=== PATIENT | male | born 1945 | race Caucasian/White ===

== ENCOUNTER → 2024-04-02 | Outpatient (CLI) | payer OTHER, SELFPAY ==
[2024-04-02 09:27] LABS: Glucose Estimated Average 117 mg/dL (80-131); Hemoglobin A1C 5.7 % Hgb (4.8-6.0)
[2024-04-02 09:33] LABS: Creatinine MALB Rnd Ur 51 mg/dL (30-125); Microalbumin, Random Urine < 3 mg/L (0-300)
[2024-04-02 09:38] LABS: Alanine Aminotransferase 19 U/L (10-49); Albumin, Serum 4.3 gm/dL (3.4-4.8); Albumin/Globulin Ratio 1.8 (1.2-2.2); Alkaline Phosphatase 81 U/L (46-116); Anion Gap 5 (7-16); Aspartate Amino Transferase 20 U/L (0-34); BUN/Creatinine Ratio 20 Ratio (12-20); Bilirubin,Total 0.6 mg/dL (0.3-1.2); Blood Urea Nitrogen 24 mg/dL (9-23); Calcium 9.2 mg/dL (8.3-10.6); Calcium (Corrected) 9.2 mg/dL (8.5-10.1); Carbon Dioxide 31.3 mMol/L (20.0-31.0); Cardiac Risk Estimate 3.8 RATIO (4.0-6.7); Chloride 100 mMol/L (98-107); Cholesterol 156 mg/dL (132-200); Creatinine (Component) 1.2 mg/dL (0.6-1.3); Globulin 2.4 gm/dL (2.3-3.5); Glucose 113 mg/dL (74-106); HDL Cholesterol 41 mg/dL (40-60); LDL Cholesterol,Calculated 81 mg/dL (0-130); Osmolality,Calculated 276 (275-295); Potassium 3.3 mMol/L (3.4-5.1); Sodium 136 mMol/L (136-145); Total Protein 6.7 gm/dL (5.7-8.2); Triglycerides 169 mg/dL (30-150); eGFR > 60 See Note
== END | disposition home or self-care (01) ==
LOC: COPL 08:33
PROVIDERS: PCP Family Medicine; Referring Provider Family Medicine; Visit Provider Family Medicine
DX: E11.65 Type 2 diabetes mellitus with hyperglycemia (principal); E78.1 Pure hyperglyceridemia
CPT/HCPCS: 36415; 80053; 80061; 82043; 82570; 83036

== ENCOUNTER → 2024-05-20 | Outpatient (CLI) | payer OTHER, SELFPAY | END | disposition home or self-care (01) | LOC: SLDO 15:35 | PROVIDERS: PCP Family Medicine; Referring Provider Family Medicine; Visit Provider Family Medicine | DX: N39.0 Urinary tract infection, site not specified (principal) | CPT/HCPCS: 81001; 87077; 87086; 87186 ==

== ENCOUNTER → 2024-11-05 | Outpatient (CLI) | payer OTHER, SELFPAY ==
[2024-11-05 09:58] LABS: Basophils % (Auto) 1 % (0-2.5); Eosinophils # (Auto) 0.2 Thou/mm3 (0.0-0.5); Eosinophils % (Auto) 4 % (0-10); Hematocrit 38.5 % (41.0-53.0); Hemoglobin 13.3 g/dL (13.5-16.0); Immature Granulocytes % (Auto) 0 % (0-0); Immature Granulocytes Auto 0.01 Thou/mm3 (0.00-0.00); Lymphocytes # (Auto) 1.5 Thou/mm3 (1.0-4.8); Lymphocytes % (Auto) 26 % (10-50); Mean Corpuscular HGB Conc 34.5 g/dl (31.0-37.0); Mean Corpuscular Hemoglobin 30.9 pg (25.0-35.0); Mean Corpuscular Volume 90 fL (80-100); Monocytes # (Auto) 0.7 Thou/mm3 (0.0-0.8); Monocytes % (Auto) 12 % (0-12); Neutrophils # (Auto) 3.3 Thou/mm3 (1.8-7.7); Neutrophils % (Auto) 58 % (37-80); Nucleated Red Blood Cell % 0 /100 WBC (0); Platelet Count 216 Thou/mm3 (140-440); RDW Standard Deviation 45.6 fL (35.1-43.9); White Blood Count 5.7 Thou/mm3 (3.8-10.6)
[2024-11-05 13:44] LABS: Cocci Serology, IgM Negative (Negative)
[2024-11-06 15:35] LABS: Cocci Serology, IgG Negative (Negative)
== END | disposition home or self-care (01) ==
LOC: COPL 08:47
PROVIDERS: PCP Family Medicine; Referring Provider Family Medicine; Visit Provider Family Medicine
DX: B38.0 Acute pulmonary coccidioidomycosis (principal)
CPT/HCPCS: 36415; 85025; 86331; 86635

== ENCOUNTER → 2025-02-17 | Outpatient (CLI) | payer OTHER, SELFPAY ==
--- NOTE | 2025-02-17 10:06 | XR_ITS ---
Examination: Abdomen AP single view Technique: AP portable supine abdomen, single view Exam date and time: February 17 2025, 1020 hours INDICATIONS: Nausea beginning one week ago. FINDINGS: Large amounts of stool throughout the colon No obstruction No free air Prominent lumbar spondylosis Moderate bilateral hip osteoarthritis Foreign body overlying the left pelvis, clinical correlation advised IMPRESSION: Large amounts of stool throughout the colon
== END | disposition home or self-care (01) ==
LOC: CDIM 09:30
PROVIDERS: PCP Family Medicine; Referring Provider Family Medicine; Visit Provider Family Medicine
DX: K59.00 Constipation, unspecified (principal)
CPT/HCPCS: 74018

== ENCOUNTER → 2025-03-03 | Outpatient (CLI) | payer OTHER, SELFPAY | END | disposition home or self-care (01) | LOC: SLDO 15:04 | PROVIDERS: PCP Family Medicine; Referring Provider Family Medicine; Visit Provider Family Medicine | DX: N39.0 Urinary tract infection, site not specified (principal) | CPT/HCPCS: 87077; 87086; 87186 ==

== ENCOUNTER 2025-03-05 04:46 | Inpatient (IN) | payer OTHER, SELFPAY ==
[2025-03-05] VITALS (12 sets, daily range): BP systolic 90–148; BP diastolic 53–104; PULSE 72–136; RESP 18–26; TEMP 36.1–39.3; O2SAT 94–100; BMI 43.4; BMI 43.6
--- NOTE | 2025-03-05 04:54 | PD.EDFEVER ---
ED Fever RME/HPI General Chief Complaint: Altered Mental Status Stated Complaint: AMS Time Seen by Provider: 03/05/25 04:54 Arrival date/time: 03/05/25 04:46 RME / HPI RME / HPI Narrative: See [facility] for Dr. Munguia's HPI Documentation. Related Data Home Medications ?Medication ?Instructions ?Recorded ?Confirmed apixaban 2.5 mg tablet (Eliquis) 2.5 mg PO BID 12/25/19 12/27/19 aspirin 81 mg chewable tablet 81 mg PO QDAY 12/25/19 12/27/19 baclofen 20 mg tablet 20 mg PO TID PRN Spasms 12/25/19 12/27/19 chlorthalidone 50 mg tablet 50 mg PO QDAY 12/25/19 12/27/19 cyanocobalamin (vitamin B-12) 500 500 mcg PO QDAY 12/25/19 12/27/19 mcg tablet (Vitamin B-12) fexofenadine-pseudoephedrine ER 1 tab PO QAM 12/25/19 12/27/19 180 mg-240 mg tablet,ext.release 24 hr finasteride 5 mg tablet 5 mg PO QDAY 12/25/19 12/27/19 glipizide 5 mg tablet 5 mg PO QDAY 12/25/19 12/27/19 levothyroxine 200 mcg tablet 200 mcg PO QDAY 12/25/19 12/27/19 multivitamin (Multiple Vitamins 1 tab PO QDAY 12/25/19 12/27/19 tablet) oxycodone-acetaminophen 10 mg-325 1 tab PO TID PRN Pain 12/25/19 12/27/19 mg tablet phenazopyridine 200 mg tablet 200 mg PO BID 12/25/19 12/27/19 potassium chloride 10 mEq 10 meq PO BID 12/25/19 12/27/19 tablet,extended release pravastatin 40 mg tablet 40 mg PO DAILY 12/25/19 12/27/19 pregabalin 150 mg capsule 150 mg PO BID 12/25/19 12/27/19 pyridoxine (vitamin B6) 100 mg 100 mg PO DAILY 12/25/19 12/27/19 tablet Lactobacillus acidophilus 10 10 cell PO BID 12/27/19 12/27/19 billion cell capsule (Probiotic) albuterol sulfate 90 mcg/actuation 2 puff inhalation Q4H PRN sob 12/27/19 12/27/19 aerosol inhaler fluticasone propionate 50 2 spray intranasal QAM 12/27/19 12/27/19 mcg/actuation nasal spray,suspension folic acid 1 mg tablet 1 mg PO 5 TIMES DAILY 12/27/19 12/27/19 ginkgo biloba 120 mg tablet 120 mg PO QAM 12/27/19 12/27/19 multivitamin with minerals 1 tab PO BID 12/27/19 12/27/19 (Hair,Skin and Nails tablet) vit C 250 mg-vit E 90 mg-zinc 40 1 cap PO BID 12/27/19 12/27/19 mg-copper 1 [id number] capsule (PreserVision AREDS-2) Previous Rx's ?Medication ?Instructions ?Recorded amiodarone 200 mg tablet 200 mg PO BID #60 tabs 12/27/19 cefuroxime axetil 500 mg tablet 500 mg PO BID #20 tabs 12/27/19 furosemide 20 mg tablet (Lasix) 20 mg PO QAM #30 tabs 12/27/19 lisinopril 2.5 mg tablet 2.5 mg PO QDAY #30 tabs 12/27/19 Allergies Allergy/AdvReac Type Severity Reaction Status Date / Time latex Allergy Unknown blisters Verified 12/24/19 17:02 Review of Systems Review of Systems Systems Reviewed: All systems reviewed, normal except as documented Past Medical History Past Medical History CARDIAC: Positive Cardiac Disorders, Hypercholesterolemia and Edema RESPIRATORY: Positive Asthma and Sleep Apnea GASTROINTESTINAL: Positive Obesity GENITOURINARY: Positive Genitourinary Disorders ENDOCRINE: Positive Diabetes Mellitus Type 2 and Hypothyroidism OTHER HISTORY: Positive Hospitalization, Falls, Chicken Pox and Measles Family History FAMILY HISTORY: Positive Family Cardiac Disorders and Family Cancer Surgical History SURGICAL: Positive Joint Replacement and Open Reduction Internal Fixation Social History SMOKING STATUS: Former smoker Physical Exam Narrative Physical exam: See MDM for Dr. Munguia's Physical Exam Documentation. ED Exam Narrative Physical exam: See MDM for Dr. Munguia's Physical Exam Documentation. Course Quality Measures none Orders Category Date Time Status Bedside COVID-19 Antigen Test NOW Care 03/05/25 04:56 Active EKG (ED ONLY) *Do not use* NOW Care 03/05/25 05:00 Active Saline [Insert IV] NOW Care 03/05/25 04:56 Active Straight [In and Out Catheter] X1 Care 03/05/25 04:[address] chest abdomen pelvis wo Stat Exams 03/05/25 04:[address] head/brain wo con Stat Exams 03/05/25 05:00 Ordered EKG (ED Only) Stat Exams 03/05/25 05:00 Ordered XR chest 1V portable Stat Exams 03/05/25 05:00 Ordered ABG [Arterial Blood Gas] Stat Lab 03/05/25 05:00 Ordered Ammonia Stat Lab 03/05/25 05:00 Ordered BNP [B-Type Natriuretic Peptide] Stat Lab 03/05/25 05:00 Ordered Bilirubin,Direct Stat Lab 03/05/25 05:00 Ordered Blood Culture (Lab) Stat Lab 03/05/25 05:01 Ordered CBC Stat Lab 03/05/25 05:01 Ordered CMP [Comprehensive Metabolic Panel] Stat Lab 03/05/25 05:00 Ordered CRP [C-Reactive Protein] Stat Lab 03/05/25 05:00 Ordered Influenza A & B Rapid Panel Stat Lab 03/05/25 04:56 Ordered Lactate (Lactic Acid) Stat Lab 03/05/25 05:01 Ordered Lipase Stat Lab 03/05/25 05:00 Ordered Magnesium Stat Lab 03/05/25 05:00 Ordered Procalcitonin Stat Lab 03/05/25 05:01 Ordered TSH [Thyroid Stimulating Hormone] Stat Lab 03/05/25 05:00 Ordered Troponin I Stat Lab 03/05/25 05:00 Ordered UA, C/S IF [Urinalysis, C/S if Indicated] Stat Lab 03/05/25 05:01 Ordered Acetaminophen Ivpb [Ofirmev Inj] Med 03/05/25 04:56 Active 1,000 mg in 100 ml IV X1 Ketorolac Inj [Toradol Inj] Med 03/05/25 04:56 Discontinued 9 mg IVP X1 ONE Morphine* Inj Med 03/05/25 04:56 Discontinued 4 mg IV X1 ONE Ondansetron Inj [Zofran Inj] Med 03/05/25 04:56 Discontinued 4 mg IVP X1 ONE Sodium Chloride 0.9% 1000 ml [Ns] 1,000 ml Med 03/05/25 04:56 Active IV 999 mls/hr cefTRIAXone/D5w 1gm IV premix [Rocephin/D5w 1gm IV Med 03/05/25 04:56 Active premix] 1 g in 50 ml IV X1 Vital Signs Vital signs: Vital Signs Temperature 102.7 F H 03/05/25 04:58 Pulse Rate 134 H 03/05/25 04:58 Respiratory Rate 26 H 03/05/25 04:58 Blood Pressure 148/104 H 03/05/25 04:58 Pulse Oximetry (%) 96 03/05/25 04:58 Oxygen Delivery Method Nasal Cannula 03/05/25 04:58 Oxygen Flow Rate 3 03/05/25 04:58 Fever MDM Narrative MDM Narrative:: This section includes all my notes and documentations, including HPI, PE, and ED course. Ilan Munguia MD HPI: 79 y/o male with Hx of Type II DM and Hypercholesterolemia BIBA from home with fever and confusion for several hours. Currently being treated for UTI. He feels the fever and reports chills and aches and severe low back pain. No cough. No other complaints. ROS: All negative except as documented in HPI. Physical Exam: General: Alert and oriented. In obvious pain. Hypoxia noted. Fever noted. Eyes: Conjunctivae and lids clear. EOMI. PERRL. ENT: No nasal congestion. Pharynx normal. Tympanic membrane normal bilaterally. Neck: Supple. No carotid bruit. No JVD. Heart: Sinus tachycardia noted. Lungs: No respiratory distress. Mildly decreased air movement with rales. Abdomen: Soft and nontender. Normal bowel sounds. No distension. No rebound or guarding. Back: Low back tenderness noted, difficult to localize. Legs: No clubbing, cyanosis, edema. Skin: Warm and dry. Stage I and II decubitus sacral ulcer noted with plum sized mass. Neuro: Alert and oriented X 3. Cranial Nerves II-XII grossly intact. No peripheral motor deficits. I reviewed EMS notes. At this point, diagnoses include: Fever Low back pain Sacral decubitus ulcer Sacral mass AMS (altered mental status) I ordered IV fluid, Zofran 4 mg IV, morphine 4 mg IV, Toradol 9 mg IV, Tylenol 1000 mg IV, Rocephin 1 g IV, and diagnostic tests. At 6 AM on 03/05/2025, the care of the patient was transferred to Dr. DILLARD. Ilan Munguia MD Patient data External records reviewed:: [facility] previous records (Reviewed prior ED records from 12/21/23. Patient was seen for Knee pain.) and EMS form Clinical information provided by:: patient and EMS Social determinants that could affect healthcare access:: none Patient has the following chronic illnesses:: Hypercholesterolemia, Edema, Asthma, Sleep Apnea, Obesity, Diabetes Mellitus Type 2, and Hypothyroidism How is presenting disease/condition affected by chronic disease/condition?: exacerbated by Evaluation data The following diagnostics were reviewed and interpreted by me:: lab results, radiology exam(s) and EKG tracing(s) Lab and/or radiology exams considered but not ordered:: None Interpretation Summary: Complete diagnostic tests are pending. Medications / Prescriptions Medications or Prescriptions considered but not ordered:: None Medication administrations:: Medication Administration History Acetaminophen (Ofirmev Inj) 1,000 mg in 100 mls @ 250 mls/hr IV X1 ONE Stop: 03/05/25 05:19 Ceftriaxone Sodium/Dextrose (Rocephin/D5w 1gm Iv Premix) 1 g in 50 mls @ 100 mls/hr IV X1 ONE Stop: 03/05/25 05:25 Sodium Chloride (Ns) 1,000 mls @ 999 mls/hr IV .Q1H1M ONE Stop: 03/05/25 05:56 Discontinued Medications Ketorolac Tromethamine (Ketorolac Inj 30 Mg/Ml Vial) 9 mg IVP X1 ONE Stop: 03/05/25 04:57 Morphine Sulfate (Morphine Sulf Inj 4 Mg/Ml Vial) 4 mg IV X1 ONE Stop: 03/05/25 04:57 Ondansetron HCl (Ondansetron Inj 2 Mg/Ml Inj 2 Ml) 4 mg IVP X1 ONE; Protocol Stop: 03/05/25 04:57 I ordered IV fluid, Zofran 4 mg IV, morphine 4 mg IV, Toradol 9 mg IV, Tylenol 1000 mg IV, and Rocephin 1 g IV. Consultations Consultation(s) initiated? (list below): No Diagnosis Fever Differential Diagnosis: cellulitis, fever of unknown origin, gastroenteritis, community acquired pneumonia, pyelonephritis, viral infection, sepsis and influenza Most likely diagnosis given after review of the tests above:: Complete diagnostic tests are pending. Admission Indicated Admission indicated?: not indicated Explain why admission is indicated or not indicated:: Complete diagnostic tests are pending. Admission Request Was there a request for admission?: No Disposition Plan Disposition Plan: other (specify) ( At 6 AM on 03/05/2025, the care of the patient was transferred to Dr. DILLARD.) Discharge Plan Prescriptions/Referrals Prescriptions/Med Rec: No Action chlorthalidone 50 mg Tablet 50 mg PO QDAY baclofen 20 mg Tablet 20 mg PO TID PRN (Reason: Spasms) aspirin 81 mg Tablet,Chewable 81 mg PO QDAY finasteride 5 mg Tablet 5 mg PO QDAY Eliquis 2.5 mg Tablet 2.5 mg PO BID multivitamin [Multiple Vitamins] Tablet 1 tab PO QDAY pravastatin 40 mg Tablet 40 mg PO DAILY phenazopyridine 200 mg Tablet 200 mg PO BID potassium chloride 10 mEq Tablet Extended Release 10 meq PO BID oxycodone-acetaminophen 10-325 mg Tablet 1 tab PO TID PRN (Reason: Pain) levothyroxine 200 mcg Tablet 200 mcg PO QDAY glipizide 5 mg Tablet 5 mg PO QDAY pregabalin 150 mg Capsule 150 mg PO BID cyanocobalamin (vitamin B-12) [Vitamin B-12] 500 mcg Tablet 500 mcg PO QDAY pyridoxine (vitamin B6) 100 mg Tablet 100 mg PO DAILY fexofenadine-pseudoephedrine 180-240 mg Tablet Extended Release 24 Hr 1 tab PO QAM multivitamin with minerals [Hair,Skin and Nails] Tablet 1 tab PO BID albuterol sulfate 90 mcg/actuation Hfa Aerosol Inhaler 2 puff INHALATION Q4H PRN (Reason: sob) fluticasone propionate 50 mcg/actuation spray,suspension 2 spray INTRANASAL QAM ginkgo biloba 120 mg Tablet 120 mg PO QAM Probiotic 10 billion cell Capsule 10 cell PO BID PreserVision AREDS-2 [id number] [id number]-mg Capsule 1 cap PO BID folic acid 1 mg tablet 1 mg PO 5 TIMES DAILY Patient Comments: TAKE 1 TABLET BY MOUTH FIVE TIMES A DAY Rx Instructions: per [facility] amiodarone 200 mg tablet 200 mg PO BID Qty: 60 0RF cefuroxime axetil 500 mg tablet 500 mg PO BID Qty: 20 0RF furosemide [Lasix] 20 mg tablet 20 mg PO QAM Qty: 30 0RF lisinopril 2.5 mg tablet 2.5 mg PO QDAY Qty: 30 0RF Problem List Clinical Impression: Fever, Low back pain, Sacral decubitus ulcer, Sacral mass, AMS (altered mental status) Patient/Caregiver Discharge Instructions Print Language: Slovenian
--- NOTE | 2025-03-05 04:59 | XR_ITS ---
Examination: CT chest, without intravenous contrast. CT abdomen, without intravenous contrast. CT pelvis, without intravenous contrast. 2-D sagittal and coronal reconstructions. 3-D reconstructions. Date and time of exam: March 05, 2025, 0533 hours INDICATIONS: Onset hypoxia shortness of breath fever back pain sacral ulcer nonhealing wound noticed today CTDI vol (mgy) 17.41 DLP (MGycm) 1527 Technique: Multiple CT images, 3.0 mm slice thickness, obtained chest, abdomen, pelvis, with the high-resolution 64 slice scanner.. Sagittal and coronal 2-D reconstructions are obtained. 3-D reconstructions Low dose protocols were performed. One or more of the following dose reduction techniques were used; automated exposure control, adjustment of the mA and/or KV according to patient size, use of iterative reconstruction technique. Findings: Mild aneurysmal dilatation ascending thoracic aorta 4.3 cm Pulmonary artery segments are not enlarged. Heavy calcification left anterior descending coronary artery. No mediastinal lymphadenopathy. No pneumonia pulmonary edema or pleural disease No visualized liver or splenic lesion No definite gallstones No pancreatic or adrenal mass No renal calculi Left perinephric stranding with mild left hydronephrosis Aortic calcification no aneurysmal dilatation Normal appendix No bowel obstruction No diverticulitis Urinary bladder intact No ureteral calculi Abundant stool in the rectum Severe osteopenia with diffuse thoracic and lumbar degenerative disc disease IMPRESSION: Mild aneurysmal dilatation ascending thoracic aorta No pneumonia or pulmonary edema. Left perinephric stranding, consider urinary tract infection
--- NOTE | 2025-03-05 05:00 | XR_ITS ---
Examination: CT brain head without contrast. 2-D sagittal coronal reconstructions Date and time of exam: March 05, 2025, 0529 hours INDICATIONS: Onset altered mental status today CTDI: vol (mGy): 102.60 DLP: (mGycm): 2177 Technique: Multiple CT axial sections of the brain have been obtained, 5 mm slice thickness. Contrast has not been administered. 2-D sagittal, coronal reconstructions have been obtained Low dose protocols were performed. One or more of the following dose reduction techniques were used; automated exposure control, adjustment of the mA and/or KV according to patient size, use of iterative reconstruction technique. Findings: No significant ventricular enlargement. Intra-axial or extra-axial hemorrhage density is not seen. No mass effect or midline shift Basal cisterns are not remarkable. Fourth ventricle is midline. Cranial vault intact. Impression: Patient motion degrades scan image quality No gross hemorrhage mass effect or midline shift
--- NOTE | 2025-03-05 05:00 | XR_ITS ---
EXAMINATION: AP chest single view TECHNIQUE: AP portable semiupright chest single view Date and time: March 05, 2025, 0539 hours, comparison: December 24, 2019 INDICATIONS: Shortness of breath chest pain fever today FINDINGS: Suspicious for early pneumonia left base Right lung clear The osseous structures are intact IMPRESSION: Suspicious for early pneumonia left base
--- NOTE | 2025-03-05 05:00 | EKG_ITS ---
[facility] Test Date: 2025-03-05 Pat Name: SONIA LOONEY Department: Room: - Gender: Male [employer]er: : 1945 Requested By: Ilan Amador Order Number: [id number] Reading MD: Ilan Amador Measurements Intervals [place] Rate: 128 P: SD: QRS: -81 QRSD: 151 T: 14 QT: 352 QTc: 515 Interpretive Statements ATRIAL FLUTTER/TACHYCARDIA WITH RAPID VENTRICULAR RESPONSE RIGHT BUNDLE BRANCH BLOCK [120+ ms QRS DURATION, UPRIGHT V1, 40+ ms S IN I/aVL/V4/V5/V6] LEFT ANTERIOR FASCICULAR BLOCK [QRS AXIS <= -45, QR IN I, RS IN II] No previous ECG available for comparison /store/S0/[id number].pdf
[2025-03-05] MEDS: ONDANSETRON INJ 2 MG/ML INJ 2 ML 4 MG IVP (05:16)
[2025-03-05] MEDS: MORPHINE SULF INJ 4 MG/ML VIAL IV (05:17)
[2025-03-05] MEDS: KETOROLAC INJ 30 MG/ML VIAL 9 MG IVP (05:17)
[2025-03-05 05:22] LABS: Collection Type, Urine Clean Catch
[2025-03-05 05:40] LABS: Bilirubin,Urine Negative (Negative); Blood,Urine Negative (Negative); Clarity,Urine Turbid (Clear/Hazy); Color,Urine Yellow (Lt Yel-Yel); Culture Indicated,Urine Contaminated; Glucose, Urine Negative (Negative); Ketones,Urine Negative (Negative); Leukocyte Esterase,Urine Positive (Negative); Nitrite,Urine Negative (Negative); PH,Urine 7.0 (5.0-7.0); Protein,Urine Trace (Neg - Trace); RBC,Urine 20 /hpf (0-3); Specific Gravity,Urine 1.016 (1.001-1.035); Squamous Epithelial Cell,Urine 14 /hpf (0-5); Urobilinogen,Urine Negative mg/dL (0.0-1.0); WBC,Urine 184 /hpf (0-5)
[2025-03-05 05:41] LABS: Lactate (Lactic Acid) 3.0 mMol/L (0.4-2.0)
[2025-03-05] MEDS: SODIUM CHLORIDE 0.9% 1000 ML 1,000 ML 999 ML IV (05:42)
[2025-03-05 05:43] LABS: Basophils # (Auto) 0.1 Thou/mm3 (0.0-0.2); Basophils % (Auto) 0 % (0-2.5); Eosinophils # (Auto) 0.1 Thou/mm3 (0.0-0.5); Eosinophils % (Auto) 0 % (0-10); Hematocrit 40.9 % (41.0-53.0); Hemoglobin 14.0 g/dL (13.5-16.0); Immature Granulocytes Auto 0.23 Thou/mm3 (0.00-0.00); Lymphocytes # (Auto) 0.2 Thou/mm3 (1.0-4.8); Lymphocytes % (Auto) 1 % (10-50); Mean Corpuscular HGB Conc 34.2 g/dl (31.0-37.0); Mean Corpuscular Hemoglobin 31.1 pg (25.0-35.0); Mean Corpuscular Volume 91 fL (80-100); Monocytes # (Auto) 0.6 Thou/mm3 (0.0-0.8); Monocytes % (Auto) 3 % (0-12); Neutrophils # (Auto) 18.2 Thou/mm3 (1.8-7.7); Neutrophils % (Auto) 95 % (37-80); Nucleated Red Blood Cell # 0.00 Thou/mm3 (0.00-0.00); Nucleated Red Blood Cell % 0 /100 WBC (0); Platelet Count 240 Thou/mm3 (140-440); RDW Standard Deviation 43.8 fL (35.1-43.9); Red Blood Count 4.50 Miln/mm3 (4.50-5.90); White Blood Count 19.3 Thou/mm3 (3.8-10.6)
[2025-03-05] MEDS: cefTRIAXone/D5w 1gm IV premix 1 G/50 ML BAG IV (05:44)
[2025-03-05] MEDS: ACETAMINOPHEN IVPB 1,000 MG/100 ML VIAL 250 MG IV (05:46)
--- NOTE | 2025-03-05 05:46 | PRELIM_ITS ---
CT scan of the head without intravenous contrast (axial sections with sagittal and coronal reformats). March 05, 2025 0529 hours Clinical History: AMS Comparison: None Findings: Motion artifact limits evaluation, especially of the posterior fossa. There is no definite intracranial hemorrhage, extra-axial collection, mass, mass-effect or midline shift. There is good juarez-white differentiation. There is no CT evidence of acute large vascular territorial infarct. Ventricles are not enlarged or effaced. There are vascular calcifications along the carotid siphons bilaterally. Visualized paranasal sinuses and tympanomastoid cavities are clear. The bony calvarium is intact. Impression: Motion artifact limits evaluation. No definite intracranial hemorrhage, mass- effect or midline shift. No CT evidence of acute large vascular territorial infarct. Report Electronically Signed By: Kevin Aguirre 03/05/2025 5:46:30 AM [EST]
[2025-03-05 06:05] LABS: Ammonia 25 uMol/L (11-32)
[2025-03-05 06:15] LABS: Alanine Aminotransferase 21 U/L (10-49); Albumin, Serum 4.1 gm/dL (3.4-4.8); Albumin/Globulin Ratio 1.7 (1.2-2.2); Alkaline Phosphatase 66 U/L (46-116); Anion Gap 12 (7-16); Aspartate Amino Transferase 24 U/L (0-34); B-Type Natriuretic Peptide 155 pg/mL (0-100); BUN/Creatinine Ratio 16 Ratio (12-20); Bilirubin,Direct 0.3 mg/dL (0.0-0.3); Bilirubin,Total 0.7 mg/dL (0.3-1.2); Blood Urea Nitrogen 22 mg/dL (9-23); C-Reactive Protein 5.4 mg/dL (0.0-0.9); Calcium 8.8 mg/dL (8.3-10.6); Calcium (Corrected) 8.8 mg/dL (8.5-10.1); Carbon Dioxide 28.9 mMol/L (20.0-31.0); Chloride 97 mMol/L (98-107); Creatinine (Component) 1.4 mg/dL (0.6-1.3); Estimated Creatinine Clearance 64.3 mL/min (>60); Globulin 2.4 gm/dL (2.3-3.5); Glucose 181 mg/dL (74-106); Lipase 100 U/L (12-53); Magnesium 2.2 mg/dL (1.6-2.6); Osmolality,Calculated 283 (275-295); Potassium 4.0 mMol/L (3.4-5.1); Procalcitonin 0.78 ng/ml (0.0-0.49); Sodium 138 mMol/L (136-145); Thyroid Stimulating Hormone 0.51 uIU/mL (0.55-4.78); Total Protein 6.5 gm/dL (5.7-8.2); Troponin I < 0.020 ng/mL (0.0-0.045); eGFR 51 See Note
[2025-03-05 06:16] LABS: Base Excess 1 (-3-3); HCO3 27 mEq/L (20-26); O2 Saturation 96 % (91-98); PCO2 48 mmHg (32.0-48.0); PO2 78 mmHg (83-108); pH, Arterial 7.36 (7.35-7.45)
[2025-03-05 06:17] LABS: Allen Test Performed/OK; Inspired O2, VO2 Liters 1 L/min; Puncture Site Left Brachial
--- NOTE | 2025-03-05 06:19 | PD.EDAMS ---
Altered Mental Status RME/HPI General Chief Complaint: Altered Mental Status Stated Complaint: AMS Time Seen by Provider: 03/05/25 04:54 Arrival date/time: 03/05/25 04:46 RME / HPI RME / HPI narrative: DR. SCHNEIDER MAIN ED EVALUATION: 79 yo male patient TRE from home for AMS. Majority of history provided by . states he normally sleeps in an easy chair in the living room. She heard him overnight breathing differently. She checked on him and offered to call EMS but he refused. Around 3am she called EMS. He refused transport. Called again later and patient transported. Per , patient self catheterizes three times a day for urine due to retention. On Friday he noticed the urine was cloudy and went to his PCP for a UA. Resulted yesterday and started on antibiotic. Has only received one dose. History of UTI with sepsis. Patient c/o chronic back and leg pain. Related Data Home Medications ?Medication ?Instructions ?Recorded ?Confirmed apixaban 2.5 mg tablet (Eliquis) 2.5 mg PO BID 12/25/19 12/27/19 aspirin 81 mg chewable tablet 81 mg PO QDAY 12/25/19 12/27/19 baclofen 20 mg tablet 20 mg PO TID PRN Spasms 12/25/19 12/27/19 chlorthalidone 50 mg tablet 50 mg PO QDAY 12/25/19 12/27/19 cyanocobalamin (vitamin B-12) 500 500 mcg PO QDAY 12/25/19 12/27/19 mcg tablet (Vitamin B-12) fexofenadine-pseudoephedrine ER 1 tab PO QAM 12/25/19 12/27/19 180 mg-240 mg tablet,ext.release 24 hr finasteride 5 mg tablet 5 mg PO QDAY 12/25/19 12/27/19 glipizide 5 mg tablet 5 mg PO QDAY 12/25/19 12/27/19 levothyroxine 200 mcg tablet 200 mcg PO QDAY 12/25/19 12/27/19 multivitamin (Multiple Vitamins 1 tab PO QDAY 12/25/19 12/27/19 tablet) oxycodone-acetaminophen 10 mg-325 1 tab PO TID PRN Pain 12/25/19 12/27/19 mg tablet phenazopyridine 200 mg tablet 200 mg PO BID 12/25/19 12/27/19 potassium chloride 10 mEq 10 meq PO BID 12/25/19 12/27/19 tablet,extended release pravastatin 40 mg tablet 40 mg PO DAILY 12/25/19 12/27/19 pregabalin 150 mg capsule 150 mg PO BID 12/25/19 12/27/19 pyridoxine (vitamin B6) 100 mg 100 mg PO DAILY 12/25/19 12/27/19 tablet Lactobacillus acidophilus 10 10 cell PO BID 12/27/19 12/27/19 billion cell capsule (Probiotic) albuterol sulfate 90 mcg/actuation 2 puff inhalation Q4H PRN sob 12/27/19 12/27/19 aerosol inhaler fluticasone propionate 50 2 spray intranasal QAM 12/27/19 12/27/19 mcg/actuation nasal spray,suspension folic acid 1 mg tablet 1 mg PO 5 TIMES DAILY 12/27/19 12/27/19 ginkgo biloba 120 mg tablet 120 mg PO QAM 12/27/19 12/27/19 multivitamin with minerals 1 tab PO BID 12/27/19 12/27/19 (Hair,Skin and Nails tablet) vit C 250 mg-vit E 90 mg-zinc 40 1 cap PO BID 12/27/19 12/27/19 mg-copper 1 [id number]-[id number]-[id number] capsule (PreserVision AREDS-2) Previous Rx's ?Medication ?Instructions ?Recorded amiodarone 200 mg tablet 200 mg PO BID #60 tabs 12/27/19 cefuroxime axetil 500 mg tablet 500 mg PO BID #20 tabs 12/27/19 furosemide 20 mg tablet (Lasix) 20 mg PO QAM #30 tabs 12/27/19 lisinopril 2.5 mg tablet 2.5 mg PO QDAY #30 tabs 12/27/19 Allergies Allergy/AdvReac Type Severity Reaction Status Date / Time latex Allergy Unknown blisters Verified 12/24/19 17:02 Review of Systems Review of Systems ROS Unobtainable: unobtainable due to mental status Past Medical History Past Medical History CARDIAC: Positive Cardiac Disorders, Hypercholesterolemia and Edema RESPIRATORY: Positive Asthma and Sleep Apnea GASTROINTESTINAL: Positive Obesity GENITOURINARY: Positive Genitourinary Disorders ENT: Positive Macular Degeneration ENDOCRINE: Positive Diabetes Mellitus Type 2 and Hypothyroidism OTHER HISTORY: Positive Hospitalization, Falls, Chicken Pox and Measles Family History FAMILY HISTORY: Positive Family Cardiac Disorders and Family Cancer Surgical History SURGICAL: Positive Joint Replacement and Open Reduction Internal Fixation Social History SMOKING STATUS: Former smoker SECOND HAND EXPOSURE: No SUBSTANCE USE: does not use ALCOHOL: Never ED Exam Narrative Physical exam: GENERAL APPEARANCE: alert and oriented, well-developed, well-nourished, responding well but slow to respond; obese VITALS: All vitals were reviewed and the pulse ox is 95% on 3 L/min via a nasal cannula. HEENT: Normocephalic, atraumatic; pupils equal, round, reactive to light; EOMI; mucous membranes pink, moist; oropharynx clear NECK: Supple LUNGS: CTABL; no wheezes, no rales, no rhonchi HEART: Regular rate, regular rhythm; normal S1, S2; no murmurs ABDOMEN: non distended; normal BS; soft, no tenderness, no guarding, no rebound; no masses, no organomegaly, no hernia BACK: no CVA tenderness EXTREMITIES: atraumatic; + bilateral leg edema NEUROLOGIC: awake; alert and oriented; cranial nerves II-XII grossly intact; no focal sensory or motor deficits; responding well but slow to respond PSYCHIATRIC: appropriate mood and affect SKIN: warm, dry, normal color; no rashes Course Quality Measures none Orders Category Date Time Status Bedside COVID-19 Antigen Test NOW Care 03/05/25 04:56 Active EKG (ED ONLY) *Do not use* NOW Care 03/05/25 05:00 Completed [place] [facility] [place] Routine Care 03/05/25 07:59 Ordered Saline [Insert IV] NOW Care 03/05/25 04:56 Active Straight [In and Out Catheter] X1 Care 03/05/25 04:[address] chest abdomen pelvis wo Stat Exams 03/05/25 04:[address] head/brain wo con Stat Exams 03/05/25 05:00 Completed EKG (ED Only) Stat Exams 03/05/25 05:00 Draft XR chest 1V portable Stat Exams 03/05/25 05:00 Completed ABG [Arterial Blood Gas] Stat Lab 03/05/25 06:12 Completed Ammonia Stat Lab 03/05/25 05:12 Completed BNP [B-Type Natriuretic Peptide] Stat Lab 03/05/25 05:12 Completed Bilirubin,Direct Stat Lab 03/05/25 05:12 Completed Blood Culture (Lab) Stat Lab 03/05/25 05:12 Received CBC Stat Lab 03/05/25 05:12 Completed CMP [Comprehensive Metabolic Panel] Stat Lab 03/05/25 05:12 Completed CRP [C-Reactive Protein] Stat Lab 03/05/25 05:12 Completed Free T4 (Free Thyroxine) Stat Lab 03/05/25 05:12 Completed Influenza A & B Rapid Panel Stat Lab 03/05/25 05:20 Completed Lactate (Lactic Acid) Stat Lab 03/05/25 05:12 Completed Lactic Acid, 3 HR Stat Lab 03/05/25 09:09 Completed Lipase Stat Lab 03/05/25 05:12 Completed Magnesium Stat Lab 03/05/25 05:12 Completed Procalcitonin Stat Lab 03/05/25 05:12 Completed TSH [Thyroid Stimulating Hormone] Stat Lab 03/05/25 05:12 Completed Troponin I Stat Lab 03/05/25 05:12 Completed UA, C/S IF [Urinalysis, C/S if Indicated] Stat Lab 03/05/25 05:12 Completed Urine Culture Stat Lab 03/05/25 05:12 Received Acetaminophen Ivpb [Ofirmev Inj] Med 03/05/25 04:56 Discontinued 1,000 mg in 100 ml IV X1 Ketorolac Inj [Toradol Inj] Med 03/05/25 04:56 Discontinued 9 mg IVP X1 ONE Morphine* Inj Med 03/05/25 04:56 Discontinued 4 mg IV X1 ONE Ondansetron Inj [Zofran Inj] Med 03/05/25 04:56 Discontinued 4 mg IVP X1 ONE Sodium Chloride 0.9% 1000 ml [Ns] 1,000 ml Med 03/05/25 04:56 Discontinued IV 999 mls/hr cefTRIAXone/D5w 1gm IV premix [Rocephin/D5w 1gm IV Med 03/05/25 04:56 Discontinued premix] 1 g in 50 ml IV X1 Reevaluation(s) Reevaluation #1: Nurse reported there was a little bright red blood when checking the rectal temperature. Time: 06:44 Vital Signs Vital signs: Vital Signs Temperature 102.7 F H 03/05/25 04:58 Pulse Rate 134 H 03/05/25 04:58 Respiratory Rate 26 H 03/05/25 04:58 Blood Pressure 148/104 H 03/05/25 04:58 Pulse Oximetry (%) 96 03/05/25 04:58 Oxygen Delivery Method Nasal Cannula 03/05/25 04:58 Oxygen Flow Rate 3 03/05/25 04:58 Altered Mental Status MDM Narrative MDM Narrative:: I, Starr Sarbjit, am scribing for and in the presence of Dr. Schneider. 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 How is presenting disease/condition affected by chronic disease/condition?: exacerbated by Evaluation data The following diagnostics were reviewed and interpreted by me:: lab results, radiology exam(s) and EKG tracing(s) (My interpretation: EKG performed at 0615 hours, sinus tachycardia, rate 128, right bundle branch block, Q wave in 2, 3, and IVF) Lab and/or radiology exams considered but not ordered:: none Interpretation Summary: Procedure(s): CT chest abdomen pelvis wo Accession Number(s): [id number] cc: Ilan Munguia MD; Oj Eason MD; Lazaro Banda MD~ Examination: CT chest, without intravenous contrast. CT abdomen, without intravenous contrast. CT pelvis, without intravenous contrast. 2-D sagittal and coronal reconstructions. 3-D reconstructions. Date and time of exam: March 05, 2025, 0533 hours INDICATIONS: Onset hypoxia shortness of breath fever back pain sacral ulcer nonhealing wound noticed today CTDI vol (mgy) 17.41 DLP (MGycm) 1527 Technique: Multiple CT images, 3.0 mm slice thickness, obtained chest, abdomen, pelvis, with the high-resolution 64 slice scanner.. Sagittal and coronal 2-D reconstructions are obtained. 3-D reconstructions Low dose protocols were performed. One or more of the following dose reduction techniques were used; automated exposure control, adjustment of the mA and/or KV according to patient size, use of iterative reconstruction technique. Findings: Mild aneurysmal dilatation ascending thoracic aorta 4.3 cm Pulmonary artery segments are not enlarged. Heavy calcification left anterior descending coronary artery. No mediastinal lymphadenopathy. No pneumonia pulmonary edema or pleural disease No visualized liver or splenic lesion No definite gallstones No pancreatic or adrenal mass No renal calculi Left perinephric stranding with mild left hydronephrosis Aortic calcification no aneurysmal dilatation Normal appendix No bowel obstruction No diverticulitis Urinary bladder intact No ureteral calculi Abundant stool in the rectum Severe osteopenia with diffuse thoracic and lumbar degenerative disc disease IMPRESSION: Mild aneurysmal dilatation ascending thoracic aorta No pneumonia or pulmonary edema. Left perinephric stranding, consider urinary tract infection Dictated By: Oj Eason MD Procedure(s): XR chest 1V portable Accession Number(s): [id number] cc: Ilan Munguia MD; Oj Eason MD; Lazaro Banda MD~ EXAMINATION: AP chest single view TECHNIQUE: AP portable semiupright chest single view Date and time: March 05, 2025, 0539 hours, comparison: December 24, 2019 INDICATIONS: Shortness of breath chest pain fever today FINDINGS: Suspicious for early pneumonia left base Right lung clear The osseous structures are intact IMPRESSION: Suspicious for early pneumonia left base Dictated By: Oj Eason MD Procedure(s): CT head/brain wo con Accession Number(s): [id number] cc: Ilan Munguia MD; Oj Eason MD; Lazaro Banda MD~ Examination: CT brain head without contrast. 2-D sagittal coronal reconstructions Date and time of exam: March 05, 2025, 0529 hours INDICATIONS: Onset altered mental status today CTDI: vol (mGy): 102.60 DLP: (mGycm): 2177 Technique: Multiple CT axial sections of the brain have been obtained, 5 mm slice thickness. Contrast has not been administered. 2-D sagittal, coronal reconstructions have been obtained Low dose protocols were performed. One or more of the following dose reduction techniques were used; automated exposure control, adjustment of the mA and/or KV according to patient size, use of iterative reconstruction technique. Findings: No significant ventricular enlargement. Intra-axial or extra-axial hemorrhage density is not seen. No mass effect or midline shift Basal cisterns are not remarkable. Fourth ventricle is midline. Cranial vault intact. Impression: Patient motion degrades scan image quality No gross hemorrhage mass effect or midline shift Dictated By: Oj Eason MD Medications / Prescriptions Medications or Prescriptions considered but not ordered:: none Medication administrations:: Medication Administration History Acetaminophen (Acetaminophen 325 Mg Tablet) 650 mg PO Q6H PRN PRN Reason: Fever >101.5 Stop: 04/04/25 08:39 Albuterol/Ipratropium (Albuterol/Ipratropium (Duoneb) Rt Lilli 3 Ml Nebu) 3 ml INH Q2HR PRN PRN Reason: SHORTNESS OF BREATH OR WHEEZE Stop: 04/04/25 08:56 Apixaban (Apixaban 2.5 Mg Tablet) 5 mg PO BID [facility] Stop: 04/04/25 08:59 Last Admin: 03/05/25 09:13 Dose: 5 mg Documented By: EF Lactated Ringer's (Lactated Ringers) 1,000 mls @ 75 mls/hr IV .[id number] [facility] Stop: 04/04/25 08:44 Last Admin: 03/05/25 09:12 Dose: 75 mls/hr Documented By: SHAW Meropenem 1,000 mg/ Sodium (Chloride) 50 mls @ 100 mls/hr IV Q8HR [facility] Stop: 03/12/25 13:59 Ondansetron HCl (Ondansetron Inj 2 Mg/Ml Inj 2 Ml) 4 mg IVP Q6H PRN; Protocol PRN Reason: NAUSEA OR VOMITING Stop: 04/04/25 08:39 Oxycodone/Acetaminophen (Oxycodone/Apap 5/325 Tablet) 1 tab PO Q6H PRN PRN Reason: PAIN SCALE 4-6 (Moderate Stop: 03/10/25 08:39 Discontinued Medications Acetaminophen (Ofirmev Inj) 1,000 mg in 100 mls @ 250 mls/hr IV X1 ONE Stop: 03/05/25 05:19 Last Infusion: 03/05/25 06:20 Dose: Infused Documented By: Admin: 03/05/25 05:46 Dose: 250 mls/hr Documented By: JEF Ceftriaxone Sodium/Dextrose (Rocephin/D5w 1gm Iv Premix) 1 g in 50 mls @ 100 mls/hr IV X1 ONE Stop: 03/05/25 05:25 Last Infusion: 03/05/25 06:20 Dose: Infused Documented By: Admin: 03/05/25 05:44 Dose: 100 mls/hr Documented By: JEF Sodium Chloride (Ns) 1,000 mls @ 999 mls/hr IV .Q1H1M ONE Stop: 03/05/25 05:56 Last Infusion: 03/05/25 06:20 Dose: Infused Documented By: Admin: 03/05/25 05:42 Dose: 999 mls/hr Documented By: JEF Ketorolac Tromethamine (Ketorolac Inj 30 Mg/Ml Vial) 9 mg IVP X1 ONE Stop: 03/05/25 04:57 Last Admin: 03/05/25 05:17 Dose: 9 mg Documented By: JEF Morphine Sulfate (Morphine Sulf Inj 4 Mg/Ml Vial) 4 mg IV X1 ONE Stop: 03/05/25 04:57 Last Admin: 03/05/25 05:17 Dose: 4 mg Documented By: JEF Ondansetron HCl (Ondansetron Inj 2 Mg/Ml Inj 2 Ml) 4 mg IVP X1 ONE; Protocol Stop: 03/05/25 04:57 Last Admin: 03/05/25 05:16 Dose: 4 mg Documented By: JEF see above Consultations Consultation(s) initiated? (list below): Yes Consultation #1 (Physician, Specialty, Details): Discussed test HPI, PMHx, lab, radiology results and/or management with Dr. Mendenhall. Will admit for further evaluation and management. Accepts patient for admission. Time: 09:23 Diagnosis Differential diagnosis altered mental status: other (urosepsis, metabolic encephalopathy, and intracranial pathology) Most likely diagnosis given after review of the tests above:: See below under clinical impression Admission Indicated Admission indicated?: indicated Admission Request Was there a request for admission?: Yes Admission Attestation Admission request attestation: Discussed case with [] from Hospitalist service regarding admission. Discussed patients ED course, exam findings, labs, and radiology results. The Hospitalist [agrees,declines] to accept the patient for admission. Disposition Plan Disposition Plan: Admit Discharge Plan Plan Patient Disposition: Admit Acute Care w/in Hospital Problem List Clinical Impression: Fever, Low back pain, Sacral decubitus ulcer, Sacral mass, AMS (altered mental status)
[2025-03-05 06:26] LABS: Influenza A Ag Negative; Influenza B Ag Negative
--- NOTE | 2025-03-05 06:38 | PC.NURSE ---
made dr rome aware of scant bright red rectal bleeding coming from pts buttocks
--- NOTE | 2025-03-05 06:58 | PRELIM_ITS ---
CT scan of the chest, abdomen and pelvis without intravenous contrast (axial sections with sagittal and coronal reformats) March 05, 2025 0533 hours Clinical History: HYPOXIA, SOB, FEVER, BACK PAIN, SACRAL ULCER/MASS. Comparison: No prior study is available for comparison. Findings: The lungs are clear. There is no pleural effusion or pneumothorax. The aorta demonstrates mild atheromatous calcification without aneurysm on this noncontrast study. No evidence of mediastinal mass or lymphadenopathy. Coronary artery calcification is noted. There is no pericardial effusion. Fullness of the left renal pelvis is noted. No evidence of renal/ureteric calculus or hydroureteronephrosis. The liver, gallbladder, spleen, pancreas and adrenals are unremarkable on this noncontrast study. No evidence of bowel obstruction. The appendix is within normal limits (images [id number], series 2). The aorta and its branches demonstrate atheromatous calcification without evidence of aneurysm. The urinary bladder is unremarkable. There is no free fluid or free air. Moderate degenerative changes are identified in the spine. No mass is seen in the sacrum and sacral region. A small fat-containing umbilical hernia is present. Impression: No evidence of acute intrathoracic, intraabdominal or pelvic pathology on this noncontrast study. Report Electronically Signed By: Estela Lopez 03/05/2025 6:57:57 AM [EST]
[2025-03-05 07:09] LABS: Free T4 (Free Thyroxine) 1.73 ng/dL (0.89-1.76)
[2025-03-05 08:38] LABS: Reflex Lactate? Y
[2025-03-05] MEDS: RINGERS LACTATED 1000 ML 1,000 ML 75 ML IV ×2 (09:12→22:04)
[2025-03-05] MEDS: APIXABAN 2.5 MG TABLET 5 MG PO ×2 (09:13→20:58)
[2025-03-05 09:25] LABS: Lactic Acid, 3 HR 2.1 mMol/L (0.4-2.0)
--- NOTE | 2025-03-05 11:02 | PD.HHHP ---
Documentation for date of: 03/05/25 HPI - Hospitalist History of Present Illness History of present illness: Patient is a 79-year-old male with a medical history of atrial fibrillation on Eliquis, primary hypertension, hyperlipidemia, hypothyroidism, chronic urinary retention and straight catheterization, obesity, asthma/COPD, recurrent UTIs, chronic back pain, bedbound, decubitus ulcer, and history of DVT presents to [facility] emergency department on 03/05/2025 with chief complaints of altered mental status, shortness of breath, and urinary symptoms. Patient has a history of recurrent urinary tract infections. On Friday he endorsed dysuria and cloudy urine. He was prescribed oral nitrofurantoin and despite this his symptoms continued to worsen prompting him to come to the emergency room. Patient endorses a history of urinary retention and straight catheterization multiple times a day. He endorses fevers and chills. He follows cardiology Dr. Salazar for atrial fibrillation. He reports he is bedbound and lives at home with his . He follows at [facility] for decubitus ulcer. He was advised to complete outpatient sleep study on last admission which she has yet to complete. He endorses mild headache. Patient denies chest pain, palpitations, abdominal pain, and no GI symptoms. Social Hx: Denies tobacco, alcohol, and no illicit drug use. ED Course: Presenting vital signs: Temperature 102.7 ?F, pulse 134, RR 26, BP 148/104, O2 sat 96% on 3 L nasal cannula Pertinent laboratories: WBC 19.3, hemoglobin 14, CL 97, bicarb 28.9, BUN 22, CR 1.4, glucose 181, lactic acid 3.0, CRP 5.4, BNP 1155, procalcitonin 0.78 CT head W0: Negative for acute hemorrhage, mass effect or midline shift CT A/P: Mild aneurysmal dilatation ascending thoracic aorta, No pneumonia or pulmonary edema, Left perinephric stranding, consider urinary tract infection ED Management: Patient received Zofran, Rocephin, and 1 L LR Review of Systems Review of Systems Systems Reviewed: All systems reviewed, normal except as documented Past Medical History Past Medical History CARDIAC: Positive Cardiac Disorders, Hypercholesterolemia and Edema RESPIRATORY: Positive Asthma and Sleep Apnea GASTROINTESTINAL: Positive Obesity GENITOURINARY: Positive Genitourinary Disorders ENT: Positive Macular Degeneration ENDOCRINE: Positive Diabetes Mellitus Type 2 and Hypothyroidism OTHER HISTORY: Positive Hospitalization, Falls, Chicken Pox and Measles Family History FAMILY HISTORY: Positive Family Cardiac Disorders and Family Cancer Surgical History SURGICAL: Positive Joint Replacement and Open Reduction Internal Fixation Social History SMOKING STATUS: Former smoker SECOND HAND EXPOSURE: No SUBSTANCE USE: does not use ALCOHOL: Never Meds Home Medications and Allergies Home Medications ?Medication ?Instructions ?Recorded ?Confirmed ?Type apixaban 2.5 mg tablet (Eliquis) 2.5 mg PO BID 12/25/19 12/27/19 History aspirin 81 mg chewable tablet 81 mg PO QDAY 12/25/19 12/27/19 History baclofen 20 mg tablet 20 mg PO TID PRN Spasms 12/25/19 12/27/19 History chlorthalidone 50 mg tablet 50 mg PO QDAY 12/25/19 12/27/19 History cyanocobalamin (vitamin B-12) 500 500 mcg PO QDAY 12/25/19 12/27/19 History mcg tablet (Vitamin B-12) fexofenadine-pseudoephedrine ER 1 tab PO QAM 12/25/19 12/27/19 History 180 mg-240 mg tablet,ext.release 24 hr finasteride 5 mg tablet 5 mg PO QDAY 12/25/19 12/27/19 History glipizide 5 mg tablet 5 mg PO QDAY 12/25/19 12/27/19 History levothyroxine 200 mcg tablet 200 mcg PO QDAY 12/25/19 12/27/19 History multivitamin (Multiple Vitamins 1 tab PO QDAY 12/25/19 12/27/19 History tablet) oxycodone-acetaminophen 10 mg-325 1 tab PO TID PRN Pain 12/25/19 12/27/19 History mg tablet phenazopyridine 200 mg tablet 200 mg PO BID 12/25/19 12/27/19 History potassium chloride 10 mEq 10 meq PO BID 12/25/19 12/27/19 History tablet,extended release pravastatin 40 mg tablet 40 mg PO DAILY 12/25/19 12/27/19 History pregabalin 150 mg capsule 150 mg PO BID 12/25/19 12/27/19 History pyridoxine (vitamin B6) 100 mg 100 mg PO DAILY 12/25/19 12/27/19 History tablet Lactobacillus acidophilus 10 10 cell PO BID 12/27/19 12/27/19 History billion cell capsule (Probiotic) albuterol sulfate 90 mcg/actuation 2 puff inhalation Q4H PRN sob 12/27/19 12/27/19 History aerosol inhaler fluticasone propionate 50 2 spray intranasal QAM 12/27/19 12/27/19 History mcg/actuation nasal spray,suspension folic acid 1 mg tablet 1 mg PO 5 TIMES DAILY 12/27/19 12/27/19 History ginkgo biloba 120 mg tablet 120 mg PO QAM 12/27/19 12/27/19 History multivitamin with minerals 1 tab PO BID 12/27/19 12/27/19 History (Hair,Skin and Nails tablet) vit C 250 mg-vit E 90 mg-zinc 40 1 cap PO BID 12/27/19 12/27/19 History mg-copper 1 qb-[id number]-spyvgw capsule (PreserVision AREDS-2) Allergies Allergy/AdvReac Type Severity Reaction Status Date / Time latex Allergy Unknown blisters Verified 12/24/19 17:02 Exam Vital Signs Temp Pulse Resp BP Pulse Ox O2 Del Method O2 Flow Rate 98.8 F 115 H 20 106/63 94 L Nasal Cannula 2 03/05/25 08:14 03/05/25 10:14 03/05/25 10:14 03/05/25 08:14 03/05/25 10:14 03/05/25 08:14 03/05/25 10:14 Narrative General: Alert and oriented X 3 Eyes: Conjunctivae clear. EOMI. PERRL. ENT: No nasal congestion. Pharynx normal. Tympanic membrane normal bilaterally. Neck: Supple. No carotid bruit. No JVD. Heart: Sinus tachycardia noted. Lungs: No respiratory distress. Mildly decreased air movement with rales. Abdomen: Soft and nontender. Normal bowel sounds. No distension. No rebound or guarding. Back: Low back tenderness noted, difficult to localize. Legs: No clubbing, cyanosis, edema. Skin: Warm and dry. Stage I and II decubitus sacral ulcer noted with plum sized mass. Neuro: Alert and oriented X 3. Cranial Nerves II-XII grossly intact. No peripheral motor deficits. Results - Hospitalist Labs Diagrams: 03/05/25 05:12 03/05/25 05:12 Labs: Short CBC 03/05/25 Range/Units 05:12 WBC 19.3 H (3.8-10.6) Thou/mm3 Hgb 14.0 (13.5-16.0) g/dL Hct 40.9 L (41.0-53.0) % Plt Count 240 (140-440) Thou/mm3 BMP 03/05/25 05:12 Sodium 138 Potassium 4.0 Chloride 97 L Carbon Dioxide 28.9 BUN 22 Creatinine 1.4 H Glucose 181 H Calcium 8.8 Cardiac Enzymes 03/05/25 Range/Units 05:12 Troponin I < 0.020 (0.0-0.045) ng/mL Liver Function 03/05/25 Range/Units 05:12 Total Bilirubin 0.7 (0.3-1.2) mg/dL Direct Bilirubin 0.3 (0.0-0.3) mg/dL AST 24 (0-34) U/L ALT 21 (10-49) U/L Alkaline Phosphatase 66 (46-116) U/L Albumin 4.1 (3.4-4.8) gm/dL Urine 03/05/25 Range/Units 05:12 Urine Color Yellow (Lt Yel-Yel) Urine Clarity Turbid A (Clear/Hazy) Urine pH 7.0 (5.0-7.0) Ur Specific [place] 1.016 (1.001-1.035) Urine Protein Trace (Neg - Trace) Urine Glucose (UA) Negative (Negative) ABG Interpretation ABG results: 03/05/25 06:12 ABG pH 7.36 ABG pCO2 48 ABG pO2 78 L ABG HCO3 27 H ABG O2 Saturation 96 ABG Base Excess 1 Assessment & Plan -Hospitalist Additional Assessment Patient is a 79-year-old male with a medical history of atrial fibrillation on Eliquis, primary hypertension, hyperlipidemia, hypothyroidism, chronic urinary retention and straight catheterization, obesity, asthma/COPD, recurrent UTIs, chronic back pain, bedbound, decubitus ulcer, and history of DVT presents to [facility] emergency department on 03/05/2025 with chief complaints of altered mental status, shortness of breath, and urinary symptoms. After examination of the patient and review of the clinical data, I feel that this patient needs admission to the hospital for further treatment and evaluation. # Sepsis # Pyelonephritis Presented with urinary symptoms. Failed outpatient nitrofurantoin. Meets SIRS criteria, WBC 19.3, LA 3.0, CRP 5.4, procalcitonin 0.78 CT of abdomen and pelvis showed left-sided perinephric fat stranding, CVA tenderness present Evidence of endorgan damage with REHANA Most likely source is urinary Blood and urine cultures taken in the emergency room, follow-up results when available Plan: Tylenol as needed for fever. Continue IV fluids. Patient did not receive the 30 cc/kg fluid resuscitation out of concern for fluid overload. Continue maintenance fluids. Urine culture from 03/03 grew ESBL Klebsiella pneumonia. Given that patient failed nitrofurantoin we will start IV meropenem. Consult infectious disease for antibiotic stewardship. # Lactic acidosis most likely type A from underlying sepsis - Plan: Continue IV fluids and trend lactic acid until resolution # Acute kidney injury On admission presented with CR 1.4 and BUN 22 Most likely secondary to prerenal azotemia in the setting of sepsis Plan: Avoid nephrotoxic agents and renally dose medications. Continue IV fluids and repeat renal panel in AM. If renal function worsens we will consider cardiology consultation # Atrial fibrillation with rapid ventricular response - Rate on admission was into the 130s, trigger for RVR as sepsis -Follows cardiology Dr. Salazar - Plan: Heart rate was trending into the 130s on presentation and is now trending in the low 100s. Given this improvement I will resume home oral amiodarone 200 mg p.o. twice daily and home Eliquis for elevated [id number] score. If heart rate worsens I will start amiodarone gtt. and consult patient's chain carrier. Monitor on telemetry for now. # History COPD/asthma: Does not appear to be in exacerbation at this time. DuoNebs as needed. #Hypothyroidism: Pending home medication reconciliation. Resume home levothyroxine once dose confirmed. # Primary hypertension: Hold home antihypertensives for now for soft blood pressure. # Chronic urinary retention: Straight caths at home. Verdugo catheter ordered for hospitalization. # Dyslipidemia: Continue home statin when able # Decubitus ulcer: Stage I. Follows at wound clinic. Consult wound care. Frequent pressure redistribution. DVT prophylaxis: Eliquis Diet: Cardiac CODE STATUS: Full code Lines: Indwelling Verdugo catheter and PIV's Dispo: Admit to telemetry for sepsis Dr. Za MD Quality Measures Quality Measures none Advance care planning discussed with:: patient
[2025-03-05] MEDS: MEROPENEM INJ 1,000 MG in SODIUM CHLORIDE 0.9% (Popper) 50 ML 100 MG IV ×2 (14:36→21:02)
[2025-03-05] MEDS: ALBUTEROL/IPRATROPIUM (Duoneb) RT SOL 3 ML NEBU INH ×2 (19:09→21:50)
[2025-03-05] MEDS: AMIODARONE HCL 200 MG TABLET PO (20:57)
[2025-03-05] MEDS: BACLOFEN 10 MG TABLET 20 MG PO (21:02)
[2025-03-06] VITALS (16 sets, daily range): BP systolic 94–109; BP diastolic 50–80; PULSE 102–135; RESP 12–21; TEMP 36.2–36.9; O2SAT 93–99
[2025-03-06 05:54] LABS: Basophils # (Auto) 0.0 Thou/mm3 (0.0-0.2); Basophils % (Auto) 0 % (0-2.5); Eosinophils # (Auto) 0.3 Thou/mm3 (0.0-0.5); Eosinophils % (Auto) 3 % (0-10); Hematocrit 37.9 % (41.0-53.0); Hemoglobin 12.9 g/dL (13.5-16.0); Immature Granulocytes Auto 0.09 Thou/mm3 (0.00-0.00); Lymphocytes # (Auto) 0.3 Thou/mm3 (1.0-4.8); Lymphocytes % (Auto) 2 % (10-50); Mean Corpuscular HGB Conc 34.0 g/dl (31.0-37.0); Mean Corpuscular Hemoglobin 31.1 pg (25.0-35.0); Mean Corpuscular Volume 91 fL (80-100); Monocytes # (Auto) 0.4 Thou/mm3 (0.0-0.8); Monocytes % (Auto) 3 % (0-12); Neutrophils # (Auto) 11.1 Thou/mm3 (1.8-7.7); Neutrophils % (Auto) 91 % (37-80); Nucleated Red Blood Cell # 0.00 Thou/mm3 (0.00-0.00); Nucleated Red Blood Cell % 0 /100 WBC (0); Platelet Count 165 Thou/mm3 (140-440); RDW Standard Deviation 45.7 fL (35.1-43.9); Red Blood Count 4.15 Miln/mm3 (4.50-5.90); White Blood Count 12.2 Thou/mm3 (3.8-10.6)
[2025-03-06] MEDS: LEVOTHYROXINE SODIUM 100 MCG TABLET 200 MCG PO (05:56)
[2025-03-06] MEDS: MEROPENEM INJ 1,000 MG in SODIUM CHLORIDE 0.9% (Popper) 50 ML 100 MG IV ×3 (05:57→21:45)
[2025-03-06 06:32] LABS: Alanine Aminotransferase 30 U/L (10-49); Albumin, Serum 3.5 gm/dL (3.4-4.8); Albumin/Globulin Ratio 1.5 (1.2-2.2); Alkaline Phosphatase 64 U/L (46-116); Anion Gap 9 (7-16); Aspartate Amino Transferase 40 U/L (0-34); BUN/Creatinine Ratio 16 Ratio (12-20); Bilirubin,Total 0.8 mg/dL (0.3-1.2); Blood Urea Nitrogen 19 mg/dL (9-23); Calcium 8.3 mg/dL (8.3-10.6); Calcium (Corrected) 8.7 mg/dL (8.5-10.1); Carbon Dioxide 28.0 mMol/L (20.0-31.0); Chloride 97 mMol/L (98-107); Creatinine (Component) 1.2 mg/dL (0.6-1.3); Estimated Creatinine Clearance 77.4 mL/min (>60); Globulin 2.3 gm/dL (2.3-3.5); Glucose 133 mg/dL (74-106); Magnesium 2.4 mg/dL (1.6-2.6); Osmolality,Calculated 272 (275-295); Phosphorous 3.2 mg/dL (2.4-5.1); Potassium 4.0 mMol/L (3.4-5.1); Sodium 134 mMol/L (136-145); Total Protein 5.8 gm/dL (5.7-8.2); eGFR > 60 See Note
[2025-03-06] MEDS: APIXABAN 2.5 MG TABLET 5 MG PO ×2 (09:14→20:13)
[2025-03-06] MEDS: ASPIRIN EC 81 MG TABEC PO (09:14)
[2025-03-06] MEDS: AMIODARONE HCL 200 MG TABLET PO (09:14)
--- NOTE | 2025-03-06 09:47 | EKG_ITS ---
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
[2025-03-06] MEDS: BACLOFEN 10 MG TABLET 20 MG PO ×2 (10:33→22:06)
--- NOTE | 2025-03-06 11:15 | PD.RESPRO ---
Documentation for date of: 03/06/25 No overnight events reported. Presented with acute metabolic encephalopathy likely secondary to infection given pyelonephritis as noted by CT imagings of her left perinephric stranding. Improved acute encephalopathy, patient alert and oriented x 2. Continue IV antibiotics for pyelonephritis with meropenem 1000 mg IV every 8 hours (03/05/2025) given past medical history of ESBL on urine culture (03/03/2025). Sensitive to meropenem, Zosyn, and levofloxacin. Pending urine cultures for 03/05/2025 on this admission. Pending Blood cultures, negative on 24 hours. Leukocytosis improving. Concern for Atrial fibrillation w/ rvr likely in the setting acute pyelonephritis. Holding home Amiodarone. Started Amiodarone drip. Previous history of CHF HFrEF of 35%-40%. Patient does not appear fluid overloaded. BNP only mildly elevated at 155. Repeat echo given new onset of AFib w/ rvr. CHADVASC 5. HAS BLED 2 points. TSH noted showing hypothyrodism likely subclinical versus sick euthyroid given acute setting. REHANA, continues to improve, likely pre-renal in setting of sepsis but concerning as patient is taking both Lasix 5 mg PO Qdya and Chlorthalidone 50 mg once daily. Continue to monitor heart function given HFrEF and Diltiazem added. Previous Echo 35-40% (12/27/2023). BNP 155. Cxr no prominent vascular congestion noted. In setting of afib w/ rvr, repeat echo. Fluid restrict 2 Liters. GDMT. Magnesium and K within limits. PMH of Diabetes Mellitus. Previous A1c 04/02/2024 5.7%.Low carb consistent. Repeat A1c w/ morning labs. HOlding off insulin on this admission. Glipizide discontinued as home medication. Pending Blood and urine cultures. Follow up w/ Echo. Continue to montior Afib w/ rvr. Skipped Diltiazem dose given concern for low MAP. Follow up with cardiology on oral diuretics. Cardiology consulted. Consider small bolus of 500 cc as patient is not fluid overloaded if MAP <65. Senior Resident Attestation: I have discussed the case with supervising physician and internal communications writer physician involved in the care of patient. I personally saw and examined patient and discussed the assessment and plan with the entire medical team, including attending. I agree with assessment and plan as documented below. Virgen Espinoza MD PGY-2 Internal Medicine Subjective Subjective Interval history: No overnight events. Patient was examined at bedside; they appear A&Ox4 and in NAD. Labs today significant for WBC 19.3 -> 12.2, Hgb 14.0 -> 12.9, and creatinine 1.4 -> 1.2. Physical exam was notable for irregularly irregular tachycardia with 03/05 EKG suggesting atrial flutter/tachycardia w/ RVR. Plan Updates: -Ordered repeat EKG -Consulted Cardiology (Dr. Salazar) -Per Cardiology, started amiodarone gtt and PO Cardizem 30 mg q6HR -Discontinued PO amiodarone 200 mg BID -Started contact precautions (for previous history of ESBL UTI) -IV morphine 4 mg x 1 prn (for breakthrough pain) Exam Vital Signs Temp Pulse Resp BP Pulse Ox O2 Del Method O2 Flow Rate 97.1 F 135 H 20 109/80 96 Nasal Cannula 2 03/06/25 08:00 03/06/25 09:14 03/06/25 09:00 03/06/25 09:14 03/06/25 09:00 03/06/25 08:00 03/06/25 09:00 Narrative Exam General: Alert and oriented X 3 Eyes: Conjunctivae clear. EOMI. PERRL. ENT: No nasal congestion. Pharynx normal. Tympanic membrane normal bilaterally. Neck: Supple. No carotid bruit. No JVD. Heart: Irregularly irregular rhythm tachycardia. Lungs: No respiratory distress. Mildly decreased air movement with rales. Abdomen: Soft and nontender. Normal bowel sounds. No distension. No rebound or guarding. Back: Low back tenderness noted, difficult to localize. Legs: No clubbing, cyanosis, edema. Skin: Warm and dry. Stage I and II decubitus sacral ulcer noted with plum sized mass. Neuro: Alert and oriented X 3. Cranial Nerves II-XII grossly intact. No peripheral motor deficits. Objective Labs 03/07/25 05:06 03/07/25 05:06 Labs: Laboratory Results - last 24 hr 03/06/25 05:10 WBC 12.2 H D RBC 4.15 L Hgb 12.9 L Hct 37.9 L MCV 91 MCH 31.1 MCHC 34.0 RDW Std Deviation 45.7 H Plt Count 165 D Neut % (Auto) 91 H Lymph % (Auto) 2 L Boundary % (Auto) 3 Eos % (Auto) 3 Baso % (Auto) 0 Neut # (Auto) 11.1 H Lymph # (Auto) 0.3 L Boundary # (Auto) 0.4 Eos # (Auto) 0.3 Baso # (Auto) 0.0 Immature Gran # (Auto) 0.09 H Absolute Nucleated RBC 0.00 Immature Gran % 1 H Nucleated RBC % 0 Sodium 134 L Potassium 4.0 Chloride 97 L Carbon Dioxide 28.0 Anion Gap 9 BUN 19 Creatinine 1.2 Estim Creat Clear Calc 77.4 eGFR > 60 BUN/Creatinine Ratio 16 Glucose 133 H Calculated Osmolality 272 L Calcium 8.3 Corrected Calcium 8.7 Phosphorus 3.2 Magnesium 2.4 Total Bilirubin 0.8 AST 40 H ALT 30 Alkaline Phosphatase 64 Total Protein 5.8 Albumin 3.5 D Globulin 2.3 Albumin/Globulin Ratio 1.5 ABG Interpretation ABG results: 03/05/25 06:12 ABG pH 7.36 ABG pCO2 48 ABG pO2 78 L ABG HCO3 27 H ABG O2 Saturation 96 ABG Base Excess 1 Quality Measures Quality Measures none Advance care planning discussed with:: patient Assessment & Plan Assessment Current Active Medications: Generic Name Dose Route Start Last Admin Trade Name Freq PRN Reason Stop Dose Admin Acetaminophen 650 mg 03/05/25 08:40 Acetaminophen 325 Mg Tablet PO 04/04/25 08:39 Q6H PRN Fever >101.5 Albuterol/Ipratropium 3 ml 03/05/25 08:57 03/05/25 21:50 Albuterol/Ipratropium (Duoneb) Rt Lilli 3 Ml Nebu INH 04/04/25 08:56 3 ml Q2HR PRN Administration SHORTNESS OF BREATH OR WHEEZE Amiodarone HCl 200 mg 03/05/25 21:00 03/06/25 09:14 Amiodarone Hcl 200 Mg Tablet PO 04/04/25 20:59 200 mg BID COLLIN Administration Apixaban 5 mg 03/05/25 09:00 03/06/25 09:14 Apixaban 2.5 Mg Tablet PO 04/04/25 08:59 5 mg BID COLLIN Administration Aspirin 81 mg 03/06/25 09:00 03/06/25 09:14 Aspirin Ec 81 Mg Tabec PO 04/05/25 08:59 81 mg QDAY COLLIN Administration Baclofen 20 mg 03/05/25 20:47 03/06/25 10:33 Baclofen 10 Mg Tablet PO 04/04/25 20:46 20 mg TID PRN Administration Spasms Meropenem 1,000 mg/ Sodium 50 mls @ 100 mls/hr 03/05/25 14:00 03/06/25 05:57 Chloride IV 03/12/25 13:59 100 mls/hr Q8HR COLLIN Administration Levothyroxine Sodium 200 mcg 03/06/25 06:00 03/06/25 05:56 Levothyroxine Sodium 100 Mcg Tablet PO 04/05/25 05:59 200 mcg On Hold: 03/06/25 09:48 ACBR COLLIN Administration Ondansetron HCl 4 mg 03/05/25 08:40 Ondansetron Inj 2 Mg/Ml Inj 2 Ml IVP 04/04/25 08:39 Q6H PRN NAUSEA OR VOMITING Protocol Oxycodone/Acetaminophen 1 tab 03/05/25 08:40 03/06/25 06:26 Oxycodone/Apap 5/325 Tablet PO 03/10/25 08:39 1 tab Q6H PRN Administration PAIN SCALE 4-6 (Moderate Plan Patient is a 79-year-old male with a medical history of atrial fibrillation on Eliquis, primary hypertension, hyperlipidemia, hypothyroidism, chronic urinary retention and straight catheterization, obesity, asthma/COPD, recurrent UTIs, chronic back pain, bedbound, decubitus ulcer, and history of DVT presents to [facility] emergency department on 03/05/2025 with chief complaints of altered mental status, shortness of breath, and urinary symptoms. After examination of the patient and review of the clinical data, I feel that this patient needs admission to the hospital for further treatment and evaluation. #Atrial fibrillation with rapid ventricular response #Atrial Fibrillation, on Eliquis #PMH of DVTs Rate on admission was into the 130s, trigger for RVR as sepsis Follows cardiology Dr. Salazar Dx: -03/06 repeat EKG continues to show AFib w/ RVR (HR 115), RBBB, and left anterior fascicular block Rx: -Consulted Cardiology (Dr. Salazar) -Per Cardiology, started amiodarone gtt and PO Cardizem 30 mg q6HR -Discontinued PO amiodarone 200 mg BID #Sepsis secondary to UTI #Pyelonephritis #UTI #hx of ESBL Presented with urinary symptoms. Failed outpatient nitrofurantoin. Meets SIRS criteria, WBC 19.3, LA 3.0, CRP 5.4, procalcitonin 0.78 CT of abdomen and pelvis showed left-sided perinephric fat stranding, CVA tenderness present Evidence of endorgan damage with REHANA Most likely source is urinary Blood and urine cultures taken in the emergency room, follow-up results when available Rx: Tylenol as needed for fever. Continue IV fluids. Patient did not receive the 30 cc/kg fluid resuscitation out of concern for fluid overload. Continue maintenance fluids. Urine culture from 03/03 grew ESBL Klebsiella pneumonia. Given that patient failed nitrofurantoin we will continue IV meropenem [03/05--]. Consult infectious disease for antibiotic stewardship -Started IV morphine 4 mg x 1 prn (for breakthrough pain) -Contact precautions due to previous history of ESBL UTI #Lactic acidosis, improving Most likely type A from underlying sepsis - Plan: Continue IV fluids and trend lactic acid until resolution #Acute kidney injury On admission presented with CR 1.4 and BUN 22 Most likely secondary to prerenal azotemia in the setting of sepsis Plan: Avoid nephrotoxic agents and renally dose medications. Continue IV fluids and repeat renal panel in AM. If renal function worsens we will consider cardiology consultation #CHF HFrEF 35%-40% (12/27/2019) #Lateral Hypokinesis Patient has a past medical history of congestive heart failure with ejection fraction of 35-40%, previous echo on file 12/27/[address] Salazar. Patient does not appear fluid overloaded Dx: BNP 155, cxr no prominent vascular congestion noted. Plan -Repeat Echo given Afib w/ rvr. -Fluid restrict 2,000 Liters -Resume Oral lasix 5 mg once daily or Chlorthalidone 50 mg once daily, based on cardiology recommendations. -Work toward GDMT as outpatient -Dilitazem added, use with caution given history of heart failure. #Hypothyroidism Patient has a past medical history of hypothyroidism with home medication of Levothyroxine 200 mcg qday. DDx: concern for sick euthyroid syndrome given acute illness vs subclinical hypothyroidism. Follow up with TSH and Free T4 as outpatient, may require adjustments. Dx: TSH 0.51 Free T4 1.73 Plan -Resume Levothyroxine 200 mcg once daily -outpatient repeat labs. #History of Diabetes Mellitus Type 2 Patient has a past medical history of diabetes mellitus type 2, appears diet controlled. Previous home medication Glipizide 5 mg PO Qday DX: A1c 5.7 (03/2024) Plan -Repeat A1c -Follow up with Fasting glucose -Consider carb consistent low if glucose up trends. #Dyslipidemia Patient has a past medical history of statin use, given age >75, No statin recommended at this time Dx: Lipid (04/02/2024): Cholesterol 156, Triglycerides 169, LDL 81, HDL 41 Plan -Pravastatin 40 mg once daily,home medication. #Primary hypertension: Patient appears to have a past medical history of hypertension, previously home medicaiton included Lisinopril and currently NOT taking. Plan -Discontinue upon discharge. #History COPD/asthma Does not appear to be in exacerbation at this time. DuoNebs as needed. #Chronic urinary retention: Straight caths at home. Verdugo catheter ordered for hospitalization. Plan -Resume home Finasteride upon discharge #Decubitus ulcer: Stage I. Follows at wound clinic. Consult wound care. Frequent pressure redistribution. DVT prophylaxis: Eliquis Diet: Cardiac CODE STATUS: Full code Lines: Indwelling Verdugo catheter and PIV's Dispo: Admit to telemetry for sepsis Patient care plan was discussed with my attending, Dr. Mendenhall, and senior resident, Dr. Espinoza. Darinel Cobb, DO Internal Medicine, PGY-1 Attending Provider Attestation/Addendum I have examined the patient, reviewed labs and imaging findings, discussed the case with the resident(s), and reviewed entered orders. I agree with the plan of care as outlined in this note, with these additional summaries/recommendations: Patient seen at bedside. No acute overnight events. He reports improvement in malaise, shortness of breath, and urinary symptoms. Patient admitted for sepsis secondary to pyelonephritis. Patient failed outpatient nitrofurantoin. 03/03 urine culture grew ESBL Klebsiella pneumonia. Continue IV meropenem. Consult infectious disease, recommendations appreciated. Urine and blood cultures pending, follow-up results when available. Lactic acidosis resolved. REHANA improving. Patient has history of chronic atrial fibrillation and resumed home amiodarone plus Eliquis. Today heart rate is trending in the 120s to 130s. Will discuss case with cardiology and likely start heparin gtt. Breathing treatments as needed for history of COPD. Hold home antihypertensives for soft blood pressure. Continue indwelling Verdugo catheter for urinary retention. Continue home statin. Wound care for decubitus ulcer. Dr. Za MD
--- NOTE | 2025-03-06 11:46 | PC.SS ---
Addendum entered by LASHANDA Penn 03/06/25 14:31: Rounding note: pending Dr. Coelho Rec. Original Note: Patient is a 79 year old male patient presenting to the hospital for sepsis, UTI. INSTRUMENT TECHNICIAN made face to face contact with patient at bedside, role and reason for visit was explained. At bedside was his Cecily. Patient gave consent for to remain in the room. Patient?s confirmed demographic information and stated that patient lives at home with her, he does not use oxygen at home, and he has a scooter that he uses to ambulate. Patient confirmed that in case he is unable to make medical decision on his own he would like his Cecily to make them PH: [phone]. Patient is retired, PCP is Dr. Banda, last appointment was on 02/19/25, and pharmacy of choice is [facility] [place]. Patient stated that once medically clear he would like to return home. Patient?s stated that they may need assistance with transportation. Decision maker: Cecily gutierrez PH: [phone] d/c: home PCP: Dr. Banda
[2025-03-06] MEDS: AMIODARONE 150 MG IVPB 150 MG/100 ML BAG 600 MG IV (15:19)
[2025-03-06] MEDS: AMIODARONE 360 MG IVPB 360 MG/200 ML BAG 33.333 MG IV (15:42)
[2025-03-06] MEDS: DILTIAZEM 30 MG TABLET PO (20:14)
[2025-03-06] MEDS: AMIODARONE 360 MG IVPB 360 MG/200 ML BAG 16.667 MG IV (20:47)
[2025-03-07] VITALS (13 sets, daily range): BP systolic 106–123; BP diastolic 36–86; PULSE 81–103; RESP 13–16; TEMP 36.1–36.6; O2SAT 97–99; BMI 45.2
--- NOTE | 2025-03-07 00:11 | PC.NURSE ---
At 00:11, Dr. Bishop was notified of the patient?s complaints of heartburn and nausea. The patient denied chest pain or heaviness but pointed to the upper abdominal quadrant when asked to localize the discomfort. The patient reported the pain started in the morning, has been coming and going, and is worsening. Additional complaints included trapped gas and constipation, with no recent bowel movement. Vital signs: BP 112/63, HR 103, RR 16, O2 96% on 2L NC, blood sugar 138. Pain rated 10/10. Zofran IV PRN was verified with the provider and given. The patient reported some pain relief afterward. At 00:39, the provider was re-notified of the patient?s improved pain and ongoing constipation/gas complaints. Orders were received for Miralax 17g x1, Simethicone 80mg x1, and an EKG. The patient later reported pain decreased to 5/10. Vital signs remained stable, and care is ongoing.
[2025-03-07] MEDS: ONDANSETRON INJ 2 MG/ML INJ 2 ML 4 MG IVP ×2 (00:16→20:31)
--- NOTE | 2025-03-07 00:43 | EKG_ITS ---
[facility] Test Date: 2025-03-07 Pat Name: SONIA LOONEY Department: Room: S261A Gender: Male Problem Manager: ALEXA : 1945 Requested By: Paulo Castillo Order Number: [id number] Reading MD: Paulo Catsillo Measurements Intervals [place] Rate: 97 P: GA: QRS: -71 QRSD: 146 T: 10 QT: 377 QTc: 479 Interpretive Statements ATRIAL FIBRILLATION RIGHT BUNDLE BRANCH BLOCK POSSIBLE ANTERIOR MYOCARDIAL INFARCTION , PROBABLY OLD INFERIOR MYOCARDIAL INFARCTION , PROBABLY OLD Compared to ECG 03/06/2025 09:55:37 Left anterior fascicular block no longer present Myocardial infarct finding still present /store/S0/[id number]/[id number].pdf
[2025-03-07] MEDS: SIMETHICONE 80 MG CHEW PO ×2 (00:50→20:32)
[2025-03-07] MEDS: POLYETHYLENE GLYCOL 17 GM PACKET PO ×2 (00:50→20:36)
[2025-03-07] MEDS: MEROPENEM INJ 1,000 MG in SODIUM CHLORIDE 0.9% (Popper) 50 ML 100 MG IV (05:40)
[2025-03-07] MEDS: DILTIAZEM 30 MG TABLET PO (05:40)
[2025-03-07 06:52] LABS: Basophils # (Auto) 0.0 Thou/mm3 (0.0-0.2); Basophils % (Auto) 0 % (0-2.5); Eosinophils # (Auto) 0.5 Thou/mm3 (0.0-0.5); Eosinophils % (Auto) 6 % (0-10); Hematocrit 32.9 % (41.0-53.0); Hemoglobin 11.4 g/dL (13.5-16.0); Immature Granulocytes Auto 0.03 Thou/mm3 (0.00-0.00); Lymphocytes # (Auto) 0.6 Thou/mm3 (1.0-4.8); Lymphocytes % (Auto) 7 % (10-50); Mean Corpuscular HGB Conc 34.7 g/dl (31.0-37.0); Mean Corpuscular Hemoglobin 31.1 pg (25.0-35.0); Mean Corpuscular Volume 90 fL (80-100); Monocytes # (Auto) 0.5 Thou/mm3 (0.0-0.8); Monocytes % (Auto) 6 % (0-12); Neutrophils # (Auto) 6.4 Thou/mm3 (1.8-7.7); Neutrophils % (Auto) 80 % (37-80); Nucleated Red Blood Cell # 0.00 Thou/mm3 (0.00-0.00); Nucleated Red Blood Cell % 0 /100 WBC (0); Platelet Count 182 Thou/mm3 (140-440); RDW Standard Deviation 44.0 fL (35.1-43.9); Red Blood Count 3.67 Miln/mm3 (4.50-5.90); White Blood Count 8.0 Thou/mm3 (3.8-10.6)
--- NOTE | 2025-03-07 07:00 | ECHO_ITS ---
Transthoracic Echo Report Ht (in): 73 Wt (lb): 330 Exam Location: Echo Lab Status: Inpatient Nerve Specialist: Kimberlee Cooley Indications: Procedure Performed: BP: 119 / 75 HR: 93 Technical Quality: Very technically difficult study MEASUREMENTS (Male / Female) Normal Values DOPPLER AV Peak Velocity 108.0 cm/s AV Peak Gradient 4.7 mmHg AV Mean Gradient 2.0 mmHg AV Velocity Time Integral 21.8 cm LVOT Peak Velocity 36.9 cm/s LVOT Peak Gradient 0.5 mmHg LVOT Velocity Time Integral 15.4 cm TR Peak Velocity 246.0 cm/s TR Peak Gradient 24.2 mmHg FINDINGS Left Ventricle Unable to evaluate diastolic function due to atrial fibrillation. Ejection fraction visually estimated at 30-35% global left ventricular systolic function is moderately decreased. Right Ventricle The right ventricular size is moderately increased with normal systolic function. Left Atrium Left atrium not well visualized. Right Atrium Right atrium is not well visualized. Atrial Septum The interatrial septum appears normal with no evidence of a shunt. Aorta The aorta is normal by two-dimensional, color flow and Doppler interrogation. Mitral Valve The mitral valve is not well visualized. Aortic Valve The aortic valve is not well visualized. Tricuspid Valve The tricuspid valve is not well visualized. Pulmonic Valve The pulmonic valve is not well visualized. There is no significant pulmonic valve regurgitation. Vessels Inferior vena cava not well visualized. Pericardium The pericardium is normal by two-dimensional imaging. There is no significant pericardial effusion. CONCLUSIONS Indication: Afib with RVR Tecnically difficult study, limited images obtained All the cardiac sturctures suboptimally visualized. Estimated EF at 35-40% global left ventricular systolic function is moderately decreased. The RV size is moderately increased with normal systolic function. Kathleen Lea (Electronically Signed) Final Date: 07 March 2025 19:11
[2025-03-07 07:05] LABS: Alanine Aminotransferase 31 U/L (10-49); Albumin, Serum 3.2 gm/dL (3.4-4.8); Albumin/Globulin Ratio 1.5 (1.2-2.2); Alkaline Phosphatase 64 U/L (46-116); Anion Gap 8 (7-16); Aspartate Amino Transferase 36 U/L (0-34); BUN/Creatinine Ratio 20 Ratio (12-20); Bilirubin,Total 0.5 mg/dL (0.3-1.2); Blood Urea Nitrogen 18 mg/dL (9-23); Calcium 8.2 mg/dL (8.3-10.6); Calcium (Corrected) 8.8 mg/dL (8.5-10.1); Carbon Dioxide 29.6 mMol/L (20.0-31.0); Cardiac Risk Estimate 3.4 RATIO (4.0-6.7); Chloride 95 mMol/L (98-107); Cholesterol 103 mg/dL (132-200); Creatinine (Component) 0.9 mg/dL (0.6-1.3); Estimated Creatinine Clearance 105.4 mL/min (>60); Globulin 2.2 gm/dL (2.3-3.5); Glucose 133 mg/dL (74-106); HDL Cholesterol 30 mg/dL (40-60); LDL Cholesterol,Calculated 52 mg/dL (0-130); Magnesium 2.0 mg/dL (1.6-2.6); Osmolality,Calculated 270 (275-295); Phosphorous 2.5 mg/dL (2.4-5.1); Potassium 3.3 mMol/L (3.4-5.1); Sodium 133 mMol/L (136-145); Total Protein 5.4 gm/dL (5.7-8.2); Triglycerides 104 mg/dL (30-150); eGFR > 60 See Note
[2025-03-07 07:23] LABS: Glucose Estimated Average 126 mg/dL (80-131); Hemoglobin A1C 6.0 % Hgb (4.8-6.0)
[2025-03-07] MEDS: POTASSIUM CHL 10 mEq IVPB 10 MEQ/100 ML BAG 100 MEQ IV (08:32)
[2025-03-07] MEDS: POTASSIUM CHLORIDE 10% 20 MEQ/15 ML UDC 40 MEQ PO (08:32)
[2025-03-07] MEDS: ASPIRIN EC 81 MG TABEC PO (08:33)
[2025-03-07] MEDS: APIXABAN 2.5 MG TABLET 5 MG PO ×2 (08:33→20:34)
[2025-03-07] MEDS: AMIODARONE 360 MG IVPB 360 MG/200 ML BAG 16.667 MG IV (08:47)
--- NOTE | 2025-03-07 09:42 | PD.IDPROG ---
Subjective Subjective Interval history: asked to see for uti cx noted. on merrem. ua worse in 48hr Exam Vital Signs Temp Pulse Resp BP Pulse Ox O2 Del Method O2 Flow Rate 96.9 F 81 13 106/71 98 Nasal Cannula 2 03/07/25 04:00 03/07/25 08:47 03/07/25 07:38 03/07/25 08:47 03/07/25 07:38 03/07/25 04:00 03/07/25 07:38 Narrative Exam see dictation Objective - Internal Medicine Labs 03/07/25 05:06 03/07/25 05:06 Labs: Laboratory Results - last 24 hr 03/07/25 05:06 WBC 8.0 RBC 3.67 L Hgb 11.4 L Hct 32.9 L MCV 90 MCH 31.1 MCHC 34.7 RDW Std Deviation 44.0 H Plt Count 182 Neut % (Auto) 80 Lymph % (Auto) 7 L [place] % (Auto) 6 Eos % (Auto) 6 Baso % (Auto) 0 Neut # (Auto) 6.4 Lymph # (Auto) 0.6 L [place] # (Auto) 0.5 Eos # (Auto) 0.5 Baso # (Auto) 0.0 Immature Gran # (Auto) 0.03 H Absolute Nucleated RBC 0.00 Immature Gran % 0 Nucleated RBC % 0 Sodium 133 L Potassium 3.3 L D Chloride 95 L Carbon Dioxide 29.6 Anion Gap 8 BUN 18 Creatinine 0.9 Estim Creat Clear Calc 105.4 eGFR > 60 BUN/Creatinine Ratio [address] Glu mg/dL 126 Hemoglobin A1c 6.0 Calculated Osmolality 270 L Calcium 8.2 L Corrected Calcium 8.8 Phosphorus 2.5 Magnesium 2.0 Total Bilirubin 0.5 AST 36 H ALT 31 Alkaline Phosphatase 64 Total Protein 5.4 L Albumin 3.2 L Globulin 2.2 L Albumin/Globulin Ratio 1.5 Triglycerides 104 Cholesterol 103 L LDL Cholesterol, Calc 52 HDL Cholesterol 30 L Cholesterol/HDL Ratio 3.4 L ABG Interpretation ABG results: 03/05/25 06:12 ABG pH 7.36 ABG pCO2 48 ABG pO2 78 L ABG HCO3 27 H ABG O2 Saturation 96 ABG Base Excess 1 Assessment & Plan A&P Narrative uti obesity hx of possible anna. no study done yet htn afib hld low thyroid changed to bactrim po. home at your discretion. will see again prn Time Spent With Patient Time: Total time spent is greater than 50% in coordination of care (as documented) at patient's floor/unit and/or counseling patient:
[2025-03-07] MEDS: POTASSIUM CHL 10 mEq IVPB 10 MEQ/100 ML BAG 50 MEQ IV ×3 (10:19→15:16)
--- NOTE | 2025-03-07 10:25 | ESCONSULT_ITS ---
RE: SONIA LOONEY : 1945 DATE OF CONSULTATION: 03/07/2025 REFERRING PHYSICIAN: Dr. Mendenhall. REASON FOR CONSULTATION: UTIs. HISTORY OF PRESENT ILLNESS: Patient had a negative urinalysis on the and it was positive on the . This is unusual but is possible. His insists that he has sepsis, but that term is vastly overused. He does have atrial fibrillation, hypertension, hyperlipidemia, hyperthyroidism, and possibly other issues. He has chronic back pain and a prior DVT. He presented with altered mental status, shortness of breath, and urinary symptoms. He was treated zs n outpt with nitrofurantoin, but worsened. He has not had Bactrim as far as she remembers. He has no renal dysfunction. Creatinine was 1.4, a little bit high, on admission but it improved afterwards. PAST MEDICAL HISTORY: His medical problems include diabetes which runs in the family and mother had heart disease and father had cancer. They do not know what type and in 1978. PAST SURGICAL HISTORY: Includes left total knee arthroplasty, right total knee arthroplasty 8 times including the first [address] Schuler in [place]. The right was also done at [facility] initially and done 3 times overall. Other surgeries on the left knee were at [facility]. Right knee, he is not sure where. ALLERGIES: NONE NOTED. IMMUNIZATIONS: Unavailable. FAMILY HISTORY: Noncontributory. SOCIAL HISTORY: He quit smoking in 1996 and does not drink any alcohol. 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 He lives with his and his 's brother who is disabled. is apparently a caregiver for both. PHYSICAL EXAMINATION: GENERAL: Physical exam shows a pleasant gentleman looking his stated age. He is on some supplemental oxygen but I am not sure if he is on any at home. He is 79 years of age. His looks considerably younger. Patient looks his age. ABDOMEN: Benign. EXTREMITIES: Unremarkable. NEUROLOGIC: Exam was not performed. He does not walk and has not walked for about 4 years. His may want him to go to rehab. That is just an FYI. As far as the UTI goes, he can take Bactrim p.o., so I am going to switch his antibiotics to that. If you wish to keep him that is your personal decision but Bactrim should be fine based on s testing He has not done a sleep study for reasons which I do not know. I am not sure on his immunizations, but he is a good candidate for annual flu shot, pneumococcal vaccine, tetanus shot every 10 years, and a COVID vaccine if he is yet to receive it. I will see him again on a p.r.n. basis. DT: 10:11:41 TT: 10:24:00 Ref: [id number] - TID: [id number] MTDD
[2025-03-07] MEDS: guaiFENesin SYRUP 200 MG/10 ML UDC 100 MG PO ×3 (12:33→20:34)
--- NOTE | 2025-03-07 13:26 | ESPR_ITS ---
Documentation for date of: 03/07/25 ------- Senior Resident Attestation: I have discussed the case with supervising physician and quality intern physician involved in the care of patient. I personally saw and examined patient and discussed the assessment and plan with the entire medical team, including attending. I agree with assessment and plan as documented below. - The patient's plan was discussed with attending Dr. Za Espinoza MD PGY2 Internal Medicine Subjective Subjective Interval history: No overnight events. Patient was examined at bedside; they appear A&Ox4 and in NAD. Labs today significant for Hgb 12.9 -> 11.4, potassium 4.0 -> 3.3 (given 80 mg KCl), and chloride 97 -> 95. HgbA1c came back at 6.0. Physical exam notable for no longer irregularly irregular tachycardic heart rate. However, patient does endorse some slight tenderness to palpation of the abdomen as well as spasms of the left leg. 03/07 repeat EKG was ordered and showed AFib w/ HR 97 and RBBB. Plan Updates: -Held PO Cardizem 30 mg q6HR due to patient's reduced EF of 35-40% from 2019 -Held home levothyroxine due to TSH 0.51 -Fluid restriction of 2 L qD -Strict I's & O's -Ordered echocardiogram -Per ID recommendation, discontinued meropenem and started PO TMP-SMX 1 tab BID -Started PO guaifenesin syrup 100 mg QID -Condom catheter placement -PT referral Exam Vital Signs Temp Pulse Resp BP Pulse Ox O2 Del Method O2 Flow Rate 97.0 F 97 14 123/71 99 Nasal Cannula 2 03/07/25 11:34 03/07/25 11:34 03/07/25 11:34 03/07/25 11:34 03/07/25 11:34 03/07/25 11:34 03/07/25 11:34 Narrative Exam General: Alert and oriented X 4 Eyes: Conjunctivae clear. EOMI. PERRL. ENT: No nasal congestion. Pharynx normal. Tympanic membrane normal bilaterally. Neck: Supple. No carotid bruit. No JVD. Heart: No longer having irregularly irregular rhythm tachycardia. Lungs: No respiratory distress. Mildly decreased air movement with rales. Abdomen: Soft and nontender. Normal bowel sounds. No distension. No rebound or guarding. Back: Low back tenderness noted, difficult to localize. Legs: No clubbing, cyanosis, edema. Skin: Warm and dry. Stage I and II decubitus sacral ulcer noted with plum sized mass. Neuro: Alert and oriented X 3. Cranial Nerves II-XII grossly intact. No peripheral motor deficits. Objective Labs 03/07/25 05:06 03/07/25 05:06 Labs: Laboratory Results - last 24 hr 03/07/25 05:06 WBC 8.0 RBC 3.67 L Hgb 11.4 L Hct 32.9 L MCV 90 MCH 31.1 MCHC 34.7 RDW Std Deviation 44.0 H Plt Count 182 Neut % (Auto) 80 Lymph % (Auto) 7 L [place] % (Auto) 6 Eos % (Auto) 6 Baso % (Auto) 0 Neut # (Auto) 6.4 Lymph # (Auto) 0.6 L [place] # (Auto) 0.5 Eos # (Auto) 0.5 Baso # (Auto) 0.0 Immature Gran # (Auto) 0.03 H Absolute Nucleated RBC 0.00 Immature Gran % 0 Nucleated RBC % 0 Sodium 133 L Potassium 3.3 L D Chloride 95 L Carbon Dioxide 29.6 Anion Gap 8 BUN 18 Creatinine 0.9 Estim Creat Clear Calc 105.4 eGFR > 60 BUN/Creatinine Ratio 20 Glucose [address] Glu mg/dL 126 Hemoglobin A1c 6.0 Calculated Osmolality 270 L Calcium 8.2 L Corrected Calcium 8.8 Phosphorus 2.5 Magnesium 2.0 Total Bilirubin 0.5 AST 36 H ALT 31 Alkaline Phosphatase 64 Total Protein 5.4 L Albumin 3.2 L Globulin 2.2 L Albumin/Globulin Ratio 1.5 Triglycerides 104 Cholesterol 103 L LDL Cholesterol, Calc 52 HDL Cholesterol 30 L Cholesterol/HDL Ratio 3.4 L ABG Interpretation ABG results: 03/05/25 06:12 ABG pH 7.36 ABG pCO2 48 ABG pO2 78 L ABG HCO3 27 H ABG O2 Saturation 96 ABG Base Excess 1 Quality Measures Quality Measures none Advance care planning discussed with:: patient Assessment & Plan Assessment Current Active Medications: Generic Name Dose Route Start Last Admin Trade Name Freq PRN Reason Stop Dose Admin Acetaminophen 650 mg 03/05/25 08:40 Acetaminophen 325 Mg Tablet PO 04/04/25 08:39 Q6H PRN Fever >101.5 Albuterol/Ipratropium 3 ml 03/05/25 08:57 03/05/25 21:50 Albuterol/Ipratropium (Duoneb) Rt Lilli 3 Ml Nebu INH 04/04/25 08:56 3 ml Q2HR PRN Administration SHORTNESS OF BREATH OR WHEEZE Amiodarone HCl 200 mg 03/05/25 21:00 03/06/25 09:14 Amiodarone Hcl 200 Mg Tablet PO 04/04/25 20:59 200 mg On Hold: 03/06/25 14:36 BID COLLIN Administration Apixaban 5 mg 03/05/25 09:00 03/07/25 08:33 Apixaban 2.5 Mg Tablet PO 04/04/25 08:59 5 mg BID COLLIN Administration Aspirin 81 mg 03/06/25 09:00 03/07/25 08:33 Aspirin Ec 81 Mg Tabec PO 04/05/25 08:59 81 mg QDAY COLLIN Administration Baclofen 20 mg 03/05/25 20:47 03/06/25 22:06 Baclofen 10 Mg Tablet PO 04/04/25 20:46 20 mg TID PRN Administration Spasms Diltiazem HCl 30 mg 03/06/25 17:00 03/07/25 05:40 Diltiazem 30 Mg Tablet PO 04/05/25 16:59 30 mg On Hold: 03/07/25 08:07 QID COLLIN Administration Guaifenesin 100 mg 03/07/25 12:00 03/07/25 12:33 Guaifenesin Syrup 200 Mg/10 Ml Udc PO 04/06/25 11:59 100 mg QID COLLIN Administration Protocol Amiodarone HCl/Dextrose 360 mg in 200 mls @ 16.667 mls/hr 03/06/25 20:35 03/07/25 08:47 Nexterone Ivpb IV 03/07/25 20:34 16.667 mls/hr .Q12H COLLIN Administration Levothyroxine Sodium 200 mcg 03/06/25 06:00 03/06/25 05:56 Levothyroxine Sodium 100 Mcg Tablet PO 04/05/25 05:59 200 mcg On Hold: 03/06/25 09:48 ACBR COLLIN Administration Morphine Sulfate 4 mg 03/06/25 16:51 Morphine Sulf Inj 4 Mg/Ml Vial IVP 03/11/25 16:50 X1 PRN Breakthrough Pain Ondansetron HCl 4 mg 03/05/25 08:40 03/07/25 00:16 Ondansetron Inj 2 Mg/Ml Inj 2 Ml IVP 04/04/25 08:39 4 mg Q6H PRN Administration NAUSEA OR VOMITING Protocol Oxycodone/Acetaminophen 1 tab 03/05/25 08:40 03/06/25 20:13 Oxycodone/Apap 5/325 Tablet PO 03/10/25 08:39 1 tab Q6H PRN Administration PAIN SCALE 4-6 (Moderate Pharmacy Consult 1 each 03/07/25 08:06 Pharmacy Renal Dose Adjustment 1 Ea XX 04/06/25 08:05 PRN PRN CONSULT Trimethoprim/Sulfamethoxazole 1 tab 03/07/25 21:00 Trimethoprim/Sulfa 160/800 Ds Tablet PO 03/12/25 22:59 BID COLLIN Plan Patient is a 79-year-old male with a medical history of atrial fibrillation on Eliquis, primary hypertension, hyperlipidemia, hypothyroidism, chronic urinary retention and straight catheterization, obesity, asthma/COPD, recurrent UTIs, chronic back pain, bedbound, decubitus ulcer, and history of DVT presents to [facility] emergency department on 03/05/2025 with chief complaints of altered mental status, shortness of breath, and urinary symptoms. After examination of the patient and review of the clinical data, I feel that this patient needs admission to the hospital for further treatment and evaluation. #Atrial fibrillation with rapid ventricular response (resolved) #Atrial Fibrillation, on Eliquis #PMH of DVTs Rate on admission was into the 130s, trigger for RVR as sepsis Follows cardiology Dr. Salazar [facility] 5, HASBLED 2 Dx: -03/06 repeat EKG showed AFib w/ RVR (HR 115), RBBB, and left anterior fascicular block -03/07 repeat EKG was ordered and showed AFib w/ HR 97 and RBBB (RVR resolved) -03/07 repeat echocardiogram ordered, results pending Rx: -Held PO Cardizem 30 mg q6HR due to patient's reduced EF of 35-40% from 2019 -Continue amiodarone gtt -Consider starting outpatient GDMT -Consulted Cardiology (Dr. Salazar), appreciate recommendations #Sepsis secondary to UTI #Pyelonephritis #UTI #hx of ESBL Presented with urinary symptoms. Failed outpatient nitrofurantoin. Meets SIRS criteria, WBC 19.3, LA 3.0, CRP 5.4, procalcitonin 0.78 CT of abdomen and pelvis showed left-sided perinephric fat stranding, CVA tenderness present Evidence of endorgan damage with REHANA Most likely source is urinary Blood and urine cultures taken in the emergency room, follow-up results when available *Antibiotic administration history* IV meropenem [03/05-03/06] Rx: -Per ID recommendation, discontinued meropenem and started PO TMP-SMX 1 tab BID [03/07--] -Contact precautions given patient's PMH of ESBL UTI #Lactic acidosis, resolved Most likely type A from underlying sepsis Last LA 2.1 on 03/05 #Acute kidney injury (resolved) On admission presented with CR 1.4 and BUN 22 Most likely secondary to prerenal azotemia in the setting of sepsis Creatinine has now down-trended to 0.9 as of 03/07 Rx: -Continue holding Lasix and chlorthalidone due to patient's normotensive pressures and current euvolemic status -Avoid nephrotoxic agents and renally dose medications. Continue IV fluids and repeat renal panel in AM. #CHF HFrEF 35%-40% (12/27/2019) #Lateral Hypokinesis Patient has a past medical history of congestive heart failure with ejection fraction of 35-40%, previous echo on file 12/27/[address] Salazar. Patient does not appear fluid overloaded Dx: -BNP 155, cxr no prominent vascular congestion noted -03/07 repeat echocardiogram ordered, results pending Rx: -Fluid restriction of 2 L qD -Strict I's & O's #Hypothyroidism Patient has a past medical history of hypothyroidism with home medication of Levothyroxine 200 mcg qday. DDx: concern for sick euthyroid syndrome given acute illness vs subclinical hypothyroidism. Follow up with TSH and Free T4 as outpatient, may require adjustments. Dx: TSH 0.51 Free T4 1.73 Plan -Held home levothyroxine due to TSH 0.51 -Outpatient repeat labs. #History of Diabetes Mellitus Type 2 Patient has a past medical history of diabetes mellitus type 2, appears diet controlled. Previous home medication Glipizide 5 mg PO Qday DX: -03/07/25 HgbA1c 6.0 Rx: -Diet carbohydrate consistent low -Monitor blood glucose #Dyslipidemia Patient has a past medical history of statin use, given age >75 Dx: Lipid (04/02/2024): Cholesterol 156, Triglycerides 169, LDL 81, HDL 41 Rx: -Pravastatin 40 mg once daily,home medication. #Primary hypertension: Patient appears to have a past medical history of hypertension, previously home medicaiton included Lisinopril and currently NOT taking. Plan -Discontinue upon discharge. #History COPD/asthma Does not appear to be in exacerbation at this time. DuoNebs as needed Rx: -Started PO guaifenesin syrup 100 mg QID #Chronic urinary retention: Straight caths at home. Verdugo catheter ordered for hospitalization. Plan -Condom catheter placement -Resume home Finasteride upon discharge #Decubitus ulcer: Stage I. Follows at wound clinic. Consult wound care. Frequent pressure redistribution #Bedbound status Rx: -PT referral DVT prophylaxis: Eliquis Diet: Cardiac CODE STATUS: Full code Lines: Condom catheter placed Dispo: Admit to telemetry for sepsis Patient care plan was discussed with my attending, Dr. Mendenhall, and senior resident, Dr. Espinoza. Darinel Cobb, DO Internal Medicine, PGY-1 Attending Provider Attestation/Addendum I have examined the patient, reviewed labs and imaging findings, discussed the case with the resident(s), and reviewed entered orders. I agree with the plan of care as outlined in this note, with these additional summaries/recommendations: Patient seen at bedside. No acute overnight events. Patient and patient's requesting physical therapy consultation which was ordered. Patient went into atrial fibrillation with rapid ventricular response yesterday and started on Amio gtt. which patient is still receiving. Gtt. to end tonight. Will transition back to oral amiodarone and continue Eliquis. Echocardiogram taken and pending read. Patient has a history of HFrEF but does not appear to be in his acute exacerbation at this time. We will hold diltiazem given soft blood pressure and heart failure. Patient was seen by infectious disease for ESBL Klebsiella pneumonia and antibiotics adjusted. Counseled again on outpatient sleep study. Will hold home levothyroxine as patient appears to be overtreated. Follow-up with PCP. Continue wound care for decubitus ulcer. Breathing treatments as needed for history of COPD/asthma. Patient and patient's updated on the plan and in agreement. All questions answered to satisfaction. Please see residents note for additional details and management. Dr. Za MD
--- NOTE | 2025-03-07 13:37 | PC.SS ---
Update: Cardiology consult is pending. Echo reading pending.
--- NOTE | 2025-03-07 15:58 | PD.IMCONS ---
HPI Data of Consult Requesting Physician: Tonny Mendenhall MD Primary Care Provider: Lazaro Banda MD Consult Narrative History of present illness: This is a 79-year-old male with a medical history of atrial fibrillation on Eliquis, primary hypertension, hyperlipidemia, hypothyroidism, chronic urinary retention and straight catheterization, obesity, asthma/COPD, recurrent UTIs, chronic back pain, bedbound, decubitus ulcer, and history of DVT pt was seen in the ER with ALOC pt has urosepsis cardiology consulted for afib ; EKG initially showed afib at 110-120 / MIN pt was started on amiodarone drip and cardizem PO 30 Q6 added ; HR currently 80-90 cc:: cc: Tonny Mendenhall MD Meds Home Medications and Allergies Home Medications ?Medication ?Instructions ?Recorded ?Confirmed ?Type apixaban 2.5 mg tablet (Eliquis) 5 mg PO BID 12/25/19 03/05/25 History aspirin 81 mg chewable tablet 81 mg PO QDAY 12/25/19 03/05/25 History baclofen 20 mg tablet 20 mg PO TID PRN Spasms 12/25/19 03/05/25 History chlorthalidone 50 mg tablet 50 mg PO QDAY 12/25/19 03/05/25 History cyanocobalamin (vitamin B-12) 500 500 mcg PO QDAY 12/25/19 03/05/25 History mcg tablet (Vitamin B-12) fexofenadine-pseudoephedrine ER 1 tab PO QAM 12/25/19 03/05/25 History 180 mg-240 mg tablet,ext.release 24 hr finasteride 5 mg tablet 5 mg PO QDAY 12/25/19 03/05/25 History glipizide 5 mg tablet 5 mg PO QDAY 12/25/19 03/05/25 History levothyroxine 200 mcg tablet 200 mcg PO QDAY 12/25/19 03/05/25 History multivitamin (Multiple Vitamins 1 tab PO QDAY 12/25/19 03/05/25 History tablet) oxycodone-acetaminophen 10 mg-325 1 tab PO TID PRN Pain 12/25/19 03/05/25 History mg tablet phenazopyridine 200 mg tablet 200 mg PO BID 12/25/19 03/05/25 History potassium chloride 10 mEq 10 meq PO BID 12/25/19 03/05/25 History tablet,extended release pravastatin 40 mg tablet 40 mg PO DAILY 12/25/19 03/05/25 History pregabalin 150 mg capsule 150 mg PO BID 12/25/19 03/05/25 History pyridoxine (vitamin B6) 100 mg 100 mg PO DAILY 12/25/19 03/05/25 History tablet Lactobacillus acidophilus 10 10 cell PO BID 12/27/19 03/05/25 History billion cell capsule (Probiotic) albuterol sulfate 90 mcg/actuation 2 puff inhalation Q4H PRN sob 12/27/19 03/05/25 History aerosol inhaler fluticasone propionate 50 2 spray intranasal QAM 12/27/19 03/05/25 History mcg/actuation nasal spray,suspension folic acid 1 mg tablet 25 mg PO QDAY 12/27/19 03/05/25 History ginkgo biloba 120 mg tablet 120 mg PO QAM 12/27/19 03/05/25 History multivitamin with minerals 1 tab PO BID 12/27/19 03/05/25 History (Hair,Skin and Nails tablet) vit C 250 mg-vit E 90 mg-zinc 40 1 cap PO BID 12/27/19 03/05/25 History mg-copper 1 [id number]-ovgpye capsule (PreserVision AREDS-2) amoxicillin 500 mg tablet 500 mg PO TID 03/05/25 03/05/25 History calcium 600 mg (as 1 cap PO BID 03/05/25 03/05/25 History carbonate)-vitamin D3 5 mcg (200 unit) capsule (Calcium 600 + D(3)) fexofenadine 60 mg tablet (Emily 60 mg PO Q12H 03/05/25 03/05/25 History Allergy) fexofenadine 60 mg tablet (Emily 60 mg PO Q12H 03/05/25 03/05/25 History Allergy) furosemide 20 mg tablet (Lasix) 5 mg PO QAM 03/05/25 03/05/25 History methenamine hippurate 1 gram tablet 1 g PO BID 03/05/25 03/05/25 History Allergies Allergy/AdvReac Type Severity Reaction Status Date / Time latex Allergy Unknown blisters Verified 12/24/19 17:02 Exam Vital Signs Temp Pulse Resp BP Pulse Ox O2 Del Method O2 Flow Rate 97.0 F 102 H 14 123/71 99 Nasal Cannula 2 03/07/25 11:34 03/07/25 12:00 03/07/25 11:34 03/07/25 11:34 03/07/25 11:34 03/07/25 11:34 03/07/25 11:34 Routine HEENT Exam Head: Present normocephalic and atraumatic Eye: Present EOMI and PERRL ENT: Present mucous membranes moist Routine Neck Exam Neck: Present supple and trachea midline Routine Respiratory Exam Respiratory: Present chest non-tender, lungs clear, normal breath sounds and no resp distress Routine Cardiovascular Exam Cardiovascular: Present RRR Routine Abdominal Exam Abdominal: Present soft and normoactive bowel sounds Routine Extremities Exam Extremities: Present full ROM Routine Skin Exam Skin: Present intact, dry and warm Routine Neurological Exam Neurological: Present alert, oriented X3 and CN II-XII intact Routine Psychiatric Exam Psychiatric: Present normal affect and normal thought process Results Labs 03/07/25 05:06 03/07/25 05:06 Labs: Short CBC 03/07/25 Range/Units 05:06 WBC 8.0 (3.8-10.6) Thou/mm3 Hgb 11.4 L (13.5-16.0) g/dL Hct 32.9 L (41.0-53.0) % Plt Count 182 (140-440) Thou/mm3 BMP 03/07/25 05:06 Sodium 133 L Potassium 3.3 L D Chloride 95 L Carbon Dioxide 29.6 BUN 18 Creatinine 0.9 Glucose 133 H Calcium 8.2 L Liver Function 03/07/25 Range/Units 05:06 Total Bilirubin 0.5 (0.3-1.2) mg/dL AST 36 H (0-34) U/L ALT 31 (10-49) U/L Alkaline Phosphatase 64 (46-116) U/L Albumin 3.2 L (3.4-4.8) gm/dL ABG Interpretation ABG results: 03/05/25 06:12 ABG pH 7.36 ABG pCO2 48 ABG pO2 78 L ABG HCO3 27 H ABG O2 Saturation 96 ABG Base Excess 1 Assessment and Plan Assessment and plan (1) AMS (altered mental status): Status: Acute (2) Sacral decubitus ulcer: Status: Acute (3) Acute kidney injury: Status: Acute (4) Atrial fibrillation with rapid ventricular response: Status: Acute Additional Assessment & Plan Additional Plan: pt has a known history of afib contine amiodarone / cardizem /abixamab echo
[2025-03-07] MEDS: MORPHINE SULF INJ 4 MG/ML VIAL IVP (17:02)
[2025-03-07] MEDS: BACLOFEN 10 MG TABLET 20 MG PO (20:33)
[2025-03-07] MEDS: TRIMETHOPRIM/SULFA 160/800 DS TABLET 1 TAB PO (20:33)
[2025-03-07] MEDS: AMIODARONE HCL 200 MG TABLET PO (21:06)
[2025-03-08] VITALS (14 sets, daily range): BP systolic 108–133; BP diastolic 66–95; PULSE 86–117; RESP 14–95; TEMP 35.9–36.5; O2SAT 93–99; BMI 44.6
[2025-03-08 05:49] LABS: Basophils # (Auto) 0.0 Thou/mm3 (0.0-0.2); Basophils % (Auto) 0 % (0-2.5); Eosinophils # (Auto) 0.3 Thou/mm3 (0.0-0.5); Eosinophils % (Auto) 4 % (0-10); Hematocrit 35.5 % (41.0-53.0); Hemoglobin 12.5 g/dL (13.5-16.0); Immature Granulocytes Auto 0.04 Thou/mm3 (0.00-0.00); Lymphocytes # (Auto) 1.0 Thou/mm3 (1.0-4.8); Lymphocytes % (Auto) 13 % (10-50); Mean Corpuscular HGB Conc 35.2 g/dl (31.0-37.0); Mean Corpuscular Hemoglobin 30.9 pg (25.0-35.0); Mean Corpuscular Volume 88 fL (80-100); Monocytes # (Auto) 0.6 Thou/mm3 (0.0-0.8); Monocytes % (Auto) 8 % (0-12); Neutrophils # (Auto) 5.4 Thou/mm3 (1.8-7.7); Neutrophils % (Auto) 75 % (37-80); Nucleated Red Blood Cell # 0.00 Thou/mm3 (0.00-0.00); Nucleated Red Blood Cell % 0 /100 WBC (0); Platelet Count 192 Thou/mm3 (140-440); RDW Standard Deviation 40.6 fL (35.1-43.9); Red Blood Count 4.05 Miln/mm3 (4.50-5.90); White Blood Count 7.3 Thou/mm3 (3.8-10.6)
[2025-03-08 06:09] LABS: Alanine Aminotransferase 37 U/L (10-49); Albumin, Serum 3.7 gm/dL (3.4-4.8); Albumin/Globulin Ratio 1.5 (1.2-2.2); Alkaline Phosphatase 72 U/L (46-116); Anion Gap 8 (7-16); Aspartate Amino Transferase 34 U/L (0-34); BUN/Creatinine Ratio 16 Ratio (12-20); Bilirubin,Total 0.6 mg/dL (0.3-1.2); Blood Urea Nitrogen 13 mg/dL (9-23); Calcium 8.7 mg/dL (8.3-10.6); Calcium (Corrected) 8.9 mg/dL (8.5-10.1); Carbon Dioxide 31.3 mMol/L (20.0-31.0); Chloride 95 mMol/L (98-107); Creatinine (Component) 0.8 mg/dL (0.6-1.3); Estimated Creatinine Clearance 117.6 mL/min (>60); Globulin 2.5 gm/dL (2.3-3.5); Glucose 120 mg/dL (74-106); Magnesium 2.1 mg/dL (1.6-2.6); Osmolality,Calculated 269 (275-295); Phosphorous 2.1 mg/dL (2.4-5.1); Potassium 3.4 mMol/L (3.4-5.1); Sodium 134 mMol/L (136-145); Total Protein 6.2 gm/dL (5.7-8.2); eGFR > 60 See Note
[2025-03-08] MEDS: ASPIRIN EC 81 MG TABEC PO (08:29)
[2025-03-08] MEDS: POLYETHYLENE GLYCOL 17 GM PACKET PO (08:29)
[2025-03-08] MEDS: APIXABAN 2.5 MG TABLET 5 MG PO ×2 (08:30→20:11)
[2025-03-08] MEDS: AMIODARONE HCL 200 MG TABLET PO ×2 (08:30→20:07)
[2025-03-08] MEDS: TRIMETHOPRIM/SULFA 160/800 DS TABLET 1 TAB PO ×3 (08:30→20:07)
[2025-03-08] MEDS: LACTULOSE SYRUP 20 GM/30 ML UDC 40 GM PO (08:45)
[2025-03-08] MEDS: POTASSIUM CHLORIDE 10% 20 MEQ/15 ML UDC 40 MEQ PO (08:46)
[2025-03-08] MEDS: GLYCERIN, ADULT 1 EA SUPP 1 EACH PR (08:46)
[2025-03-08] MEDS: NAPH,KPH MBDB 1 PACKET (1.5 GM) PO (08:46)
--- NOTE | 2025-03-08 11:52 | PC.NURSE ---
Pt worked with physical therapy this morning and has been on room air. O2 sats 95% Room air.
--- NOTE | 2025-03-08 12:52 | PC.NURSE ---
Bladder scan done x1 0ml at this time.
[2025-03-08] MEDS: SALINE NASAL 45 ML BTL 1 SPRAY NASAL (13:00)
[2025-03-08] MEDS: LACTULOSE SYRUP 20 GM/30 ML UDC PO (13:00)
--- NOTE | 2025-03-08 14:08 | ESDS_ITS ---
<Statement entered by Alexandre Castano MD - 03/09/25 05:48> I saw and examined patient personally and supervised PGY 1 resident, Dr. Cobb with formulating a management plan. I agree with the documentation with the exceptions as listed below. Patient presented after having an outpatient urine culture positive for ESBL UTI. Initially he was treated with meropenem IV. Infectious disease, Dr Coelho was consulted who transitioned him to Bactrim p.o. For his atrial fibrillation and heart failure with reduced ejection fraction, cardiology Dr. Salazar was consulted. Patient was started on amiodarone 200 mg p.o. twice daily and Coreg 3.125 mg p.o. twice daily for GDMT. He will have to follow-up with outpatient cardiology for further management and implementation of goal-directed medical therapy for heart failure. Patient also had atrial fibrillation with RVR which improved after holding his home levothyroxine dose. His TSH was low and we held his levothyroxine on discharge pending follow-up with his outpatient PCP. Recommend outpatient TFTs in 6 weeks. All patient's labs are currently returning to his baseline. Patient currently clinically stable for discharge to home. Plan of care discussed with Attending Dr. Jj Castano MD PGY 2 Disclaimer: This note was dictated by speech recognition. Minor errors in afterschool may be present due to voice recognition software. Planned Discharge Date 03/08/25 DS: Providers Provider Date of admission: 03/05/25 08:40 Primary care physician: Lazaro Banda MD Admitting Provider: Tonny Mendenhall MD Attending Provider on Admission: Tonny Mendenhall MD Consults: 03/05/25 11:26 Referral Wound Care Routine Comment: 03/05/25 11:37 Consult to Infectious Diseases Routine Comment: Consulting Provider: Onel Coelho 03/06/25 09:51 Consult to Cardiology Routine Comment: a fib rvr Consulting Provider: Bakari Salazar 03/07/25 13:25 Referral Physical Therapy Routine Comment: Physician Instructions: 03/07/25 14:47 Referral OP Wound Healing Dept Routine Comment: Instructions: Deep tissue injury over bilateral buttocks/coccyx Attending Provider on DC: Julian Gardner DO Discharging Provider: Darinel Cobb DO DS: Diagnosis Problem List Completed Was Problem List Reviewed/Reconciled?: Yes Hospital Course Hospital Course Hospital course: Summary: Patient is a 79-year-old male with a medical history of atrial fibrillation on Eliquis, primary hypertension, hyperlipidemia, hypothyroidism, chronic urinary retention and straight catheterization, obesity, asthma/COPD, recurrent UTIs, chronic back pain, bedbound, decubitus ulcer, and history of DVT presented to [facility] emergency department on 03/05/2025 with chief compl aints of altered mental status, shortness of breath, and urinary symptoms. ER: Presenting vital signs: Temperature 102.7 ?F, pulse 134, RR 26, BP 148/104, O2 sat 96% on 3 L nasal cannula Pertinent laboratories: WBC 19.3, hemoglobin 14, CL 97, bicarb 28.9, BUN 22, CR 1.4, glucose 181, lactic acid 3.0, CRP 5.4, BNP 1155, procalcitonin 0.78 CT head W0: Negative for acute hemorrhage, mass effect or midline shift CT A/P: Mild aneurysmal dilatation ascending thoracic aorta, No pneumonia or pulmonary edema, Left perinephric stranding, consider urinary tract infection ED Management: Patient received Zofran, Rocephin, and 1 L LR Hospital: During patient's hospital course, he was treated with IV meropenem [03/05- 03/06], PO TMP-SMX [03/07-03/08], and IV fluids for his sepsis and UTI/pyelonephritis (UCx showed ESBL-producing Klebsiella pneumoniae). His AFib w/ RVR was treated unsuccessfully at first with PO amiodarone but then he was switched to amiodarone gtt which was successful in controlling the rate of his atrial fibrillation. He was placed on 2 L fluid restriction and then started on PO Coreg on 03/08 for his HFrEF (EF 35-40% on echo this admission). By 03/08, patient was deemed clinically stabilized and discharged home with instructions to follow up with outpatient Cardiology (Dr. Salazar) for ongoing management of his HFrEF. Patient is safe to discharge to home. Further discharge instructions below. - Continue the antibiotic as listed below. - We have held your thyroid medication until you see your PCP - Recommend repeat thyroid blood test in 6 weeks with your PCP - We have restarted you on amiodarone for your heart rate - Follow with Dr. Salazar in 1 week - Follow with wound care - Follow up with your primary care physician within 1 week of discharge. If you do not have a primary care physician, please follow up with the [facility] Residents clinic ([phone]) ? If you experience any new, worsening or persistent symptoms either call your primary doctor, or dial 911 or present to the emergency department. # Sepsis (resolved) # Pyelonephritis # UTI, PMH of ESBL # Lactic acidosis (resolved) # Acute kidney injury (resolved) # Atrial fibrillation with rapid ventricular response (controlled) # HFrEF, EF 35-40% # History of COPD/asthma # Hypothyroidism # Primary hypertension # Chronic urinary retention # Dyslipidemia # T2DM # Decubitus ulcer, stage I Status at Discharge Cognitive/Behavioral Status at Discharge: stable Functional Status at Discharge: bedbound Overall Status at Discharge: patient is back to baseline Patient's care plan was discussed with my attending, Dr. Gardner, and senior resident, Dr. Castano. Darinel Cobb, DO Internal Medicine, PGY-1 Time Spent with Patient Time attestation: Total time spent providing and/or coordinating discharge services: Time spent: Greater than 30 minutes Exam Vital Signs Temp Pulse Resp BP Pulse Ox O2 Del Method O2 Flow Rate 96.9 F 111 H 16 115/66 93 L Room Air 2 03/08/25 11:28 03/08/25 12:00 03/08/25 11:28 03/08/25 11:28 03/08/25 11:28 03/08/25 11:28 03/08/25 07:51 Narrative Exam General: Alert and oriented X 4 Eyes: Conjunctivae clear. EOMI. PERRL. ENT: No nasal congestion. Pharynx normal. Tympanic membrane normal bilaterally. Neck: Supple. No carotid bruit. No JVD. Heart: No longer having irregularly irregular rhythm tachycardia. Lungs: No respiratory distress. Mildly decreased air movement with rales. Abdomen: Soft and nontender. Normal bowel sounds. No distension. No rebound or guarding. Back: Low back tenderness noted, difficult to localize. Legs: No clubbing, cyanosis, edema. Skin: Warm and dry. Stage I and II decubitus sacral ulcer noted with plum sized mass. Neuro: Alert and oriented X 3. Cranial Nerves II-XII grossly intact. No peripheral motor deficits. Discharge Plan Plan Patient Disposition: HOME (Self Care) Patient condition on transfer: Stable Care Plan Goals: - Continue the antibiotic as listed below. - We have held your thyroid medication until you see your PCP - Recommend repeat thyroid blood test in 6 weeks with your PCP - We have restarted you on amiodarone for your heart rate - Follow with Dr. Salazar in 1 week - Follow with wound care - Follow up with your primary care physician within 1 week of discharge. If you do not have a primary care physician, please follow up with the [facility] Residents clinic ([phone]) ? If you experience any new, worsening or persistent symptoms either call your primary doctor, or dial 911 or present to the emergency department. Prescriptions/Referrals Prescriptions/Med Rec: New sulfamethoxazole-trimethoprim 800-160 mg Tablet 1 tab PO BID 7 Days Qty: 14 0RF carvedilol [Coreg] 3.125 mg tablet 3.125 mg PO BID Qty: 60 0RF Rx Instructions: must administer with a meal/food Continued baclofen 20 mg Tablet 20 mg PO TID PRN (Reason: Spasms) aspirin 81 mg Tablet,Chewable 81 mg PO QDAY finasteride 5 mg Tablet 5 mg PO QDAY Eliquis 2.5 mg Tablet 5 mg PO BID multivitamin [Multiple Vitamins] Tablet 1 tab PO QDAY pravastatin 40 mg Tablet 40 mg PO DAILY oxycodone-acetaminophen 10-325 mg Tablet 1 tab PO TID PRN (Reason: Pain) pregabalin 150 mg Capsule 150 mg PO BID cyanocobalamin (vitamin B-12) [Vitamin B-12] 500 mcg Tablet 500 mcg PO QDAY pyridoxine (vitamin B6) 100 mg Tablet 100 mg PO DAILY albuterol sulfate 90 mcg/actuation Hfa Aerosol Inhaler 2 puff INHALATION Q4H PRN (Reason: sob) fluticasone propionate 50 mcg/actuation spray,suspension 2 spray INTRANASAL QAM PreserVision AREDS-2 [id number]-mg Capsule 1 cap PO BID folic acid 1 mg tablet 25 mg PO QDAY Patient Comments: TAKE 1 TABLET BY MOUTH FIVE TIMES A DAY Rx Instructions: [facility] fexofenadine [Emily Allergy] 60 mg tablet 60 mg PO Q12H furosemide [Lasix] 20 mg tablet 5 mg PO QAM calcium carbonate-vitamin D3 [Calcium 600 + D(3)] 600 mg-5 mcg (200 unit) capsule 1 cap PO BID Patient Comments: not sure on the dose amiodarone 200 mg tablet 200 mg PO BID 30 Days Qty: 60 2RF Held chlorthalidone 50 mg Tablet 50 mg PO QDAY Hold Instructions: Resume on 03/15/25. Until you see PCP potassium chloride 10 mEq Tablet Extended Release 10 meq PO BID Hold Instructions: Resume on 03/15/25. hold until you see PCP levothyroxine 200 mcg Tablet 200 mcg PO QDAY Hold Instructions: Resume on 03/15/25. HOld until you see PCP methenamine hippurate 1 gram tablet 1 g PO BID Hold Instructions: Resume on 03/16/25. Hold until after Antibiotic course Discontinued phenazopyridine 200 mg Tablet 200 mg PO BID glipizide 5 mg Tablet 5 mg PO QDAY fexofenadine-pseudoephedrine 180-240 mg Tablet Extended Release 24 Hr 1 tab PO QAM Hair,Skin and Nails Tablet 1 tab PO BID ginkgo biloba 120 mg Tablet 120 mg PO QAM Probiotic 10 billion cell Capsule 10 cell PO BID lisinopril 2.5 mg tablet 2.5 mg PO QDAY Qty: 30 0RF fexofenadine [Emily Allergy] 60 mg tablet 60 mg PO Q12H amoxicillin 500 mg tablet 500 mg PO TID Referrals: Marley Garcia MD [Physician, Wound Care] Bakari Salazar MD [Physician, Cardiology] Lazaro Banda MD [Primary Care Provider, Family Practice] Patient/Caregiver Discharge Instructions Other Discharge Activity Instructions:: 1) Please follow up at [facility], [address] [place] [address]. Call [phone] for appointment. 2) Wound care to buttocks/coccyx pressure injury (bed sore): keep site clean and dry. Cover with foam dressing once a day and as needed for falling off. Most important to reposition herself every 2 hours when laying down and every 20-30 minutes while sitting to offload pressure. Education Materials: Preventing Pressure Sores, Pressure Injury Dc, Wound Care Dc Print Language: Upper Sorbian Stand Alone Forms: Minda Award Info., Patient Portal Info Letter Discharge Order Discharge Orders: Discharge (Routine); Ordered 03/08/25 Ordered By: Alexandre Castano Quality Discharge Quality Measures VTE prophylaxis and sepsis Attestestation MD Attestation I have discussed and was present for the essential components of the discharge history, physical examination, diagnosis, and discharge treatment plan with the resident. I agree with the patient's discharge care as documented by the resident and amended herein by me. Julian Gardner, . The patient understood all discharge instructions, all questions were answered satisfactorily. The patient was instructed to return to the Emergency Department is symptoms worsened or persisted. Patient discharged with home oxygen, did have a bowel movement prior to leaving, patient will be discharged with Coreg, Eliquis, amiodarone and aspirin per cardiology recommendations, can start the rest of GDMT as cardiology prescribe on an outpatient basis due to soft blood pressure in the past. Patient will also be discharged on a short course of Bactrim per infectious disease recommendations for complicated UTI. Patient's levothyroxine held for now in setting of low TSH however FT4 was on the high end of normal, PCP can adjust in the outpatient setting. Please see resident note above for additional details in regards to hospital course and discharge medications. Patient was stable, afebrile and tolerating p.o. intake at time of discharge home. Although this document has been carefully reviewed, there may still be some phonetic and other typographical errors. These errors are purely grammatical due to imperfections in the software program and should not be construed in any way to compromise the substance of the patient's medical care during this visit. Time Spent on discharge: 36 minutes
--- NOTE | 2025-03-08 17:40 | PC.NURSE ---
pt was transported back to room via wheelchair unable to get into car with help of physcial therapy. pt sitting in wheelchair. medication given. b/ps 129/76 hr 86 02 sats 95% on room air. patient alert and oriented x4. pt wants to sit in wheelchair. Monitor placed back on. will continue to monitor. awaiting transport.
--- NOTE | 2025-03-08 17:49 | PC.NURSE ---
Patient discharged, patient was offered transportation on advise of RN, and patient refused. Patient was taken to vehicle and was unable to transfer. Patient was brought back upstairs to his room. After further education and concerns for safety of patient, they agreed to transport. [facility] notified, Gabrielle WHITEHEAD brought paperwork to send to [place]. Patient is currently in wheelchair in his room and refusing to go back into his bed at this time. Currently waiting for confirmation and time from [place] transport.
--- NOTE | 2025-03-08 18:26 | PC.NURSE ---
at bedside. Pt was transferred back to bed via wheelchair. Pt is alert and oriented. Pt agreed to go back to bed. Updated patient on safety precautions to patient and in regards to using transport. Pt will go via [facility]. Pt is aware and agreed to plan of care. Call light within reach. at bedside. Transport will come at 2130.
--- NOTE | 2025-03-08 21:57 | PC.NURSE ---
2148 PT DISCHARGED TO HOME VIA AMBULANCE STAFF. PT AAOX4, NO ACUTE DISTRESS,DENIES PAIN.
--- NOTE | 2025-03-09 17:18 | PC.CM ---
Addendum entered by Janet Pompa RN 03/13/25 17:42: [facility] [place] patient and start of care date set for 03/10. Original Note: Patient accepted by [facility] Pending start of care date.
== END 2025-03-08 21:45 | disposition home health service (06) | DRG 871 ==
LOC: SERX 06:50 → SERHOLD 09:11 → S2NX 10:10
PROVIDERS: Emergency Medicine; Admitting Provider Student in an Organized Health Care Education/Training Program; Emergency Provider Emergency Medicine; PCP Family Medicine; Visit Provider Student in an Organized Health Care Education/Training Program
DX: A41.9 Sepsis, unspecified organism (principal); G93.41 Metabolic encephalopathy; J15.0 Pneumonia due to Klebsiella pneumoniae; N12 Tubulo-interstitial nephritis, not specified as acute or chronic; E87.20 Acidosis, unspecified; N17.9 Acute kidney failure, unspecified; I48.20 Chronic atrial fibrillation, unspecified; I50.22 Chronic systolic (congestive) heart failure; Z16.12 Extended spectrum beta lactamase (ESBL) resistance; I45.2 Bifascicular block; E11.9 Type 2 diabetes mellitus without complications; E03.9 Hypothyroidism, unspecified; L89.152 Pressure ulcer of sacral region, stage 2; I11.0 Hypertensive heart disease with heart failure; G89.29 Other chronic pain; J44.89 Other specified chronic obstructive pulmonary disease; Z74.01 Bed confinement status; Z79.01 Long term (current) use of anticoagulants; Z87.891 Personal history of nicotine dependence; Z79.84 Long term (current) use of oral hypoglycemic drugs; Z79.890 Hormone replacement therapy; Z79.891 Long term (current) use of opiate analgesic; Z79.899 Other long term (current) drug therapy; Z87.440 Personal history of urinary (tract) infections; Z86.19 Personal history of other infectious and parasitic diseases; Z86.718 Personal history of other venous thrombosis and embolism
CPT/HCPCS: 36415; 36600; 70450; 71045; 71250; 74176; 80053; 80061; 81001; 82140; 82248; 82803; 83036; 83605; 83690; 83735; 83880; 84100; 84145; 84439; 84443; 84484; 85025; 86140; 87040; 87077; 87086; 87186; 87502; 87811; 93005; 93306; 94640; 96361; 96365; 96375; 97162; 99284; A9270; J0131; J0283; J0696; J1885; J2185; J2270; J2405; J3475; J3480; J7030; J7050; J7120

== ENCOUNTER → 2025-03-18 | Outpatient (CLI) | payer OTHER, SELFPAY | END | disposition home or self-care (01) | LOC: SLDO 14:34 | PROVIDERS: PCP Family Medicine; Referring Provider Family Medicine; Visit Provider Family Medicine | DX: N39.0 Urinary tract infection, site not specified (principal) | CPT/HCPCS: 87077; 87086; 87186 ==

== ENCOUNTER 2025-03-19 16:10 | Inpatient (IN) | payer MEDICARE, SELFPAY ==
[2025-03-19] VITALS (18 sets, daily range): BP systolic 76–123; BP diastolic 46–86; PULSE 74–127; RESP 17–40; TEMP 36.6–36.8; O2SAT 85–98; BMI 45.3
--- NOTE | 2025-03-19 16:18 | XR_ITS ---
EXAMINATION: AP chest single view TECHNIQUE: AP portable chest single view Date and time: March 19 2025, 181 hours COMPARISON: March 05, 2025 INDICATIONS:*Chest pain today FINDINGS: Normal heart size Lungs are clear. The osseous structures are intact IMPRESSION: No active disease
--- NOTE | 2025-03-19 16:18 | EKG_ITS ---
[facility] Test Date: 2025-03-19 Pat Name: SNOIA LOONEY Department: Room: - Gender: Male Compliance Tester: : 1945 Requested By: Elizabeth Reed Order Number: [id number] Reading MD: Elizabeth Reed Measurements Intervals [place] Rate: 122 P: NV: QRS: -90 QRSD: 130 T: 68 QT: 376 QTc: 537 Interpretive Statements ATRIAL FIBRILLATION WITH RAPID VENTRICULAR RESPONSE RIGHT BUNDLE BRANCH BLOCK [120+ ms QRS DURATION, UPRIGHT V1, 40+ ms S IN I/aVL/V4/V5/V6] POSSIBLE ANTERIOR MYOCARDIAL INFARCTION , PROBABLY OLD [30 ms Q WAVE IN V3/V4, OR R < 0.2 mV IN V4] INFERIOR MYOCARDIAL INFARCTION , OF INDETERMINATE AGE [40+ ms Q WAVE AND/OR ST/T ABNORMALITY IN II/aVF] Compared to ECG 03/07/2025 00:54:06 No significant changes /store/S0/[id number]
--- NOTE | 2025-03-19 16:31 | EDNOTE_ITS ---
ED SOB =RME/HPI General Chief Complaint: Shortness of Breath/Dyspnea Stated Complaint: SOB SINCE 1529 TODAY Time Seen by Provider: 03/19/25 16:18 Arrival date/time: 03/19/25 16:10 RME / HPI RME / HPI Narrative: DR. SCHNEIDER MAIN ED EVALUATION: 79-year-old male with a past medical history of atrial fibrillation on Eliquis, hypertension, hyperlipidemia, hypothyroidism, chronic urinary retention with straight catheterization, asthma/COPD, recurrent UTIs, chronic back pain, obesity, decubitus ulcer, bedbound status, and history of DVT was brought in by EMS from home for shortness of breath and generalized weakness. No other symptoms reported. Per EMS, family reported the patient has been unable to stand or walk since discharge from the hospital on 03/09/25, following an admission from 03/05/25?03/09/25 for fever, low back pain, sacral decubitus ulcer, sacral mass, and altered mental status. Per EMS, family refused post-discharge rehabilitation, and family has been caring for him at home. Related Data Home Medications ?Medication ?Instructions ?Recorded ?Confirmed apixaban 2.5 mg tablet (Eliquis) 5 mg PO BID 12/25/19 03/19/25 aspirin 81 mg chewable tablet 81 mg PO QDAY 12/25/19 1 05/19/24 baclofen 20 mg tablet 20 mg PO TID PRN Spasms 01/0503/19/25 chlorthalidone 50 mg tablet 50 mg PO QDAY 12/25/1906/12 Held on 03/08/25. Instructions: Resume on 03/15/25. Until you see PCP cyanocobalamin (vitamin B-12) 500 500 mcg PO QDAY 01/0503/19/25 mcg tablet (Vitamin B-12) finasteride 5 mg tablet 5 mg PO QDAY 12/25/19 levothyroxine 200 mcg tablet 200 mcg PO QDAY 12/25/19 03/19/25 Held on 03/08/25. Instructions: Resume on 03/15/25. HOld until you see PCP multivitamin (Multiple Vitamins 1 tab PO QDAY 12/25/19 03/19/25 tablet) oxycodone-acetaminophen 10 mg-325 1 tab PO TID PRN Ashley n 12/25/19 03/19/25 mg tablet potassium chloride 10 mEq 10 meq PO BID 12/25/1903/19 tablet,extended release Held on 03/08/25. Instructions: Resume on 03/15/25. hold until you see PCP pravastatin 40 mg tablet 40 mg PO DAILY 12/25/1906/12 pregabalin 150 mg capsule 150 mg PO BID 12/25/1903/19 pyridoxine (vitamin B6) 100 mg 100 mg PO DAILY 0 03/19/25 tablet albuterol sulfate 90 mcg/actuation 2 puff inhalation Q 4H PRN sob 12/27/19 03/19/25 aerosol inhaler fluticasone propionate 50 2 spray intranasal QAM 12/2603/19/25 mcg/actuation nasal spray,suspension folic acid 1 mg tablet 25 mg PO QDAY 12/27/1903/19 vit C 250 mg-vit E 90 mg-zinc 40 1 cap PO BID 12/27/19 03/20/25 mg-copper 1 [id number] capsule (PreserVision AREDS-2) calcium 600 mg (as 1 cap PO BID 03/05/25 carbonate)-vitamin D3 5 mcg (200 unit) capsule (Calcium 600 + D(3)) fexofenadine 60 mg tablet (Emily 60 mg PO Q12H 03/0503/19/25 Allergy) furosemide 20 mg tablet (Lasix) 5 mg PO QAM 03/05/25 1 05/19/24 methenamine hippurate 1 gram tablet 1 g PO BID 5 03/19/25 Held on 03/08/25. Instructions: Resume on 03/16/25. Hold until after Antibiotic course Previous Rx's ?Medication ?Instructions ?Recorded amiodarone 200 mg tablet 200 mg PO BID 1 month #60 ta bs 03/08/25 carvedilol 3.125 mg tablet (Coreg) 3.125 mg PO BID CHF #60 tabs 03/08/25 Allergies Allergy/AdvReac Type Severity Reaction Status Date / Time latex Allergy Unknown blisters Verified 03/19/25 16:17 Review of Systems Review of Systems Systems Reviewed: All systems reviewed, normal except as documented Past Medical History Past Medical History CARDIAC: Positive Cardiac Disorders, Hypercholesterolemia and Edema RESPIRATORY: Positive Asthma and Sleep Apnea GASTROINTESTINAL: Positive Obesity GENITOURINARY: Positive Genitourinary Disorders ENT: Positive Macular Degeneration ENDOCRINE: Positive Diabetes Mellitus Type 2 and Hypothyroidism OTHER HISTORY: Positive Hospitalization, Falls, Chicken Pox and Measles Family History FAMILY HISTORY: Positive Family Cardiac Disorders and Family Cancer Surgical History SURGICAL: Positive Joint Replacement and Open Reduction Internal Fixation Social History SMOKING STATUS: Former smoker SECOND HAND EXPOSURE: No SUBSTANCE USE: does not use ALCOHOL: Never ED Exam Narrative Physical exam: GENERAL APPEARANCE: alert and oriented x 4, well-developed, well-nourished, frequent yawning and appears dyspneic taking slow deep breaths VITALS: All vitals were reviewed and the pulse ox is 95% on 4 L/min via a nasal cannula. HEENT: Normocephalic, atraumatic; pupils equal, round, reactive to light; EOMI; mucous membranes pink, moist; oropharynx clear NECK: Supple LUNGS: Appears dyspneic taking slow deep breaths HEART: Regular rate, regular rhythm; normal S1, S2; no murmurs ABDOMEN: non distended; normal BS; soft, no tenderness, no guarding, no rebound; no masses, no organomegaly, no hernia BACK: no CVA tenderness EXTREMITIES: Flushy projection on the right buttock that is compressible and appears fluid filled; no erythema and nontender. Bilateral pedal edema. NEUROLOGIC: awake; alert and oriented x4; cranial nerves II-XII grossly intact; no focal sensory or motor deficits PSYCHIATRIC: appropriate mood and affect SKIN: warm, dry, normal color; no rashes Course Quality Measures none Orders Category Date Time Status Admit to Inpatient Status Routine Admission 03/19/25 20:50 Active Patient Condition Routine Admission 03/19/25 20:49 Ordered Bedrest NOW Care 03/19/25 20:51 Active Bedside COVID-19 Antigen Test NOW Care 03/19/25 18:13 Active COVID-19 Screening Questionnaire NOW Care 03/19/25 20:34 Active Diesel Dinkey Operator NOW Care 03/19/25 16:18 Active Continuous Pulse Oximetry NOW Care 03/19/25 20:49 Completed Decision to Admit X1 Care 03/19/25 20:34 Completed EKG (ED ONLY) *Do not use* NOW Care 03/19/25 16:18 Completed Notify provider NEEDED Care 03/19/25 20:49 Active Obtain weight daily Care 03/19/25 20:51 Active Saline [Insert IV] NOW Care 03/19/25 18:14 Active Straight [In and Out Catheter] X1 Care 03/19/25 18:14 Active EKG (ED Only) Stat Exams 03/19/25 16:18 Draft XR chest 1V portable Stat Exams 03/19/25 16:18 Completed B-Type Natriuretic Peptide Stat Lab 03/19/25 17:13 Completed Blood Culture (Lab) Stat Lab 03/19/25 17:30 Received CBC Stat Lab 03/19/25 17:13 Completed CRP [C-Reactive Protein] Stat Lab 03/19/25 19:12 Completed Comprehensive Metabolic Panel Stat Lab 03/19/25 17:13 Completed D-Dimer Stat Lab 03/19/25 19:12 Completed ESR [Sed Rate (ESR)] Stat Lab 03/19/25 19:12 Completed Influenza A & B Rapid Panel Stat Lab 03/19/25 18:13 Ordered Lactate (Lactic Acid) Stat Lab 03/19/25 17:13 Completed Lactic Acid, 3 HR Stat Lab 03/19/25 20:27 Completed Lipase Stat Lab 03/19/25 17:13 Completed Magnesium Stat Lab 03/19/25 17:13 Completed Partial Thromboplastin Time Stat Lab 03/19/25 17:13 Completed Procalcitonin Stat Lab 03/19/25 17:13 Completed Prothrombin Time with INR Stat Lab 03/19/25 17:13 Completed TSH [Thyroid Stimulating Hormone] Stat Lab 03/19/25 19:12 Completed Troponin I Stat Lab 03/19/25 17:13 Completed Urinalysis Routine Lab 03/19/25 21:30 Completed Urinalysis Stat Lab 03/19/25 17:45 Completed Urine Culture Routine Lab 03/19/25 21:30 Received Urine Culture Stat Lab 03/19/25 17:45 Received Acetaminophen Tab [Tylenol Tab] Med 03/19/25 20:49 Active 650 mg PO Q6H PRN Albuterol/Ipratr Rt Lilli [Duoneb Rt Lilli] Med 03/19/25 23:00 Active 3 ml INH Q4HRRT DILTIAZEM in NS 100 MG Med 03/19/25 18:14 Discontinued 100 mg in 100 ml IV 5 mg/hr Diltiazem Inj [Cardizem Inj] Med 03/19/25 18:14 Discontinued 20 mg IV X1 ONE Docusate Sod [Colace] Med 03/20/25 09:00 Active 100 mg PO QDAY Fluconazole/Ns 400 mg Ivpb [Diflucan/Ns Ivpb] Med 03/19/25 18:37 Discontinued 400 mg in 200 ml IV X1 Ondansetron Inj [Zofran Inj] Med 03/19/25 20:49 Discontinued 4 mg IVP Q6H PRN POTASSIUM CHL 10% Liq 15 ML Med 03/19/25 18:17 Discontinued 40 meq PO X1 ONE Pantoprazole [Protonix] Med 03/20/25 09:00 Active 40 mg PO QDAY Piper/Tazo 3.375 gm Premix [Zosyn] Med 03/19/25 17:44 Discontinued 3.375 gm in 50 ml IV X1 Sodium Chloride 0.9% 1000 ml [Ns] 1,000 ml Med 03/19/25 17:42 Discontinued IV 999 mls/hr Sodium Chloride 0.9% 500 ml [Ns] 500 ml Med 03/19/25 20:49 Discontinued IV 999 mls/hr Vancomycin/Ns 1 gm Ivpb 200 ml Med 03/19/25 17:44 Discontinued IV X1 Code Status Routine Oth 03/19/25 20:49 Ordered Oxygen Delivery DAILY RT 03/19/25 20:51 Active Vital Signs Vital signs: Vital Signs Temperature 98.2 F 03/19/25 16:35 Pulse Rate 117 H 03/19/25 16:35 Respiratory Rate 25 H 03/19/25 16:35 Blood Pressure 111/83 03/19/25 16:35 Pulse Oximetry (%) 95 03/19/25 16:35 Oxygen Delivery Method Nasal Cannula 03/19/25 16:35 Oxygen Flow Rate 4 03/19/25 16:35 Shortness of Breath / Dyspnea MDM Narrative MDM Narrative:: I, Starr Schaffer am scribing for and in the presence of Dr. Schneider. Urine cult 03/05/25 showed sensitivity to zosyn and resistance to cephalosporin. Patient data External records reviewed:: [facility] previous records and EMS form Clinical information provided by:: patient and EMS Social determinants that could affect healthcare access:: none Patient has the following chronic illnesses:: atrial fibrillation on Eliquis, hypertension, hyperlipidemia, hypothyroidism, chronic urinary retention with straight catheterization, asthma/COPD, recurrent UTIs, chronic back pain, obesity, decubitus ulcer, bedbound status, and history of DVT How is presenting disease/condition affected by chronic disease/condition?: exacerbated by Evaluation data The following diagnostics were reviewed and interpreted by me:: lab results, radiology exam(s) and EKG tracing(s) (My interpretation: EKG performed at 1701 hours, atrial fibrillation wtih RVR, rate 122, right bundle branch block, minimally changed from EKG done 12/28/19.) Lab and/or radiology exams considered but not ordered:: none Interpretation Summary: Procedure(s): XR chest 1V portable Accession Number(s): [id number] cc: Oj Eason MD; Elizabeth Schneider MD; Lazaro Banda MD~ EXAMINATION: AP chest single view TECHNIQUE: AP portable chest single view Date and time: March 19 2025, 181 hours COMPARISON: March 05, 2025 INDICATIONS:*Chest pain today FINDINGS: Normal heart size Lungs are clear. The osseous structures are intact IMPRESSION: No active disease Dictated By: Oj Eason MD Medications / Prescriptions Medications or Prescriptions considered but not ordered:: none Medication administrations:: Medication Administration History Acetaminophen (Acetaminophen 325 Mg Tablet) 650 mg PO Q6H PRN PRN Reason: Fever >100.4 or pain 1-3 Stop: 04/18/25 20:48 Last Admin: 03/19/25 21:35 Dose: 650 mg Documented By: SM Al Hydrox/Mg Hydrox/Simethicone (Mg Hyd/Al Hyd/Isabel (Maalox Reg) Susp 30 Ml Udc) 30 ml PO Q4HR PRN PRN Reason: UPSET STOMACH/INDIGESTION Stop: 04/19/25 09:05 Albuterol/Ipratropium (Albuterol/Ipratropium (Duoneb) Rt Lilli 3 Ml Nebu) 3 ml INH Q4HRRT COLLIN Stop: 04/18/25 22:59 Last Admin: 03/20/25 06:01 Dose: 3 ml Documented By: Admin: 03/20/25 02:58 Dose: 3 ml Documented By: Admin: 03/19/25 22:15 Dose: 3 ml Documented By: MANDY Amiodarone HCl (Amiodarone Hcl 200 Mg Tablet) 200 mg PO BID [facility] Stop: 04/18/25 20:59 Last Admin: 03/20/25 08:05 Dose: 200 mg Documented By: Admin: 03/19/25 21:30 Dose: 200 mg Documented By: KEVIN Apixaban (Apixaban 2.5 Mg Tablet) 5 mg PO BID [facility] Stop: 04/18/25 20:59 Last Admin: 03/20/25 08:05 Dose: 5 mg Documented By: Admin: 03/19/25 21:31 Dose: 5 mg Documented By: KEVIN Dextrose (Dextrose 50%-Water Inj 50 Ml Syringe) 25 ml IV Q15MIN PRN PRN Reason: BG 50-70 responsive npo pt Stop: 04/18/25 21:56 Dextrose (Dextrose 50%-Water Inj 50 Ml Syringe) 50 ml IV Q15MIN PRN PRN Reason: BG <50 OR BG <70 & pt unresponsive Stop: 04/18/25 21:56 Docusate Sodium (Docusate Sod 100 Mg Capsule) 100 mg PO QDAY [facility]; Protocol Stop: 04/19/25 08:59 Last Admin: 03/20/25 08:05 Dose: 100 mg Documented By: ANDRES Glucagon (Glucagon Inj 1 Mg Vial) 1 mg IM Q15MIN PRN PRN Reason: BG <70, and no IV access Levofloxacin/Dextrose (Levaquin Ivpb) 750 mg in 150 mls @ 100 mls/hr IV Q48H [facility] Stop: 03/27/25 08:59 Insulin Human Lispro (Insulin Lispro (Admelog) 1 Unit/0.01 Ml Unit) 0 unit SC [facility]; Protocol Stop: 04/19/25 07:29 Last Admin: 03/20/25 08:03 Dose: 2 unit Documented By: ANDRES Co-signed By: RAMU Pantoprazole Sodium (Pantoprazole 40 Mg Tablet) 40 mg PO QDAY [facility] Stop: 04/19/25 08:59 Last Admin: 03/20/25 08:04 Dose: 40 mg Documented By: ANDRES Discontinued Medications Al Hydrox/Mg Hydrox/Simethicone (Mg Hyd/Al Hyd/Isabel (Maalox Reg) Susp 30 Ml Udc) 30 ml PO X1 ONE Stop: 03/20/25 09:07 Diltiazem HCl (Diltiazem Inj 5 Mg/Ml Vial 5 Ml) 20 mg IV X1 ONE Stop: 03/19/25 18:15 Last Admin: 03/19/25 20:03 Dose: Not Given Documented By: KEVIN Non-Admin Reason: Cancelled by Provider Famotidine (Famotidine 20 Mg Tablet) 20 mg PO X1 ONE Stop: 03/20/25 04:35 Last Admin: 03/20/25 04:41 Dose: 20 mg Documented By: GIANLUCA Sodium Chloride (Ns) 1,000 mls @ 999 mls/hr IV .Q1H1M ONE Stop: 03/19/25 18:42 Last Infusion: 03/19/25 19:09 Dose: Infused Documented By: Admin: 03/19/25 18:04 Dose: 999 mls/hr Documented By: CHINO Vancomycin/Sodium Chloride (Vancomycin/Ns 1 Gm Ivpb) 200 mls @ 120 mls/hr IV X1 ONE Stop: 03/19/25 19:23 Last Infusion: 03/19/25 21:35 Dose: Infused Documented By: Admin: 03/19/25 19:54 Dose: 120 mls/hr Documented By: KEVIN Piperacillin/Tazobactam/Dextrose (Zosyn) 3.375 gm in 50 mls @ 100 mls/hr IV X1 ONE; Protocol Stop: 03/19/25 18:13 Last Infusion: 03/19/25 19:08 Dose: Infused Documented By: Admin: 03/19/25 18:05 Dose: 100 mls/hr Documented By: CHINO Diltiazem/Sodium Chloride (Diltiazem In Ns 100 Mg) 100 mg in 100 mls @ 5 mls/hr IV .Q20H COLLIN Stop: 04/18/25 18:13 Last Infusion: 03/19/25 20:18 Dose: 0 mg/hr, 0 mls/hr Documented By: Admin: 03/19/25 19:36 Dose: 5 mg/hr, 5 mls/hr Documented By: KEVNI Fluconazole (Diflucan/Ns Ivpb) 400 mg in 200 mls @ 100 mls/hr IV X1 ONE Stop: 03/19/25 20:36 Last Infusion: 03/20/25 00:28 Dose: Infused Documented By: Admin: 03/19/25 21:56 Dose: 100 mls/hr Documented By: KEVIN Sodium Chloride (Ns) 500 mls @ 999 mls/hr IV .Q31M ONE Stop: 03/19/25 21:19 Last Infusion: 03/19/25 22:09 Dose: Infused Documented By: Admin: 03/19/25 21:30 Dose: 999 mls/hr Documented By: KEVIN Lactated Ringer's (Lactated Ringers) 500 mls @ 999 mls/hr IV .Q31M ONE Stop: 03/19/25 23:19 Last Infusion: 03/19/25 23:55 Dose: Infused Documented By: Admin: 03/19/25 23:07 Dose: 999 mls/hr Documented By: KEVIN Trimethoprim/Sulfamethoxazole (10 ml/ Dextrose) 260 mls @ 167 mls/hr IV BID [facility] Stop: 03/27/25 08:59 Trimethoprim/Sulfamethoxazole (10 ml/ Dextrose) 260 mls @ 167 mls/hr IV X1 ONE Stop: 03/20/25 03:19 Last Admin: 03/20/25 07:11 Dose: Not Given Documented By: ANDRES Non-Admin Reason: Discontinued Ondansetron HCl (Ondansetron Inj 2 Mg/Ml Inj 2 Ml) 4 mg IVP Q6H PRN; Protocol PRN Reason: NAUSEA OR VOMITING Stop: 04/18/25 20:48 Pantoprazole Sodium (Pantoprazole 20 Mg Tablet) 20 mg PO X1 ONE Stop: 03/20/25 02:41 Last Admin: 03/20/25 02:45 Dose: 20 mg Documented By: GIANLUCA Potassium Chloride (Potassium Chloride 10% 20 Meq/15 Ml Udc) 40 meq PO X1 ONE Stop: 03/19/25 18:18 Last Admin: 03/19/25 19:38 Dose: 40 meq Documented By: KEVIN Potassium Chloride (Potassium Chloride 20 Meq Tabcr) 20 meq PO X1 ONE Stop: 03/20/25 07:34 Last Admin: 03/20/25 08:05 Dose: 20 meq Documented By: ANDRES Trimethoprim/Sulfamethoxazole (Trimethoprim/Sulfa 160/800 Ds Tablet) 1 tab PO BID [facility] Stop: 03/27/25 08:59 see above if any Consultations Consultation(s) initiated? (list below): No Diagnosis Shortness of Breath Differential Diagnosis: other (Pneumonia, CHF exacerbation, and pulmonary embolism.) Most likely diagnosis given after review of the tests above:: No official diagnoses at this time, still pending diagnostic tests. Patient signout to the assistant casino shift manager provider. Admission Indicated Admission indicated?: not indicated Explain why admission is indicated or not indicated:: No final disposition plan at this time, still pending diagnostic tests. Patient signout to the assistant casino shift manager provider. Admission Request Was there a request for admission?: No Disposition Plan Disposition Plan: other (specify) (Patient signout to the assistant casino shift manager provider Dr. Munguia. ) Discharge Plan Plan Patient Disposition: Admit Acute Care w/in Hospital Problem List Clinical Impression: Acute respiratory failure with hypoxia, Sepsis, Atrial fibrillation with RVR, UTI (urinary tract infection)
[2025-03-19 17:33] LABS: Lactate (Lactic Acid) 4.8 mMol/L (0.4-2.0)
[2025-03-19 17:41] LABS: INR 1.0 (0.9-1.3); Partial Thromboplastin Time 27.0 Seconds (22.0-36.0); Prothrombin Time 10.6 Seconds (9.0-12.2)
[2025-03-19 17:48] LABS: Basophils # (Auto) 0.0 Thou/mm3 (0.0-0.2); Basophils % (Auto) 0 % (0-2.5); Eosinophils # (Auto) 0.0 Thou/mm3 (0.0-0.5); Eosinophils % (Auto) 0 % (0-10); Hematocrit 43.2 % (41.0-53.0); Hemoglobin 14.4 g/dL (13.5-16.0); Immature Granulocytes Auto 0.17 Thou/mm3 (0.00-0.00); Lymphocytes # (Auto) 0.2 Thou/mm3 (1.0-4.8); Lymphocytes % (Auto) 2 % (10-50); Mean Corpuscular HGB Conc 33.3 g/dl (31.0-37.0); Mean Corpuscular Hemoglobin 30.7 pg (25.0-35.0); Mean Corpuscular Volume 92 fL (80-100); Monocytes # (Auto) 0.1 Thou/mm3 (0.0-0.8); Monocytes % (Auto) 1 % (0-12); Neutrophils # (Auto) 12.0 Thou/mm3 (1.8-7.7); Neutrophils % (Auto) 96 % (37-80); Nucleated Red Blood Cell # 0.00 Thou/mm3 (0.00-0.00); Nucleated Red Blood Cell % 0 /100 WBC (0); Platelet Count 358 Thou/mm3 (140-440); RDW Standard Deviation 44.6 fL (35.1-43.9); Red Blood Count 4.69 Miln/mm3 (4.50-5.90); White Blood Count 12.5 Thou/mm3 (3.8-10.6)
[2025-03-19 17:53] LABS: Alanine Aminotransferase 30 U/L (10-49); Albumin, Serum 4.2 gm/dL (3.4-4.8); Albumin/Globulin Ratio 1.8 (1.2-2.2); Alkaline Phosphatase 96 U/L (46-116); Anion Gap 12 (7-16); Aspartate Amino Transferase 41 U/L (0-34); BUN/Creatinine Ratio 14 Ratio (12-20); Bilirubin,Total 0.7 mg/dL (0.3-1.2); Blood Urea Nitrogen 18 mg/dL (9-23); Calcium 9.5 mg/dL (8.3-10.6); Calcium (Corrected) 9.5 mg/dL (8.5-10.1); Carbon Dioxide 30.0 mMol/L (20.0-31.0); Chloride 96 mMol/L (98-107); Creatinine (Component) 1.3 mg/dL (0.6-1.3); Estimated Creatinine Clearance 69.0 mL/min (>60); Globulin 2.4 gm/dL (2.3-3.5); Glucose 109 mg/dL (74-106); Lipase 45 U/L (12-53); Magnesium 1.9 mg/dL (1.6-2.6); Osmolality,Calculated 278 (275-295); Potassium 3.2 mMol/L (3.4-5.1); Procalcitonin 0.68 ng/ml (0.0-0.49); Sodium 138 mMol/L (136-145); Total Protein 6.6 gm/dL (5.7-8.2); Troponin I 0.021 ng/mL (0.0-0.045); eGFR 56 See Note
[2025-03-19] MEDS: SODIUM CHLORIDE 0.9% 1000 ML 1,000 ML 999 ML IV (18:04)
[2025-03-19] MEDS: PIPER/TAZO 3.375 GM PREMIX 3.375 GM/50 ML BAG IV (18:05)
[2025-03-19 18:07] LABS: Collection Type, Urine Clean Catch
--- NOTE | 2025-03-19 18:10 | PD.EDADDENDU ---
Emergency Room Addendum <Freya Vincent - Last Filed: 03/19/25 21:30> Addendum Narrative: I took over the care from previous shift physician at 6 PM on 05/29/2024. See previous notes for complete H & P and ED course. I reviewed all diagnostic test results. My interpretation of the EKG is My interpretation of the chest x-ray is NAD. Blood tests and urine tests Covid/Influenza: Negative Diagnoses include: Acute respiratory failure with hypoxia Treatment here included Sepsis Protocol KCl 10% 40 meq Diflucan/NS Ivpb 400 mg Cardizem 20 mg Cardizem in NS 100 mg 19:24 - I discussed the case with our hospitalist. About the presentation and exam and diagnostics and treatments here. And need of further care in the hospital. Will accept the patient. Ilan Munguia MD <Ilan Munguia MD - Last Filed: 03/19/25 23:11> Addendum Narrative: I took over the care from previous shift physician, Dr. Schneider, at 6 PM on 05/29/2024. See previous notes for complete H & P and ED course. I reviewed all diagnostic test results. My interpretation of the EKG is atrial fibrillation with RVR (122 bpm). My interpretation of the chest x-ray is NAD. Blood tests remarkable for hypokalemia and elevated lactic acid. UA showed UTI. Covid/Influenza: Negative Diagnoses include: Acute respiratory failure with hypoxia Atrial fibrillation with RVR Sepsis UTI Treatment here included IV fluid ABX Oral KCl 40 meq Diflucan/NS Ivpb 400 mg Cardizem Patient remained stable. 19:24 - I discussed the case with our hospitalist. About the presentation and exam and diagnostics and treatments here. And need of further care in the hospital. Will accept the patient. Ilan Munguia MD
[2025-03-19 18:12] LABS: B-Type Natriuretic Peptide 32 pg/mL (0-100)
[2025-03-19 18:13] LABS: Amorphous Crystals,Urine Present (Absent); Bacteria,Urine Rare; Bilirubin,Urine Negative (Negative); Blood,Urine Negative (Negative); Budding Yeast,Urine Present; Clarity,Urine Turbid (Clear/Hazy); Color,Urine Lt-Yellow (Lt Yel-Yel); Glucose, Urine Negative (Negative); Hyaline Casts,Urine < 1 /hpf (0-1); Ketones,Urine Negative (Negative); Leukocyte Esterase,Urine Positive (Negative); Nitrite,Urine Negative (Negative); PH,Urine 6.5 (5.0-7.0); Protein,Urine Trace (Neg - Trace); RBC,Urine 11 /hpf (0-3); Specific Gravity,Urine 1.008 (1.001-1.035); Squamous Epithelial Cell,Urine 16 /hpf (0-5); Urobilinogen,Urine Negative mg/dL (0.0-1.0); WBC,Urine 164 /hpf (0-5)
[2025-03-19] MEDS: DILTIAZEM in NS 100 MG 100 MG/100 ML BAG IV (19:36)
[2025-03-19] MEDS: POTASSIUM CHLORIDE 10% 20 MEQ/15 ML UDC 40 MEQ PO (19:38)
[2025-03-19 19:45] LABS: Sed Rate (ESR) 25 mm/hr (0-20)
[2025-03-19 19:53] LABS: D-Dimer 1990 ng/mL (<600)
[2025-03-19] MEDS: VANCOMYCIN/NS 1 GM IVPB 200 ML IV (19:54)
--- NOTE | 2025-03-19 19:58 | PC.NURSE ---
RESIDENTS AT BEDSIDE. AWARE OF BP
[2025-03-19 20:00] LABS: C-Reactive Protein 3.1 mg/dL (0.0-0.9); Thyroid Stimulating Hormone 7.33 uIU/mL (0.55-4.78)
[2025-03-19 20:19] LABS: Reflex Lactate? Y
--- NOTE | 2025-03-19 20:21 | PC.NURSE ---
RESIDENTS AND ATTENDING AT BEDSIDE. AWARE OF BP OF 86/53. PER DR. GAINES TO STOP CARDIZEM
[2025-03-19 20:58] LABS: Lactic Acid, 3 HR 4.0 mMol/L (0.4-2.0)
--- NOTE | 2025-03-19 21:10 | ESHP_ITS ---
Documentation for date of: 03/19/25 HPI History of Present Illness History of present illness: Patient is a 79-year-old male with a medical history of atrial fibrillation on Eliquis, primary hypertension, hyperlipidemia, hypothyroidism, chronic urinary retention and straight catheterization, obesity, asthma/COPD, recurrent UTIs, chronic back pain, bedbound, decubitus ulcer, and history of DVT presented to [facility] emergency department on 03/19/2025 with chief complaints of shortness of breath, and urinary symptoms. Of note he was recently admitted 03/05 - 03/08 for exact same presentation and discharged with bactrim. ED Course Summary: AF 98.2F Tachycardic HR 117 tachypnic RR 25 Normotensive 111/83 95% on 4L NC. Lab work up revealed leukocytosis WBC 12.5, ESR 25, D-dimer 1990, coags wnl, hypokalemic K 3.2, lactic acid 4.8, CRP 3.1, procalcitonin 0.68, TSH 7.33. UA c/f contaminants, turbid, RBC 11, WBC 164, Squamous epithelial 16, amorphous crystals present, budding yeast present, leukocyte esterase positive. EKG afib with RVR QTC 537. CXR unremarkable. Treated with KCl 10% 40 meq, Diflucan/NS Ivpb 400 mg, Cardizem 20 mg, Cardizem in NS 100 mg, NS 1 L, Zosyn, and Vancomycin Upon initial evaluation patient is AOx4 in the [place]. His was present to assist with the interview. They state that the patient was breathing weird, was extra tired, not confused but just not breathing well. Does not have home oxygen. His oxygen sats were 87-93% per his . She says his urine starting on was cloudy. The patient reports positive symptoms of SOB and penile discomfort, he does not urinate and has been straight cath x3/day for the last 8 years due to poor bladder contraction, but they are not sure. Of note, patient was recently discharged with bactrim but did not take it since discharge because they wanted to ask their renal specialist if he could take amoxicillin with bactrim, so their plan was just to wait until that visit before continuing their discharged antibiotic, bactrim. Code: Full Medical Hx: Per HPI Medications: Pending med rec Allergies: latex Surgical history: Not obtained Social Hx: Denies tobacco, alcohol, and no illicit drug use Patient admitted for: sepsis r/o c/f medication noncompliance for recent UTI admission All 12 systems reviewed and were negative except otherwise stated in HPI. Exam Vital Signs Temp Pulse Resp BP Pulse Ox O2 Del Method O2 Flow Rate 98 F 74 20 123/86 H 98 Room Air 4 03/19/25 19:39 03/19/25 21:03 03/19/25 21:03 03/19/25 21:03 03/19/25 21:03 03/19/25 21:03 03/19/25 20:00 Narrative Exam GENERAL APPEARANCE: AOx4. NAD, obese, no cyanosis, pallor, or diaphoresis. HEENT: Normocephalic atraumatic, no facial trauma, neck is supple. Lids/conjunctiva normal. Mucous membranes dry, nares normal, lips/teeth normal uvula midline without oral pharyngeal erythema, exudate or swelling TMs normal bilaterally. No lymphangitis/lymphedema. CARDIAC: Regular rate and rhythm, S1+S2 heard. No murmurs, rubs, or gallops noted RESPIRATORY: respiratory effort normal, speaks in full sentences, no tripod position, no accessory muscle use. Lungs clear to auscultation without rhonchi, wheezes, rales ABDOMINAL: NBS. Soft, ND/NT. No evidence of fluid wave. No pulsatile masses on exam, rebound tenderness, Anderson sign or pain over Mcburney's point. MUSCLES/EXTREMITIES: No abnormal range of motion, +2 pedal edema DERM: Warm, pink and dry. Warm and dry. Stage I and II decubitus sacral ulcer noted with plum sized mass. NEUROLOGICAL: Speech is clear and appropriate. Normal level of consciousness. 5/5 strength in all extremities. PSYCH: Normal mood and affect. Judgement/competence is appropriate Results: Labs 03/25/25 05:06 03/25/25 05:06 Labs: Short CBC 03/19/25 Range/Units 17:13 WBC 12.5 H (3.8-10.6) Thou/mm3 Hgb 14.4 (13.5-16.0) g/dL Hct 43.2 (41.0-53.0) % Plt Count 358 D (140-440) Thou/mm3 BMP 03/19/25 17:13 Sodium 138 Potassium 3.2 L Chloride 96 L Carbon Dioxide 30.0 BUN 18 Creatinine 1.3 Glucose 109 H Calcium 9.5 Cardiac Enzymes 03/19/25 Range/Units 17:13 Troponin I 0.021 (0.0-0.045) ng/mL Liver Function 03/19/25 Range/Units 17:13 Total Bilirubin 0.7 (0.3-1.2) mg/dL AST 41 H (0-34) U/L ALT 30 (10-49) U/L Alkaline Phosphatase 96 (46-116) U/L Albumin 4.2 (3.4-4.8) gm/dL Urine 03/19/25 Range/Units 17:45 Urine Color Lt-Yellow (Lt Yel-Yel) Urine Clarity Turbid A (Clear/Hazy) Urine pH 6.5 (5.0-7.0) Ur Specific [place] 1.008 (1.001-1.035) Urine Protein Trace (Neg - Trace) Urine Glucose (UA) Negative (Negative) Quality Measures Quality Measures VTE prophylaxis Advance care planning discussed with:: patient and spouse Medications Home Medications and Allergies Home Medications ?Medication ?Instructions ?Recorded ?Confirmed ?Type apixaban 2.5 mg tablet (Eliquis) 5 mg PO BID 12/25/19 03/19/25 History aspirin 81 mg chewable tablet 81 mg PO QDAY 12/25/19 1 05/19/24 History baclofen 20 mg tablet 20 mg PO TID PRN Spasms 01/0503/19/25 History cyanocobalamin (vitamin B-12) 500 500 mcg PO QDAY 01/0503/19/25 History mcg tablet (Vitamin B-12) finasteride 5 mg tablet 5 mg PO QDAY 12/25/19 History levothyroxine 200 mcg tablet 200 mcg PO QDAY 12/25/19 03/19/25 History multivitamin (Multiple Vitamins 1 tab PO QDAY 12/25/19 03/19/25 History tablet) oxycodone-acetaminophen 10 mg-325 1 tab PO TID PRN Ashley n 12/25/19 03/19/25 History mg tablet potassium chloride 10 mEq 10 meq PO BID 12/25/1903/19 History tablet,extended release Held on 03/25/25. Instructions: Resume on 04/01/25. Hold until kidney functions improve and repeated renal panel done pravastatin 40 mg tablet 40 mg PO DAILY 12/25/1906/12 History pregabalin 150 mg capsule 150 mg PO BID 12/25/1903/19 History pyridoxine (vitamin B6) 100 mg 100 mg PO DAILY 0 03/19/25 History tablet albuterol sulfate 90 mcg/actuation 2 puff inhalation Q 4H PRN sob 12/27/19 03/19/25 History aerosol inhaler fluticasone propionate 50 2 spray intranasal QAM 12/2603/19/25 History mcg/actuation nasal spray,suspension folic acid 1 mg tablet 25 mg PO QDAY 12/27/1903/19 History vit C 250 mg-vit E 90 mg-zinc 40 1 cap PO BID 12/27/19 03/20/25 History mg-copper 1 [id number] capsule (PreserVision AREDS-2) calcium 600 mg (as 1 cap PO BID 03/05/25 History carbonate)-vitamin D3 5 mcg (200 unit) capsule (Calcium 600 + D(3)) fexofenadine 60 mg tablet (Emily 60 mg PO Q12H 03/0503/19/25 History Allergy) methenamine hippurate 1 gram tablet 1 g PO BID 5 03/19/25 History Allergies Allergy/AdvReac Type Severity Reaction Status Date / Time latex Allergy Unknown blisters Verified 03/19/25 16:17 Visit Medications Acetaminophen (Acetaminophen 325 Mg Tablet) 650 mg PO Q6H PRN PRN Reason: Fever >100.4 or pain 1-3 Stop: 04/18/25 20:48 Albuterol/Ipratropium (Albuterol/Ipratropium (Duoneb) Rt Lilli 3 Ml Nebu) 3 ml INH Q4HRRT COLLIN Stop: 04/18/25 22:59 Amiodarone HCl (Amiodarone Hcl 200 Mg Tablet) 200 mg PO BID COLLNI Stop: 04/18/25 20:59 Apixaban (Apixaban 2.5 Mg Tablet) 5 mg PO BID COLLIN Stop: 04/18/25 20:59 Docusate Sodium (Docusate Sod 100 Mg Capsule) 100 mg PO QDAY [facility]; Protocol Stop: 04/19/25 08:59 Sodium Chloride (Ns) 500 mls @ 999 mls/hr IV .Q31M ONE Stop: 03/19/25 21:19 Ondansetron HCl (Ondansetron Inj 2 Mg/Ml Inj 2 Ml) 4 mg IVP Q6H PRN; Protocol PRN Reason: NAUSEA OR VOMITING Stop: 04/18/25 20:48 Pantoprazole Sodium (Pantoprazole 40 Mg Tablet) 40 mg PO QDAY [facility] Stop: 04/19/25 08:59 Trimethoprim/Sulfamethoxazole (Trimethoprim/Sulfa 160/800 Ds Tablet) 1 tab PO BID [facility] Stop: 03/27/25 08:59 Discontinued Medications Diltiazem HCl (Diltiazem Inj 5 Mg/Ml Vial 5 Ml) 20 mg IV X1 ONE Stop: 03/19/25 18:15 Last Admin: 03/19/25 20:03 Dose: Not Given Sodium Chloride (Ns) 1,000 mls @ 999 mls/hr IV .Q1H1M ONE Stop: 03/19/25 18:42 Last Infusion: 03/19/25 19:09 Dose: Infused Vancomycin/Sodium Chloride (Vancomycin/Ns 1 Gm Ivpb) 200 mls @ 120 mls/hr IV X1 ONE Stop: 03/19/25 19:23 Last Admin: 03/19/25 19:54 Dose: 120 mls/hr Piperacillin/Tazobactam/Dextrose (Zosyn) 3.375 gm in 50 mls @ 100 mls/hr IV X1 ONE; Protocol Stop: 03/19/25 18:13 Last Infusion: 03/19/25 19:08 Dose: Infused Diltiazem/Sodium Chloride (Diltiazem In Ns 100 Mg) 100 mg in 100 mls @ 5 mls/hr IV .Q20H COLLIN Stop: 04/18/25 18:13 Last Infusion: 03/19/25 20:18 Dose: 0 mg/hr, 0 mls/hr Fluconazole (Diflucan/Ns Ivpb) 400 mg in 200 mls @ 100 mls/hr IV X1 ONE Stop: 03/19/25 20:36 Potassium Chloride (Potassium Chloride 10% 20 Meq/15 Ml Udc) 40 meq PO X1 ONE Stop: 03/19/25 18:18 Last Admin: 03/19/25 19:38 Dose: 40 meq Assessment & Plan Plan Patient is a 79-year-old male with a medical history of atrial fibrillation on Eliquis, primary hypertension, hyperlipidemia, hypothyroidism, chronic urinary retention and straight catheterization, obesity, asthma/COPD, recurrent UTIs, chronic back pain, bedbound, decubitus ulcer, and history of DVT presented to [facility] emergency department on 03/19/2025 with chief complaints of shortness of breath, and urinary symptoms. Patient was recently discharged 03/08 with exact same presentation. Was discharged with bactrim however did not take the discharged antibiotics because they wanted to schedule an appointment with their urinary specialist before continuing bactrim. #Sepsis 06/20 #UTI 06/20 #Medication noncompliance Patient was recently discharged with bactrim, however was not taking. Now presents identically to original admission. Lactic acid 4.8 downtrended to 4.0 with IV fluids. ESR elevated 25. CRP 3.1. Procal 0.68. Given IV fluids, restarted on discharged medication. Did not give pentem because, ID was already consulted on last admission and found bactrim to to be satisfactory, per sensitivities. UA not clean, most likely contaminated evidenced by squamous epithelial cells. Plan: -Repeat UA:___ -FUP Ucx:___ -FUP Blood cx:___ -Continue treatment of TMP/SMX PO BID -Please give patient education on antibiotics and discharge instructions #Hypokalemia: 3.2 on admission Most likely due to lasix in combination with chlorthalidone. Repleted in ED. Plan: -FUP Renal panel AM:___ -Hold thiazide and loop diuretics currently #Lactic Acidosis 4.8 --> 4.0 (downtrending) Lactic acid 4.8 downtrended to 4.0 with IV fluids. 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 D-dimer elevated: 1990 Wells score 3.0 (16.2% chance of PE, PE unlikely 3% chance). Lungs were clear on physical exam and heart sounds were RRR. Per chart review thyroid medication was reduced last visit which caused RVR cessation. Dr. Salazar is seeing patient. Lungs sounds were clear, chest xray unremarkable. Patient has +2 pedal edema however appears to be due to positon - immobile- rather than CHF exacerbation. EKG on admission showed afib with RVR. Plan: -Strict I/Os -Daily weights -Amiodarone 200mg BID -Eliquis 5mg BID PO #Hx of Hypothyroid TSH 7.33. Medication reduced last admission for afib RVR. Plan: -Pending med rec restart levothyroxine 200mcg PO QD #Prediabetes #A1C: 6.0 Plan: -ISS step 1 -ACHS Glucose checks Health Maintenance: Code status: Full DVT prophylaxis: Eliquis 2.5 mg BID GI prophylaxis: Famotidine Diet: Low carb consistent [place]: Yes Lines: PIV Supplemental O2: NC Disposition: Tele (hx of afib rvr on Eliquis 2.5mg BID) admitted for sepsis most likely 2/2 UTI Patient seen and reviewed with attending Dr. Law. Note written by Vik Brenner MD PGY-1 Attending Provider Attestation/Addendum After examination of the patient and review of the clinical data I feel that this patient needs admission to the hospital for further treatment/evaluation. Plan of care discussed with patient and is in agreement. I Jie Law MD, attest that I was physically present for almanza portions of evaluation, and examined patient, labs and imagings and plan of care were discussed with IM residents team, and I agree with the findings and plans documented above.
[2025-03-19] MEDS: AMIODARONE HCL 200 MG TABLET PO (21:30)
[2025-03-19] MEDS: SODIUM CHLORIDE 0.9% 500 ML 500 ML 999 ML IV (21:30)
[2025-03-19] MEDS: APIXABAN 2.5 MG TABLET 5 MG PO (21:31)
[2025-03-19] MEDS: ACETAMINOPHEN 325 MG TABLET 650 MG PO (21:35)
[2025-03-19 21:46] LABS: Collection Type, Urine Catheter
[2025-03-19 21:54] LABS: Bacteria,Urine Rare; Bilirubin,Urine Negative (Negative); Blood,Urine Negative (Negative); Clarity,Urine Clear (Clear/Hazy); Color,Urine Lt-Yellow (Lt Yel-Yel); Glucose, Urine Negative (Negative); Ketones,Urine Negative (Negative); Leukocyte Esterase,Urine Positive (Negative); Nitrite,Urine Negative (Negative); PH,Urine 6.5 (5.0-7.0); Protein,Urine Trace (Neg - Trace); RBC,Urine 1 /hpf (0-3); Specific Gravity,Urine 1.009 (1.001-1.035); Squamous Epithelial Cell,Urine < 1 /hpf (0-5); Urobilinogen,Urine Negative mg/dL (0.0-1.0); WBC,Urine 3 /hpf (0-5)
[2025-03-19] MEDS: FLUCONAZOLE/NS 400 MG IVPB 400 MG/200 ML BAG 100 MG IV (21:56)
[2025-03-19] MEDS: ALBUTEROL/IPRATROPIUM (Duoneb) RT SOL 3 ML NEBU INH (22:15)
[2025-03-19] MEDS: RINGERS LACTATED 500 ML 500 ML 999 ML IV (23:07)
[2025-03-20] VITALS (19 sets, daily range): BP systolic 72–107; BP diastolic 47–71; PULSE 90–107; RESP 19–28; TEMP 36.2–37.1; O2SAT 94–99; BMI 45.3
--- NOTE | 2025-03-20 01:55 | PC.NURSE ---
PHARMACY CALLED THIS RN THAT SEPTRA IV HAS TO BE MADE BY PHARMACY IN THE MORNING. PROVIDER WAS CONTACTED AND AGREED TO CANCEL ONE TIME DOSE AND START IN THE MORNING
[2025-03-20] MEDS: PANTOPRAZOLE 20 MG TABLET PO (02:45)
[2025-03-20] MEDS: ALBUTEROL/IPRATROPIUM (Duoneb) RT SOL 3 ML NEBU INH ×6 (02:58→22:00)
[2025-03-20] MEDS: FAMOTIDINE 20 MG TABLET PO (04:41)
[2025-03-20 05:38] LABS: Basophils # (Auto) 0.1 Thou/mm3 (0.0-0.2); Basophils % (Auto) 0 % (0-2.5); Eosinophils # (Auto) 0.0 Thou/mm3 (0.0-0.5); Eosinophils % (Auto) 0 % (0-10); Hematocrit 36.6 % (41.0-53.0); Hemoglobin 12.5 g/dL (13.5-16.0); Immature Granulocytes Auto 0.61 Thou/mm3 (0.00-0.00); Lymphocytes # (Auto) 0.2 Thou/mm3 (1.0-4.8); Lymphocytes % (Auto) 1 % (10-50); Mean Corpuscular HGB Conc 34.2 g/dl (31.0-37.0); Mean Corpuscular Hemoglobin 31.3 pg (25.0-35.0); Mean Corpuscular Volume 92 fL (80-100); Monocytes # (Auto) 1.8 Thou/mm3 (0.0-0.8); Monocytes % (Auto) 6 % (0-12); Neutrophils # (Auto) 28.8 Thou/mm3 (1.8-7.7); Neutrophils % (Auto) 91 % (37-80); Nucleated Red Blood Cell # 0.00 Thou/mm3 (0.00-0.00); Nucleated Red Blood Cell % 0 /100 WBC (0); Platelet Count 307 Thou/mm3 (140-440); RDW Standard Deviation 45.5 fL (35.1-43.9); Red Blood Count 3.99 Miln/mm3 (4.50-5.90); White Blood Count 31.5 Thou/mm3 (3.8-10.6)
[2025-03-20 06:08] LABS: Alanine Aminotransferase 42 U/L (10-49); Anion Gap 13 (7-16); Aspartate Amino Transferase 50 U/L (0-34); Bilirubin,Total 0.9 mg/dL (0.3-1.2); Blood Urea Nitrogen 25 mg/dL (9-23); Calcium 8.5 mg/dL (8.3-10.6); Carbon Dioxide 29.4 mMol/L (20.0-31.0); Chloride 96 mMol/L (98-107); Free T4 (Free Thyroxine) 1.31 ng/dL (0.89-1.76); Glucose 215 mg/dL (74-106); Magnesium 2.0 mg/dL (1.6-2.6); Osmolality,Calculated 286 (275-295); Phosphorous 4.9 mg/dL (2.4-5.1); Potassium 3.6 mMol/L (3.4-5.1); Sodium 138 mMol/L (136-145); Total Protein 5.5 gm/dL (5.7-8.2)
[2025-03-20 06:09] LABS: Albumin, Serum 3.5 gm/dL (3.4-4.8); Albumin/Globulin Ratio 1.8 (1.2-2.2); Alkaline Phosphatase 70 U/L (46-116); BUN/Creatinine Ratio 11 Ratio (12-20); Calcium (Corrected) 8.9 mg/dL (8.5-10.1); Creatinine (Component) 2.2 mg/dL (0.6-1.3); Estimated Creatinine Clearance 40.8 mL/min (>60); Globulin 2.0 gm/dL (2.3-3.5); eGFR 30 See Note
[2025-03-20] MEDS: INSULIN LISPRO (AdmeLOG) 1 UNIT/0.01 ML UNIT SC ×2 (08:03→12:01)
[2025-03-20] MEDS: PANTOPRAZOLE 40 MG TABLET PO (08:04)
[2025-03-20] MEDS: AMIODARONE HCL 200 MG TABLET PO ×2 (08:05→20:35)
[2025-03-20] MEDS: DOCUSATE SOD 100 MG CAPSULE PO (08:05)
[2025-03-20] MEDS: APIXABAN 2.5 MG TABLET 5 MG PO ×2 (08:05→20:35)
[2025-03-20 09:02] LABS: Lactate (Lactic Acid) 2.4 mMol/L (0.4-2.0)
--- NOTE | 2025-03-20 09:07 | XR_ITS ---
Examination: Abdomen AP single view Technique: AP portable supine abdomen, single view Exam date and time: March 20, 2025 11:48 a.m. INDICATIONS: Abdominal pain constipation this week. FINDINGS: No free air Air distended stomach Moderate to large amount of stool and air throughout the colon IMPRESSION: Air distended stomach Moderate to large amount of stool and air throughout the colon
[2025-03-20] MEDS: LEVOFLOXACIN/D5W 750MG IVPB 750 MG/150 ML BAG 100 MG IV (09:47)
[2025-03-20] MEDS: MG HYD/AL HYD/SIME (Maalox Reg) SUSP 30 ML UDC PO (10:16)
[2025-03-20 12:01] LABS: Reflex Lactate? Y
[2025-03-20] MEDS: RINGERS LACTATED 500 ML 500 ML 999 ML IV ×2 (12:21→15:39)
[2025-03-20 13:15] LABS: Lactic Acid, 3 HR 3.2 mMol/L (0.4-2.0)
--- NOTE | 2025-03-20 13:33 | ESPR_ITS ---
<Statement entered by Barrington Billingsley MD - 03/20/25 15:15> Patient is admitted overnight in view of sepsis secondary to UTI, which was incompletely treated as the patient is not compliant with the medications. Patient reported of severe burning sensation in the chest and abdominal discomfort, otherwise does not have any other complaints. Labs done this morning showed elevated WBC 31.5 but patient did not develop any fever or any other associated symptoms. Creatinine elevated to 2.2. Lactate started downtrending from 4-2.4. Will continue to monitor urine output, lactate, renal functions. Patient was given a bolus of 500 mL as he was hypotensive and later a dose of midodrine 10 mg is given. Will continue to monitor the blood pressures if the lactate continues to uptrend or the blood pressure does not improve, patient might need pressor support. Changed antibiotic from Bactrim to levofloxacin as the patient noted to have worsening REHANA. Levofloxacin is renally dosed. I have personally seen and examined the patient, agree with residents assessment and plan Patient plan of care was discussed with the attending physician, Dr. Kimberly Billingsley, PGY2 Documentation for date of: 03/20/25 Subjective Subjective Interval history: Seen and examined today. Patient awake, alert, oriented ?3. Complains of diffuse abdominal pain and heartburn, abdomen feels distended. Denies nausea, vomiting, or chills. Last bowel movement was yesterday. No shortness of breath or chest pain. at bedside. Reports no confusion or dizziness before this morning, but nursing noted episode of hypotension for which IV fluid bolus was given. Exam Vital Signs Temp Pulse Resp BP Pulse Ox O2 Del Method O2 Flow Rate 97.4 F 105 H 24 H 105/68 98 Nasal Cannula 4 03/20/25 08:00 03/20/25 10:47 03/20/25 10:47 03/20/25 08:05 03/20/25 10:47 03/20/25 08:00 03/20/25 10:47 Narrative Exam General: NAD, obese, alert and interactive HEENT: MMM, no icterus Heart: Irregularly irregular, no murmurs or gallops Lungs: CTA bilaterally, no rales or wheeze Abdomen: Distended, soft, diffusely tender (LLQ > RLQ), no rebound or guarding, BS present : Verdugo catheter in place draining clear urine Extremities: +2 pedal edema, warm and well perfused Skin: Stage I?II sacral ulcer clean and dry Neuro: AO?3, speech clear, no focal deficits Objective Labs 03/20/25 04:55 03/20/25 04:55 Labs: Laboratory Results - last 24 hr 03/19/25 03/19/25 03/19/25 17:13 17:45 19:12 WBC 12.5 H RBC 4.69 Hgb 14.4 Hct 43.2 MCV 92 MCH 30.7 MCHC 33.3 RDW Std Deviation 44.6 H Plt Count 358 D Neut % (Auto) 96 H Lymph % (Auto) 2 L Kings % (Auto) 1 Eos % (Auto) 0 Baso % (Auto) 0 Neut # (Auto) 12.0 H Lymph # (Auto) 0.2 L Kings # (Auto) 0.1 Eos # (Auto) 0.0 Baso # (Auto) 0.0 Immature Gran # (Auto) 0.17 H Absolute Nucleated RBC 0.00 Immature Gran % 1 H Nucleated RBC % 0 ESR 25 H PT 10.6 INR 1.0 APTT 27.0 D-Dimer 1990 H Sodium 138 Potassium 3.2 L Chloride 96 L Carbon Dioxide 30.0 Anion Gap 12 BUN 18 Creatinine 1.3 Estim Creat Clear Calc 69.0 eGFR 56 L BUN/Creatinine Ratio 14 Glucose 109 H Calculated Osmolality 278 Lactic Acid 4.8 H* Calcium 9.5 Corrected Calcium 9.5 Phosphorus Magnesium 1.9 Total Bilirubin 0.7 AST 41 H ALT 30 Alkaline Phosphatase 96 Troponin I 0.021 C-Reactive Prot, Quant 3.1 H B-Natriuretic Peptide 32 Total Protein 6.6 Albumin 4.2 Globulin 2.4 Albumin/Globulin Ratio 1.8 Lipase 45 Procalcitonin 0.68 H TSH 7.33 H D Free T4 Ur Collection Type Clean Catch Urine Color Lt-Yellow Urine Clarity Turbid A Urine pH 6.5 Ur Specific [place] 1.008 Urine Protein Trace Urine Glucose (UA) Negative Urine Ketones Negative Urine Blood Negative Urine Nitrite Negative Urine Bilirubin Negative Urine Urobilinogen (Auto) Negative Ur Leukocyte Esterase Positive Urine RBC 11 H Urine WBC 164 H Ur Squamous Epith Cells 16 H Amorphous Crystals Present A Urine Bacteria Rare Hyaline Casts < 1 Urine Yeast (Budding) Present A 03/19/25 03/19/2525 20:27 21:30 04:55 WBC 31.5 H D RBC 3.99 L Hgb 12.5 L Hct 36.6 L MCV 92 MCH 31.3 MCHC 34.2 RDW Std Deviation 45.5 H Plt Count 307 D Neut % (Auto) 91 H Lymph % (Auto) 1 L Kings % (Auto) 6 Eos % (Auto) 0 Baso % (Auto) 0 Neut # (Auto) 28.8 H Lymph # (Auto) 0.2 L Kings # (Auto) 1.8 H Eos # (Auto) 0.0 Baso # (Auto) 0.1 Immature Gran # (Auto) 0.61 H Absolute Nucleated RBC 0.00 Immature Gran % 2 H Nucleated RBC % 0 ESR PT INR APTT D-Dimer Sodium 138 Potassium 3.6 Chloride 96 L Carbon Dioxide 29.4 Anion Gap 13 BUN 25 H Creatinine 2.2 H D Estim Creat Clear Calc 40.8 L eGFR 30 L BUN/Creatinine Ratio 11 L Glucose 215 H D Calculated Osmolality 286 Lactic Acid 4.0 H Calcium 8.5 Corrected Calcium 8.9 Phosphorus 4.9 Magnesium 2.0 Total Bilirubin 0.9 AST 50 H ALT 42 Alkaline Phosphatase 70 D Troponin I C-Reactive Prot, Quant B-Natriuretic Peptide Total Protein 5.5 L Albumin 3.5 D Globulin 2.0 L Albumin/Globulin Ratio 1.8 Lipase Procalcitonin TSH Free T4 1.31 Ur Collection Type Catheter Urine Color Lt-Yellow Urine Clarity Clear Urine pH 6.5 Ur Specific [place] 1.009 Urine Protein Trace Urine Glucose (UA) Negative Urine Ketones Negative Urine Blood Negative Urine Nitrite Negative Urine Bilirubin Negative Urine Urobilinogen (Auto) Negative Ur Leukocyte Esterase Positive Urine RBC 1 Urine WBC 3 Ur Squamous Epith Cells < 1 Amorphous Crystals Urine Bacteria Rare Hyaline Casts Urine Yeast (Budding) 03/20/25 08:44 WBC RBC Hgb Hct MCV MCH MCHC RDW Std Deviation Plt Count Neut % (Auto) Lymph % (Auto) Kings % (Auto) Eos % (Auto) Baso % (Auto) Neut # (Auto) Lymph # (Auto) Kings # (Auto) Eos # (Auto) Baso # (Auto) Immature Gran # (Auto) Absolute Nucleated RBC Immature Gran % Nucleated RBC % ESR PT INR APTT D-Dimer Sodium Potassium Chloride Carbon Dioxide Anion Gap BUN Creatinine Estim Creat Clear Calc eGFR BUN/Creatinine Ratio Glucose Calculated Osmolality Lactic Acid 2.4 H Calcium Corrected Calcium Phosphorus Magnesium Total Bilirubin AST ALT Alkaline Phosphatase Troponin I C-Reactive Prot, Quant B-Natriuretic Peptide Total Protein Albumin Globulin Albumin/Globulin Ratio Lipase Procalcitonin TSH Free T4 Ur Collection Type Urine Color Urine Clarity Urine pH Ur Specific [place] Urine Protein Urine Glucose (UA) Urine Ketones Urine Blood Urine Nitrite Urine Bilirubin Urine Urobilinogen (Auto) Ur Leukocyte Esterase Urine RBC Urine WBC Ur Squamous Epith Cells Amorphous Crystals Urine Bacteria Hyaline Casts Urine Yeast (Budding) Quality Measures Quality Measures VTE prophylaxis and none Advance care planning discussed with:: patient Assessment & Plan Assessment Current Active Medications: Generic Name Dose Route Start Last Admin Trade Name Freq PRN Reason Stop Dose Admin Acetaminophen 650 mg 03/19/25 20:49 03/19/25 21:35 Acetaminophen 325 Mg Tablet PO 04/18/25 20:48 650 mg Q6H PRN Administration Fever >100.4 or pain 1-3 Al Hydrox/Mg Hydrox/Simethicone 30 ml 03/20/25 09:06 Mg Hyd/Al Hyd/Isabel (Maalox Reg) Susp 30 Ml Udc PO 04/19/25 09:05 Q4HR PRN UPSET STOMACH/INDIGESTION Albuterol/Ipratropium 3 ml 03/19/25 23:00 03/20/25 10:47 Albuterol/Ipratropium (Duoneb) Rt Lilli 3 Ml Nebu INH 04/18/25 22:59 3 ml Q4HRRT COLLIN Administration Amiodarone HCl 200 mg 03/19/25 21:00 03/20/25 08:05 Amiodarone Hcl 200 Mg Tablet PO 04/18/25 20:59 200 mg BID COLLIN Administration Apixaban 5 mg 03/19/25 21:00 03/20/25 08:05 Apixaban 2.5 Mg Tablet PO 04/18/25 20:59 5 mg BID COLLNI Administration Dextrose 25 ml 03/19/25 21:57 Dextrose 50%-Water Inj 50 Ml Syringe IV 04/18/25 21:56 Q15MIN PRN BG 50-70 responsive npo pt Dextrose 50 ml 03/19/25 21:57 Dextrose 50%-Water Inj 50 Ml Syringe IV 04/18/25 21:56 Q15MIN PRN BG <50 OR BG <70 & pt unresponsive Docusate Sodium 100 mg 03/20/25 09:00 03/20/25 08:05 Docusate Sod 100 Mg Capsule PO 04/19/25 08:59 100 mg QDAY COLLIN Administration Protocol Glucagon 1 mg 03/19/25 21:57 Glucagon Inj 1 Mg Vial IM Q15MIN PRN BG <70, and no IV access Levofloxacin/Dextrose 750 mg in 150 mls @ 100 mls/hr 03/20/25 09:00 03/20/25 09:47 Levaquin Ivpb IV 03/27/25 08:59 100 mls/hr Q48H COLLIN Administration Insulin Human Lispro 0 unit 03/20/25 07:30 03/20/25 12:01 Insulin Lispro (Admelog) 1 Unit/0.01 Ml Unit SC 04/19/25 07:29 1 unit AC COLLIN Administration Protocol Pantoprazole Sodium 40 mg 03/20/25 09:00 03/20/25 08:04 Pantoprazole 40 Mg Tablet PO 04/19/25 08:59 40 mg QDAY COLLIN Administration Plan 79-year-old male with history of atrial fibrillation on Eliquis, hypothyroidism, chronic urinary retention with recurrent ESBL UTIs, and CKD, admitted for sepsis likely secondary to ESBL UTI, now with recurrent hypotension and rising lactate (2.4 -> 3.2) concerning for evolving septic shock, on Levofloxacin therapy with REHANA (Cr 2.2, GFR ~30), currently hemodynamically tenuous post fluid bolus and Midodrine 10 mg; ICU team informed for possible upgrade if no improvement after repeat bolus. # Sepsis likely secondary to recurrent ESBL UTI #Lactic acidosis Rising lactate and hypotension concerning for septic shock lactic acid re-elevation 2.4 -> 3.2, MAP trending low; received 500 mL NS bolus with transient improvement. Previously improved but now trending upward, possibly due to ongoing infection or hypoperfusion episode with transient hypotension. Previously on Zosyn; switched to Levofloxacin 750 mg IV q48h (renal dose). Plan: * Order second 500 mL NS bolus and monitor response. * Continue Levofloxacin 750 mg IV q48h (renally adjusted; CrCl 40). * Maintain MAP > 65, reassess vitals and perfusion after repeat bolus. * If persistent hypotension or lactate continues to rise -> upgrade to ICU for possible pressor initiation. * ICU team informed of patient status and possible transfer need. * Midodrine 10 mg PO given; transient improvement * Follow-up blood and urine cultures; escalate to carbapenem if resistance or worsening sepsis. * Strict I/Os, daily weights. # Abdominal pain/distention # Heartburn Likely GERD vs functional ileus vs early obstructive pattern given distention. No rebound but there is mild guarding. Plan: * Abdominal X-ray ordered to evaluate for ileus vs SBO * Maalox PRN, IV Protonix 40 mg daily * Simethicone PRN for bloating, Miralax PRN if no BM today * Monitor bowel sounds and repeat exam post-imaging # REHANA on CKD GFR 30, Cr 2.2 from 1 Likely sepsis-associated pre-renal component. Plan: * Continue gentle IV hydration and avoid nephrotoxins * Renal panel daily, monitor UOP * Reassess after bolus and Midodrine response # Atrial Fibrillation on Amiodarone and Eliquis Rate controlled but QTc prolonged 537 ms. Plan: * Continue Amiodarone 200 mg BID, Eliquis 5 mg BID * Daily EKG to monitor QTc on Levofloxacin * Maintain K > 4.0, Mg > 2.0 # Subclinical hypothyroidism TSH 7.3, free T4 normal. Unknown if patient is symptomatic or not Plan: Continue to monitor, if symptomatic start levothyroxine. # DM (A1C 6.0) Plan: ISS Step 1, ACHS glucose checks Health Maintenance: Code Status: Full DVT Prophylaxis: Eliquis GI Prophylaxis: Protonix Diet: Low-carb consistent Disposition: Telemetry; continue IV antibiotics, fluid resuscitation, and monitor lactic trend and BP. ----- Plan discussed with attending physician Dr. Harris and senior resident Dr. Analilia Gonzales MD PGY-1 Internal Medicine Attending Provider Attestation/Addendum I have seen and examined the patient. I was physically present for the almanza portions of the services provided including history, physical exam, diagnosis, treatment plans and orders. I agree with assessment and plan of care as documented by residents. Patient seen and examined at bedside this morning. Appears comfortable and denies any new complaints. Saturating well on 4 L nasal cannula. Patient recently had UTI with sepsis needing hospitalization, he was discharged on Bactrim. Patient has been taking daily for several years for recurrent UTI causing recurrent sepsis. As per the family at bedside, the patient continued taking Augmentin and stopped the Bactrim. On labs, BUN/creatinine went up to 25/2.2 from 18/1.3 yesterday. Also, lactic acid has been downtrending. However this afternoon, patient started having episodes of low blood pressure, he was started on midodrine, received 500 cc of IV fluids. Added 500 cc of Ringer's lactate. Cultures results have been pending, patient currently on IV levofloxacin. Noted to have bilateral pedal edema, more on left side. We will monitor closely for fluid status, if patient continues to be hypotensive despite fluid resuscitation, we will discuss with ICU regarding start of vasopressors. Even though this this note was carefully revised there may still be minor errors in loading machine adjuster due to voice recognition software. Elier Harris MD
[2025-03-20] MEDS: MIDODRINE 5 MG TABLET 10 MG PO ×3 (14:04→20:36)
--- NOTE | 2025-03-20 15:17 | PC.SS ---
Rounding: On IV ABX, receiving wound care
[2025-03-20 16:47] LABS: Lactate (Lactic Acid) 2.3 mMol/L (0.4-2.0)
[2025-03-20 17:16] LABS: B-Type Natriuretic Peptide 68 pg/mL (0-100)
[2025-03-20 17:18] LABS: Albumin, Serum 3.1 gm/dL (3.4-4.8); Anion Gap 9 (7-16); BUN/Creatinine Ratio 13 Ratio (12-20); Blood Urea Nitrogen 36 mg/dL (9-23); Calcium 7.6 mg/dL (8.3-10.6); Calcium (Corrected) 8.3 mg/dL (8.5-10.1); Carbon Dioxide 27.8 mMol/L (20.0-31.0); Chloride 97 mMol/L (98-107); Creatinine (Component) 2.8 mg/dL (0.6-1.3); Estimated Creatinine Clearance 32.0 mL/min (>60); Glucose 189 mg/dL (74-106); Osmolality,Calculated 281 (275-295); Phosphorous 3.9 mg/dL (2.4-5.1); Potassium 3.9 mMol/L (3.4-5.1); Sodium 134 mMol/L (136-145); eGFR 22 See Note
[2025-03-20] MEDS: VANCOMYCIN/D5W 1500 MG IVPB 300 ML 120 MG IV (17:36)
[2025-03-20 19:44] LABS: Reflex Lactate? Y
[2025-03-20 20:18] LABS: Lactic Acid, 3 HR 1.8 mMol/L (0.4-2.0)
[2025-03-20] MEDS: MEROPENEM INJ 2,000 MG in SODIUM CHLORIDE 0.9% 100 ML 100 MG IV (20:35)
[2025-03-20] MEDS: PREGABALIN 75 MG CAPSULE 150 MG PO (20:35)
[2025-03-21] VITALS (17 sets, daily range): BP systolic 95–137; BP diastolic 52–69; PULSE 73–108; RESP 15–24; TEMP 35.9–36.7; O2SAT 96–100; BMI 46.5; BMI 46.7
[2025-03-21] MEDS: MG HYD/AL HYD/SIME (Maalox Reg) SUSP 30 ML UDC PO ×2 (00:36→09:37)
[2025-03-21] MEDS: ALBUTEROL/IPRATROPIUM (Duoneb) RT SOL 3 ML NEBU INH ×4 (02:25→20:32)
[2025-03-21] MEDS: MIDODRINE 5 MG TABLET 10 MG PO ×3 (05:09→21:19)
[2025-03-21 05:44] LABS: Basophils # (Auto) 0.0 Thou/mm3 (0.0-0.2); Basophils % (Auto) 0 % (0-2.5); Eosinophils # (Auto) 0.2 Thou/mm3 (0.0-0.5); Eosinophils % (Auto) 1 % (0-10); Hematocrit 31.0 % (41.0-53.0); Hemoglobin 10.5 g/dL (13.5-16.0); Immature Granulocytes Auto 0.14 Thou/mm3 (0.00-0.00); Lymphocytes # (Auto) 1.1 Thou/mm3 (1.0-4.8); Lymphocytes % (Auto) 6 % (10-50); Mean Corpuscular HGB Conc 33.9 g/dl (31.0-37.0); Mean Corpuscular Hemoglobin 31.1 pg (25.0-35.0); Mean Corpuscular Volume 92 fL (80-100); Monocytes # (Auto) 1.6 Thou/mm3 (0.0-0.8); Monocytes % (Auto) 9 % (0-12); Neutrophils # (Auto) 14.2 Thou/mm3 (1.8-7.7); Neutrophils % (Auto) 82 % (37-80); Nucleated Red Blood Cell # 0.00 Thou/mm3 (0.00-0.00); Nucleated Red Blood Cell % 0 /100 WBC (0); Platelet Count 267 Thou/mm3 (140-440); RDW Standard Deviation 45.3 fL (35.1-43.9); Red Blood Count 3.38 Miln/mm3 (4.50-5.90); White Blood Count 17.3 Thou/mm3 (3.8-10.6)
[2025-03-21 06:12] LABS: Alanine Aminotransferase 32 U/L (10-49); Albumin, Serum 3.0 gm/dL (3.4-4.8); Albumin/Globulin Ratio 1.5 (1.2-2.2); Alkaline Phosphatase 61 U/L (46-116); Anion Gap 10 (7-16); Aspartate Amino Transferase 35 U/L (0-34); BUN/Creatinine Ratio 12 Ratio (12-20); Bilirubin,Total 0.6 mg/dL (0.3-1.2); Blood Urea Nitrogen 36 mg/dL (9-23); Calcium 7.9 mg/dL (8.3-10.6); Calcium (Corrected) 8.7 mg/dL (8.5-10.1); Carbon Dioxide 28.1 mMol/L (20.0-31.0); Chloride 95 mMol/L (98-107); Creatinine (Component) 3.1 mg/dL (0.6-1.3); Estimated Creatinine Clearance 29.3 mL/min (>60); Globulin 2.0 gm/dL (2.3-3.5); Glucose 130 mg/dL (74-106); Magnesium 2.2 mg/dL (1.6-2.6); Osmolality,Calculated 276 (275-295); Phosphorous 4.0 mg/dL (2.4-5.1); Potassium 3.9 mMol/L (3.4-5.1); Sodium 133 mMol/L (136-145); Total Protein 5.0 gm/dL (5.7-8.2); eGFR 20 See Note
[2025-03-21 06:40] LABS: Vancomycin,Random 21.7 mcg/mL
[2025-03-21] MEDS: PANTOPRAZOLE 40 MG TABLET PO (09:35)
[2025-03-21] MEDS: DOCUSATE SOD 100 MG CAPSULE PO (09:35)
[2025-03-21] MEDS: PREGABALIN 75 MG CAPSULE 150 MG PO ×2 (09:35→21:18)
[2025-03-21] MEDS: AMIODARONE HCL 200 MG TABLET PO ×2 (09:36→21:18)
[2025-03-21] MEDS: ASPIRIN 81 MG CHEW PO (09:36)
[2025-03-21] MEDS: APIXABAN 2.5 MG TABLET 5 MG PO ×2 (09:36→21:18)
[2025-03-21] MEDS: FINASTERIDE 5 MG TABLET PO (09:42)
[2025-03-21] MEDS: MEROPENEM INJ 2,000 MG in SODIUM CHLORIDE 0.9% 100 ML 100 MG IV ×2 (09:43→21:19)
--- NOTE | 2025-03-21 12:05 | PC.SS ---
Update: Patient obtaining IV antibiotics.
--- NOTE | 2025-03-21 13:35 | ESPR_ITS ---
<Statement entered by Barrington Billingsley MD - 03/21/25 16:56> Patient is seen and examined at bedside. No acute overnight events. Overnight, the blood pressure improved but patient is noted to have worsening REHANA. Patient reported that he is feeling well except for the heartburn for which Maalox was given. Had good bowel movements and 600 mL of urine output overnight. Vitals are stable. On physical examination, noted to have worsening pedal edema. Labs done this morning showed worsening renal function. Will continue antibiotics, continue urine monitoring. Once the patient becomes more hemodynamically stable, we will plan of diuresing the patient after giving albumin. Noted to have ESBL Klebsiella pneumonia again. On contact precautions I have personally seen and examined the patient, agree with residents assessment and plan Patient plan of care was discussed with the attending physician, Dr. Kimberly Billingsley, PGY2 Documentation for date of: 03/21/25 Subjective Subjective Interval history: Patient seen and examined this morning. Reports feeling better overall. Denies lightheadedness, dizziness, shortness of breath, chest pain, nausea, or vomiting. Main complaint is persistent heartburn, for which nurse administered Protonix and Maalox this morning with relief. No abdominal pain or bloating. Sitting up in bed, ate some breakfast, tolerating oral intake. present at bedside. Reports good urine output (600 mL overnight). Exam Vital Signs Temp Pulse Resp BP Pulse Ox O2 Del Method O2 Flow Rate 97.2 F 87 19 112/63 98 Nasal Cannula 2 03/21/25 08:00 03/21/25 10:32 03/21/25 10:32 03/21/25 09:36 03/21/25 10:32 03/21/25 08:00 03/21/25 10:32 Narrative Exam General: Awake, alert, sitting up in bed, NAD Heart: Irregularly irregular, no murmurs or rubs Lungs: CTA bilaterally, non-labored respirations Abdomen: Soft, non-tender, non-distended, normoactive bowel sounds Extremities: Warm, +1 pedal edema, good perfusion : Verdugo in place, draining clear yellow urine Skin: Sacral ulcer stage I?II clean and dry Neuro: AO?3, no focal deficits Objective Labs 03/21/25 04:54 03/21/25 04:54 Labs: Laboratory Results - last 24 hr 03/20/25 03/20/25 03/20/25 13:06 16:38 20:11 WBC RBC Hgb Hct MCV MCH MCHC RDW Std Deviation Plt Count Neut % (Auto) Lymph % (Auto) [place] % (Auto) Eos % (Auto) Baso % (Auto) Neut # (Auto) Lymph # (Auto) [place] # (Auto) Eos # (Auto) Baso # (Auto) Immature Gran # (Auto) Absolute Nucleated RBC Immature Gran % Nucleated RBC % Sodium 134 L Potassium 3.9 Chloride 97 L Carbon Dioxide 27.8 Anion Gap 9 BUN 36 H Creatinine 2.8 H D Estim Creat Clear Calc 32.0 L eGFR 22 L BUN/Creatinine Ratio 13 Glucose 189 H Calculated Osmolality 281 Lactic Acid 3.2 H 2.3 H 1.8 Calcium 7.6 L Corrected Calcium 8.3 L Phosphorus 3.9 Magnesium Total Bilirubin AST ALT Alkaline Phosphatase B-Natriuretic Peptide 68 Total Protein Albumin 3.1 L Globulin Albumin/Globulin Ratio Random Vancomycin 03/21/25 04:54 WBC 17.3 H D RBC 3.38 L Hgb 10.5 L D Hct 31.0 L MCV 92 MCH 31.1 MCHC 33.9 RDW Std Deviation 45.3 H Plt Count 267 D Neut % (Auto) 82 H Lymph % (Auto) 6 L [place] % (Auto) 9 Eos % (Auto) 1 Baso % (Auto) 0 Neut # (Auto) 14.2 H Lymph # (Auto) 1.1 [place] # (Auto) 1.6 H Eos # (Auto) 0.2 Baso # (Auto) 0.0 Immature Gran # (Auto) 0.14 H Absolute Nucleated RBC 0.00 Immature Gran % 1 H Nucleated RBC % 0 Sodium 133 L Potassium 3.9 Chloride 95 L Carbon Dioxide 28.1 Anion Gap 10 BUN 36 H Creatinine 3.1 H Estim Creat Clear Calc 29.3 L eGFR 20 L BUN/Creatinine Ratio 12 Glucose 130 H D Calculated Osmolality 276 Lactic Acid Calcium 7.9 L Corrected Calcium 8.7 Phosphorus 4.0 Magnesium 2.2 Total Bilirubin 0.6 AST 35 H ALT 32 Alkaline Phosphatase 61 B-Natriuretic Peptide Total Protein 5.0 L Albumin 3.0 L Globulin 2.0 L Albumin/Globulin Ratio 1.5 Random Vancomycin 21.7 Quality Measures Quality Measures VTE prophylaxis Advance care planning discussed with:: patient and spouse Assessment & Plan Assessment Current Active Medications: Generic Name Dose Route Start Last Admin Trade Name Freq PRN Reason Stop Dose Admin Acetaminophen 650 mg 03/19/25 20:49 03/19/25 21:35 Acetaminophen 325 Mg Tablet PO 04/18/25 20:48 650 mg Q6H PRN Administration Fever >100.4 or pain 1-3 Al Hydrox/Mg Hydrox/Simethicone 30 ml 03/20/25 09:06 03/21/25 09:37 Mg Hyd/Al Hyd/Isabel (Maalox Reg) Susp 30 Ml Udc PO 04/19/25 09:05 30 ml Q4HR PRN Administration UPSET STOMACH/INDIGESTION Albuterol/Ipratropium 3 ml 03/19/25 23:00 03/21/25 10:32 Albuterol/Ipratropium (Duoneb) Rt Lilli 3 Ml Nebu INH 04/18/25 22:59 Not Given Q4HRRT COLLIN Amiodarone HCl 200 mg 03/19/25 21:00 03/21/25 09:36 Amiodarone Hcl 200 Mg Tablet PO 04/18/25 20:59 200 mg BID COLLIN Administration Apixaban 5 mg 03/19/25 21:00 03/21/25 09:36 Apixaban 2.5 Mg Tablet PO 04/18/25 20:59 5 mg BID COLLIN Administration Ascorbic Acid 500 mg 03/21/25 13:45 Ascorbic Acid 250 Mg Tablet PO 04/20/25 13:44 BID COLLIN Aspirin 81 mg 03/21/25 09:00 03/21/25 09:36 Aspirin 81 Mg Chew PO 04/20/25 08:59 81 mg QDAY COLLIN Administration Baclofen 20 mg 03/20/25 15:03 Baclofen 10 Mg Tablet PO 04/19/25 15:02 TID PRN Spasms Dextrose 25 ml 03/19/25 21:57 Dextrose 50%-Water Inj 50 Ml Syringe IV 04/18/25 21:56 Q15MIN PRN BG 50-70 responsive npo pt Dextrose 50 ml 03/19/25 21:57 Dextrose 50%-Water Inj 50 Ml Syringe IV 04/18/25 21:56 Q15MIN PRN BG <50 OR BG <70 & pt unresponsive Docusate Sodium 100 mg 03/20/25 09:00 03/21/25 09:35 Docusate Sod 100 Mg Capsule PO 04/19/25 08:59 100 mg QDAY COLLIN Administration Protocol Finasteride 5 mg 03/21/25 09:00 03/21/25 09:42 Finasteride 5 Mg Tablet PO 04/20/25 08:59 5 mg QDAY COLLIN Administration Glucagon 1 mg 03/19/25 21:57 Glucagon Inj 1 Mg Vial IM Q15MIN PRN BG <70, and no IV access Meropenem 2,000 mg/ Sodium 100 mls @ 100 mls/hr 03/20/25 21:00 03/21/25 09:43 Chloride IV 03/27/25 20:59 100 mls/hr BID COLLIN Administration Insulin Human Lispro 0 unit 03/20/25 07:30 03/21/25 12:22 Insulin Lispro (Admelog) 1 Unit/0.01 Ml Unit SC 04/19/25 07:29 Not Given AC COLLIN Protocol Midodrine 10 mg 03/20/25 15:45 03/21/25 05:09 Midodrine 5 Mg Tablet PO 04/19/25 15:44 10 mg TID COLLIN Administration Multivitamins 1 tab 03/21/25 13:45 Multivitamins Tablet PO 04/20/25 13:44 QDAY COLLIN Oxycodone/Acetaminophen 1 tab 03/20/25 15:03 Oxycodone/Apap 5/325 Tablet PO TID PRN Pain 7 -10 Pantoprazole Sodium 40 mg 03/20/25 09:00 03/21/25 09:35 Pantoprazole 40 Mg Tablet PO 04/19/25 08:59 40 mg QDAY COLLIN Administration Pharmacy Consult 1 each 03/21/25 09:00 Vancomycin Pharmacy To Dose 1 Each Each IV 04/20/25 08:59 QDAY PRN PROTOCOL Pregabalin 150 mg 03/20/25 21:00 03/21/25 09:35 Pregabalin 75 Mg Capsule PO 04/19/25 20:59 150 mg BID COLLIN Administration Zinc Sulfate 220 mg 03/21/25 13:45 Zinc Sulfate 220 Mg Capsule PO 04/04/25 13:44 QDAY COLLIN Plan 79-year-old male with history of atrial fibrillation on Eliquis, hypothyroidism, chronic urinary retention with recurrent ESBL UTIs, and CKD, admitted for sepsis likely secondary to ESBL UTI, now with recurrent hypotension and rising lactate (2.4 -> 3.2) concerning for evolving septic shock, on Levofloxacin therapy with REHANA (Cr 2.2, GFR ~30), currently hemodynamically tenuous post fluid bolus and Midodrine 10 mg; ICU team informed for possible upgrade if no improvement after repeat bolus. # Sepsis likely secondary to recurrent ESBL UTI (improving) WBC downtrending, lactate normalized, BP improved, afebrile. Broadened antibiotic coverage to Meropenem and Vancomycin yesterday with good response. Plan: * Continue Meropenem 2 g IV BID and Vancomycin IV (dose per pharmacy, renally adjusted). * Monitor renal function daily and adjust antibiotic dosing accordingly. * Follow up blood and urine cultures. * Maintain MAP > 65 and monitor for recurrence of hypotension. * Continue Midodrine 10 mg TID. * Strict I/Os, daily weights. # REHANA on CKD Cr 3.1, baseline 1.0, GFR 20 Likely pre-renal vs ATN in setting of sepsis and prior hypotension. Plan: * Continue gentle IV hydration as tolerated; reassess volume status. * Avoid nephrotoxic agents. * Daily BMP to trend renal function. * Adjust Meropenem/Vancomycin doses per renal function. * Monitor urine output closely (600 mL overnight). # Hypotension (improved) Previously borderline, now holding steady at 111/62 on Midodrine. Plan: * Continue Midodrine 10 mg PO TID. * Monitor BP and perfusion closely. * Hold additional bolus for now; reassess if SBP < 90 or symptomatic. # Heartburn # GERD symptoms Likely reflux-related, improved with therapy. Plan: * Continue IV Protonix 40 mg daily. * Maalox PRN for breakthrough heartburn. * Encourage upright posture after meals. # Atrial Fibrillation on Amiodarone and Eliquis Rate controlled but QTc prolonged 537 ms. Plan: * Continue Amiodarone 200 mg BID, Eliquis 5 mg BID * Daily EKG to monitor QTc on Levofloxacin * Maintain K > 4.0, Mg > 2.0 # Subclinical hypothyroidism TSH 7.3, free T4 normal. Unknown if patient is symptomatic or not Plan: Continue to monitor, if symptomatic start levothyroxine. # DM (A1C 6.0) Plan: ISS Step 1, ACHS glucose checks Health Maintenance: Code Status: Full DVT Prophylaxis: Eliquis GI Prophylaxis: Protonix Diet: Low-carb consistent Disposition: Telemetry; continue IV antibiotics, fluid resuscitation, and monitor lactic trend and BP. ----- Plan discussed with attending physician Dr. Harris and senior resident Dr. Analilia Gonzales MD PGY-1 Internal Medicine Attending Provider Attestation/Addendum I have seen and examined the patient. I was physically present for the almanza portions of the services provided including history, physical exam, diagnosis, treatment plans and orders. I agree with assessment and plan of care as documented by residents. Patient seen and examined at bedside this morning. Appears comfortable, denies any new complaints. Blood pressure had been soft overnight but has started improving slowly. WBC count has been downtrending. Noted to have worsening creatinine, but urine output has slightly improved. We will monitor closely, if continues to have worsening urinary output, we will obtain nephrology consult tomorrow. Continues to be on meropenem and vancomycin. Awaiting culture results. Even though this this note was carefully revised there may still be minor errors in citrus peeler due to voice recognition software. Elier Harris MD
[2025-03-21] MEDS: ZINC SULFATE 220 MG CAPSULE PO (14:57)
[2025-03-21] MEDS: MULTIVITAMINS TABLET 1 TAB PO (14:57)
[2025-03-21] MEDS: ASCORBIC ACID 250 MG TABLET 500 MG PO ×2 (14:57→21:18)
[2025-03-22] VITALS (16 sets, daily range): BP systolic 126–144; BP diastolic 71–84; PULSE 77–104; RESP 12–20; TEMP 36–37.1; O2SAT 93–99; BMI 46.0
[2025-03-22] MEDS: ALBUTEROL/IPRATROPIUM (Duoneb) RT SOL 3 ML NEBU INH ×2 (01:24→05:58)
[2025-03-22 05:46] LABS: Basophils # (Auto) 0.0 Thou/mm3 (0.0-0.2); Basophils % (Auto) 0 % (0-2.5); Eosinophils # (Auto) 0.1 Thou/mm3 (0.0-0.5); Eosinophils % (Auto) 1 % (0-10); Hematocrit 32.2 % (41.0-53.0); Hemoglobin 11.1 g/dL (13.5-16.0); Immature Granulocytes Auto 0.06 Thou/mm3 (0.00-0.00); Lymphocytes # (Auto) 1.1 Thou/mm3 (1.0-4.8); Lymphocytes % (Auto) 10 % (10-50); Mean Corpuscular HGB Conc 34.5 g/dl (31.0-37.0); Mean Corpuscular Hemoglobin 30.7 pg (25.0-35.0); Mean Corpuscular Volume 89 fL (80-100); Monocytes # (Auto) 0.9 Thou/mm3 (0.0-0.8); Monocytes % (Auto) 8 % (0-12); Neutrophils # (Auto) 9.6 Thou/mm3 (1.8-7.7); Neutrophils % (Auto) 81 % (37-80); Nucleated Red Blood Cell # 0.00 Thou/mm3 (0.00-0.00); Nucleated Red Blood Cell % 0 /100 WBC (0); Platelet Count 264 Thou/mm3 (140-440); RDW Standard Deviation 43.9 fL (35.1-43.9); Red Blood Count 3.62 Miln/mm3 (4.50-5.90); White Blood Count 11.9 Thou/mm3 (3.8-10.6)
[2025-03-22 06:13] LABS: Alanine Aminotransferase 29 U/L (10-49); Albumin, Serum 3.5 gm/dL (3.4-4.8); Albumin/Globulin Ratio 1.8 (1.2-2.2); Alkaline Phosphatase 64 U/L (46-116); Anion Gap 13 (7-16); Aspartate Amino Transferase 27 U/L (0-34); BUN/Creatinine Ratio 13 Ratio (12-20); Bilirubin,Total 0.6 mg/dL (0.3-1.2); Blood Urea Nitrogen 47 mg/dL (9-23); Calcium 8.1 mg/dL (8.3-10.6); Calcium (Corrected) 8.5 mg/dL (8.5-10.1); Carbon Dioxide 27.4 mMol/L (20.0-31.0); Chloride 93 mMol/L (98-107); Creatinine (Component) 3.6 mg/dL (0.6-1.3); Estimated Creatinine Clearance 25.0 mL/min (>60); Globulin 2.0 gm/dL (2.3-3.5); Glucose 105 mg/dL (74-106); Magnesium 2.6 mg/dL (1.6-2.6); Osmolality,Calculated 278 (275-295); Phosphorous 4.5 mg/dL (2.4-5.1); Potassium 3.9 mMol/L (3.4-5.1); Sodium 133 mMol/L (136-145); Total Protein 5.5 gm/dL (5.7-8.2); Vancomycin,Random 18.3 mcg/mL; eGFR 17 See Note
--- NOTE | 2025-03-22 07:23 | XR_ITS ---
Examination: Retroperitoneal ultrasound, complete Technique: Multiple high resolution grayscale images of the retroperitoneum obtained, including kidneys and bladder. Exam date and time: March 22, 2025, 0829 hours INDICATIONS: Renal insufficiency on laboratory examination today. FINDINGS: Right kidney 12.4 cm cortex 2.0 cm Left kidney 12.1 cm renal cortex 2.5 cm Mild renal scar formation. No hydronephrosis or renal calculi Bladder prevoid volume 102 cc urinary Verdugo catheter IMPRESSION: Mild renal scar formation No hydronephrosis
--- NOTE | 2025-03-22 08:49 | PC.CC ---
pt is open with [facility]
[2025-03-22] MEDS: ZINC SULFATE 220 MG CAPSULE PO (08:54)
[2025-03-22] MEDS: MULTIVITAMINS TABLET 1 TAB PO (08:54)
[2025-03-22] MEDS: DOCUSATE SOD 100 MG CAPSULE PO (08:54)
[2025-03-22] MEDS: AMIODARONE HCL 200 MG TABLET PO ×2 (08:56→20:44)
[2025-03-22] MEDS: PANTOPRAZOLE 40 MG TABLET PO (08:56)
[2025-03-22] MEDS: FINASTERIDE 5 MG TABLET PO (08:56)
[2025-03-22] MEDS: ASCORBIC ACID 250 MG TABLET 500 MG PO ×2 (08:56→20:43)
[2025-03-22] MEDS: MEROPENEM INJ 2,000 MG in SODIUM CHLORIDE 0.9% 100 ML 100 MG IV (08:57)
[2025-03-22] MEDS: ASPIRIN 81 MG CHEW PO (08:57)
[2025-03-22] MEDS: APIXABAN 2.5 MG TABLET 5 MG PO ×2 (08:57→20:43)
--- NOTE | 2025-03-22 09:02 | PC.SS ---
Update: Patient receiving IV antibiotics. Dr. Quevedo consulting.
--- NOTE | 2025-03-22 09:07 | PD.RESCONSUL ---
HPI Data of Consult Consult date: 03/22/25 Requesting Physician: Elier Harris MD Admitting Provider: Jie Law MD Attending Provider: Elier Harris MD Primary Care Provider: Lazaro Banda MD Consult Narrative Reason for consult: REHANA History of present illness: Patient is a 79-year-old male with a medical history of atrial fibrillation on Eliquis, primary hypertension, hyperlipidemia, hypothyroidism, chronic urinary retention and straight catheterization, obesity, asthma/COPD, recurrent UTIs, chronic back pain, bedbound, decubitus ulcer, and history of DVT presented to [facility] emergency department on 03/19/2025 with chief complaints of shortness of breath, and urinary symptoms. Of note he was recently admitted 03/05 - 03/08 for exact same presentation and discharged with bactrim. Upon initial evaluation patient is AOx4 in the rbaxter. His was present to assist with the interview. They state that the patient was breathing weird, was extra tired, not confused but just not breathing well. Does not have home oxygen. His oxygen sats were 87-93% per his . She says his urine starting on was cloudy. The patient reports positive symptoms of SOB and penile discomfort, he does not urinate and has been straight cath x3/day for the last 8 years due to poor bladder contraction, but they are not sure. Of note, patient was recently discharged with bactrim but did not take it since discharge because they wanted to ask their renal specialist if he could take amoxicillin with bactrim, so their plan was just to wait until that visit before continuing their discharged antibiotic, bactrim. Medical Hx: As above Medications: Per med rec Allergies: latex, blisters Surgical history: 3 R knee surgeries, 11 L knee surgeries Social Hx: Denies tobacco, alcohol, and no illicit drug use 03/22/25: Nephrology consulted for REHANA. Patient feels well today, improved since admission. Requests allergy medication and bowel regimen. Denies chest pain, shortness of breath, abdominal pain or urinary symptoms. Endorses that he has not been taking his Bactrim as he was waiting for PCP to confirm that he can take it with amoxicillin however canceled his appointment and ' forgot about it . Does have a chronic Verdugo catheter. At baseline can only move from chair to chair and is largely immobile. States that he does have sacral wound. cc:: cc: Elier Harris MD Review of Systems Review of Systems Systems Reviewed: All systems reviewed, normal except as documented Exam Vital Signs Temp Pulse Resp BP Pulse Ox O2 Del Method O2 Flow Rate 98.1 F 100 16 133/79 H 95 Room Air 1 03/22/25 08:00 03/22/25 08:56 03/22/25 08:00 03/22/25 08:56 03/22/25 08:00 03/22/25 08:00 03/22/25 01:25 Narrative Exam GENERAL: AOx3, no acute distress, obese HEENT: mucous membranes moist, bilateral sclera anicteric CARDIOVASCULAR: regular rate and rhythm, S1/S2 present, no murmurs appreciated PULMONARY: clear to auscultation bilaterally, no rales/rhonchi/wheezes ABDOMINAL: soft, non-tender, non-distended, no rebound/guarding, bowel sounds present : Verdugo in place draining clear urine EXTREMITIES: BLE non pitting edema, mild venous stasis dermatitis SKIN: Stage I-II sacral ulcer NEURO: CN II-XII grossly intact, no focal deficits, alert, following commands Results Labs 03/23/25 05:14 03/23/25 05:14 Labs: Short CBC 03/22/25 Range/Units 05:15 WBC 11.9 H D (3.8-10.6) Thou/mm3 Hgb 11.1 L (13.5-16.0) g/dL Hct 32.2 L (41.0-53.0) % Plt Count 264 (140-440) Thou/mm3 BMP 03/22/25 05:15 Sodium 133 L Potassium 3.9 Chloride 93 L Carbon Dioxide 27.4 BUN 47 H Creatinine 3.6 H D Glucose 105 Calcium 8.1 L Liver Function 03/22/25 Range/Units 05:15 Total Bilirubin 0.6 (0.3-1.2) mg/dL AST 27 (0-34) U/L ALT 29 (10-49) U/L Alkaline Phosphatase 64 (46-116) U/L Albumin 3.5 D (3.4-4.8) gm/dL Quality Measures Quality Measures VTE prophylaxis Advance care planning discussed with:: patient Medications Home Medications and Allergies Home Medications ?Medication ?Instructions ?Recorded ?Confirmed ?Type apixaban 2.5 mg tablet (Eliquis) 5 mg PO BID 12/25/19 03/19/25 History aspirin 81 mg chewable tablet 81 mg PO QDAY 12/25/19 03/19/25 History baclofen 20 mg tablet 20 mg PO TID PRN Spasms 12/25/19 03/19/25 History chlorthalidone 50 mg tablet 50 mg PO QDAY 12/25/19 03/19/25 History Held on 03/08/25. Instructions: Resume on 03/15/25. Until you see PCP cyanocobalamin (vitamin B-12) 500 500 mcg PO QDAY 12/25/19 03/19/25 History mcg tablet (Vitamin B-12) finasteride 5 mg tablet 5 mg PO QDAY 12/25/19 03/19/25 History levothyroxine 200 mcg tablet 200 mcg PO QDAY 12/25/19 03/19/25 History Held on 03/08/25. Instructions: Resume on 03/15/25. HOld until you see PCP multivitamin (Multiple Vitamins 1 tab PO QDAY 12/25/19 03/19/25 History tablet) oxycodone-acetaminophen 10 mg-325 1 tab PO TID PRN Pain 12/25/19 03/19/25 History mg tablet potassium chloride 10 mEq 10 meq PO BID 12/25/19 03/19/25 History tablet,extended release Held on 03/08/25. Instructions: Resume on 03/15/25. hold until you see PCP pravastatin 40 mg tablet 40 mg PO DAILY 12/25/19 03/19/25 History pregabalin 150 mg capsule 150 mg PO BID 12/25/19 03/19/25 History pyridoxine (vitamin B6) 100 mg 100 mg PO DAILY 12/25/19 03/19/25 History tablet albuterol sulfate 90 mcg/actuation 2 puff inhalation Q4H PRN sob 12/27/19 03/19/25 History aerosol inhaler fluticasone propionate 50 2 spray intranasal QAM 12/27/19 03/19/25 History mcg/actuation nasal spray,suspension folic acid 1 mg tablet 25 mg PO QDAY 12/27/19 03/19/25 History vit C 250 mg-vit E 90 mg-zinc 40 1 cap PO BID 12/27/19 03/20/25 History mg-copper 1 bn-kikacs-nwhimt capsule (PreserVision AREDS-2) calcium 600 mg (as 1 cap PO BID 03/05/25 03/19/25 History carbonate)-vitamin D3 5 mcg (200 unit) capsule (Calcium 600 + D(3)) fexofenadine 60 mg tablet (Emily 60 mg PO Q12H 03/05/25 03/19/25 History Allergy) furosemide 20 mg tablet (Lasix) 5 mg PO QAM 03/05/25 03/19/25 History methenamine hippurate 1 gram tablet 1 g PO BID 03/05/25 03/19/25 History Held on 03/08/25. Instructions: Resume on 03/16/25. Hold until after Antibiotic course Allergies Allergy/AdvReac Type Severity Reaction Status Date / Time latex Allergy Unknown blisters Verified 03/19/25 16:17 Visit Medications Acetaminophen (Acetaminophen 325 Mg Tablet) 650 mg PO Q6H PRN PRN Reason: Fever >100.4 or pain 1-3 Stop: 04/18/25 20:48 Last Admin: 03/19/25 21:35 Dose: 650 mg Al Hydrox/Mg Hydrox/Simethicone (Mg Hyd/Al Hyd/Isabel (Maalox Reg) Susp 30 Ml Udc) 30 ml PO Q4HR PRN PRN Reason: UPSET STOMACH/INDIGESTION Stop: 04/19/25 09:05 Last Admin: 03/21/25 09:37 Dose: 30 ml Albuterol/Ipratropium (Albuterol/Ipratropium (Duoneb) Rt Lilli 3 Ml Nebu) 3 ml INH Q6HRRT [facility] Stop: 04/21/25 00:59 Last Admin: 03/22/25 05:58 Dose: 3 ml Amiodarone HCl (Amiodarone Hcl 200 Mg Tablet) 200 mg PO BID [facility] Stop: 04/18/25 20:59 Last Admin: 03/22/25 08:56 Dose: 200 mg Apixaban (Apixaban 2.5 Mg Tablet) 5 mg PO BID [facility] Stop: 04/18/25 20:59 Last Admin: 03/22/25 08:57 Dose: 5 mg Ascorbic Acid (Ascorbic Acid 250 Mg Tablet) 500 mg PO BID [facility] Stop: 04/20/25 13:44 Last Admin: 03/22/25 08:56 Dose: 500 mg Aspirin (Aspirin 81 Mg Chew) 81 mg PO QDAY [facility] Stop: 04/20/25 08:59 Last Admin: 03/22/25 08:57 Dose: 81 mg Baclofen (Baclofen 10 Mg Tablet) 20 mg PO TID PRN PRN Reason: Spasms Stop: 04/19/25 15:02 Dextrose (Dextrose 50%-Water Inj 50 Ml Syringe) 25 ml IV Q15MIN PRN PRN Reason: BG 50-70 responsive npo pt Stop: 04/18/25 21:56 Dextrose (Dextrose 50%-Water Inj 50 Ml Syringe) 50 ml IV Q15MIN PRN PRN Reason: BG <50 OR BG <70 & pt unresponsive Stop: 04/18/25 21:56 Docusate Sodium (Docusate Sod 100 Mg Capsule) 100 mg PO QDAY [facility]; Protocol Stop: 04/19/25 08:59 Last Admin: 03/22/25 08:54 Dose: 100 mg Finasteride (Finasteride 5 Mg Tablet) 5 mg PO QDAY [facility] Stop: 04/20/25 08:59 Last Admin: 03/22/25 08:56 Dose: 5 mg Glucagon (Glucagon Inj 1 Mg Vial) 1 mg IM Q15MIN PRN PRN Reason: BG <70, and no IV access Meropenem 2,000 mg/ Sodium (Chloride) 100 mls @ 100 mls/hr IV BID [facility] Stop: 03/27/25 20:59 Last Admin: 03/22/25 08:57 Dose: 100 mls/hr Insulin Human Lispro (Insulin Lispro (Admelog) 1 Unit/0.01 Ml Unit) 0 unit SC AC [facility]; Protocol Stop: 04/19/25 07:29 Last Admin: 03/22/25 07:01 Dose: Not Given Midodrine (Midodrine 5 Mg Tablet) 10 mg PO TID [facility] Stop: 04/19/25 15:44 Last Admin: 03/22/25 04:57 Dose: Not Given Multivitamins (Multivitamins Tablet) 1 tab PO QDAY [facility] Stop: 04/20/25 13:44 Last Admin: 03/22/25 08:54 Dose: 1 tab Oxycodone/Acetaminophen (Oxycodone/Apap 5/325 Tablet) 1 tab PO TID PRN PRN Reason: Pain 7 -10 Pantoprazole Sodium (Pantoprazole 40 Mg Tablet) 40 mg PO QDAY [facility] Stop: 04/19/25 08:59 Last Admin: 03/22/25 08:56 Dose: 40 mg Pharmacy Consult (Vancomycin Pharmacy To Dose 1 Each Each) 1 each IV QDAY PRN PRN Reason: PROTOCOL Stop: 04/20/25 08:59 Pregabalin (Pregabalin 75 Mg Capsule) 150 mg PO BID [facility] On Hold: 03/22/25 07:24 Stop: 04/19/25 20:59 Last Admin: 03/21/25 21:18 Dose: 150 mg Zinc Sulfate (Zinc Sulfate 220 Mg Capsule) 220 mg PO QDAY [facility] Stop: 04/04/25 13:44 Last Admin: 03/22/25 08:54 Dose: 220 mg Discontinued Medications Al Hydrox/Mg Hydrox/Simethicone (Mg Hyd/Al Hyd/Isabel (Maalox Reg) Susp 30 Ml Udc) 30 ml PO X1 ONE Stop: 03/20/25 09:07 Last Admin: 03/20/25 10:16 Dose: 30 ml Albuterol/Ipratropium (Albuterol/Ipratropium (Duoneb) Rt Lilli 3 Ml Nebu) 3 ml INH Q4HRRT [facility] Stop: 04/18/25 22:59 Last Admin: 03/21/25 20:32 Dose: 3 ml Diltiazem HCl (Diltiazem Inj 5 Mg/Ml Vial 5 Ml) 20 mg IV X1 ONE Stop: 03/19/25 18:15 Last Admin: 03/19/25 20:03 Dose: Not Given Famotidine (Famotidine 20 Mg Tablet) 20 mg PO X1 ONE Stop: 03/20/25 04:35 Last Admin: 03/20/25 04:41 Dose: 20 mg Sodium Chloride (Ns) 1,000 mls @ 999 mls/hr IV .Q1H1M ONE Stop: 03/19/25 18:42 Last Infusion: 03/19/25 19:09 Dose: Infused Vancomycin/Sodium Chloride (Vancomycin/Ns 1 Gm Ivpb) 200 mls @ 120 mls/hr IV X1 ONE Stop: 03/19/25 19:23 Last Infusion: 03/19/25 21:35 Dose: Infused Piperacillin/Tazobactam/Dextrose (Zosyn) 3.375 gm in 50 mls @ 100 mls/hr IV X1 ONE; Protocol Stop: 03/19/25 18:13 Last Infusion: 03/19/25 19:08 Dose: Infused Diltiazem/Sodium Chloride (Diltiazem In Ns 100 Mg) 100 mg in 100 mls @ 5 mls/hr IV .Q20H [facility] Stop: 04/18/25 18:13 Last Infusion: 03/19/25 20:18 Dose: 0 mg/hr, 0 mls/hr Fluconazole (Diflucan/Ns Ivpb) 400 mg in 200 mls @ 100 mls/hr IV X1 ONE Stop: 03/19/25 20:36 Last Infusion: 03/20/25 00:28 Dose: Infused Sodium Chloride (Ns) 500 mls @ 999 mls/hr IV .Q31M ONE Stop: 03/19/25 21:19 Last Infusion: 03/19/25 22:09 Dose: Infused Lactated Ringer's (Lactated Ringers) 500 mls @ 999 mls/hr IV .Q31M ONE Stop: 03/19/25 23:19 Last Infusion: 03/19/25 23:55 Dose: Infused Trimethoprim/Sulfamethoxazole (10 ml/ Dextrose) 260 mls @ 167 mls/hr IV BID [facility] Stop: 03/27/25 08:59 Trimethoprim/Sulfamethoxazole (10 ml/ Dextrose) 260 mls @ 167 mls/hr IV X1 ONE Stop: 03/20/25 03:19 Last Admin: 03/20/25 07:11 Dose: Not Given Levofloxacin/Dextrose (Levaquin Ivpb) 750 mg in 150 mls @ 100 mls/hr IV Q48H [facility] Stop: 03/27/25 08:59 Last Infusion: 03/20/25 11:17 Dose: Infused Lactated Ringer's (Lactated Ringers) 500 mls @ 999 mls/hr IV .Q31M ONE Stop: 03/20/25 12:42 Last Infusion: 03/20/25 12:52 Dose: Infused Lactated Ringer's (Lactated Ringers) 500 mls @ 999 mls/hr IV .Q31M ONE Stop: 03/20/25 16:07 Last Infusion: 03/20/25 16:10 Dose: Infused Vancomycin HCl 1,000 mg/ (Sodium Chloride) 250 mls @ 150 mls/hr IV X1 ONE Stop: 03/20/25 18:13 Last Admin: 03/20/25 16:54 Dose: Not Given Vancomycin HCl/Dextrose (Vancomycin/D5w 1500 Mg Ivpb) 300 mls @ 120 mls/hr IV X1 ONE Stop: 03/20/25 19:29 Last Infusion: 03/20/25 20:50 Dose: Infused Midodrine (Midodrine 5 Mg Tablet) 10 mg PO X1 ONE Stop: 03/20/25 13:31 Last Admin: 03/20/25 14:04 Dose: 10 mg Ondansetron HCl (Ondansetron Inj 2 Mg/Ml Inj 2 Ml) 4 mg IVP Q6H PRN; Protocol PRN Reason: NAUSEA OR VOMITING Stop: 04/18/25 20:48 Pantoprazole Sodium (Pantoprazole 20 Mg Tablet) 20 mg PO X1 ONE Stop: 03/20/25 02:41 Last Admin: 03/20/25 02:45 Dose: 20 mg Potassium Chloride (Potassium Chloride 10% 20 Meq/15 Ml Udc) 40 meq PO X1 ONE Stop: 03/19/25 18:18 Last Admin: 03/19/25 19:38 Dose: 40 meq Potassium Chloride (Potassium Chloride 20 Meq Tabcr) 20 meq PO X1 ONE Stop: 03/20/25 07:34 Last Admin: 03/20/25 08:05 Dose: 20 meq Trimethoprim/Sulfamethoxazole (Trimethoprim/Sulfa 160/800 Ds Tablet) 1 tab PO BID [facility] Stop: 03/27/25 08:59 Assessment & Plan Plan 79-year-old male with history of atrial fibrillation on Eliquis, hypothyroidism, chronic urinary retention with recurrent ESBL UTIs, and CKD, admitted for sepsis likely secondary to ESBL UTI, now with recurrent hypotension and rising lactate (2.4 -> 3.2) concerning for evolving septic shock, on Levofloxacin therapy with REHANA (Cr 2.2, GFR ~30) #REHANA, likely prerenal #ESBL Klebsiella pneumonia UTI #Chronic Verdugo catheter On admission Cr 1.3 baseline 0.8-1.2, however on 03/20, Cr increased to 2.2 and continues to uptrend. Patient reports that on discharge on 03/08 for sepsis secondary to UTI he was discharged with Bactrim however he did not take it as he is taking amoxicillin as prophylaxis iso his multiple knee surgeries. Urine output adequate. s/p 3L IVF on 03/20 and 03/21. 03/18 UCx ESBL Klebsiella pneumonia. 03/19 initial urine culture contaminated second taken 4 hours later no growth. Per chart review, patient was prescribed nitrofurantoin on 03/18. DDx: Prerenal azotemia iso lactic acidosis and septic shock requiring temporary midodrine secondary to ESBL Klebsiella pneumonia on 03/18 urine culture vs ATN vs abx s/e vs structural abnormalities Plan: - F/u renal US and Ulytes - Caution with IVF as patient has a history of decreased EF at 35 to 40% - CTM Cr - Avoid agents, renally dose medication # Sepsis likely secondary to recurrent ESBL UTI (improving) # Hypotension (improved) # Heartburn # GERD symptoms # Atrial Fibrillation # Subclinical hypothyroidism # DM (A1C 6.0) Thank you for the consultation and allowing participation in patient's care. Plan of care discussed with attending Dr. Quevedo. Jaz Patel, PGY-1 Internal Medicine Attending Provider Attestation/Addendum Patient seen and examined with resident physician Dr. Patel. Note reviewed, agree with findings and recommendations. is the informant-multiple medical problems. Patient practically bedbound/wheelchair-bound. Worsening renal function-most likely related to ATN from underlying infection/antibiotics. Urine output acceptable. Renal ultrasound ordered. Care discussed with at bedside. Avoid nephrotoxics. Thank you Elier for allowing me to participate in the care of Mr. Lawson
--- NOTE | 2025-03-22 09:40 | PC.SS ---
SEE SUPERVISOR conducted bedside contact with the patient conduct initial assessment and to discuss discharge planning.? At bedside with patient was spouse, Cecily Lawson .? Information obtained from patient?s spouse.? Patient is a aligned with the [facility] Patient resides at home with spouse.? Patient utilizes a scooter to assist with mobility.? Patient possesses a sleep chair and lyft chair.? Patient does not utilize home oxygen.? Patient requires assistance with the completion of ADL?s.? Patient?s spouse assists the patient and provides transportation on behalf of the patient.? Patient?s surrogate medical decision maker is spouse, Cecily Lawson.? Patient?s PCP is Dr. Banda.? Patient?s director of strategic sourcing is Dr. Mcgrath.? contract specialist is Dr. Marquez.? Patient utilizes [facility] for medication services.? Discharge plan will be for the patient to return home.? Patient previously aligned with [facility] health.? [facility] home health to be resumed to include: PT, nursing and wound care.? business services sales representative to assist with arranging transportation on behalf of the patient.? No further discharge needs identified by the patient.? No further intervention required at this time, environmental services lead will be available to address any further concerns.? Next of Kin: Cecily Lulu D/C Plan: Home
[2025-03-22] MEDS: LACTULOSE SYRUP 20 GM/30 ML UDC PO (10:27)
[2025-03-22 11:07] LABS: Chloride,Urine Random 73.6 mMol/L (55.0-125.0); Creatinine,Random Urine 37 mg/dL (30-125); Potassium,Urine Random 25 mMol/L (12-62); Sodium,Urine Random 90.1 mMol/L (20.0-110.0)
--- NOTE | 2025-03-22 14:26 | ESPR_ITS ---
<Statement entered by Dana Lockwood MD - 03/23/25 07:53> Patient was seen and examined by me personally. I have directly supervised and reviewed documentation by the team resident and agree with its findings with any exceptions or additional findings as below. Plan of care was discussed with the attending, Dr. Harris. Dana Lockwood, PGY-3 Documentation for date of: 03/22/25 Subjective Subjective Interval history: Patient seen and examined at bedside. Reports feeling better overall. Denies dizziness, lightheadedness, nausea, vomiting, chest pain, or shortness of breath. Breathing comfortably on room air. Heartburn improved since yesterday with Protonix and Maalox. Tolerating diet. No change in urine output noted; still producing adequate urine through Verdugo. Swelling in legs improved from prior. at bedside. Mentation intact; alert and oriented ?3. Exam Vital Signs Temp Pulse Resp BP Pulse Ox O2 Del Method O2 Flow Rate 98.8 F 94 18 144/84 H 97 Room Air 1 03/22/25 11:59 03/22/25 13:38 03/22/25 13:38 03/22/25 11:59 03/22/25 13:38 03/22/25 11:59 03/22/25 01:25 Narrative Exam GENERAL: AOx3, no acute distress, obese HEENT: mucous membranes moist, bilateral sclera anicteric CARDIOVASCULAR: regular rate and rhythm, S1/S2 present, no murmurs appreciated PULMONARY: clear to auscultation bilaterally, no rales/rhonchi/wheezes ABDOMINAL: soft, non-tender, non-distended, no rebound/guarding, bowel sounds present : Verdugo in place draining clear urine EXTREMITIES: BLE non pitting edema, mild venous stasis dermatitis SKIN: Stage I-II sacral ulcer NEURO: CN II-XII grossly intact, no focal deficits, alert, following commands Objective Labs 03/22/25 05:15 03/22/25 05:15 Labs: Laboratory Results - last 24 hr 03/22/25 03/22/25 03/22/25 05:15 10:03 10:03 WBC 11.9 H D RBC 3.62 L Hgb 11.1 L Hct 32.2 L MCV 89 MCH 30.7 MCHC 34.5 RDW Std Deviation 43.9 Plt Count 264 Neut % (Auto) 81 H Lymph % (Auto) 10 [place] % (Auto) 8 Eos % (Auto) 1 Baso % (Auto) 0 Neut # (Auto) 9.6 H Lymph # (Auto) 1.1 [place] # (Auto) 0.9 H Eos # (Auto) 0.1 Baso # (Auto) 0.0 Immature Gran # (Auto) 0.06 H Absolute Nucleated RBC 0.00 Immature Gran % 1 H Nucleated RBC % 0 Sodium 133 L Potassium 3.9 Chloride 93 L Carbon Dioxide 27.4 Anion Gap 13 BUN 47 H Creatinine 3.6 H D Estim Creat Clear Calc 25.0 L eGFR 17 L BUN/Creatinine Ratio 13 Glucose 105 Calculated Osmolality 278 Calcium 8.1 L Corrected Calcium 8.5 Phosphorus 4.5 Magnesium 2.6 Total Bilirubin 0.6 AST 27 ALT 29 Alkaline Phosphatase 64 Total Protein 5.5 L Albumin 3.5 D Globulin 2.0 L Albumin/Globulin Ratio 1.8 Ur Random Creatinine 37 Ur Random Sodium 90.1 Cancelled Ur Random Potassium 25 Ur Random Chloride Random Vancomycin 18.3 03/22/25 03/22/25 10:03 10:03 WBC RBC Hgb Hct MCV MCH MCHC RDW Std Deviation Plt Count Neut % (Auto) Lymph % (Auto) [place] % (Auto) Eos % (Auto) Baso % (Auto) Neut # (Auto) Lymph # (Auto) [place] # (Auto) Eos # (Auto) Baso # (Auto) Immature Gran # (Auto) Absolute Nucleated RBC Immature Gran % Nucleated RBC % Sodium Potassium Chloride Carbon Dioxide Anion Gap BUN Creatinine Estim Creat Clear Calc eGFR BUN/Creatinine Ratio Glucose Calculated Osmolality Calcium Corrected Calcium Phosphorus Magnesium Total Bilirubin AST ALT Alkaline Phosphatase Total Protein Albumin Globulin Albumin/Globulin Ratio Ur Random Creatinine Ur Random Sodium Ur Random Potassium Cancelled Ur Random Chloride 73.6 Cancelled Random Vancomycin Quality Measures Quality Measures VTE prophylaxis Advance care planning discussed with:: patient and spouse Assessment & Plan Assessment Current Active Medications: Generic Name Dose Route Start Last Admin Trade Name Freq PRN Reason Stop Dose Admin Acetaminophen 650 mg 03/19/25 20:49 03/19/25 21:35 Acetaminophen 325 Mg Tablet PO 04/18/25 20:48 650 mg Q6H PRN Administration Fever >100.4 or pain 1-3 Al Hydrox/Mg Hydrox/Simethicone 30 ml 03/20/25 09:06 03/21/25 09:37 Mg Hyd/Al Hyd/Isabel (Maalox Reg) Susp 30 Ml Udc PO 04/19/25 09:05 30 ml Q4HR PRN Administration UPSET STOMACH/INDIGESTION Albuterol/Ipratropium 3 ml 03/22/25 13:39 Albuterol/Ipratropium (Duoneb) Rt Lilli 3 Ml Nebu INH 04/21/25 00:59 Q6HRRT PRN wheezing Amiodarone HCl 200 mg 03/19/25 21:00 03/22/25 08:56 Amiodarone Hcl 200 Mg Tablet PO 04/18/25 20:59 200 mg BID COLLIN Administration Apixaban 5 mg 03/19/25 21:00 03/22/25 08:57 Apixaban 2.5 Mg Tablet PO 04/18/25 20:59 5 mg BID COLLIN Administration Ascorbic Acid 500 mg 03/21/25 13:45 03/22/25 08:56 Ascorbic Acid 250 Mg Tablet PO 04/20/25 13:44 500 mg BID COLLIN Administration Aspirin 81 mg 03/21/25 09:00 03/22/25 08:57 Aspirin 81 Mg Chew PO 04/20/25 08:59 81 mg QDAY COLLIN Administration Baclofen 20 mg 03/20/25 15:03 Baclofen 10 Mg Tablet PO 04/19/25 15:02 TID PRN Spasms Balsam [place] Oil 0 gm 03/22/25 21:00 Balsam [place] Oil (Venelex) 60 Gm Tube TOP 04/21/25 20:59 BID COLLIN Dextrose 25 ml 03/19/25 21:57 Dextrose 50%-Water Inj 50 Ml Syringe IV 04/18/25 21:56 Q15MIN PRN BG 50-70 responsive npo pt Dextrose 50 ml 03/19/25 21:57 Dextrose 50%-Water Inj 50 Ml Syringe IV 04/18/25 21:56 Q15MIN PRN BG <50 OR BG <70 & pt unresponsive Docusate Sodium 100 mg 03/20/25 09:00 03/22/25 08:54 Docusate Sod 100 Mg Capsule PO 04/19/25 08:59 100 mg QDAY COLLIN Administration Protocol Finasteride 5 mg 03/21/25 09:00 03/22/25 08:56 Finasteride 5 Mg Tablet PO 04/20/25 08:59 5 mg QDAY COLLIN Administration Glucagon 1 mg 03/19/25 21:57 Glucagon Inj 1 Mg Vial IM Q15MIN PRN BG <70, and no IV access Levofloxacin/Dextrose 750 mg in 150 mls @ 100 mls/hr 03/22/25 21:00 Levaquin Ivpb IV 03/29/25 20:59 Q48HR@2100 [facility] Insulin Human Lispro 0 unit 03/20/25 07:30 03/22/25 11:03 Insulin Lispro (Admelog) 1 Unit/0.01 Ml Unit SC 04/19/25 07:29 Not Given AC [facility] Protocol Midodrine 10 mg 03/20/25 15:45 03/22/25 13:56 Midodrine 5 Mg Tablet PO 04/19/25 15:44 Not Given TID [facility] Multivitamins 1 tab 03/21/25 13:45 03/22/25 08:54 Multivitamins Tablet PO 04/20/25 13:44 1 tab QDAY COLLIN Administration Oxycodone/Acetaminophen 1 tab 03/20/25 15:03 Oxycodone/Apap 5/325 Tablet PO TID PRN Pain 7 -10 Pantoprazole Sodium 40 mg 03/20/25 09:00 03/22/25 08:56 Pantoprazole 40 Mg Tablet PO 04/19/25 08:59 40 mg QDAY COLLIN Administration Pregabalin 150 mg 03/20/25 21:00 03/21/25 21:18 Pregabalin 75 Mg Capsule PO 04/19/25 20:59 150 mg On Hold: 03/22/25 07:24 BID COLLIN Administration Zinc Sulfate 220 mg 03/21/25 13:45 03/22/25 08:54 Zinc Sulfate 220 Mg Capsule PO 04/04/25 13:44 220 mg QDAY COLLIN Administration Plan 79-year-old male with history of atrial fibrillation on Eliquis, hypothyroidism, chronic urinary retention with recurrent ESBL UTIs, and CKD, admitted for sepsis secondary to ESBL UTI, now improving with normalized lactate (4.8 -> 1.8) and downtrending WBC (31.5 -> 11.9), switched to Levofloxacin 750 mg IV q48h for infection, with creatinine rise to 3.6 likely due to ATN; renal ultrasound showed no hydronephrosis but chronic scarring. # Sepsis likely secondary to recurrent ESBL UTI (improving) WBC downtrending, lactate normalized, BP improved, afebrile. Broadened antibiotic coverage to Meropenem and Vancomycin on 03/20 with good response. DC on 03/22 and switched back to levofloxacin Plan: * Continue Levofloxacin 750 mg IV q48h (started 03/22/2025). * Monitor renal function daily and adjust antibiotic dosing accordingly. * Follow up blood and urine cultures. * Maintain MAP > 65 and monitor for recurrence of hypotension. * Continue Midodrine 10 mg TID. * Strict I/Os, daily weights. # REHANA on CKD Rising creatinine of 3.6, baseline 1.0 Likely ATN given sepsis, worsening creatinine, and chronic renal scarring. Plan: * Consulted Nephrology awaiting recs. * Daily BMP to monitor renal function and adjust antibiotics accordingly. * Renal ultrasound shows no obstruction, but chronic scarring likely contributing to renal function decline. * Monitor urine output closely (600 mL overnight). # Hypotension (improved) Previously borderline, now holding steady at 126/79 on Midodrine. Plan: * Continue Midodrine 10 mg PO TID. * Monitor BP and perfusion closely. * Hold additional bolus for now; reassess if SBP < 90 or symptomatic. # Heartburn # GERD symptoms Likely reflux-related, improved with therapy. Plan: * Continue IV Protonix 40 mg daily. * Maalox PRN for breakthrough heartburn. * Encourage upright posture after meals. # Atrial Fibrillation on Amiodarone and Eliquis Rate controlled but QTc prolonged 537 ms. Plan: * Continue Amiodarone 200 mg BID, Eliquis 5 mg BID * Daily EKG to monitor QTc on Levofloxacin * Maintain K > 4.0, Mg > 2.0 # Subclinical hypothyroidism TSH 7.3, free T4 normal. Unknown if patient is symptomatic or not Plan: Continue to monitor, if symptomatic start levothyroxine. # DM (A1C 6.0) Plan: ISS Step 1, ACHS glucose checks Health Maintenance: Code Status: Full DVT Prophylaxis: Eliquis GI Prophylaxis: Protonix Diet: Low-carb consistent Disposition: Telemetry; continue IV antibiotics, fluid resuscitation, and monitor lactic trend and BP. ----- Plan discussed with attending physician Dr. Harris and senior resident Dr. Analilia Gonzales MD PGY-1 Internal Medicine Attending Provider Attestation/Addendum I have seen and examined the patient. I was physically present for the almanza portions of the services provided including history, physical exam, diagnosis, treatment plans and orders. I agree with assessment and plan of care as documented by residents. Patient seen and examined at bedside this morning. Appears comfortable and denies any new complaints. Vital signs have been stable, blood pressure is improving. Saturating well on room air. Lab results show improving WBC count. Chemistry panel shows worsening kidney function, BUN/creatinine of 47/3.6 today compared to 36/3.1 yesterday. Concern for ATN in setting of severe sepsis requiring fluid bolus and midodrine support. Patient has good urinary output, 1850 cc in last 24 hours. We will obtain nephrology consult and continue to monitor his renal function closely. Blood cultures have been negative for 48 hours, urine culture also came back negative, MRSA screen is negative. Urine culture possibly negative due to antibiotics use, we will de-escalate the antibiotics to Levaquin. Continues to be on amiodarone and Eliquis for A-fib. Continues to be on insulin regimen for diabetes. 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 Elier Harris MD
[2025-03-22] MEDS: SIMETHICONE 80 MG CHEW 40 MG PO (15:02)
[2025-03-22] MEDS: MG HYD/AL HYD/SIME (Maalox Reg) SUSP 30 ML UDC PO (15:03)
[2025-03-22] MEDS: POLYETHYLENE GLYCOL 17 GM PACKET PO (15:10)
[2025-03-22] MEDS: LEVOFLOXACIN/D5W 750MG IVPB 750 MG/150 ML BAG 100 MG IV (20:43)
[2025-03-22] MEDS: BALSAM PERU/CASTOR OIL (Venelex) 60 GM TUBE TOP (20:43)
[2025-03-23] VITALS (12 sets, daily range): BP systolic 113–152; BP diastolic 70–99; PULSE 80–125; RESP 12–96; TEMP 36.1–36.5; O2SAT 94–96
[2025-03-23 06:19] LABS: Basophils # (Auto) 0.0 Thou/mm3 (0.0-0.2); Basophils % (Auto) 0 % (0-2.5); Eosinophils # (Auto) 0.3 Thou/mm3 (0.0-0.5); Eosinophils % (Auto) 3 % (0-10); Hematocrit 33.2 % (41.0-53.0); Hemoglobin 11.7 g/dL (13.5-16.0); Immature Granulocytes Auto 0.04 Thou/mm3 (0.00-0.00); Lymphocytes # (Auto) 1.4 Thou/mm3 (1.0-4.8); Lymphocytes % (Auto) 14 % (10-50); Mean Corpuscular HGB Conc 35.2 g/dl (31.0-37.0); Mean Corpuscular Hemoglobin 31.0 pg (25.0-35.0); Mean Corpuscular Volume 88 fL (80-100); Monocytes # (Auto) 1.0 Thou/mm3 (0.0-0.8); Monocytes % (Auto) 11 % (0-12); Neutrophils # (Auto) 6.8 Thou/mm3 (1.8-7.7); Neutrophils % (Auto) 71 % (37-80); Nucleated Red Blood Cell # 0.00 Thou/mm3 (0.00-0.00); Nucleated Red Blood Cell % 0 /100 WBC (0); Platelet Count 289 Thou/mm3 (140-440); RDW Standard Deviation 42.9 fL (35.1-43.9); Red Blood Count 3.77 Miln/mm3 (4.50-5.90); White Blood Count 9.6 Thou/mm3 (3.8-10.6)
[2025-03-23 06:29] LABS: Alanine Aminotransferase 22 U/L (10-49); Albumin, Serum 3.6 gm/dL (3.4-4.8); Albumin/Globulin Ratio 1.8 (1.2-2.2); Alkaline Phosphatase 64 U/L (46-116); Anion Gap 10 (7-16); Aspartate Amino Transferase 23 U/L (0-34); BUN/Creatinine Ratio 15 Ratio (12-20); Bilirubin,Total 0.6 mg/dL (0.3-1.2); Blood Urea Nitrogen 50 mg/dL (9-23); Calcium 8.4 mg/dL (8.3-10.6); Calcium (Corrected) 8.7 mg/dL (8.5-10.1); Carbon Dioxide 28.3 mMol/L (20.0-31.0); Chloride 94 mMol/L (98-107); Creatinine (Component) 3.4 mg/dL (0.6-1.3); Estimated Creatinine Clearance 26.5 mL/min (>60); Globulin 2.0 gm/dL (2.3-3.5); Glucose 105 mg/dL (74-106); Magnesium 2.5 mg/dL (1.6-2.6); Osmolality,Calculated 277 (275-295); Phosphorous 3.6 mg/dL (2.4-5.1); Potassium 3.8 mMol/L (3.4-5.1); Sodium 132 mMol/L (136-145); Total Protein 5.6 gm/dL (5.7-8.2); Vancomycin,Random 14.7 mcg/mL; eGFR 18 See Note
[2025-03-23] MEDS: FINASTERIDE 5 MG TABLET PO (08:22)
[2025-03-23] MEDS: APIXABAN 2.5 MG TABLET 5 MG PO ×2 (08:22→20:41)
[2025-03-23] MEDS: MULTIVITAMINS TABLET 1 TAB PO (08:22)
[2025-03-23] MEDS: ASCORBIC ACID 250 MG TABLET 500 MG PO ×2 (08:22→20:42)
[2025-03-23] MEDS: ZINC SULFATE 220 MG CAPSULE PO (08:23)
[2025-03-23] MEDS: AMIODARONE HCL 200 MG TABLET PO ×2 (08:23→20:42)
[2025-03-23] MEDS: PANTOPRAZOLE 40 MG TABLET PO (08:23)
[2025-03-23] MEDS: BALSAM PERU/CASTOR OIL (Venelex) 60 GM TUBE TOP ×2 (08:23→20:42)
[2025-03-23] MEDS: ASPIRIN 81 MG CHEW PO ×2 (08:23→08:24)
[2025-03-23] MEDS: DOCUSATE SOD 100 MG CAPSULE PO (08:24)
--- NOTE | 2025-03-23 08:35 | ESPR_ITS ---
Documentation for date of: 03/23/25 Subjective Subjective Interval history: Patient is a 79-year-old male with a medical history of atrial fibrillation on Eliquis, primary hypertension, hyperlipidemia, hypothyroidism, chronic urinary retention and straight catheterization, obesity, asthma/COPD, recurrent UTIs, chronic back pain, bedbound, decubitus ulcer, and history of DVT presented to [facility] emergency department on 03/19/2025 with chief complaints of shortness of breath, and urinary symptoms. Of note he was recently admitted 03/05 - 03/08 for exact same presentation and discharged with bactrim. Upon initial evaluation patient is AOx4 in the gurney. His was present to assist with the interview. They state that the patient was breathing weird, was extra tired, not confused but just not breathing well. Does not have home oxygen. His oxygen sats were 87-93% per his . She says his urine starting on was cloudy. The patient reports positive symptoms of SOB and penile discomfort, he does not urinate and has been straight cath x3/day for the last 8 years due to poor bladder contraction, but they are not sure. Of note, patient was recently discharged with bactrim but did not take it since discharge because they wanted to ask their renal specialist if he could take amoxicillin with bactrim, so their plan was just to wait until that visit before continuing their discharged antibiotic, bactrim. 03/22/25: Nephrology consulted for REHANA. Patient feels well today, improved since admission. Requests allergy medication and bowel regimen. Denies chest pain, shortness of breath, abdominal pain or urinary symptoms. Endorses that he has not been taking his Bactrim as he was waiting for PCP to confirm that he can take it with amoxicillin however canceled his appointment and ' forgot about it . Does have a chronic Verdugo catheter. At baseline can only move from chair to chair and is largely immobile. States that he does have sacral wound. 03/23/25: Patient seen examined at bedside. Patient reports feeling slightly better from yesterday in regards to overall fatigue. Denies chest pain, shortness of breath, nausea/vomiting or urinary symptoms. Chronic Verdugo draining clear yellow yellow urine. Renal ultrasound largely unremarkable showing mild renal scar formation. Urine electrolytes showed FeNa 6.6% indicating intrinsic pathology. Exam Vital Signs Temp Pulse Resp BP Pulse Ox O2 Del Method O2 Flow Rate 97.0 F 93 17 139/95 H 96 Room Air 1 03/23/25 08:00 03/23/25 08:23 03/23/25 08:00 03/23/25 08:23 03/23/25 08:00 03/23/25 08:00 03/22/25 01:25 Narrative Exam GENERAL: AOx3, no acute distress, obese HEENT: mucous membranes moist, bilateral sclera anicteric CARDIOVASCULAR: regular rate and rhythm, S1/S2 present, no murmurs appreciated PULMONARY: clear to auscultation bilaterally, no rales/rhonchi/wheezes ABDOMINAL: soft, non-tender, non-distended, no rebound/guarding, bowel sounds present : Verdugo in place draining clear urine EXTREMITIES: BLE non pitting edema, mild venous stasis dermatitis SKIN: Stage I-II sacral ulcer NEURO: CN II-XII grossly intact, no focal deficits, alert, following commands Objective Labs 03/23/25 05:14 03/23/25 05:14 Labs: Laboratory Results - last 24 hr 03/22/25 03/22/25 03/22/25 10:03 10:03 10:03 WBC RBC Hgb Hct MCV MCH MCHC RDW Std Deviation Plt Count Neut % (Auto) Lymph % (Auto) [place] % (Auto) Eos % (Auto) Baso % (Auto) Neut # (Auto) Lymph # (Auto) [place] # (Auto) Eos # (Auto) Baso # (Auto) Immature Gran # (Auto) Absolute Nucleated RBC Immature Gran % Nucleated RBC % Sodium Potassium Chloride Carbon Dioxide Anion Gap BUN Creatinine Estim Creat Clear Calc eGFR BUN/Creatinine Ratio Glucose Calculated Osmolality Calcium Corrected Calcium Phosphorus Magnesium Total Bilirubin AST ALT Alkaline Phosphatase Total Protein Albumin Globulin Albumin/Globulin Ratio Ur Random Creatinine 37 Ur Random Sodium 90.1 Cancelled Ur Random Potassium 25 Cancelled Ur Random Chloride 73.6 Random Vancomycin 03/22/25 03/23/25 10:03 05:14 WBC 9.6 RBC 3.77 L Hgb 11.7 L Hct 33.2 L MCV 88 MCH 31.0 MCHC 35.2 RDW Std Deviation 42.9 Plt Count 289 Neut % (Auto) 71 Lymph % (Auto) 14 [place] % (Auto) 11 Eos % (Auto) 3 Baso % (Auto) 0 Neut # (Auto) 6.8 Lymph # (Auto) 1.4 [place] # (Auto) 1.0 H Eos # (Auto) 0.3 Baso # (Auto) 0.0 Immature Gran # (Auto) 0.04 H Absolute Nucleated RBC 0.00 Immature Gran % 0 Nucleated RBC % 0 Sodium 132 L Potassium 3.8 Chloride 94 L Carbon Dioxide 28.3 Anion Gap 10 BUN 50 H Creatinine 3.4 H Estim Creat Clear Calc 26.5 L eGFR 18 L BUN/Creatinine Ratio 15 Glucose 105 Calculated Osmolality 277 Calcium 8.4 Corrected Calcium 8.7 Phosphorus 3.6 Magnesium 2.5 Total Bilirubin 0.6 AST 23 ALT 22 Alkaline Phosphatase 64 Total Protein 5.6 L Albumin 3.6 Globulin 2.0 L Albumin/Globulin Ratio 1.8 Ur Random Creatinine Ur Random Sodium Ur Random Potassium Ur Random Chloride Cancelled Random Vancomycin 14.7 Quality Measures Quality Measures VTE prophylaxis Advance care planning discussed with:: patient Assessment & Plan Assessment Current Active Medications: Generic Name Dose Route Start Last Admin Trade Name Freq PRN Reason Stop Dose Admin Acetaminophen 650 mg 03/19/25 20:49 03/19/25 21:35 Acetaminophen 325 Mg Tablet PO 04/18/25 20:48 650 mg Q6H PRN Administration Fever >100.4 or pain 1-3 Al Hydrox/Mg Hydrox/Simethicone 30 ml 03/20/25 09:06 03/22/25 15:03 Mg Hyd/Al Hyd/Isabel (Maalox Reg) Susp 30 Ml Udc PO 04/19/25 09:05 30 ml Q4HR PRN Administration UPSET STOMACH/INDIGESTION Albuterol/Ipratropium 3 ml 03/22/25 13:39 Albuterol/Ipratropium (Duoneb) Rt Lilli 3 Ml Nebu INH 04/21/25 00:59 Q6HRRT PRN wheezing Amiodarone HCl 200 mg 03/19/25 21:00 03/23/25 08:23 Amiodarone Hcl 200 Mg Tablet PO 04/18/25 20:59 200 mg BID COLLIN Administration Apixaban 5 mg 03/19/25 21:00 03/23/25 08:22 Apixaban 2.5 Mg Tablet PO 04/18/25 20:59 5 mg BID COLLIN Administration Ascorbic Acid 500 mg 03/21/25 13:45 03/23/25 08:22 Ascorbic Acid 250 Mg Tablet PO 04/20/25 13:44 500 mg BID COLLIN Administration Aspirin 81 mg 03/21/25 09:00 03/23/25 08:24 Aspirin 81 Mg Chew PO 04/20/25 08:59 81 mg QDAY COLLIN Administration Baclofen 20 mg 03/20/25 15:03 Baclofen 10 Mg Tablet PO 04/19/25 15:02 TID PRN Spasms Balsam [place] Oil 0 gm 03/22/25 21:00 03/23/25 08:23 Balsam [place] Oil (Venelex) 60 Gm Tube TOP 04/21/25 20:59 1 appln BID COLLIN Administration Dextrose 25 ml 03/19/25 21:57 Dextrose 50%-Water Inj 50 Ml Syringe IV 04/18/25 21:56 Q15MIN PRN BG 50-70 responsive npo pt Dextrose 50 ml 03/19/25 21:57 Dextrose 50%-Water Inj 50 Ml Syringe IV 04/18/25 21:56 Q15MIN PRN BG <50 OR BG <70 & pt unresponsive Docusate Sodium 100 mg 03/20/25 09:00 03/23/25 08:24 Docusate Sod 100 Mg Capsule PO 04/19/25 08:59 100 mg QDAY COLLIN Administration Protocol Finasteride 5 mg 03/21/25 09:00 03/23/25 08:22 Finasteride 5 Mg Tablet PO 04/20/25 08:59 5 mg QDAY COLLIN Administration Glucagon 1 mg 03/19/25 21:57 Glucagon Inj 1 Mg Vial IM Q15MIN PRN BG <70, and no IV access Levofloxacin/Dextrose 750 mg in 150 mls @ 100 mls/hr 03/22/25 21:00 03/22/25 23:09 Levaquin Ivpb IV 03/29/25 20:59 Infused Q48HR@2100 [facility] Insulin Human Lispro 0 unit 03/20/25 07:30 03/23/25 07:56 Insulin Lispro (Admelog) 1 Unit/0.01 Ml Unit SC 04/19/25 07:29 Not Given AC [facility] Protocol Midodrine 10 mg 03/23/25 07:32 Midodrine 5 Mg Tablet PO 04/19/25 15:44 TID PRN sbp <110 or map <65 Multivitamins 1 tab 03/21/25 13:45 03/23/25 08:22 Multivitamins Tablet PO 04/20/25 13:44 1 tab QDAY COLLIN Administration Oxycodone/Acetaminophen 1 tab 03/20/25 15:03 Oxycodone/Apap 5/325 Tablet PO TID PRN Pain 7 -10 Pantoprazole Sodium 40 mg 03/20/25 09:00 03/23/25 08:23 Pantoprazole 40 Mg Tablet PO 04/19/25 08:59 40 mg QDAY COLLIN Administration Pregabalin 150 mg 03/20/25 21:00 03/21/25 21:18 Pregabalin 75 Mg Capsule PO 04/19/25 20:59 150 mg On Hold: 03/22/25 07:24 BID COLLIN Administration Zinc Sulfate 220 mg 03/21/25 13:45 03/23/25 08:23 Zinc Sulfate 220 Mg Capsule PO 04/04/25 13:44 220 mg QDAY COLLIN Administration Plan 79-year-old male with history of atrial fibrillation on Eliquis, hypothyroidism, chronic urinary retention with recurrent ESBL UTIs, and CKD, admitted for sepsis likely secondary to ESBL UTI, now with recurrent hypotension and rising lactate (2.4 -> 3.2) concerning for evolving septic shock, on Levofloxacin therapy with REHANA (Cr 2.2, GFR ~30) #REHANA #ESBL Klebsiella pneumonia UTI #Chronic Verdugo catheter On admission Cr 1.3 baseline 0.8-1.2, however on 03/20, Cr increased to 2.2 and continues to uptrend. Patient reports that on discharge on 03/08 for sepsis secondary to UTI he was discharged with Bactrim however he did not take it as he is taking amoxicillin as prophylaxis iso his multiple knee surgeries. Urine output adequate. s/p 3L IVF on 03/20 and 03/21. 03/18 UCx ESBL Klebsiella pneumonia. 03/19 initial urine culture contaminated second taken 4 hours later no growth. Per chart review, patient was prescribed nitrofurantoin on 03/18. Renal US showed mild bilateral renal scar formation. FeNa 6.6% on 03/22, indicating intrinsic pathology likely ATN iso lactic acidosis and septic shock provide temporary midodrine secondary to ESBL Klebsiella pneumonia on 03/18 urine culture. Plan: - Caution with IVF as patient has a history of decreased EF at 35 to 40% - CTM Cr - Avoid agents, renally dose medication - Ordered NM renal scan to assess current renal function # Sepsis likely secondary to recurrent ESBL UTI (improving) # Hypotension (improved) # Heartburn # GERD symptoms # Atrial Fibrillation # Subclinical hypothyroidism # DM (A1C 6.0) Thank you for the consultation and allowing participation in patient's care. Plan of care discussed with attending Dr. Quevedo. Jaz Patel, PGY-1 Internal Medicine Attending Provider Attestation/Addendum Patient seen and examined with resident physician Dr. Patel. Note reviewed, agree with findings and recommendations. is the informant-multiple medical problems. Patient practically bedbound/wheelchair-bound. Worsening renal function-most likely related to ATN from underlying infection/antibiotics. Urine output acceptable. Renal ultrasound showed no evidence of any hydronephrosis. Renal scan ordered to rule out ATN. Will guide us regarding the duration of renal recovery. Care discussed with at bedside. Avoid nephrotoxics. Thank you Elier for allowing me to participate in the care of Mr. Lawson
[2025-03-23] MEDS: SIMETHICONE 80 MG CHEW PO ×2 (10:34→22:52)
--- NOTE | 2025-03-23 10:45 | XR_ITS ---
EXAMINATION: Nuclear medicine renal flow and function multiple studies Date and time: March 24, 2025, 11:12 a.m. INDICATIONS: Patient diagnosis hypertension chronic urinary tract with transient obesity, elevated D-dimer, renal insufficiency on laboratory examination TECHNIQUE AND FINDINGS: Intravenous administration 10.9 mCi technetium 99 M MAG3 Flow and function curves generated to 60 minutes Adequate flow to both kidneys Minimal bilateral renal function IMPRESSION: Minimal bilateral renal function
--- NOTE | 2025-03-23 10:46 | PC.SS ---
SS follow up note; Patient's kidney functions being monitored. Patient will discharge home when medically cleared.
--- NOTE | 2025-03-23 11:33 | PD.RESDS ---
Planned Discharge Date 03/23/25 DS: Providers Provider Date of admission: 03/19/25 20:50 Primary care physician: Lazaro Banda MD Admitting Provider: Jie Law MD Attending Provider on Admission: Elier Harris MD Consults: 03/20/25 02:11 Referral Registered Dietitian Urgent Comment: sacral wounds 03/20/25 02:12 Referral Wound Care Urgent Comment: sacral wounds 03/22/25 07:25 Consult to Nephrology Routine Comment: REHANA Consulting Provider: Aury Quevedo Attending Provider on DC: Georgia Gonzales MD Discharging Provider: Georgia Gonzales MD Hospital Course Hospital Course Hospital course: Patient is a 79-year-old male with a medical history of atrial fibrillation on Eliquis, primary hypertension, hyperlipidemia, hypothyroidism, chronic urinary retention and straight catheterization, obesity, asthma/COPD, recurrent UTIs, chronic back pain, bedbound, decubitus ulcer, and history of DVT presented to [facility] emergency department on 03/19/2025 with chief complaints of shortness of breath, and urinary symptoms. Of note he was recently admitted 03/05 - 03/08 for exact same presentation and discharged with bactrim. Upon initial evaluation patient is AOx4 in the gurney. His was present to assist with the interview. They state that the patient was breathing weird, was extra tired, not confused but just not breathing well. Does not have home oxygen. His oxygen sats were 87-93% per his . She says his urine starting on was cloudy. The patient reports positive symptoms of SOB and penile discomfort, he does not urinate and has been straight cath x3/day for the last 8 years due to poor bladder contraction, but they are not sure. Of note, patient was recently discharged with bactrim but did not take it since discharge because they wanted to ask their renal specialist if he could take amoxicillin with bactrim, so their plan was just to wait until that visit before continuing their discharged antibiotic, bactrim. 03/22/25: Nephrology consulted for REHANA. Patient feels well today, improved since admission. Requests allergy medication and bowel regimen. Denies chest pain, shortness of breath, abdominal pain or urinary symptoms. Endorses that he has not been taking his Bactrim as he was waiting for PCP to confirm that he can take it with amoxicillin however canceled his appointment and ' forgot about it . Does have a chronic Verdugo catheter. At baseline can only move from chair to chair and is largely immobile. States that he does have sacral wound. 03/23/25: Patient seen examined at bedside. Patient reports feeling slightly better from yesterday in regards to overall fatigue. Denies chest pain, shortness of breath, nausea/vomiting or urinary symptoms. Chronic Verdugo draining clear yellow yellow urine. Renal ultrasound largely unremarkable showing mild renal scar formation. Urine electrolytes showed FeNa 6.6% indicating intrinsic pathology. Time Spent with Patient Time attestation: Total time spent providing and/or coordinating discharge services: Exam Vital Signs Temp Pulse Resp BP Pulse Ox O2 Del Method O2 Flow Rate 97.0 F 93 17 139/95 H 96 Room Air 1 03/23/25 08:00 03/23/25 09:00 03/23/25 09:00 03/23/25 08:23 03/23/25 09:00 03/23/25 08:00 03/22/25 01:25 Discharge Plan Prescriptions/Referrals Prescriptions/Med Rec: No Action chlorthalidone 50 mg Tablet 50 mg PO QDAY baclofen 20 mg Tablet 20 mg PO TID PRN (Reason: Spasms) aspirin 81 mg Tablet,Chewable 81 mg PO QDAY finasteride 5 mg Tablet 5 mg PO QDAY Eliquis 2.5 mg Tablet 5 mg PO BID multivitamin [Multiple Vitamins] Tablet 1 tab PO QDAY pravastatin 40 mg Tablet 40 mg PO DAILY potassium chloride 10 mEq Tablet Extended Release 10 meq PO BID oxycodone-acetaminophen 10-325 mg Tablet 1 tab PO TID PRN (Reason: Pain) levothyroxine 200 mcg Tablet 200 mcg PO QDAY pregabalin 150 mg Capsule 150 mg PO BID cyanocobalamin (vitamin B-12) [Vitamin B-12] 500 mcg Tablet 500 mcg PO QDAY pyridoxine (vitamin B6) 100 mg Tablet 100 mg PO DAILY albuterol sulfate 90 mcg/actuation Hfa Aerosol Inhaler 2 puff INHALATION Q4H PRN (Reason: sob) fluticasone propionate 50 mcg/actuation spray,suspension 2 spray INTRANASAL QAM PreserVision AREDS-2 [phone] Capsule 1 cap PO BID folic acid 1 mg tablet 25 mg PO QDAY Patient Comments: TAKE 1 TABLET BY MOUTH FIVE TIMES A DAY Rx Instructions: per [facility] fexofenadine [Emily Allergy] 60 mg tablet 60 mg PO Q12H furosemide [Lasix] 20 mg tablet 5 mg PO QAM calcium carbonate-vitamin D3 [Calcium 600 + D(3)] 600 mg-5 mcg (200 unit) capsule 1 cap PO BID Patient Comments: not sure on the dose methenamine hippurate 1 gram tablet 1 g PO BID amiodarone 200 mg tablet 200 mg PO BID 30 Days Qty: 60 2RF Referrals: Lazaro Banda MD [Primary Care Provider, Family Practice] Patient/Caregiver Discharge Instructions Print Language: Cameroonian
--- NOTE | 2025-03-23 14:27 | ESPR_ITS ---
<Statement entered by Adams Lind MD - 04/07/25 07:50> I reviewed above note and agree with findings and plans. I have also personally examined the patient with medicine team and went over assessment and plan with medical team including international freight forwarder and resident physician. <Statement entered by Barrington Billingsley MD - 03/23/25 15:01> Patient is seen and examined at bedside. No acute overnight events. Denies any other complaints. Vitals are stable. Physical examination remains unchanged and noted slight improvement in the pedal edema. Labs done this morning showed improvement in the renal functions. Urine output is adequate. Will monitor renal functions and urine output. Will continue antibiotics. Plan to discharge tomorrow if the renal functions continues to improve I have personally seen and examined the patient, agree with residents assessment and plan Patient plan of care was discussed with the attending physician, Dr. Lelo Billingsley, PGY2 Documentation for date of: 03/23/25 Subjective Subjective Interval history: Patient seen and examined at bedside. Reports feeling better overall. Denies dizziness, lightheadedness, nausea, vomiting, chest pain, or shortness of breath. Breathing comfortably on room air. Heartburn improved with Protonix and Maalox. Tolerating diet. No change in urine output noted; still producing adequate urine through Verdugo. Swelling in legs improved from prior. at bedside. Mentation intact; alert and oriented ?3. Exam Vital Signs Temp Pulse Resp BP Pulse Ox O2 Del Method O2 Flow Rate 97.2 F 125 H 25 H 113/70 95 Room Air 1 03/23/25 12:00 03/23/25 12:00 03/23/25 12:00 03/23/25 12:00 03/23/25 12:00 03/23/25 12:00 03/22/25 01:25 Narrative Exam GENERAL: AOx3, no acute distress, obese HEENT: mucous membranes moist, bilateral sclera anicteric CARDIOVASCULAR: regular rate and rhythm, S1/S2 present, no murmurs appreciated PULMONARY: clear to auscultation bilaterally, no rales/rhonchi/wheezes ABDOMINAL: soft, non-tender, non-distended, no rebound/guarding, bowel sounds present : Verdugo in place draining clear urine EXTREMITIES: BLE non pitting edema, mild venous stasis dermatitis SKIN: Stage I-II sacral ulcer NEURO: CN II-XII grossly intact, no focal deficits, alert, following commands Objective Labs 03/23/25 05:14 03/23/25 05:14 Labs: Laboratory Results - last 24 hr 03/23/25 05:14 WBC 9.6 RBC 3.77 L Hgb 11.7 L Hct 33.2 L MCV 88 MCH 31.0 MCHC 35.2 RDW Std Deviation 42.9 Plt Count 289 Neut % (Auto) 71 Lymph % (Auto) 14 [place] % (Auto) 11 Eos % (Auto) 3 Baso % (Auto) 0 Neut # (Auto) 6.8 Lymph # (Auto) 1.4 [place] # (Auto) 1.0 H Eos # (Auto) 0.3 Baso # (Auto) 0.0 Immature Gran # (Auto) 0.04 H Absolute Nucleated RBC 0.00 Immature Gran % 0 Nucleated RBC % 0 Sodium 132 L Potassium 3.8 Chloride 94 L Carbon Dioxide 28.3 Anion Gap 10 BUN 50 H Creatinine 3.4 H Estim Creat Clear Calc 26.5 L eGFR 18 L BUN/Creatinine Ratio 15 Glucose 105 Calculated Osmolality 277 Calcium 8.4 Corrected Calcium 8.7 Phosphorus 3.6 Magnesium 2.5 Total Bilirubin 0.6 AST 23 ALT 22 Alkaline Phosphatase 64 Total Protein 5.6 L Albumin 3.6 Globulin 2.0 L Albumin/Globulin Ratio 1.8 Random Vancomycin 14.7 Quality Measures Quality Measures VTE prophylaxis Advance care planning discussed with:: patient and spouse Assessment & Plan Assessment Current Active Medications: Generic Name Dose Route Start Last Admin Trade Name Freq PRN Reason Stop Dose Admin Acetaminophen 650 mg 03/19/25 20:49 03/19/25 21:35 Acetaminophen 325 Mg Tablet PO 04/18/25 20:48 650 mg Q6H PRN Administration Fever >100.4 or pain 1-3 Al Hydrox/Mg Hydrox/Simethicone 30 ml 03/20/25 09:06 03/22/25 15:03 Mg Hyd/Al Hyd/Isabel (Maalox Reg) Susp 30 Ml Udc PO 04/19/25 09:05 30 ml Q4HR PRN Administration UPSET STOMACH/INDIGESTION Albuterol/Ipratropium 3 ml 03/22/25 13:39 Albuterol/Ipratropium (Duoneb) Rt Lilli 3 Ml Nebu INH 04/21/25 00:59 Q6HRRT PRN wheezing Amiodarone HCl 200 mg 03/19/25 21:00 03/23/25 08:23 Amiodarone Hcl 200 Mg Tablet PO 04/18/25 20:59 200 mg BID COLLIN Administration Apixaban 5 mg 03/19/25 21:00 03/23/25 08:22 Apixaban 2.5 Mg Tablet PO 04/18/25 20:59 5 mg BID COLLIN Administration Ascorbic Acid 500 mg 03/21/25 13:45 03/23/25 08:22 Ascorbic Acid 250 Mg Tablet PO 04/20/25 13:44 500 mg BID COLLIN Administration Aspirin 81 mg 03/21/25 09:00 03/23/25 08:24 Aspirin 81 Mg Chew PO 04/20/25 08:59 81 mg QDAY COLLIN Administration Baclofen 20 mg 03/20/25 15:03 Baclofen 10 Mg Tablet PO 04/19/25 15:02 TID PRN Spasms Balsam [place] Oil 0 gm 03/22/25 21:00 03/23/25 08:23 Balsam [place] Oil (Venelex) 60 Gm Tube TOP 04/21/25 20:59 1 appln BID COLLIN Administration Dextrose 25 ml 03/19/25 21:57 Dextrose 50%-Water Inj 50 Ml Syringe IV 04/18/25 21:56 Q15MIN PRN BG 50-70 responsive npo pt Dextrose 50 ml 03/19/25 21:57 Dextrose 50%-Water Inj 50 Ml Syringe IV 04/18/25 21:56 Q15MIN PRN BG <50 OR BG <70 & pt unresponsive Docusate Sodium 100 mg 03/20/25 09:00 03/23/25 08:24 Docusate Sod 100 Mg Capsule PO 04/19/25 08:59 100 mg QDAY COLLIN Administration Protocol Finasteride 5 mg 03/21/25 09:00 03/23/25 08:22 Finasteride 5 Mg Tablet PO 04/20/25 08:59 5 mg QDAY COLLIN Administration Glucagon 1 mg 03/19/25 21:57 Glucagon Inj 1 Mg Vial IM Q15MIN PRN BG <70, and no IV access Levofloxacin/Dextrose 750 mg in 150 mls @ 100 mls/hr 03/22/25 21:00 03/22/25 23:09 Levaquin Ivpb IV 03/29/25 20:59 Infused Q48HR@2100 [facility] Infusion Insulin Human Lispro 0 unit 03/20/25 07:30 03/23/25 12:38 Insulin Lispro (Admelog) 1 Unit/0.01 Ml Unit SC 04/19/25 07:29 Not Given AC [facility] Protocol Midodrine 10 mg 03/23/25 07:32 Midodrine 5 Mg Tablet PO 04/19/25 15:44 TID PRN sbp <110 or map <65 Multivitamins 1 tab 03/21/25 13:45 03/23/25 08:22 Multivitamins Tablet PO 04/20/25 13:44 1 tab QDAY COLLIN Administration Oxycodone/Acetaminophen 1 tab 03/20/25 15:03 03/23/25 13:57 Oxycodone/Apap 5/325 Tablet PO 1 tab TID PRN Administration Pain 7 -10 Pantoprazole Sodium 40 mg 03/20/25 09:00 03/23/25 08:23 Pantoprazole 40 Mg Tablet PO 04/19/25 08:59 40 mg QDAY COLLIN Administration Pregabalin 150 mg 03/20/25 21:00 03/21/25 21:18 Pregabalin 75 Mg Capsule PO 04/19/25 20:59 150 mg On Hold: 03/22/25 07:24 BID COLLIN Administration Zinc Sulfate 220 mg 03/21/25 13:45 03/23/25 08:23 Zinc Sulfate 220 Mg Capsule PO 04/04/25 13:44 220 mg QDAY COLLIN Administration Plan 79-year-old male with history of atrial fibrillation on Eliquis, hypothyroidism, chronic urinary retention with recurrent ESBL UTIs, and CKD, admitted for sepsis secondary to ESBL UTI, now improving with downtrending WBC (9.6), creatinine stable at 3.4 (improved from 3.6), Levofloxacin 750 mg IV q48h started on 03/21/2025, awaiting nephrology clearance for discharge if creatinine continues to downtrend. # Sepsis likely secondary to recurrent ESBL UTI (improving) WBC downtrending, lactate normalized, BP improved, afebrile. Broadened antibiotic coverage to Meropenem and Vancomycin on 03/20 with good response. DC on 03/22 and switched back to levofloxacin Plan: * Continue Levofloxacin 750 mg IV q48h (started 03/22/2025). * Monitor renal function daily and adjust antibiotic dosing accordingly. * Follow up blood and urine cultures. * Maintain MAP > 65 and monitor for recurrence of hypotension. * Continue Midodrine 10 mg TID. * Strict I/Os, daily weights. # REHANA on CKD Creatinine improving of 3.4, baseline 1.0 Likely ATN given sepsis, worsening creatinine, and chronic renal scarring. Plan: * Consulted Nephrology awaiting recs. * Daily BMP to monitor renal function and adjust antibiotics accordingly. * Renal ultrasound shows no obstruction, but chronic scarring likely contributing to renal function decline. * Monitor urine output closely (600 mL overnight). # Hypotension (improved) Previously borderline, now holding steady at 126/79 on Midodrine. Plan: * Change midodrine to as needed. * Monitor BP and perfusion closely. * Hold additional bolus for now; reassess if SBP < 90 or symptomatic. # Heartburn # GERD symptoms Likely reflux-related, improved with therapy. Plan: * Continue IV Protonix 40 mg daily. * Maalox PRN for breakthrough heartburn. * Encourage upright posture after meals. # Atrial Fibrillation on Amiodarone and Eliquis Rate controlled but QTc prolonged 537 ms. Plan: * Continue Amiodarone 200 mg BID, Eliquis 5 mg BID * Daily EKG to monitor QTc on Levofloxacin * Maintain K > 4.0, Mg > 2.0 # Subclinical hypothyroidism TSH 7.3, free T4 normal. Unknown if patient is symptomatic or not Plan: Continue to monitor, if symptomatic start levothyroxine. # DM (A1C 6.0) Plan: ISS Step 1, ACHS glucose checks Health Maintenance: Code Status: Full DVT Prophylaxis: Eliquis GI Prophylaxis: Protonix Diet: Low-carb consistent Disposition: Telemetry; continue IV antibiotics, fluid resuscitation, monitor BP. ----- Plan discussed with attending physician Dr. Lind and senior resident Dr. Analilia Gonzales MD PGY-1 Internal Medicine
[2025-03-23] MEDS: BACLOFEN 10 MG TABLET 20 MG PO (20:42)
[2025-03-24] VITALS (11 sets, daily range): BP systolic 119–144; BP diastolic 70–92; PULSE 76–102; RESP 15–94; TEMP 36.1–36.6; O2SAT 92–97; BMI 47.2
[2025-03-24] MEDS: SIMETHICONE 80 MG CHEW PO ×3 (05:09→21:03)
[2025-03-24 06:10] LABS: Basophils # (Auto) 0.0 Thou/mm3 (0.0-0.2); Basophils % (Auto) 0 % (0-2.5); Eosinophils # (Auto) 0.2 Thou/mm3 (0.0-0.5); Eosinophils % (Auto) 5 % (0-10); Hematocrit 34.2 % (41.0-53.0); Hemoglobin 12.2 g/dL (13.5-16.0); Immature Granulocytes Auto 0.03 Thou/mm3 (0.00-0.00); Lymphocytes # (Auto) 1.3 Thou/mm3 (1.0-4.8); Lymphocytes % (Auto) 27 % (10-50); Mean Corpuscular HGB Conc 35.7 g/dl (31.0-37.0); Mean Corpuscular Hemoglobin 31.2 pg (25.0-35.0); Mean Corpuscular Volume 88 fL (80-100); Monocytes # (Auto) 0.7 Thou/mm3 (0.0-0.8); Monocytes % (Auto) 13 % (0-12); Neutrophils # (Auto) 2.7 Thou/mm3 (1.8-7.7); Neutrophils % (Auto) 55 % (37-80); Nucleated Red Blood Cell # 0.00 Thou/mm3 (0.00-0.00); Nucleated Red Blood Cell % 0 /100 WBC (0); Platelet Count 245 Thou/mm3 (140-440); RDW Standard Deviation 41.2 fL (35.1-43.9); Red Blood Count 3.91 Miln/mm3 (4.50-5.90); White Blood Count 4.9 Thou/mm3 (3.8-10.6)
[2025-03-24 06:40] LABS: Alanine Aminotransferase 19 U/L (10-49); Albumin, Serum 3.7 gm/dL (3.4-4.8); Albumin/Globulin Ratio 1.8 (1.2-2.2); Alkaline Phosphatase 58 U/L (46-116); Anion Gap 10 (7-16); Aspartate Amino Transferase 20 U/L (0-34); BUN/Creatinine Ratio 15 Ratio (12-20); Bilirubin,Total 0.7 mg/dL (0.3-1.2); Blood Urea Nitrogen 50 mg/dL (9-23); Calcium 8.2 mg/dL (8.3-10.6); Calcium (Corrected) 8.4 mg/dL (8.5-10.1); Carbon Dioxide 25.7 mMol/L (20.0-31.0); Chloride 94 mMol/L (98-107); Creatinine (Component) 3.4 mg/dL (0.6-1.3); Estimated Creatinine Clearance 26.6 mL/min (>60); Globulin 2.1 gm/dL (2.3-3.5); Glucose 110 mg/dL (74-106); Magnesium 2.7 mg/dL (1.6-2.6); Osmolality,Calculated 275 (275-295); Phosphorous 3.1 mg/dL (2.4-5.1); Potassium 3.9 mMol/L (3.4-5.1); Sodium 130 mMol/L (136-145); Total Protein 5.8 gm/dL (5.7-8.2); eGFR 18 See Note
--- NOTE | 2025-03-24 07:53 | ESPR_ITS ---
Documentation for date of: 03/24/25 Subjective Subjective Interval history: Patient is a 79-year-old male with a medical history of atrial fibrillation on Eliquis, primary hypertension, hyperlipidemia, hypothyroidism, chronic urinary retention and straight catheterization, obesity, asthma/COPD, recurrent UTIs, chronic back pain, bedbound, decubitus ulcer, and history of DVT presented to [facility] emergency department on 03/19/2025 with chief complaints of shortness of breath, and urinary symptoms. Of note he was recently admitted 03/05 - 03/08 for exact same presentation and discharged with bactrim. Upon initial evaluation patient is AOx4 in the gurney. His was present to assist with the interview. They state that the patient was breathing weird, was extra tired, not confused but just not breathing well. Does not have home oxygen. His oxygen sats were 87-93% per his . She says his urine starting on was cloudy. The patient reports positive symptoms of SOB and penile discomfort, he does not urinate and has been straight cath x3/day for the last 8 years due to poor bladder contraction, but they are not sure. Of note, patient was recently discharged with bactrim but did not take it since discharge because they wanted to ask their renal specialist if he could take amoxicillin with bactrim, so their plan was just to wait until that visit before continuing their discharged antibiotic, bactrim. 03/22/25: Nephrology consulted for REHANA. Patient feels well today, improved since admission. Requests allergy medication and bowel regimen. Denies chest pain, shortness of breath, abdominal pain or urinary symptoms. Endorses that he has not been taking his Bactrim as he was waiting for PCP to confirm that he can take it with amoxicillin however canceled his appointment and ' forgot about it . Does have a chronic Verdugo catheter. At baseline can only move from chair to chair and is largely immobile. States that he does have sacral wound. 03/23/25: Patient seen examined at bedside. Patient reports feeling slightly better from yesterday in regards to overall fatigue. Denies chest pain, shortness of breath, nausea/vomiting or urinary symptoms. Chronic Verdugo draining clear yellow yellow urine. Renal ultrasound largely unremarkable showing mild renal scar formation. Urine electrolytes showed FeNa 6.6% indicating intrinsic pathology. 03/24/25: Patient is examined at bedside. Patient reports feeling well today, endorses baseline chronic back and leg pain. Denies chest pain, shortness of breath or abdominal pain. I/O: 2.2/3.2. Creatinine persistent elevated at 3.4, NM renal scan to be done today. Likely ATN secondary to hypotension. Exam Vital Signs Temp Pulse Resp BP Pulse Ox O2 Del Method O2 Flow Rate 97.3 F 76 17 128/77 92 L Room Air 1 03/24/25 07:52 03/24/25 07:52 03/24/25 07:52 03/24/25 07:52 03/24/25 07:52 03/24/25 07:52 03/22/25 01:25 Narrative Exam GENERAL: AOx3, no acute distress, obese HEENT: mucous membranes moist, bilateral sclera anicteric CARDIOVASCULAR: regular rate and rhythm, S1/S2 present, no murmurs appreciated PULMONARY: clear to auscultation bilaterally, no rales/rhonchi/wheezes ABDOMINAL: soft, non-tender, non-distended, no rebound/guarding, bowel sounds present : Verdugo in place draining clear urine EXTREMITIES: RLE 1+ pitting edema, LLE trace pitting edema, mild venous stasis dermatitis SKIN: Stage I-II sacral ulcer NEURO: CN II-XII grossly intact, no focal deficits, alert, following commands Objective Labs 03/24/25 05:41 03/24/25 05:41 Labs: Laboratory Results - last 24 hr 03/24/25 05:41 WBC 4.9 D RBC 3.91 L Hgb 12.2 L Hct 34.2 L MCV 88 MCH 31.2 MCHC 35.7 RDW Std Deviation 41.2 Plt Count 245 D Neut % (Auto) 55 Lymph % (Auto) 27 [place] % (Auto) 13 H Eos % (Auto) 5 Baso % (Auto) 0 Neut # (Auto) 2.7 Lymph # (Auto) 1.3 [place] # (Auto) 0.7 Eos # (Auto) 0.2 Baso # (Auto) 0.0 Immature Gran # (Auto) 0.03 H Absolute Nucleated RBC 0.00 Immature Gran % 1 H Nucleated RBC % 0 Sodium 130 L Potassium 3.9 Chloride 94 L Carbon Dioxide 25.7 Anion Gap 10 BUN 50 H Creatinine 3.4 H Estim Creat Clear Calc 26.6 L eGFR 18 L BUN/Creatinine Ratio 15 Glucose 110 H Calculated Osmolality 275 Calcium 8.2 L Corrected Calcium 8.4 L Phosphorus 3.1 Magnesium 2.7 H Total Bilirubin 0.7 AST 20 ALT 19 Alkaline Phosphatase 58 Total Protein 5.8 Albumin 3.7 Globulin 2.1 L Albumin/Globulin Ratio 1.8 Quality Measures Quality Measures VTE prophylaxis Advance care planning discussed with:: patient Assessment & Plan Assessment Current Active Medications: Generic Name Dose Route Start Last Admin Trade Name Freq PRN Reason Stop Dose Admin Acetaminophen 650 mg 03/19/25 20:49 03/19/25 21:35 Acetaminophen 325 Mg Tablet PO 04/18/25 20:48 650 mg Q6H PRN Administration Fever >100.4 or pain 1-3 Al Hydrox/Mg Hydrox/Simethicone 30 ml 03/20/25 09:06 03/22/25 15:03 Mg Hyd/Al Hyd/Isabel (Maalox Reg) Susp 30 Ml Udc PO 04/19/25 09:05 30 ml Q4HR PRN Administration UPSET STOMACH/INDIGESTION Albuterol/Ipratropium 3 ml 03/22/25 13:39 Albuterol/Ipratropium (Duoneb) Rt Lilli 3 Ml Nebu INH 04/21/25 00:59 Q6HRRT PRN wheezing Amiodarone HCl 200 mg 03/19/25 21:00 03/23/25 20:42 Amiodarone Hcl 200 Mg Tablet PO 04/18/25 20:59 200 mg BID COLLIN Administration Apixaban 5 mg 03/19/25 21:00 03/23/25 20:41 Apixaban 2.5 Mg Tablet PO 04/18/25 20:59 5 mg BID COLLIN Administration Ascorbic Acid 500 mg 03/21/25 13:45 03/23/25 20:42 Ascorbic Acid 250 Mg Tablet PO 04/20/25 13:44 500 mg BID COLLIN Administration Aspirin 81 mg 03/21/25 09:00 03/23/25 08:24 Aspirin 81 Mg Chew PO 04/20/25 08:59 81 mg QDAY COLLIN Administration Baclofen 20 mg 03/20/25 15:03 03/23/25 20:42 Baclofen 10 Mg Tablet PO 04/19/25 15:02 20 mg TID PRN Administration Spasms Balsam [place] Oil 0 gm 11/04/25 21:00 03/23/25 20:42 Balsam [place] Oil (Venelex) 60 Gm Tube TOP 04/21/25 20:59 1 appln BID COLLIN Administration Dextrose 25 ml 03/19/25 21:57 Dextrose 50%-Water Inj 50 Ml Syringe IV 04/18/25 21:56 Q15MIN PRN BG 50-70 responsive npo pt Dextrose 50 ml 03/19/25 21:57 Dextrose 50%-Water Inj 50 Ml Syringe IV 04/18/25 21:56 Q15MIN PRN BG <50 OR BG <70 & pt unresponsive Docusate Sodium 100 mg 03/20/25 09:00 03/23/25 08:24 Docusate Sod 100 Mg Capsule PO 04/19/25 08:59 100 mg QDAY COLLIN Administration Protocol Finasteride 5 mg 03/21/25 09:00 03/23/25 08:22 Finasteride 5 Mg Tablet PO 04/20/25 08:59 5 mg QDAY COLLIN Administration Glucagon 1 mg 03/19/25 21:57 Glucagon Inj 1 Mg Vial IM Q15MIN PRN BG <70, and no IV access Levofloxacin/Dextrose 750 mg in 150 mls @ 100 mls/hr 03/22/25 21:00 03/22/25 23:09 Levaquin Ivpb IV 03/29/25 20:59 Infused Q48HR@2100 COLLIN Infusion Insulin Human Lispro 0 unit 03/20/25 07:30 03/23/25 17:54 Insulin Lispro (Admelog) 1 Unit/0.01 Ml Unit SC 04/19/25 07:29 Not Given AC [facility] Protocol Multivitamins 1 tab 03/21/25 13:45 03/23/25 08:22 Multivitamins Tablet PO 04/20/25 13:44 1 tab QDAY COLLIN Administration Oxycodone/Acetaminophen 1 tab 03/20/25 15:03 03/23/25 22:52 Oxycodone/Apap 5/325 Tablet PO 1 tab TID PRN Administration Pain 7 -10 Pantoprazole Sodium 40 mg 03/20/25 09:00 03/23/25 08:23 Pantoprazole 40 Mg Tablet PO 04/19/25 08:59 40 mg QDAY COLLIN Administration Pregabalin 150 mg 03/20/25 21:00 03/21/25 21:18 Pregabalin 75 Mg Capsule PO 04/19/25 20:59 150 mg On Hold: 03/22/25 07:24 BID COLLIN Administration Simethicone 80 mg 03/23/25 22:00 03/24/25 05:09 Simethicone 80 Mg Chew PO 04/22/25 21:59 80 mg TID COLLIN Administration Zinc Sulfate 220 mg 03/21/25 13:45 03/23/25 08:23 Zinc Sulfate 220 Mg Capsule PO 04/04/25 13:44 220 mg QDAY COLLIN Administration Plan 79-year-old male with history of atrial fibrillation on Eliquis, hypothyroidism, chronic urinary retention with recurrent ESBL UTIs, and CKD, admitted for sepsis likely secondary to ESBL UTI, now with recurrent hypotension and rising lactate (2.4 -> 3.2) concerning for evolving septic shock. #REHANA, ATN #ESBL Klebsiella pneumonia UTI #Chronic Verdugo catheter On admission Cr 1.3 baseline 0.8-1.2, however on 03/20, Cr increased to 2.2 and continues to uptrend. Patient reports that on discharge on 03/08 for sepsis secondary to UTI he was discharged with Bactrim however he did not take it as he is taking amoxicillin as prophylaxis iso his multiple knee surgeries. Urine output adequate. s/p 3L IVF on 03/20 and 03/21. 03/18 UCx ESBL Klebsiella pneumonia. 03/19 initial urine culture contaminated second taken 4 hours later no growth. Per chart review, patient was prescribed nitrofurantoin on 03/18. Renal US showed mild bilateral renal scar formation. FeNa 6.6%, indicating intrinsic pathology likely ATN iso lactic acidosis and septic shock provide temporary midodrine secondary to ESBL Klebsiella pneumonia on 03/18 urine culture. Plan: - CTM Cr - Avoid agents, renally dose medication - Ordered NM renal scan to assess current renal function # Sepsis likely secondary to recurrent ESBL UTI (improving) # Hypotension (improved) # Heartburn # GERD symptoms # Atrial Fibrillation # Subclinical hypothyroidism # DM (A1C 6.0) Thank you for the consultation and allowing participation in patient's care. Plan of care discussed with attending Dr. Quevedo. Jaz Patel DO PGY-1 Internal Medicine Attending Provider Attestation/Addendum Patient seen and examined with resident physician Dr. Patel. Note reviewed, agree with findings and recommendations. is the informant-multiple medical problems. Patient practically bedbound/wheelchair-bound. Worsening renal function-most likely related to ATN from underlying infection/antibiotics. Urine output acceptable. Renal ultrasound showed no evidence of any hydronephrosis. Renal scan showed mild fx -- ATN. Takes 1-2 weeks for renal recovery. Care discussed with at bedside. Avoid nephrotoxics. Cr 3.4
--- NOTE | 2025-03-24 08:00 | EKG_ITS ---
[facility] Test Date: 2025-03-24 Pat Name: SONIA LOONEY Department: [facility] Gender: Male [employer]: JERALD : 1945 Requested By: Georgia Gonzales Order Number: [id number] Reading MD: Georgia Gonzales Measurements Intervals [place] Rate: 78 P: WI: QRS: -76 QRSD: 157 T: 3 QT: 460 QTc: 526 Interpretive Statements ATRIAL FIBRILLATION RIGHT BUNDLE BRANCH BLOCK LEFT ANTERIOR FASCICULAR BLOCK Compared to ECG 03/19/2025 17:05:18 Left anterior fascicular block now present Myocardial infarct finding no longer present /store/S0/[id number]
[2025-03-24] MEDS: FINASTERIDE 5 MG TABLET PO (08:10)
[2025-03-24] MEDS: ASPIRIN 81 MG CHEW PO (08:11)
[2025-03-24] MEDS: PANTOPRAZOLE 40 MG TABLET PO (08:11)
[2025-03-24] MEDS: AMIODARONE HCL 200 MG TABLET PO ×2 (08:11→20:48)
[2025-03-24] MEDS: ZINC SULFATE 220 MG CAPSULE PO (08:11)
[2025-03-24] MEDS: ASCORBIC ACID 250 MG TABLET 500 MG PO ×2 (08:11→20:48)
[2025-03-24] MEDS: APIXABAN 2.5 MG TABLET 5 MG PO ×2 (08:11→20:48)
[2025-03-24] MEDS: DOCUSATE SOD 100 MG CAPSULE PO (08:11)
[2025-03-24] MEDS: MULTIVITAMINS TABLET 1 TAB PO (08:14)
[2025-03-24] MEDS: BALSAM PERU/CASTOR OIL (Venelex) 60 GM TUBE TOP ×2 (08:15→20:49)
--- NOTE | 2025-03-24 08:54 | PC.SS ---
Update: Patient receiving IV antibiotics. D/C within 1-2 days.
--- NOTE | 2025-03-24 11:33 | ESPR_ITS ---
<Statement entered by Adams Lind MD - 04/07/25 07:51> I reviewed above note and agree with findings and plans. I have also personally examined the patient with medicine team and went over assessment and plan with medical team including manager of international and resident physician. <Statement entered by Barrington Billingsley MD - 03/28/25 13:42> I have personally seen and examined the patient, agree with residents assessment and plan Patient plan of care was discussed with the attending physician, Dr. Lelo Billingsley, PGY2 Documentation for date of: 03/24/25 Subjective Subjective Interval history: Patient seen and examined at bedside this morning. Reports feeling significantly better and ready to go home. Denies chest pain, shortness of breath, dizziness, nausea, vomiting, or abdominal pain. Appetite good, eating well. Reports mild gas but no distension or discomfort. present at bedside. No new complaints. Exam Vital Signs Temp Pulse Resp BP Pulse Ox O2 Del Method O2 Flow Rate 97.3 F 87 17 119/86 H 92 L Room Air 1 03/24/25 07:52 03/24/25 08:11 03/24/25 07:52 03/24/25 08:11 03/24/25 07:52 03/24/25 07:52 03/22/25 01:25 Narrative Exam GENERAL: AOx3, no acute distress, obese HEENT: mucous membranes moist, bilateral sclera anicteric CARDIOVASCULAR: regular rate and rhythm, S1/S2 present, no murmurs appreciated PULMONARY: clear to auscultation bilaterally, no rales/rhonchi/wheezes ABDOMINAL: soft, non-tender, non-distended, no rebound/guarding, bowel sounds present : Verdugo in place draining clear urine EXTREMITIES: BLE non pitting edema, mild venous stasis dermatitis SKIN: Stage I-II sacral ulcer NEURO: CN II-XII grossly intact, no focal deficits, alert, following commands Objective Labs 03/24/25 05:41 03/24/25 05:41 Labs: Laboratory Results - last 24 hr 03/24/25 05:41 WBC 4.9 D RBC 3.91 L Hgb 12.2 L Hct 34.2 L MCV 88 MCH 31.2 MCHC 35.7 RDW Std Deviation 41.2 Plt Count 245 D Neut % (Auto) 55 Lymph % (Auto) 27 [place] % (Auto) 13 H Eos % (Auto) 5 Baso % (Auto) 0 Neut # (Auto) 2.7 Lymph # (Auto) 1.3 [place] # (Auto) 0.7 Eos # (Auto) 0.2 Baso # (Auto) 0.0 Immature Gran # (Auto) 0.03 H Absolute Nucleated RBC 0.00 Immature Gran % 1 H Nucleated RBC % 0 Sodium 130 L Potassium 3.9 Chloride 94 L Carbon Dioxide 25.7 Anion Gap 10 BUN 50 H Creatinine 3.4 H Estim Creat Clear Calc 26.6 L eGFR 18 L BUN/Creatinine Ratio 15 Glucose 110 H Calculated Osmolality 275 Calcium 8.2 L Corrected Calcium 8.4 L Phosphorus 3.1 Magnesium 2.7 H Total Bilirubin 0.7 AST 20 ALT 19 Alkaline Phosphatase 58 Total Protein 5.8 Albumin 3.7 Globulin 2.1 L Albumin/Globulin Ratio 1.8 Quality Measures Quality Measures VTE prophylaxis Advance care planning discussed with:: patient Assessment & Plan Assessment Current Active Medications: Generic Name Dose Route Start Last Admin Trade Name Freq PRN Reason Stop Dose Admin Acetaminophen 650 mg 03/19/25 20:49 03/19/25 21:35 Acetaminophen 325 Mg Tablet PO 04/18/25 20:48 650 mg Q6H PRN Administration Fever >100.4 or pain 1-3 Al Hydrox/Mg Hydrox/Simethicone 30 ml 03/20/25 09:06 03/22/25 15:03 Mg Hyd/Al Hyd/Isabel (Maalox Reg) Susp 30 Ml Udc PO 04/19/25 09:05 30 ml Q4HR PRN Administration UPSET STOMACH/INDIGESTION Albuterol/Ipratropium 3 ml 03/22/25 13:39 Albuterol/Ipratropium (Duoneb) Rt Lilli 3 Ml Nebu INH 04/21/25 00:59 Q6HRRT PRN wheezing Amiodarone HCl 200 mg 03/19/25 21:00 03/24/25 08:11 Amiodarone Hcl 200 Mg Tablet PO 04/18/25 20:59 200 mg BID COLLIN Administration Apixaban 5 mg 03/19/25 21:00 03/24/25 08:11 Apixaban 2.5 Mg Tablet PO 04/18/25 20:59 5 mg BID COLLIN Administration Ascorbic Acid 500 mg 03/21/25 13:45 11/06/25 08:11 Ascorbic Acid 250 Mg Tablet PO 04/20/25 13:44 500 mg BID COLLIN Administration Aspirin 81 mg 03/21/25 09:00 03/24/25 08:11 Aspirin 81 Mg Chew PO 04/20/25 08:59 81 mg QDAY COLLIN Administration Baclofen 20 mg 03/20/25 15:03 03/23/25 20:42 Baclofen 10 Mg Tablet PO 04/19/25 15:02 20 mg TID PRN Administration Spasms Balsam [place] Oil 0 gm 03/22/25 21:00 03/24/25 08:15 Balsam [place] Oil (Venelex) 60 Gm Tube TOP 04/21/25 20:59 1 appln BID COLLIN Administration Dextrose 25 ml 03/19/25 21:57 Dextrose 50%-Water Inj 50 Ml Syringe IV 04/18/25 21:56 Q15MIN PRN BG 50-70 responsive npo pt Dextrose 50 ml 03/19/25 21:57 Dextrose 50%-Water Inj 50 Ml Syringe IV 04/18/25 21:56 Q15MIN PRN BG <50 OR BG <70 & pt unresponsive Docusate Sodium 100 mg 03/20/25 09:00 03/24/25 08:11 Docusate Sod 100 Mg Capsule PO 04/19/25 08:59 100 mg QDAY COLLIN Administration Protocol Finasteride 5 mg 03/21/25 09:00 03/24/25 08:10 Finasteride 5 Mg Tablet PO 04/20/25 08:59 5 mg QDAY COLLIN Administration Glucagon 1 mg 03/19/25 21:57 Glucagon Inj 1 Mg Vial IM Q15MIN PRN BG <70, and no IV access Levofloxacin/Dextrose 750 mg in 150 mls @ 100 mls/hr 03/22/25 21:00 03/22/25 23:09 Levaquin Ivpb IV 03/29/25 20:59 Infused Q48HR@2100 COLLIN Infusion Insulin Human Lispro 0 unit 03/20/25 07:30 03/24/25 08:02 Insulin Lispro (Admelog) 1 Unit/0.01 Ml Unit SC 04/19/25 07:29 Not Given AC COUNTS INCLUDE 234 BEDS AT THE [facility] Protocol Multivitamins 1 tab 03/21/25 13:45 03/24/25 08:14 Multivitamins Tablet PO 04/20/25 13:44 1 tab QDAY COLLIN Administration Oxycodone/Acetaminophen 1 tab 03/20/25 15:03 03/24/25 08:17 Oxycodone/Apap 5/325 Tablet PO 1 tab TID PRN Administration Pain 7 -10 Pantoprazole Sodium 40 mg 03/20/25 09:00 03/24/25 08:11 Pantoprazole 40 Mg Tablet PO 04/19/25 08:59 40 mg QDAY COLLIN Administration Pregabalin 150 mg 03/20/25 21:00 03/21/25 21:18 Pregabalin 75 Mg Capsule PO 04/19/25 20:59 150 mg On Hold: 03/22/25 07:24 BID COLLIN Administration Simethicone 80 mg 03/23/25 22:00 03/24/25 05:09 Simethicone 80 Mg Chew PO 04/22/25 21:59 80 mg TID COLLIN Administration Zinc Sulfate 220 mg 03/21/25 13:45 03/24/25 08:11 Zinc Sulfate 220 Mg Capsule PO 04/04/25 13:44 220 mg QDAY COLLIN Administration Plan 79-year-old male with history of atrial fibrillation on Eliquis, hypothyroidism, chronic urinary retention with recurrent ESBL UTIs, and CKD, admitted for sepsis secondary to ESBL UTI, now improving with downtrending WBC (9.6), creatinine stable at 3.4 (improved from 3.6), Levofloxacin 750 mg IV q48h started on 03/21/2025, awaiting nephrology clearance for discharge if creatinine continues to downtrend. # Sepsis likely secondary to recurrent ESBL UTI (improving) WBC downtrending, lactate normalized, BP improved, afebrile. Broadened antibiotic coverage to Meropenem and Vancomycin on 03/20 with good response. DC on 03/22 and switched back to levofloxacin Plan: * Continue Levofloxacin 750 mg IV q48h (started 03/22/2025). * Monitor renal function daily and adjust antibiotic dosing accordingly. * Follow up blood and urine cultures. * Maintain MAP > 65 and monitor for recurrence of hypotension. * Continue Midodrine 10 mg TID. * Strict I/Os, daily weights. # REHANA on CKD Creatinine stable at 3.4, baseline 1.0 Likely ATN given sepsis, worsening creatinine, and chronic renal scarring. Plan: * Consulted Nephrology awaiting NM scan results. * Daily BMP to monitor renal function and adjust antibiotics accordingly. * Renal ultrasound shows no obstruction, but chronic scarring likely contributing to renal function decline. * Monitor urine output closely. # Hypotension (improved) Previously borderline, now holding steady at 126/79 on Midodrine. Plan: * DC midodrine. * Monitor BP and perfusion closely. * Hold additional bolus for now; reassess if SBP < 90 or symptomatic. # Heartburn # GERD symptoms Likely reflux-related, improved with therapy. Plan: * Continue IV Protonix 40 mg daily. * Maalox PRN for breakthrough heartburn. * Encourage upright posture after meals. # Atrial Fibrillation on Amiodarone and Eliquis Rate controlled but QTc prolonged 537 ms. Plan: * Continue Amiodarone 200 mg BID, Eliquis 5 mg BID * Daily EKG to monitor QTc on Levofloxacin * Maintain K > 4.0, Mg > 2.0 # Subclinical hypothyroidism TSH 7.3, free T4 normal. Unknown if patient is symptomatic or not Plan: Continue to monitor, if symptomatic start levothyroxine. # DM (A1C 6.0) Plan: ISS Step 1, ACHS glucose checks Health Maintenance: Code Status: Full DVT Prophylaxis: Eliquis GI Prophylaxis: Protonix Diet: Low-carb consistent Disposition: Telemetry; continue IV antibiotics, fluid resuscitation, monitor BP. ----- Plan discussed with attending physician Dr. Lind and senior resident Dr. Analilia Gonzales MD PGY-1 Internal Medicine
--- NOTE | 2025-03-24 16:09 | PC.SS ---
Rounding Note: Plan is to continue to monitor kidney functioning. Dr. Quevedo consulting. Possible d/c tomorrow.
[2025-03-24] MEDS: LEVOFLOXACIN/D5W 750MG IVPB 750 MG/150 ML BAG 100 MG IV (20:49)
[2025-03-25] VITALS (8 sets, daily range): BP systolic 117–128; BP diastolic 75–87; PULSE 79–113; RESP 8–96; TEMP 36.1–36.6; O2SAT 95–97; BMI 45.3
[2025-03-25] MEDS: SIMETHICONE 80 MG CHEW PO ×2 (05:41→13:15)
[2025-03-25 06:25] LABS: Basophils # (Auto) 0.0 Thou/mm3 (0.0-0.2); Basophils % (Auto) 0 % (0-2.5); Eosinophils # (Auto) 0.4 Thou/mm3 (0.0-0.5); Eosinophils % (Auto) 5 % (0-10); Hematocrit 34.4 % (41.0-53.0); Hemoglobin 12.1 g/dL (13.5-16.0); Immature Granulocytes Auto 0.04 Thou/mm3 (0.00-0.00); Lymphocytes # (Auto) 1.4 Thou/mm3 (1.0-4.8); Lymphocytes % (Auto) 21 % (10-50); Mean Corpuscular HGB Conc 35.2 g/dl (31.0-37.0); Mean Corpuscular Hemoglobin 31.1 pg (25.0-35.0); Mean Corpuscular Volume 88 fL (80-100); Monocytes # (Auto) 0.9 Thou/mm3 (0.0-0.8); Monocytes % (Auto) 13 % (0-12); Neutrophils # (Auto) 4.2 Thou/mm3 (1.8-7.7); Neutrophils % (Auto) 61 % (37-80); Nucleated Red Blood Cell # 0.00 Thou/mm3 (0.00-0.00); Nucleated Red Blood Cell % 0 /100 WBC (0); Platelet Count 240 Thou/mm3 (140-440); RDW Standard Deviation 41.8 fL (35.1-43.9); Red Blood Count 3.89 Miln/mm3 (4.50-5.90); White Blood Count 6.9 Thou/mm3 (3.8-10.6)
[2025-03-25 06:46] LABS: Alanine Aminotransferase 18 U/L (10-49); Albumin, Serum 3.6 gm/dL (3.4-4.8); Albumin/Globulin Ratio 1.5 (1.2-2.2); Alkaline Phosphatase 58 U/L (46-116); Anion Gap 8 (7-16); Aspartate Amino Transferase 20 U/L (0-34); BUN/Creatinine Ratio 15 Ratio (12-20); Bilirubin,Total 0.5 mg/dL (0.3-1.2); Blood Urea Nitrogen 49 mg/dL (9-23); Calcium 8.7 mg/dL (8.3-10.6); Calcium (Corrected) 9.0 mg/dL (8.5-10.1); Carbon Dioxide 30.2 mMol/L (20.0-31.0); Chloride 95 mMol/L (98-107); Creatinine (Component) 3.3 mg/dL (0.6-1.3); Estimated Creatinine Clearance 26.8 mL/min (>60); Globulin 2.4 gm/dL (2.3-3.5); Glucose 94 mg/dL (74-106); Magnesium 2.8 mg/dL (1.6-2.6); Osmolality,Calculated 279 (275-295); Phosphorous 3.8 mg/dL (2.4-5.1); Potassium 3.9 mMol/L (3.4-5.1); Sodium 133 mMol/L (136-145); Total Protein 6.0 gm/dL (5.7-8.2); eGFR 18 See Note
--- NOTE | 2025-03-25 08:42 | ESPR_ITS ---
Documentation for date of: 03/25/25 Subjective Subjective Interval history: Patient is a 79-year-old male with a medical history of atrial fibrillation on Eliquis, primary hypertension, hyperlipidemia, hypothyroidism, chronic urinary retention and straight catheterization, obesity, asthma/COPD, recurrent UTIs, chronic back pain, bedbound, decubitus ulcer, and history of DVT presented to [facility] emergency department on 03/19/2025 with chief complaints of shortness of breath, and urinary symptoms. Of note he was recently admitted 03/05 - 03/08 for exact same presentation and discharged with bactrim. Upon initial evaluation patient is AOx4 in the gurney. His was present to assist with the interview. They state that the patient was breathing weird, was extra tired, not confused but just not breathing well. Does not have home oxygen. His oxygen sats were 87-93% per his . She says his urine starting on was cloudy. The patient reports positive symptoms of SOB and penile discomfort, he does not urinate and has been straight cath x3/day for the last 8 years due to poor bladder contraction, but they are not sure. Of note, patient was recently discharged with bactrim but did not take it since discharge because they wanted to ask their renal specialist if he could take amoxicillin with bactrim, so their plan was just to wait until that visit before continuing their discharged antibiotic, bactrim. 03/22/25: Nephrology consulted for REHANA. Patient feels well today, improved since admission. Requests allergy medication and bowel regimen. Denies chest pain, shortness of breath, abdominal pain or urinary symptoms. Endorses that he has not been taking his Bactrim as he was waiting for PCP to confirm that he can take it with amoxicillin however canceled his appointment and ' forgot about it . Does have a chronic Verdugo catheter. At baseline can only move from chair to chair and is largely immobile. States that he does have sacral wound. 03/23/25: Patient seen examined at bedside. Patient reports feeling slightly better from yesterday in regards to overall fatigue. Denies chest pain, shortness of breath, nausea/vomiting or urinary symptoms. Chronic Verdugo draining clear yellow yellow urine. Renal ultrasound largely unremarkable showing mild renal scar formation. Urine electrolytes showed FeNa 6.6% indicating intrinsic pathology. 03/24/25: Patient is examined at bedside. Patient reports feeling well today, endorses baseline chronic back and leg pain. Denies chest pain, shortness of breath or abdominal pain. I/O: 2.2/3.2. Creatinine persistent elevated at 3.4, NM renal scan to be done today. Likely ATN secondary to hypotension. 03/25/25: Patient seen and examined at bedside. No new complaints. Denies chest pain, shortness of breath, abdominal pain, and N/V. I/O: 3.1/3.9. SBP 120s. Creatinine stable elevated 3.3, BUN stable elevated 33, and renal scan shows minimal bilateral renal function correlates with ATN. Patient is likely in recovery phase has urine output is significant. Recommend for [facility] home health to obtain CBC and renal panel within 1 week and for patient to be sent home with home health. Exam Vital Signs Temp Pulse Resp BP Pulse Ox O2 Del Method O2 Flow Rate 96.9 F 92 8 L 117/76 96 Room Air 1 03/25/25 08:00 03/25/25 08:00 03/25/25 08:00 03/25/25 08:00 03/25/25 08:00 03/25/25 08:00 03/22/25 01:25 Narrative Exam GENERAL: AOx3, no acute distress, obese HEENT: mucous membranes moist, bilateral sclera anicteric CARDIOVASCULAR: regular rate and rhythm, S1/S2 present, no murmurs appreciated PULMONARY: clear to auscultation bilaterally, no rales/rhonchi/wheezes ABDOMINAL: soft, non-tender, non-distended, no rebound/guarding, bowel sounds present : Verdugo in place draining clear urine EXTREMITIES: RLE mild pitting edema, LLE trace pitting edema, mild venous stasis dermatitis SKIN: Stage I-II sacral ulcer NEURO: CN II-XII grossly intact, no focal deficits, alert, following commands Objective Labs 03/25/25 05:06 03/25/25 05:06 Labs: Laboratory Results - last 24 hr 03/25/25 05:06 WBC 6.9 D RBC 3.89 L Hgb 12.1 L Hct 34.4 L MCV 88 MCH 31.1 MCHC 35.2 RDW Std Deviation 41.8 Plt Count 240 Neut % (Auto) 61 Lymph % (Auto) 21 [place] % (Auto) 13 H Eos % (Auto) 5 Baso % (Auto) 0 Neut # (Auto) 4.2 Lymph # (Auto) 1.4 [place] # (Auto) 0.9 H Eos # (Auto) 0.4 Baso # (Auto) 0.0 Immature Gran # (Auto) 0.04 H Absolute Nucleated RBC 0.00 Immature Gran % 1 H Nucleated RBC % 0 Sodium 133 L Potassium 3.9 Chloride 95 L Carbon Dioxide 30.2 Anion Gap 8 BUN 49 H Creatinine 3.3 H Estim Creat Clear Calc 26.8 L eGFR 18 L BUN/Creatinine Ratio 15 Glucose 94 Calculated Osmolality 279 Calcium 8.7 Corrected Calcium 9.0 Phosphorus 3.8 Magnesium 2.8 H Total Bilirubin 0.5 AST 20 ALT 18 Alkaline Phosphatase 58 Total Protein 6.0 Albumin 3.6 Globulin 2.4 Albumin/Globulin Ratio 1.5 Quality Measures Quality Measures VTE prophylaxis Advance care planning discussed with:: patient Assessment & Plan Assessment Current Active Medications: Generic Name Dose Route Start Last Admin Trade Name Freq PRN Reason Stop Dose Admin Acetaminophen 650 mg 03/19/25 20:49 03/19/25 21:35 Acetaminophen 325 Mg Tablet PO 04/18/25 20:48 650 mg Q6H PRN Administration Fever >100.4 or pain 1-3 Al Hydrox/Mg Hydrox/Simethicone 30 ml 03/20/25 09:06 03/22/25 15:03 Mg Hyd/Al Hyd/Isabel (Maalox Reg) Susp 30 Ml Udc PO 04/19/25 09:05 30 ml Q4HR PRN Administration UPSET STOMACH/INDIGESTION Albuterol/Ipratropium 3 ml 03/22/25 13:39 Albuterol/Ipratropium (Duoneb) Rt Lilli 3 Ml Nebu INH 04/21/25 00:59 Q6HRRT PRN wheezing Amiodarone HCl 200 mg 03/19/25 21:00 03/24/25 20:48 Amiodarone Hcl 200 Mg Tablet PO 04/18/25 20:59 200 mg BID COLLIN Administration Apixaban 5 mg 03/19/25 21:00 03/24/25 20:48 Apixaban 2.5 Mg Tablet PO 04/18/25 20:59 5 mg BID COLLIN Administration Ascorbic Acid 500 mg 03/21/25 13:45 03/24/25 20:48 Ascorbic Acid 250 Mg Tablet PO 04/20/25 13:44 500 mg BID COLLIN Administration Aspirin 81 mg 03/21/25 09:00 03/24/25 08:11 Aspirin 81 Mg Chew PO 04/20/25 08:59 81 mg QDAY COLLIN Administration Baclofen 20 mg 03/20/25 15:03 03/23/25 20:42 Baclofen 10 Mg Tablet PO 04/19/25 15:02 20 mg TID PRN Administration Spasms Balsam [place] Oil 0 gm 03/22/25 21:00 03/24/25 20:49 Balsam [place] Oil (Venelex) 60 Gm Tube TOP 04/21/25 20:59 1 appln BID COLLIN Administration Dextrose 25 ml 03/19/25 21:57 Dextrose 50%-Water Inj 50 Ml Syringe IV 04/18/25 21:56 Q15MIN PRN BG 50-70 responsive npo pt Dextrose 50 ml 03/19/25 21:57 Dextrose 50%-Water Inj 50 Ml Syringe IV 04/18/25 21:56 Q15MIN PRN BG <50 OR BG <70 & pt unresponsive Docusate Sodium 100 mg 03/20/25 09:00 03/24/25 08:11 Docusate Sod 100 Mg Capsule PO 04/19/25 08:59 100 mg QDAY COLLIN Administration Protocol Finasteride 5 mg 03/21/25 09:00 03/24/25 08:10 Finasteride 5 Mg Tablet PO 04/20/25 08:59 5 mg QDAY COLLIN Administration Glucagon 1 mg 03/19/25 21:57 Glucagon Inj 1 Mg Vial IM Q15MIN PRN BG <70, and no IV access Levofloxacin/Dextrose 750 mg in 150 mls @ 100 mls/hr 03/22/25 21:00 03/25/25 05:40 Levaquin Ivpb IV 03/29/25 20:59 Infused Q48HR@2100 COLLIN Infusion Insulin Human Lispro 0 unit 03/20/25 07:30 03/25/25 08:04 Insulin Lispro (Admelog) 1 Unit/0.01 Ml Unit SC 04/19/25 07:29 Not Given AC [facility] Protocol Multivitamins 1 tab 03/21/25 13:45 03/24/25 08:14 Multivitamins Tablet PO 04/20/25 13:44 1 tab QDAY COLLIN Administration Oxycodone/Acetaminophen 1 tab 03/20/25 15:03 03/25/25 00:00 Oxycodone/Apap 5/325 Tablet PO 1 tab TID PRN Administration Pain 7 -10 Pantoprazole Sodium 40 mg 03/20/25 09:00 03/24/25 08:11 Pantoprazole 40 Mg Tablet PO 04/19/25 08:59 40 mg QDAY COLLIN Administration Simethicone 80 mg 03/23/25 22:00 03/25/25 05:41 Simethicone 80 Mg Chew PO 04/22/25 21:59 80 mg TID COLLIN Administration Zinc Sulfate 220 mg 03/21/25 13:45 03/24/25 08:11 Zinc Sulfate 220 Mg Capsule PO 04/04/25 13:44 220 mg QDAY COLLIN Administration Plan 79-year-old male with history of atrial fibrillation on Eliquis, hypothyroidism, chronic urinary retention with recurrent ESBL UTIs, and CKD, admitted for sepsis likely secondary to ESBL UTI, now with recurrent hypotension and rising lactate (2.4 -> 3.2) concerning for evolving septic shock. #REHANA, ATN #ESBL Klebsiella pneumonia UTI #Chronic Verdugo catheter On admission Cr 1.3 baseline 0.8-1.2, however on 03/20, Cr increased to 2.2 and continues to uptrend. Patient reports that on discharge on 03/08 for sepsis secondary to UTI he was discharged with Bactrim however he did not take it as he is taking amoxicillin as prophylaxis iso his multiple knee surgeries. Urine output adequate. s/p 3L IVF on 03/20 and 03/21. 03/18 UCx ESBL Klebsiella pneumonia. 03/19 initial urine culture contaminated second taken 4 hours later no growth. Per chart review, patient was prescribed nitrofurantoin on 03/18. Renal US showed mild bilateral renal scar formation. FeNa 6.6%, indicating intrinsic pathology likely ATN iso lactic acidosis and septic shock provide temporary midodrine secondary to ESBL Klebsiella pneumonia on 03/18 urine culture. Supported by renal scan showing minimal bilateral renal function. Patient is likely in recovery phase has urine output is significant. Plan: - CTM Cr - Avoid agents, renally dose medication - Recommend for [facility] home health to obtain CBC and renal panel within 1 week and for patient to be sent home with home health - Recommend Lasix 20 mg QD for continued diuresis until patient sees nephrology outpatient # Sepsis likely secondary to recurrent ESBL UTI (improving) # Hypotension (improved) # Heartburn # GERD symptoms # Atrial Fibrillation # Subclinical hypothyroidism # DM (A1C 6.0) Thank you for the consultation and allowing participation in patient's care. Plan of care discussed with attending Dr. Quevedo. Jaz Patel, DO PGY-1 Internal Medicine Attending Provider Attestation/Addendum Patient seen and examined with resident physician Dr. Patel. Note reviewed, agree with findings and recommendations. Patient currently seen in telemetry. Resting comfortably.
[2025-03-25] MEDS: PANTOPRAZOLE 40 MG TABLET PO (08:45)
[2025-03-25] MEDS: DOCUSATE SOD 100 MG CAPSULE PO (08:46)
[2025-03-25] MEDS: APIXABAN 2.5 MG TABLET 5 MG PO (08:46)
[2025-03-25] MEDS: ZINC SULFATE 220 MG CAPSULE PO (08:47)
[2025-03-25] MEDS: BALSAM PERU/CASTOR OIL (Venelex) 60 GM TUBE TOP (08:47)
[2025-03-25] MEDS: ASCORBIC ACID 250 MG TABLET 500 MG PO (08:47)
[2025-03-25] MEDS: FINASTERIDE 5 MG TABLET PO (08:47)
[2025-03-25] MEDS: MULTIVITAMINS TABLET 1 TAB PO (08:47)
[2025-03-25] MEDS: AMIODARONE HCL 200 MG TABLET PO (08:48)
--- NOTE | 2025-03-25 12:29 | ESDS_ITS ---
<Statement entered by Adams Lind MD - 04/07/25 07:54> I reviewed above note and agree with findings and plans. I have also personally examined the patient with medicine team and went over assessment and plan with medical team including healthcare administration intern and resident physician. Planned Discharge Date 03/25/25 DS: Providers Provider Date of admission: 03/19/25 20:50 Primary care physician: Lazaro Banda MD Admitting Provider: Jie Law MD Attending Provider on Admission: Adams Lind MD Consults: 03/20/25 02:11 Referral Registered Dietitian Urgent Comment: sacral wounds 03/20/25 02:12 Referral Wound Care Urgent Comment: sacral wounds 03/22/25 07:25 Consult to Nephrology Routine Comment: REHANA Consulting Provider: Aury Quevedo Attending Provider on DC: Adams Lind MD Discharging Provider: Georgia Gonzales MD DS: Diagnosis Problem List Completed Was Problem List Reviewed/Reconciled?: Yes Hospital Course Hospital Course Hospital course: Mr. Baker is a 79-year-old male with a past medical history significant for atrial fibrillation, hypothyroidism, chronic urinary retention with recurrent UTIs, and CKD, who was admitted on 03/19/2025 with sepsis secondary to Klebsiella UTI, along with acute kidney injury (REHANA) and lactic acidosis (4.8). He was initially treated with broad-spectrum antibiotics (Meropenem) and later transitioned to Levofloxacin 750 mg IV q48h on 03/21/2025 after identification of Klebsiella as the causative pathogen. The patient?s creatinine peaked at 3.6 and showed improvement to 3.3 on 03/24, and urine output remained adequate (3.9 L overnight on 03/24). Given these findings, it was determined that the patient had acute tubular necrosis (ATN), likely related to sepsis and hypoperfusion. Renal ultrasound confirmed no hydronephrosis but revealed chronic renal scarring, which may be contributing to his baseline renal insufficiency. A nuclear medicine renal scan showed minimal bilateral renal function but adequate renal flow. Midodrine, initially used for hypotension, was discontinued on 03/24 after the patient?s BP remained stable at 120/87 without further need for pressor support. The patient?s blood cultures and repeat urine cultures (03/22) were sterile after 48 hours, indicating that the infection was resolved. He remained afebrile, normotensive, and clinically stable throughout the hospitalization. Diagnosis during admission: # Sepsis secondary to Klebsiella UTI #Acute kidney injury (REHANA) #Acute tubular necrosis (ATN) #Klebsiella urinary tract infection (UTI) #Atrial fibrillation #Hypothyroidism #Chronic kidney disease (CKD) #Hypotension # Heartburn / GERD Discharge instructions: -Follow up with PCP within 1 week of discharge -Please follow up with Dr. Quevedo within 2 weeks of discharge -Please obtain a blood test for Renal Panel and Complete Blood Count in 1 week and have results faxed to Dr. Quevedo at -Change your Lasix dose to 20 mg once daily -Take antibiotic nitrofurantoin 100 mg once at night for 30 days for UTI prophylaxis, continuously evaluate with PCP -Consider monthly urine culture for recurrent UTI -Continue rest of medications as previously prescribed -Return to the ED or call EMS if symptoms return and/or worsen. ----- Plan discussed with attending physician Dr. Lelo Gonzales MD PGY-1 Internal Medicine Time Spent with Patient Time attestation: Total time spent providing and/or coordinating discharge services: Time spent: Greater than 30 minutes Home Health Home Health Referral Orders: 03/25/25 09:56 Home Health Referral Routine Reason For Exam: PT Home-Bound The patient must either because of illness or injury, need the aid of supportive devices such as crutches, canes, wheelchairs, and walkers; the use of special transportation; or the assistance of another person in order to leave their place of residence; OR have a condition such that leaving his or her home is medically contraindicated. In addition, the patient also meets the following criteria: patient is normally unable to leave the home and leaving home requires considerable taxing effort. Addendum to Home Health Certification Practitioner's Certification: I certify that the patient has been under my care in the hospital and the care of attending physician (see below). We had a lgol-to-bqyp encounter on (see date below). My clinical findings indicate that the patient is home bound per the above criteria and the Home Health Services noted in these orders are medically necessary. The primary reason for the lcif-ev-xxyy encounter is related to the fact that the patient requires home health services. Date Certifying Nzfk-go-Rscv Physician Encounter: 03/19/25 Physician's Name who will Assume Oversight for Services: Lazaro Banda Physician's Phone No.who will Assume Oversight for Service: SERVICE TECH - Community Resources: No PT to Evaluate: Yes PT to evaluate and provide a treatmnet plan to increase patient's mobility and strength. Wound Care: No IV Therapy: No RN Safety Evaluation: Yes RN to evaluate and create a plan of care that will produce positive outcomes. Palliative Treatment: No Palliative treatment and evaluate the need for hospice. Home Health Aide - Personal Care: No Home Health Aide to assist with any ADL's. Exam Vital Signs Temp Pulse Resp BP Pulse Ox O2 Del Method O2 Flow Rate 96.9 F 113 H 17 117/76 96 Room Air 1 03/25/25 08:00 03/25/25 09:00 03/25/25 09:00 03/25/25 08:48 03/25/25 08:00 03/25/25 08:00 03/22/25 01:25 Narrative Exam GENERAL: AOx3, no acute distress, obese HEENT: mucous membranes moist, bilateral sclera anicteric CARDIOVASCULAR: regular rate and rhythm, S1/S2 present, no murmurs appreciated PULMONARY: clear to auscultation bilaterally, no rales/rhonchi/wheezes ABDOMINAL: soft, non-tender, non-distended, no rebound/guarding, bowel sounds present : Verdugo in place draining clear urine EXTREMITIES: BLE non pitting edema, mild venous stasis dermatitis SKIN: Stage I-II sacral ulcer NEURO: CN II-XII grossly intact, no focal deficits, alert, following commands Discharge Plan Plan Patient Disposition: Home w/HOME HEALTH Patient condition on transfer: Stable Care Plan Goals: Discharge Recommendations: -Follow up with PCP within 1 week of discharge -Please follow up with Dr. Quevedo within 2 weeks of discharge -Please obtain a blood test for Renal Panel and Complete Blood Count in 1 week and have results faxed to Dr. Quevedo at -Change your Lasix dose to 20 mg once daily -Take antibiotic nitrofurantoin 100 mg once at night for 30 days for UTI pro phylaxis, continuously evaluate with PCP -Consider monthly urine culture for recurrent UTI -Continue rest of medications as previously prescribed -Return to the ED or call EMS if symptoms return and/or worsen. Prescriptions/Referrals Prescriptions/Med Rec: New nitrofurantoin macrocrystal 100 mg capsule 100 mg PO HS 30 Days Qty: 30 0RF Rx Instructions: must administer with a meal/food Continued baclofen 20 mg Tablet 20 mg PO TID PRN (Reason: Spasms) aspirin 81 mg Tablet,Chewable 81 mg PO QDAY finasteride 5 mg Tablet 5 mg PO QDAY Eliquis 2.5 mg Tablet 5 mg PO BID multivitamin [Multiple Vitamins] Tablet 1 tab PO QDAY pravastatin 40 mg Tablet 40 mg PO DAILY oxycodone-acetaminophen 10-325 mg Tablet 1 tab PO TID PRN (Reason: Pain) levothyroxine 200 mcg Tablet 200 mcg PO QDAY pregabalin 150 mg Capsule 150 mg PO BID cyanocobalamin (vitamin B-12) [Vitamin B-12] 500 mcg Tablet 500 mcg PO QDAY pyridoxine (vitamin B6) 100 mg Tablet 100 mg PO DAILY albuterol sulfate 90 mcg/actuation Hfa Aerosol Inhaler 2 puff INHALATION Q4H PRN (Reason: sob) fluticasone propionate 50 mcg/actuation spray,suspension 2 spray INTRANASAL QAM PreserVision AREDS-2 [phone]-bk-mg Capsule 1 cap PO BID folic acid 1 mg tablet 25 mg PO QDAY Patient Comments: TAKE 1 TABLET BY MOUTH FIVE TIMES A DAY Rx Instructions: per [facility] fexofenadine [Emily Allergy] 60 mg tablet 60 mg PO Q12H calcium carbonate-vitamin D3 [Calcium 600 + D(3)] 600 mg-5 mcg (200 unit) capsule 1 cap PO BID Patient Comments: not sure on the dose methenamine hippurate 1 gram tablet 1 g PO BID amiodarone 200 mg tablet 200 mg PO BID 30 Days Qty: 60 2RF Changed furosemide [Lasix] 20 mg tablet 20 mg PO QAM 30 Days Qty: 30 0RF Held potassium chloride 10 mEq Tablet Extended Release 10 meq PO BID Hold Instructions: Resume on 04/01/25. Hold until kidney functions improve and repeated renal panel done Discontinued chlorthalidone 50 mg Tablet 50 mg PO QDAY Referrals: Lazaro Banda MD [Primary Care Provider, Family Practice] Patient/Caregiver Discharge Instructions Education Materials: Self-Catheterization for Men, Urinary Tract Infections in Men, ED Urinary Tract Infections in Men Print Language: Kinyarwanda Stand Alone Forms: Minda Award Info., Patient Portal Info Letter Discharge Order Discharge Orders: Discharge (Routine); Ordered 03/25/25 Ordered By: Dana Lockwood Quality Discharge Quality Measures VTE prophylaxis
--- NOTE | 2025-03-25 13:12 | PC.SS ---
Transport scheduled for 4:00 pm. Patient to return home. [employer] notified patient, patient's spouse and bedside nurse.
[2025-03-25] MEDS: BACLOFEN 10 MG TABLET 20 MG PO (13:15)
== END 2025-03-25 16:23 | disposition home or self-care (01) | DRG 871 ==
LOC: SERX 20:34 → SERHOLD 21:19 → S2NX 03-20 07:31 → SERHOLD 04-27 11:17
PROVIDERS: Emergency Medicine; Student in an Organized Health Care Education/Training Program; Admitting Provider Student in an Organized Health Care Education/Training Program; Emergency Provider Emergency Medicine; PCP Family Medicine; Visit Provider Internal Medicine
DX: A41.9 Sepsis, unspecified organism (principal); N17.0 Acute kidney failure with tubular necrosis; R65.21 Severe sepsis with septic shock; I13.0 Hypertensive heart and chronic kidney disease with heart failure and stage 1 through stage 4 chronic kidney disease, or unspecified chronic kidney disease; I50.22 Chronic systolic (congestive) heart failure; E87.20 Acidosis, unspecified; N17.9 Acute kidney failure, unspecified; Z16.12 Extended spectrum beta lactamase (ESBL) resistance; Z74.01 Bed confinement status; E78.5 Hyperlipidemia, unspecified; Z86.718 Personal history of other venous thrombosis and embolism; Z79.01 Long term (current) use of anticoagulants; N18.9 Chronic kidney disease, unspecified; E03.8 Other specified hypothyroidism; Z91.148 Patient's other noncompliance with medication regimen for other reason; E87.6 Hypokalemia; T50.1X5A Adverse effect of loop [high-ceiling] diuretics, initial encounter; I48.91 Unspecified atrial fibrillation; B96.1 Klebsiella pneumoniae [K. pneumoniae] as the cause of diseases classified elsewhere; E11.22 Type 2 diabetes mellitus with diabetic chronic kidney disease; J44.89 Other specified chronic obstructive pulmonary disease; K21.9 Gastro-esophageal reflux disease without esophagitis; Z79.4 Long term (current) use of insulin; Z79.899 Other long term (current) drug therapy; Z87.440 Personal history of urinary (tract) infections; Z87.891 Personal history of nicotine dependence; Z99.3 Dependence on wheelchair
CPT/HCPCS: 36415; 51702; 71045; 74018; 76770; 78708; 80053; 80069; 80202; 81001; 82436; 82570; 83605; 83690; 83735; 83880; 84100; 84133; 84145; 84300; 84439; 84443; 84484; 85025; 85379; 85610; 85652; 85730; 86140; 87040; 87081; 87086; 87502; 87635; 93005; 94640; 94664; 96361; 96365; 96366; 99283; A4314; A9270; A9562; J1450; J1815; J1956; J2185; J2543; J3373; J3490; J7030; J7050; J7120; J7999

== ENCOUNTER 2025-03-26 14:28 | Inpatient (IN) | payer MEDICARE, SELFPAY ==
[2025-03-26] VITALS (17 sets, daily range): BP systolic 59–124; BP diastolic 40–85; PULSE 66–110; RESP 14–20; TEMP 36.6–36.8; O2SAT 92–99; BMI 42.7
--- NOTE | 2025-03-26 15:02 | XR_ITS ---
Exam: Chest 1 view, AP Date and time of exam: 03/26/2025, 3:20 p.m. Comparison: 03/19/2025 INDICATION: Shortness of breath Findings: Normal heart size. No mediastinal adenopathy. No acute fracture No pulmonary edema or pneumonia. Impression: No active disease.
[2025-03-26 15:09] LABS: Lactate (Lactic Acid) 2.0 mMol/L (0.4-2.0)
--- NOTE | 2025-03-26 15:12 | PD.EDABDPN ---
ED Abdominal Pain RME/HPI General Chief Complaint: Abdominal Pain Stated complaint: ABD PAIN Time seen by provider: 03/26/25 14:36 Arrival date/time: 03/26/25 14:28 RME / HPI RME / HPI narrative: Patient is a 79-year-old male with a medical history of primary hypertension, hyperlipidemia, CHF HFrEF 35-40% (03/07/2025), atrial fibrillation on Eliquis, hypothyroidism, asthma/COPD, chronic urinary retention and straight catheterization, obesity,, recurrent UTIs, chronic back pain, becloud, decubitus ulcer, and history of DVT presented to [facility] who presented to the emergency room via EMS with chief complain of epigastric pain that started this morning. Denied emesis or hematochezia. Denied melena or hematochezia. Patient was recently discharge on nitrofurantoin for UTI on 03/25/2025. Initial BP 94/60--->MAP 71 and 4 Liters vsW431% MAP <65-->bolus X 1, started on Levophed lacteration noted on patients bottom Related Data Home Medications ?Medication ?Instructions ?Recorded ?Confirmed apixaban 2.5 mg tablet (Eliquis) 5 mg PO BID 12/25/19 03/19/25 aspirin 81 mg chewable tablet 81 mg PO QDAY 12/25/19 03/19/25 baclofen 20 mg tablet 20 mg PO TID PRN Spasms 12/25/19 03/19/25 cyanocobalamin (vitamin B-12) 500 500 mcg PO QDAY 12/25/19 03/19/25 mcg tablet (Vitamin B-12) finasteride 5 mg tablet 5 mg PO QDAY 12/25/19 03/19/25 levothyroxine 200 mcg tablet 200 mcg PO QDAY 12/25/19 03/19/25 multivitamin (Multiple Vitamins 1 tab PO QDAY 12/25/19 03/19/25 tablet) oxycodone-acetaminophen 10 mg-325 1 tab PO TID PRN Pain 12/25/19 03/19/25 mg tablet potassium chloride 10 mEq 10 meq PO BID 12/25/19 03/19/25 tablet,extended release Held on 03/25/25. Instructions: Resume on 04/01/25. Hold until kidney functions improve and repeated renal panel done pravastatin 40 mg tablet 40 mg PO DAILY 12/25/19 03/19/25 pregabalin 150 mg capsule 150 mg PO BID 12/25/19 03/19/25 pyridoxine (vitamin B6) 100 mg 100 mg PO DAILY 12/25/19 03/19/25 tablet albuterol sulfate 90 mcg/actuation 2 puff inhalation Q4H PRN sob 12/27/19 03/19/25 aerosol inhaler fluticasone propionate 50 2 spray intranasal QAM 12/27/19 03/19/25 mcg/actuation nasal spray,suspension folic acid 1 mg tablet 25 mg PO QDAY 12/27/19 03/19/25 vit C 250 mg-vit E 90 mg-zinc 40 1 cap PO BID 12/27/19 03/20/25 mg-copper 1 [id number] capsule (PreserVision AREDS-2) calcium 600 mg (as 1 cap PO BID 03/05/25 03/19/25 carbonate)-vitamin D3 5 mcg (200 unit) capsule (Calcium 600 + D(3)) fexofenadine 60 mg tablet (Emily 60 mg PO Q12H 03/05/25 03/19/25 Allergy) methenamine hippurate 1 gram tablet 1 g PO BID 03/05/25 03/19/25 Previous Rx's ?Medication ?Instructions ?Recorded amiodarone 200 mg tablet 200 mg PO BID 1 month #60 tabs 03/08/25 furosemide 20 mg tablet (Lasix) 20 mg PO QAM 30 days #30 tabs 03/25/25 nitrofurantoin macrocrystal 100 mg 100 mg PO BID 3 days #6 caps 03/25/25 capsule Allergies Allergy/AdvReac Type Severity Reaction Status Date / Time latex Allergy Unknown blisters Verified 03/19/25 16:17 Review of Systems Review of Systems Narrative Review of Systems: General appearance: NO weight change, Yes fatigue, NO weakness, NO fever, NO chills, NO night sweats, No cough Skin: NO rash, NO itching, NO sores, NO moles HEENT: NO Trauma, NO nausea, NO vomiting, NO visual changes, NO blurry vision, NO double vision, NO tinnitus, NO vertigo, NO ear discharge, NO rhinorrhea, NO stuffiness, NO sneezing, NO allergy, NO epistaxis. NO Hoarseness, NO sore throat, NO swollen neck. Cardiac: NO Palpitations, Yes dyspnea on exertion, No orthopnea, Yes paroxysmal nocturnal dyspnea, peripheral edema, 2+ Respiratory: NO Shortness of Breath, NO Wheezing, NO Cough, NO Sputum, NO hemoptysis GI:NO appetite, NO nausea, NO vomiting, NO dysphagia, NO changes in bowel frequency, NO stool color, NO diarrhea, NO constipation, NO hemetemesis, NO hemorrhoids, NO melena, NO hematechezia, Yes abdominal pain-epigastric pain, NO jaundice Renal: NO frequency, NO hesitancy, NO urgency, NO hematuria, NO nocturia, NO incontinence MSK: NO muscle weakness, NO gout, NO arthritis, NO muscle stiffness Neuro: NO headaches, NO tremors, NO weakness, NO paralysis, NO seizures, NO loss of consciousness, NO numbness. Hem: NO anemia, NO easy bruising/bleeding, NO petechiae, NO purpura Endo: NO heat/cold intolerance, NO excessive sweating, NO polyuria, NO polydipsia, NO polyphagia, NO thyroid problems, NO diabetes Pysch: NO mood, NO anxiety, NO depression ED Exam Narrative Physical exam: General Appearance: Alert & Oriented X3, well-nourished male who is lying in bed in mild distress secondary to epigastric pain. HEENT: Skull symmetrical and atraumatic. Conjunctivae pin and moist. Pupils equal, round, reactive to light and accommodation (PERRL). External ear without lesion or discharge. Straight, nares patient, mucosa pink, no discharge. No thyroid nodule appreciated. No cervical lymphadenopathy. Cardio: Normal Rate and Rhythm with S1 and S2 heart sounds. No murmurs appreciated, but difficult to appreciate given body habitus. No bruits on carotid auscultation. yes peripheral edema. Lungs: Symmetric with good expansion. Chest and back non-tender. Decreased Vesicular Breath sounds w/ out crackles, wheezing or rhonchi Abdomen: Epigastric tenderness, Non-distended, Normal Reactive Bowel Sounds Neuro: Alert, cooperative, oriented to person, place, and time. Speech clear. CN grossly intact. Upper motor strength 5/5 and Lower motor strength 5/5. Sensation intact. Course Course Course Narrative: WBC 10.9 BUN 56 Cr 3.7-->REHANA on CKD CRP 1.6 TSH 26.62 and Free T4 0.90 D-dimer 810 pH 7.42 CO2 43. PO2 [address] chest pelvis abdomen Quality Measures none Orders Category Date Time Status Bedside COVID-19 Antigen Test NOW Care 03/26/25 14:[address] Screening NOW Care 03/26/25 15:02 Active EKG (ED ONLY) *Do not use* NOW Care 03/26/25 14:38 Completed Verdugo [Urinary Catheter] QS Care 03/26/25 17:37 Active Straight [In and Out Catheter] X1 Care 03/26/25 14:59 Active Strict Intake and Output Routine Care 03/26/25 17:[address] chest abdomen pelvis wo Stat Exams 03/26/25 17:36 Completed EKG (ED Only) Stat Exams 03/26/25 14:38 Ordered XR chest 1V portable Stat Exams 03/26/25 15:02 Completed ABG [Arterial Blood Gas] Stat Lab 03/26/25 15:16 Completed Amylase Stat Lab 03/26/25 14:52 Completed B-Type Natriuretic Peptide Stat Lab 03/26/25 14:52 Completed Bilirubin,Direct Stat Lab 03/26/25 14:52 Completed Blood Culture (Lab) Stat Lab 03/26/25 15:23 Received CBC Stat Lab 03/26/25 14:52 Completed CRP [C-Reactive Protein] Stat Lab 03/26/25 14:52 Completed Comprehensive Metabolic Panel Stat Lab 03/26/25 14:52 Completed D-Dimer Stat Lab 03/26/25 14:52 Completed Drug Screen,Urine Stat Lab 03/26/25 18:29 Completed ESR [Sed Rate (ESR)] Stat Lab 03/26/25 14:52 Completed Free T3 Stat Lab 03/26/25 18:31 Completed Free T4 (Free Thyroxine) Stat Lab 03/26/25 14:52 Completed Free T4 (Free Thyroxine) Stat Lab 03/26/25 18:31 Completed Influenza A & B Rapid Panel Stat Lab 03/26/25 16:00 Completed Lactic Acid [Lactate (Lactic Acid)] Stat Lab 03/26/25 14:52 Completed Lipase Stat Lab 03/26/25 14:52 Completed Magnesium Stat Lab 03/26/25 14:52 Completed Partial Thromboplastin Time Stat Lab 03/26/25 14:52 Completed Procalcitonin Stat Lab 03/26/25 14:52 Completed Prothrombin Time with INR Stat Lab 03/26/25 14:52 Completed TSH [Thyroid Stimulating Hormone] Stat Lab 03/26/25 14:52 Completed Troponin I Stat Lab 03/26/25 14:52 Completed Urinalysis, C/S if Indicated Stat Lab 03/26/25 18:29 Completed Albuterol/Ipratr Rt Lilli [Duoneb Rt Lilli] Med 03/26/25 15:00 Discontinued 3 ml INH X1 ONE HYDROmorphone INJ [Dilaudid Inj] Med 03/26/25 15:00 Discontinued 1 mg IVP X1 ONE Levalbuterol Rt [Xopenex Rt Lilli] Med 03/26/25 15:00 Discontinued 5 mg INH X1 ONE Lidocaine 2% Viscous [Xylocaine 2% Viscous] Med 03/26/25 18:34 Discontinued 15 ml TOP X1 ONE Magnesium Sulfate 2 GM Ivpb [Magnesium Sulfate Ivpb] Med 03/26/25 15:00 Discontinued 2 gm in 50 ml IV X1 MethylPREDNISolone.* [SoluMEDROL Inj] Med 03/26/25 15:00 Discontinued 125 mg IVP X1 ONE Norepinephrine/D5W 8mg/250ml [Levophed in D5W 8mg/250ml Med 03/26/25 15:03 Active ] 8 mg in 250 ml IV 0.05 mcg/kg/min Prochlorperazine Inj [Compazine Inj] Med 03/26/25 18:18 Discontinued 2.5 mg IV X1 ONE Ringers Lactated 1000 ml [Lactated Ringers] 1,000 ml Med 03/26/25 15:02 Discontinued IV 1,000 mls/hr Ringers Lactated 1000 ml [Lactated Ringers] 1,000 ml Med 03/26/25 16:00 Discontinued IV 999 mls/hr Ringers Lactated 500 ml [Lactated Ringers] 500 ml Med 03/26/25 21:35 Discontinued IV 999 mls/hr Sodium Chloride Rt Lilli 0.9% [NS Rt Lilli 0.9%] Med 03/26/25 15:00 Active 3 ml INH PRN PRN cefTRIAXone/D5w 1gm IV premix [Rocephin/D5w 1gm IV Med 03/26/25 20:17 Discontinued premix] 1 gm in 50 ml IV X1 fentaNYL INJ [Sublimaze Inj] Med 03/26/25 18:18 Discontinued 50 mcg IVP X1 ONE metroNIDAZOLE/NS 500 MG IVPB [Flagyl 500 mg IV] Med 03/26/25 20:18 Discontinued 500 mg in 100 ml IV X1 BiPAP / CPAP NOW RT 03/26/25 16:05 Active Vital Signs Vital signs: Vital Signs Pulse Rate 108 H 03/26/25 15:34 Respiratory Rate 19 03/26/25 15:34 Pulse Oximetry (%) 95 03/26/25 15:34 Oxygen Flow Rate 4 03/26/25 15:34 Abdominal Pain MDM Patient data External records reviewed:: [facility] previous records Clinical information provided by:: patient and family Social determinants that could affect healthcare access:: none Patient has the following chronic illnesses:: primary hypertension, hyperlipidemia, CHF HFrEF 35-40% (03/07/2025), atrial fibrillation on Eliquis, hypothyroidism, asthma/COPD, chronic urinary retention and straight catheterization, obesity,, recurrent UTIs, chronic back pain How is presenting disease/condition affected by chronic disease/condition?: exacerbated by (by CHF exacerbation REHANA on CKD ) Evaluation data The following diagnostics were reviewed and interpreted by me:: lab results, radiology exam(s) and EKG tracing(s) Lab and/or radiology exams considered but not ordered:: None Interpretation Summary: Pending CT chest abdomen pelvis-->sign off to night team (Dr. Roger Varela) Medications / Prescriptions Medications or Prescriptions considered but not ordered:: none Medication administrations:: Medication Administration History Norepinephrine/Dextrose (Levophed In D5w 8mg/250ml) 8 mg in 250 mls @ 13.395 mls/hr IV .[id number] PRN; Protocol PRN Reason: PER PROTOCOL Stop: 04/25/25 15:02 Last Titration: 03/26/25 22:00 Dose: 0.05 mcg/kg/min, 13.395 mls/hr Documented By: Titration: 03/26/25 21:38 Dose: 0 mcg/kg/min, 0 mls/hr Documented By: Titration: 03/26/25 18:00 Dose: 0.05 mcg/kg/min, 13.395 mls/hr Documented By: Titration: 03/26/25 17:15 Dose: 0.05 mcg/kg/min, 13.395 mls/hr Documented By: Admin: 03/26/25 17:10 Dose: 0.05 mcg/kg/min, 13.395 mls/hr Documented By: LANIE Sodium Chloride (Sodium Chloride Rt Lilli 0.9% 3 Ml Nebu) 3 ml INH PRN PRN PRN Reason: SOLN Stop: 04/25/25 14:59 Discontinued Medications Albuterol/Ipratropium (Albuterol/Ipratropium (Duoneb) Rt Lilli 3 Ml Nebu) 3 ml INH X1 ONE Stop: 03/26/25 15:01 Last Admin: 03/26/25 15:32 Dose: 3 ml Documented By: DEBRA Fentanyl Citrate (Fentanyl Cit Inj 50 Mcg/Ml Amp 2ml) 50 mcg IVP X1 ONE Stop: 03/26/25 18:19 Last Admin: 03/26/25 18:34 Dose: 50 mcg Documented By: FRANCISCO Hydromorphone HCl (Hydromorphone Inj 2 Mg/Ml Vial) 1 mg IVP X1 ONE Stop: 03/26/25 15:01 Last Admin: 03/26/25 15:37 Dose: 1 mg Documented By: JORDYN Magnesium Sulfate (Magnesium Sulfate Ivpb) 2 gm in 50 mls @ 25 mls/hr IV X1 ONE Stop: 03/26/25 16:59 Last Infusion: 03/26/25 17:55 Dose: Infused Documented By: Admin: 03/26/25 15:37 Dose: 25 mls/hr Documented By: VG Lactated Ringer's (Lactated Ringers) 1,000 mls @ 1,000 mls/hr IV .Q1H ONE Stop: 03/26/25 16:01 Last Infusion: 03/26/25 17:12 Dose: Infused Documented By: Admin: 03/26/25 15:19 Dose: 1,000 mls/hr Documented By: VG Lactated Ringer's (Lactated Ringers) 1,000 mls @ 999 mls/hr IV .Q1H1M ONE Stop: 03/26/25 17:00 Last Infusion: 03/26/25 16:20 Dose: 0 mls/hr Documented By: Admin: 03/26/25 16:18 Dose: 999 mls/hr Documented By: SREE Ceftriaxone Sodium/Dextrose (Rocephin/D5w 1gm Iv Premix) 1 gm in 50 mls @ 100 mls/hr IV X1 ONE Stop: 03/26/25 20:46 Last Infusion: 03/26/25 21:24 Dose: Infused Documented By: Admin: 03/26/25 20:42 Dose: 100 mls/hr Documented By: DT Metronidazole (Flagyl 500 Mg Iv) 500 mg in 100 mls @ 100 mls/hr IV X1 ONE Stop: 03/26/25 21:17 Last Admin: 03/26/25 21:32 Dose: 100 mls/hr Documented By: DT Lactated Ringer's (Lactated Ringers) 500 mls @ 999 mls/hr IV .Q31M ONE Stop: 03/26/25 22:05 Last Admin: 03/26/25 21:38 Dose: 999 mls/hr Documented By: DT Levalbuterol HCl (Levalbuterol Rt 1.25 Mg/0.5 Ml Nebu) 5 mg INH X1 ONE Stop: 03/26/25 15:01 Last Admin: 03/26/25 15:32 Dose: 5 mg Documented By: EV Lidocaine HCl (Lidocaine Viscous 2% 15 Ml Udc) 15 ml TOP X1 ONE Stop: 03/26/25 18:35 Last Admin: 03/26/25 18:48 Dose: 15 ml Documented By: DB Methylprednisolone Sodium Succinate (Methylprednisolone Sod Succ 62.5 Mg/Ml 2ml Vial) 125 mg IVP X1 ONE Stop: 03/26/25 15:01 Last Admin: 03/26/25 15:37 Dose: 125 mg Documented By: VG Prochlorperazine Edisylate (Prochlorperazine Inj 5 Mg/Ml Vial 2 Ml) 2.5 mg IV X1 ONE; Protocol Stop: 03/26/25 18:19 Last Admin: 03/26/25 18:47 Dose: 2.5 mg Documented By: DB same as above Consultations Consultation(s) initiated? (list below): Yes Diagnosis Differential diagnosis abdominal pain: abdominal pain, pancreatitis, small bowel obstruction and other (aortic dissection rule out PE ) Most likely diagnosis given after review of the tests above:: small bowel obstruciton vs aortic dissection vs pe vs chf exacerbation Admission Indicated Admission indicated?: indicated Explain why admission is indicated or not indicated:: Septic shock Admission Request Was there a request for admission?: No Disposition Plan Disposition Plan: other (specify) (Signed off to night team Dr. Mancilla ) Critical Care Time Critical Care Time Critical Care Time: Yes Total Critical Care Time (min.): 45 Attestation: The high probability of sudden, clinically significant deterioration in the patient?s condition required the highest level of my preparedness to intervene urgently. The services I provided to this patient were to treat and/or prevent clinically significant deterioration. Services included the following: chart data review, reviewing nursing notes and/or old charts, documentation time, sap treasury consultant collaboration regarding findings and treatment options, medication orders and management, direct patient care, vital sign assessments and ordering, interpreting and reviewing diagnostic studies and lab tests. Aggregate critical care time includes only time during which I was engaged in work directly related to the patient?s care, as described above, whether at bedside or elsewhere in the Emergency Department. It did not include time spent performing other reported procedures or the services of residents, students, nurses or physician assistants. Discharge Plan Plan Patient Disposition: Admit Acute Care w/in Hospital Prescriptions/Referrals Prescriptions/Med Rec: No Action baclofen 20 mg Tablet 20 mg PO TID PRN (Reason: Spasms) aspirin 81 mg Tablet,Chewable 81 mg PO QDAY finasteride 5 mg Tablet 5 mg PO QDAY Eliquis 2.5 mg Tablet 5 mg PO BID multivitamin [Multiple Vitamins] Tablet 1 tab PO QDAY pravastatin 40 mg Tablet 40 mg PO DAILY potassium chloride 10 mEq Tablet Extended Release 10 meq PO BID oxycodone-acetaminophen 10-325 mg Tablet 1 tab PO TID PRN (Reason: Pain) levothyroxine 200 mcg Tablet 200 mcg PO QDAY pregabalin 150 mg Capsule 150 mg PO BID cyanocobalamin (vitamin B-12) [Vitamin B-12] 500 mcg Tablet 500 mcg PO QDAY pyridoxine (vitamin B6) 100 mg Tablet 100 mg PO DAILY albuterol sulfate 90 mcg/actuation Hfa Aerosol Inhaler 2 puff INHALATION Q4H PRN (Reason: sob) fluticasone propionate 50 mcg/actuation spray,suspension 2 spray INTRANASAL QAM PreserVision AREDS-2 [id number] pm-rmtn-tc-mg Capsule 1 cap PO BID folic acid 1 mg tablet 25 mg PO QDAY Patient Comments: TAKE 1 TABLET BY MOUTH FIVE TIMES A DAY Rx Instructions: per [facility] fexofenadine [Emily Allergy] 60 mg tablet 60 mg PO Q12H calcium carbonate-vitamin D3 [Calcium 600 + D(3)] 600 mg-5 mcg (200 unit) capsule 1 cap PO BID Patient Comments: not sure on the dose methenamine hippurate 1 gram tablet 1 g PO BID amiodarone 200 mg tablet 200 mg PO BID 30 Days Qty: 60 2RF furosemide [Lasix] 20 mg tablet 20 mg PO QAM 30 Days Qty: 30 0RF nitrofurantoin macrocrystal 100 mg capsule 100 mg PO BID 3 Days Qty: 6 0RF Rx Instructions: must administer with a meal/food Referrals: Lazaro Banda MD [Primary Care Provider, Family Practice] - In 1 week Problem List Clinical Impression: Acute kidney injury, Epigastric abdominal pain Patient/Caregiver Discharge Instructions Print Language: Vietnamese Stand Alone Forms: Minda Award Info., Patient Portal Info Letter
[2025-03-26 15:17] LABS: Basophils # (Auto) 0.0 Thou/mm3 (0.0-0.2); Basophils % (Auto) 0 % (0-2.5); Eosinophils # (Auto) 0.1 Thou/mm3 (0.0-0.5); Eosinophils % (Auto) 1 % (0-10); Hematocrit 39.3 % (41.0-53.0); Hemoglobin 13.7 g/dL (13.5-16.0); Immature Granulocytes Auto 0.12 Thou/mm3 (0.00-0.00); Lymphocytes # (Auto) 0.2 Thou/mm3 (1.0-4.8); Lymphocytes % (Auto) 2 % (10-50); Mean Corpuscular HGB Conc 34.9 g/dl (31.0-37.0); Mean Corpuscular Hemoglobin 31.0 pg (25.0-35.0); Mean Corpuscular Volume 89 fL (80-100); Monocytes # (Auto) 0.1 Thou/mm3 (0.0-0.8); Monocytes % (Auto) 1 % (0-12); Neutrophils # (Auto) 10.3 Thou/mm3 (1.8-7.7); Neutrophils % (Auto) 95 % (37-80); Nucleated Red Blood Cell # 0.00 Thou/mm3 (0.00-0.00); Nucleated Red Blood Cell % 0 /100 WBC (0); Platelet Count 250 Thou/mm3 (140-440); RDW Standard Deviation 43.0 fL (35.1-43.9); Red Blood Count 4.42 Miln/mm3 (4.50-5.90); White Blood Count 10.9 Thou/mm3 (3.8-10.6)
[2025-03-26] MEDS: RINGERS LACTATED 1000 ML 1,000 ML IV (15:19)
[2025-03-26 15:21] LABS: Base Excess 2 (-3-3); HCO3 27 mEq/L (20-26); Inspired Oxygen, FIO2 95 %; O2 Saturation 98 % (91-98); PCO2 43 mmHg (32.0-48.0); PO2 89 mmHg (83-108); pH, Arterial 7.42 (7.35-7.45)
[2025-03-26 15:26] LABS: Allen Test Performed/OK; Puncture Site Right Radial
--- NOTE | 2025-03-26 15:30 | PC.NURSE ---
PT CURRENTLY RECEIVING 1L LR. DR FINE NOTIFIED PTS BP 60'S/40'S PRIOR TO GIVING DILAUDID. PER DR FINE, GIVE DILAUDID AND WATCH BP, WILL ORDER LEVO IF NECESSARY.
[2025-03-26 15:31] LABS: INR 1.1 (0.9-1.3); Partial Thromboplastin Time 27.1 Seconds (22.0-36.0); Prothrombin Time 11.4 Seconds (9.0-12.2)
[2025-03-26] MEDS: LEVALBUTEROL RT 1.25 MG/0.5 ML NEBU 5 MG INH (15:32)
[2025-03-26] MEDS: ALBUTEROL/IPRATROPIUM (Duoneb) RT SOL 3 ML NEBU INH (15:32)
[2025-03-26 15:33] LABS: Sed Rate (ESR) 35 mm/hr (0-20)
[2025-03-26] MEDS: MethylPREDNISolone SOD SUCC 62.5 MG/ML 2ML VIAL 125 MG IVP (15:37)
[2025-03-26] MEDS: Magnesium Sulfate 2 GM Ivpb 2 GM/50 ML BAG IV (15:37)
[2025-03-26] MEDS: HYDROmorphone INJ 2 MG/ML VIAL 1 MG IVP (15:37)
[2025-03-26 15:46] LABS: B-Type Natriuretic Peptide 43 pg/mL (0-100)
[2025-03-26 15:50] LABS: D-Dimer 810 ng/mL (<600)
[2025-03-26] MEDS: RINGERS LACTATED 1000 ML 1,000 ML 999 ML IV (16:18)
[2025-03-26 16:33] LABS: Alanine Aminotransferase 18 U/L (10-49); Albumin, Serum 4.0 gm/dL (3.4-4.8); Albumin/Globulin Ratio 1.8 (1.2-2.2); Alkaline Phosphatase 58 U/L (46-116); Amylase 75 U/L (30-118); Anion Gap 10 (7-16); Aspartate Amino Transferase 24 U/L (0-34); BUN/Creatinine Ratio 15 Ratio (12-20); Bilirubin,Direct 0.2 mg/dL (0.0-0.3); Bilirubin,Total 0.5 mg/dL (0.3-1.2); Blood Urea Nitrogen 56 mg/dL (9-23); C-Reactive Protein 1.6 mg/dL (0.0-0.9); Calcium 8.9 mg/dL (8.3-10.6); Calcium (Corrected) 8.9 mg/dL (8.5-10.1); Carbon Dioxide 27.9 mMol/L (20.0-31.0); Chloride 97 mMol/L (98-107); Creatinine (Component) 3.7 mg/dL (0.6-1.3); Globulin 2.2 gm/dL (2.3-3.5); Glucose 95 mg/dL (74-106); Lipase 88 U/L (12-53); Magnesium 2.5 mg/dL (1.6-2.6); Osmolality,Calculated 285 (275-295); Potassium 3.8 mMol/L (3.4-5.1); Sodium 135 mMol/L (136-145); Thyroid Stimulating Hormone 26.62 uIU/mL (0.55-4.78); Total Protein 6.2 gm/dL (5.7-8.2); Troponin I < 0.020 ng/mL (0.0-0.045); eGFR 16 See Note
[2025-03-26 16:54] LABS: Procalcitonin 5.68 ng/ml (0.0-0.49)
[2025-03-26] MEDS: Norepinephrine/D5W 8mg/250ml 8 MG/250 ML BAG 13.395 MG IV (17:10)
[2025-03-26 17:15] LABS: Influenza A Ag Negative; Influenza B Ag Negative
--- NOTE | 2025-03-26 17:36 | XR_ITS ---
Examination: CT chest, without intravenous contrast. CT abdomen, without intravenous contrast. CT pelvis, without intravenous contrast. 2-D sagittal and coronal reconstructions. 3-D reconstructions. Date and time of exam: March 26, 2025, 1756 hours INDICATIONS: Epigastric pain chest pain abdominal pain today CTDI vol (mgy) 23.4 DLP (MGycm) 1862 Technique: Multiple CT images, 3.0 mm slice thickness, obtained chest, abdomen, pelvis, with the high-resolution 64 slice scanner.. Sagittal and coronal 2-D reconstructions are obtained. 3-D reconstructions Low dose protocols were performed. One or more of the following dose reduction techniques were used; automated exposure control, adjustment of the mA and/or KV according to patient size, use of iterative reconstruction technique. Findings: No paratracheal tracheobronchial or bronchopulmonary adenopathy. No pneumonia or pulmonary edema or pleural disease. No focal liver or splenic lesions. No gallstones, gallbladder wall is not thickened. No pancreatic mass. No renal or ureteral calculi, no hydronephrosis. Appendix is normal Intact urinary bladder Abundant stool in the rectosigmoid with proctitis pattern IMPRESSION: Abundant stool in the rectosigmoid with proctitis pattern
[2025-03-26 17:43] LABS: Free T4 (Free Thyroxine) 0.90 ng/dL (0.89-1.76)
--- NOTE | 2025-03-26 18:17 | EDNOTE_ITS ---
Emergency Room Addendum Addendum Narrative: 1800: Care assumed from Dr. Espinoza (emergency resident physician). Past medical, surgical, social and family history reviewed. Vitals and home medications reviewed. Results and treatment plan discussed. I will assume the care of the patient at this time and will follow the patient, pending CT and laceration repair. The following addendum documentation note is intended to reflect any pending information, findings, or radiology results not included in the patient?s initial chart by the previous shift scribe. RADIOLOGY Chest/Abdomen/Pelvis CT: Findings: No paratracheal tracheobronchial or bronchopulmonary adenopathy. No pneumonia or pulmonary edema or pleural disease. No focal liver or splenic lesions. No gallstones, gallbladder wall is not thickened. No pancreatic mass. No renal or ureteral calculi, no hydronephrosis. Appendix is normal Intact urinary bladder Abundant stool in the rectosigmoid with proctitis pattern IMPRESSION: Abundant stool in the rectosigmoid with proctitis pattern Assumed care of this morbidly obese patient with recent history from CHF and is on goal-directed medical therapy recently hospitalized for UTI, slightly altered mentation characterized by decreased responsiveness, lightheadedness, and found to be hypotensive with max readings in the 50's. Patient was placed on a patient monitor and underwent extensive work-up, including abdominal CT scan. Patient placed on Levofed gradually increasing systolic blood pressure of 115. Patient's sensorium improved and further inquiry revealed patient has superficial lacerations in the perineal folds actively oozing. These were cleansed and dressed. CT scan demonstrates evidence of fecal impaction with stercal colitis for which patient received dual-antibiotics. Patient is likely septic from this source. ICU it help desk analyst contacted and agrees to admit. Final diagnoses include acute septic shock, stercal colitis, and superficial perineal lacerations. 2030: Discussed with Dr. Feliciano, ICU resident, for ICU admission. Reviewed the patient?s HPI, PMHx, lab and/or radiology results. Discussed treatment plan. Will consult an admission to the it help desk analyst. Critical Care Time Critical Care Time Critical Care Time: Yes Total Critical Care Time (min.): 45 Attestation: The high probability of sudden, clinically significant deterioration in the patient?s condition required the highest level of my preparedness to intervene urgently. The services I provided to this patient were to treat and/or prevent clinically significant deterioration. Services included the following: chart data review, reviewing nursing notes and/or old charts, documentation time, leadership development consultant collaboration regarding findings and treatment options, medication orders and management, direct patient care, vital sign assessments and ordering, interpreting and reviewing diagnostic studies and lab tests. Aggregate critical care time includes only time during which I was engaged in work directly related to the patient?s care, as described above, whether at bedside or elsewhere in the Emergency Department. It did not include time spent performing other reported procedures or the services of residents, students, nurses or physician assistants.
[2025-03-26 18:34] LABS: Collection Type, Urine Clean Catch; Squamous Epithelial Cell,Urine 0 /hpf (0-5)
[2025-03-26] MEDS: fentaNYL CIT INJ 50 mCg/ML AMP 2ML IVP (18:34)
[2025-03-26] MEDS: PROCHLORPERAZINE INJ 5 MG/ML VIAL 2 ML 2.5 MG IV (18:47)
[2025-03-26] MEDS: LIDOCAINE VISCOUS 2% 15 ML UDC TOP (18:48)
[2025-03-26 19:01] LABS: Bilirubin,Urine Negative (Negative); Blood,Urine 1+ (Negative); Clarity,Urine Clear (Clear/Hazy); Color,Urine Lt-Yellow (Lt Yel-Yel); Culture Indicated,Urine Not Indicated; Glucose, Urine Negative (Negative); Ketones,Urine Negative (Negative); Leukocyte Esterase,Urine Negative (Negative); Nitrite,Urine Negative (Negative); PH,Urine 6.0 (5.0-7.0); Protein,Urine 1+ (Neg - Trace); RBC,Urine 19 /hpf (0-3); Specific Gravity,Urine 1.012 (1.001-1.035); Urobilinogen,Urine Negative mg/dL (0.0-1.0); WBC,Urine 4 /hpf (0-5)
[2025-03-26 19:08] LABS: Amphetamine/Methamp Scrn,U Negative (Negative); Barbiturate Screen,Urine Negative (Negative); Benzodiazepines Screen,Urine Negative (Negative); Benzoylecgonine Screen, Ur Negative (Negative); Fentanyl Screen,Urine Positive (Negative); Opiate Screen,Urine Positive (Negative); THC Screen,Urine Negative (Negative)
[2025-03-26 19:10] LABS: Free T3 1.1 pg/mL (2.3-4.2); Free T4 (Free Thyroxine) 0.73 ng/dL (0.89-1.76)
--- NOTE | 2025-03-26 19:46 | PRELIM_ITS ---
CT scan of the chest, abdomen and pelvis without intravenous contrast (axial sections with sagittal and coronal reformats) March 26, 2025 1756 hours Clinical History: rule out PE epigastric pain Reference is made to the prior report dated February. Findings: Bibasilar dependent atelectasis is present. There is no pleural effusion or pneumothorax. The aorta is unremarkable on this noncontrast study. No evidence of mediastinal mass or lymphadenopathy. There is no pericardial effusion. The stomach is distended with air fluid levels. Gallbladder is distended. The liver, gallbladder, spleen, pancreas, adrenals and kidneys are unremarkable on this noncontrast study. No evidence of bowel obstruction. The distal sigmoid colon and rectum are fecal filled and demonstrate mild wall thickening and adjacent fat stranding. The appendix is within normal limits (coronal images 40-66). The urinary bladder is unremarkable. There is no free fluid or free air.A small fat-containing umbilical hernia is present. The osseous structures are unremarkable. Impression: Fecal impaction in the rectosigmoid colon with stercoral proctitis. Recommend clinical correlation. Report Electronically Signed By: Estela Lopez 03/26/2025 7:46:03 PM [EST]
[2025-03-26] MEDS: cefTRIAXone/D5w 1gm IV premix 1 GM/50 ML BAG IV (20:42)
[2025-03-26] MEDS: metroNIDAZOLE/NS 500 MG IVPB 500 MG/100 ML BAG 100 MG IV (21:32)
[2025-03-26] MEDS: RINGERS LACTATED 500 ML 500 ML 999 ML IV ×2 (21:38→23:38)
--- NOTE | 2025-03-26 23:18 | PD.RESHP ---
Documentation for date of: 03/26/25 [facility] History of Present Illness History of present illness: The patient is a 79-year-old male with significant past medical history of essential hypertension, hyperlipidemia, CHF HFrEF 35 to 40% on 03/07/2025, atrial fibrillation on Eliquis, hypothyroidism, asthma/COPD, chronic urinary retention and straight catheterization, obesity, recurrent UTIs, chronic back pain, decubitus ulcer, and history of DVT presented to ED with chief complaint of epigastric pain and altered mental status. The patient was discharged from [facility] on 03/25/2025, after being treated for sepsis secondary to ESBL UTI. The patient had also developed ATN, and was thought to be improving, and was discharged home. History was obtained with the help up the patient's at bedside. She reported that, starting this morning, the patient was having mild confusion, and also admitted epigastric pain. The confusion worsened, and later she decided to take the patient to the ED and called EMS. The patient denied any chest pain, headache, any changes in bowel or bladder habit, fever or chills, nausea or vomiting, orthopnea or PND. Initial vitals were significant for 90/50, that were sent to 70/55, pulse 108, and saturating 95% on 4 L NC. The patient is not in home oxygen. Labs were significant for white count 10.9, hemoglobin 13.7, ESR 35, ABG with pH 7.42, pO2 89, pCO2 43, sodium 135, chloride 97, BUN 56, creatinine 3.7, GFR 16, lactic acid 2.0, CRP 1.6, lipase 88, Pro-Ever 5.68, TSH 26.62, free T40.73, UA was negative for UTI. U tox was positive for opiates and fentanyl as it was given in the ED. EKG revealed mild QTc prolongation, chest x-ray revealed no active disease, CT abdomen/pelvis revealed abundant stool in the rectosigmoid with proctitis pattern, no gallstone, no pancreatic mass. The patient was given 1.5 L of bolus IV fluid, and started on Levophed drip for MAP of less than 65. He also received methylprednisolone 125 mg IV x 1, magnesium sulfate 2 g IV, fentanyl 50 mcg IVP x 1, lidocaine patch, prochlorperazine 2.5 mg IV x 1, ceftriaxone 1 g IV x 1, metronidazole 500 mg x 1 and admitted to ICU for further management of septic shock likely secondary to rectosigmoid proctitis. Review of Systems Review of Systems Systems Reviewed: All systems reviewed, normal except as documented Exam Vital Signs Temp Pulse Resp BP Pulse Ox O2 Del Method O2 Flow Rate 98.2 F 93 18 59/40 L 99 Nasal Cannula 4 03/26/25 21:50 03/26/25 22:59 03/26/25 22:59 03/26/25 21:57 03/26/25 22:59 03/26/25 21:50 03/26/25 22:59 Narrative Exam GENERAL: AOx3, no acute distress, morbidly obese HEENT: Mildly dry mucous membrane, bilateral sclera anicteric CARDIOVASCULAR: regular rate and rhythm, S1/S2 present, no murmurs appreciated PULMONARY: clear to auscultation bilaterally, no rales/rhonchi/wheezes ABDOMINAL: soft, non-tender, non-distended, no rebound/guarding, bowel sounds present : Verdugo in place draining clear urine EXTREMITIES: BLE non pitting edema, mild venous stasis dermatitis SKIN: Stage I-II sacral ulcer NEURO: CN II-XII grossly intact, no focal deficits, alert, following commands Results: Labs 03/28/25 04:48 03/28/25 04:48 Labs: Short CBC 03/26/25 Range/Units 14:52 WBC 10.9 H D (3.8-10.6) Thou/mm3 Hgb 13.7 (13.5-16.0) g/dL Hct 39.3 L (41.0-53.0) % Plt Count 250 (140-440) Thou/mm3 BMP 03/26/25 14:52 Sodium 135 L Potassium 3.8 Chloride 97 L Carbon Dioxide 27.9 BUN 56 H Creatinine 3.7 H Glucose 95 Calcium 8.9 Cardiac Enzymes 03/26/25 Range/Units 14:52 Troponin I < 0.020 (0.0-0.045) ng/mL Liver Function 03/26/25 Range/Units 14:52 Total Bilirubin 0.5 (0.3-1.2) mg/dL Direct Bilirubin 0.2 (0.0-0.3) mg/dL AST 24 (0-34) U/L ALT 18 (10-49) U/L Alkaline Phosphatase 58 (46-116) U/L Albumin 4.0 (3.4-4.8) gm/dL Urine 03/26/25 Range/Units 18:29 Urine Color Lt-Yellow (Lt Yel-Yel) Urine Clarity Clear (Clear/Hazy) Urine pH 6.0 (5.0-7.0) Ur Specific Sunman 1.012 (1.001-1.035) Urine Protein 1+ A (Neg - Trace) Urine Glucose (UA) Negative (Negative) ABG Interpretation ABG results: 03/26/25 15:16 ABG pH 7.42 ABG pCO2 43 ABG pO2 89 ABG HCO3 27 H ABG O2 Saturation 98 ABG Base Excess 2 Quality Measures Quality Measures VTE prophylaxis Advance care planning discussed with:: patient and spouse Medications Home Medications and Allergies Home Medications ?Medication ?Instructions ?Recorded ?Confirmed ?Type apixaban 2.5 mg tablet (Eliquis) 5 mg PO BID 12/25/19 03/27/25 History aspirin 81 mg chewable tablet 81 mg PO QDAY 12/25/19 03/27/25 History baclofen 20 mg tablet 20 mg PO TID PRN Spasms 12/25/19 03/27/25 History cyanocobalamin (vitamin B-12) 500 500 mcg PO QDAY 12/25/19 03/27/25 History mcg tablet (Vitamin B-12) finasteride 5 mg tablet 5 mg PO QDAY 12/25/19 03/27/25 History levothyroxine 200 mcg tablet 200 mcg PO QDAY 12/25/19 03/27/25 History multivitamin (Multiple Vitamins 1 tab PO QDAY 12/25/19 03/27/25 History tablet) oxycodone-acetaminophen 10 mg-325 1 tab PO TID PRN Pain 12/25/19 03/27/25 History mg tablet potassium chloride 10 mEq 10 meq PO BID 12/25/19 03/27/25 History tablet,extended release Held on 03/25/25. Instructions: Resume on 04/01/25. Hold until kidney functions improve and repeated renal panel done pravastatin 40 mg tablet 40 mg PO DAILY 12/25/19 03/27/25 History pregabalin 150 mg capsule 150 mg PO BID 12/25/19 03/27/25 History pyridoxine (vitamin B6) 100 mg 100 mg PO DAILY 12/25/19 03/27/25 History tablet albuterol sulfate 90 mcg/actuation 2 puff inhalation Q4H PRN sob 12/27/19 03/27/25 History aerosol inhaler fluticasone propionate 50 2 spray intranasal QAM 12/27/19 03/27/25 History mcg/actuation nasal spray,suspension folic acid 1 mg tablet 25 mg PO QDAY 12/27/19 03/27/25 History vit C 250 mg-vit E 90 mg-zinc 40 1 cap PO BID 12/27/19 03/27/25 History mg-copper 1 dd-yikjiz-wrclso capsule (PreserVision AREDS-2) calcium 600 mg (as 1 cap PO BID 03/05/25 03/27/25 History carbonate)-vitamin D3 5 mcg (200 unit) capsule (Calcium 600 + D(3)) fexofenadine 60 mg tablet (Emily 60 mg PO Q12H 03/05/25 03/27/25 History Allergy) Allergies Allergy/AdvReac Type Severity Reaction Status Date / Time latex Allergy Unknown blisters Verified 03/19/25 16:17 Visit Medications Acetaminophen (Acetaminophen Supp 650 Mg Supp) 650 mg AK Q4HR PRN PRN Reason: PAIN SCALE 1-3 (mild Stop: 04/25/25 22:31 Al Hydrox/Mg Hydrox/Simethicone (Mg Hyd/Al Hyd/Isabel (Maalox Reg) Susp 30 Ml Udc) 30 ml PO Q4HR PRN PRN Reason: Heartburn or Upset Stomach Stop: 04/25/25 22:31 Amiodarone HCl (Amiodarone Hcl 200 Mg Tablet) 200 mg PO BID COLLIN Stop: 04/25/25 22:59 Apixaban (Apixaban 2.5 Mg Tablet) 5 mg PO BID COLLIN Stop: 04/25/25 22:59 Aspirin (Aspirin Ec 81 Mg Tabec) 81 mg PO QDAY COLLIN Stop: 04/26/25 08:59 Atorvastatin Calcium (Atorvastatin Calcium 10 Mg Tablet) 10 mg PO QDAY COLLIN Stop: 04/26/25 08:59 Hydromorphone HCl (Hydromorphone Inj 2 Mg/Ml Vial) 1 mg IVP Q6H PRN PRN Reason: PAIN SCALE 4-10(Mod-Sev Stop: 03/31/25 22:36 Norepinephrine/Dextrose (Levophed In D5w 8mg/250ml) 8 mg in 250 mls @ 13.395 mls/hr IV .[id number] PRN; Protocol PRN Reason: PER PROTOCOL Stop: 04/25/25 15:02 Last Titration: 03/26/25 22:00 Dose: 0.05 mcg/kg/min, 13.395 mls/hr Metronidazole (Flagyl 500 Mg Iv) 500 mg in 100 mls @ 200 mls/hr IV Q8HR COLLIN Stop: 04/02/25 05:59 Ceftriaxone Sodium/Dextrose (Rocephin/D5w 1gm Iv Premix) 1 gm in 50 mls @ 100 mls/hr IV QDAY COLLIN Stop: 04/02/25 23:13 Levothyroxine Sodium (Levothyroxine Sodium 125 Mcg Tablet) 225 mcg PO ACBR COLLIN Stop: 04/26/25 05:59 Magnesium Hydroxide (Milk Of Magnesia Susp 30 Ml Udc) 30 ml PO QDAY PRN PRN Reason: CONSTIPATION Stop: 04/25/25 22:31 Midodrine (Midodrine 5 Mg Tablet) 10 mg PO TID COLLIN Stop: 04/25/25 23:29 Pregabalin (Pregabalin 75 Mg Capsule) 150 mg PO BID COLLIN Stop: 04/25/25 22:59 Sodium Chloride (Sodium Chloride Rt Lilli 0.9% 3 Ml Nebu) 3 ml INH PRN PRN PRN Reason: SOLN Stop: 04/25/25 14:59 Discontinued Medications Albuterol/Ipratropium (Albuterol/Ipratropium (Duoneb) Rt Lilli 3 Ml Nebu) 3 ml INH X1 ONE Stop: 03/26/25 15:01 Last Admin: 03/26/25 15:32 Dose: 3 ml Fentanyl Citrate (Fentanyl Cit Inj 50 Mcg/Ml Amp 2ml) 50 mcg IVP X1 ONE Stop: 03/26/25 18:19 Last Admin: 03/26/25 18:34 Dose: 50 mcg Hydromorphone HCl (Hydromorphone Inj 2 Mg/Ml Vial) 1 mg IVP X1 ONE Stop: 03/26/25 15:01 Last Admin: 03/26/25 15:37 Dose: 1 mg Magnesium Sulfate (Magnesium Sulfate Ivpb) 2 gm in 50 mls @ 25 mls/hr IV X1 ONE Stop: 03/26/25 16:59 Last Infusion: 03/26/25 17:55 Dose: Infused Lactated Ringer's (Lactated Ringers) 1,000 mls @ 1,000 mls/hr IV .Q1H ONE Stop: 03/26/25 16:01 Last Infusion: 03/26/25 17:12 Dose: Infused Lactated Ringer's (Lactated Ringers) 1,000 mls @ 999 mls/hr IV .Q1H1M ONE Stop: 03/26/25 17:00 Last Infusion: 03/26/25 16:20 Dose: 0 mls/hr Ceftriaxone Sodium/Dextrose (Rocephin/D5w 1gm Iv Premix) 1 gm in 50 mls @ 100 mls/hr IV X1 ONE Stop: 03/26/25 20:46 Last Infusion: 03/26/25 21:24 Dose: Infused Metronidazole (Flagyl 500 Mg Iv) 500 mg in 100 mls @ 100 mls/hr IV X1 ONE Stop: 03/26/25 21:17 Last Infusion: 03/26/25 22:32 Dose: Infused Lactated Ringer's (Lactated Ringers) 500 mls @ 999 mls/hr IV .Q31M ONE Stop: 03/26/25 22:05 Last Infusion: 03/26/25 22:56 Dose: Infused Ciprofloxacin/Dextrose (Cipro Ivpb) 200 mg in 100 mls @ 100 mls/hr IV Q12HR COLLIN Stop: 04/02/25 22:44 Last Admin: 03/26/25 22:56 Dose: Not Given Levalbuterol HCl (Levalbuterol Rt 1.25 Mg/0.5 Ml Nebu) 5 mg INH X1 ONE Stop: 03/26/25 15:01 Last Admin: 03/26/25 15:32 Dose: 5 mg Lidocaine HCl (Lidocaine Viscous 2% 15 Ml Udc) 15 ml TOP X1 ONE Stop: 03/26/25 18:35 Last Admin: 03/26/25 18:48 Dose: 15 ml Methylprednisolone Sodium Succinate (Methylprednisolone Sod Succ 62.5 Mg/Ml 2ml Vial) 125 mg IVP X1 ONE Stop: 03/26/25 15:01 Last Admin: 03/26/25 15:37 Dose: 125 mg Prochlorperazine Edisylate (Prochlorperazine Inj 5 Mg/Ml Vial 2 Ml) 2.5 mg IV X1 ONE; Protocol Stop: 03/26/25 18:19 Last Admin: 03/26/25 18:47 Dose: 2.5 mg Assessment & Plan Plan The patient is a 79-year-old male with significant past medical history of essential hypertension, hyperlipidemia, CHF HFrEF 35 to 40% on 03/07/2025, atrial fibrillation on Eliquis, hypothyroidism, asthma/COPD, chronic urinary retention and straight catheterization, obesity, recurrent UTIs, chronic back pain, decubitus ulcer, and history of DVT presented to ED with chief complaint of epigastric pain and altered mental status. The patient was discharged from [facility] on 03/25/2025, after being treated for sepsis secondary to ESBL UTI. The patient had also developed ATN, and was thought to be improving, and was discharged home. History was obtained with the help up the patient's at bedside. She reported that, starting this morning, the patient was having mild confusion, and also admitted epigastric pain. The confusion worsened, and later she decided to take the patient to the ED and called EMS. The patient denied any chest pain, headache, any changes in bowel or bladder habit, fever or chills, nausea or vomiting, orthopnea or PND. Initial vitals were significant for 90/50, that dropped to 70/55, pulse 108, and saturating 95% on 4 L NC. The patient is not in home oxygen. Labs were significant for white count 10.9, hemoglobin 13.7, ESR 35, ABG with pH 7.42, pO2 89, pCO2 43, sodium 135, chloride 97, BUN 56, creatinine 3.7, GFR 16, lactic acid 2.0, CRP 1.6, lipase 88, Pro-Ever 5.68,, UA was negative for UTI. U tox was positive for opiates and fentanyl as it was given in the ED. EKG revealed mild QTc prolongation, chest x-ray revealed no active disease, CT abdomen/pelvis revealed abundant stool in the rectosigmoid with proctitis pattern, no gallstone, no pancreatic mass. The patient was given 1.5 L of bolus IV fluid, and started on Levophed drip for MAP of less than 65. He also received methylprednisolone 125 mg IV x 1, magnesium sulfate 2 g IV, fentanyl 50 mcg IVP x 1, lidocaine patch, prochlorperazine 2.5 mg IV x 1, ceftriaxone 1 g IV x 1, metronidazole 500 mg x 1 and admitted to ICU for further management of septic shock likely secondary to rectosigmoid proctitis. Neuro: #Acute encephalopathy, improving Likely in the setting of septic shock - Treat underlying cause CVS: #Septic shock Likely secondary to rectosigmoid proctitis qSOFA criteria 2/3 positive with altered mental status and SBP less than 100 Elevated Pro-Ever and ESR Received 1.5 L of bolus Ringer's lactate in the ED, did not receive 30 cc/kg body weight of fluid resuscitation due to concern of patient requiring oxygen and history of HFrEF 35 to 40% - Levophed drip - Bolus fluid LR 500 cc IV x 1 - Ceftriaxone 1 g IV daily - Metronidazole 500 mg IV every 8 hourly #HFrEF, LVEF 35 to 40% TTE on 03/15/2025 revealed LVEF 35 to 40% CXR did not reveal any pulmonary edema or vascular congestion -Precautions during fluid resuscitation #A-fib - Resumed amiodarone 200 mg twice daily - Resumed Eliquis 5 mg twice daily - Will maintain magnesium and potassium greater than 2 and 4 respectively at all the time #Essential hypertension - Hold all home antihypertensive for now as the patient is in septic shock #Hyperlipidemia Patient is on home medication pravastatin 40 mg daily - Equivalent dose of atorvastatin 10 mg daily started Pulmonology: #Acute hypoxic respiratory failure Likely secondary to sepsis Chest x-ray is clear - Continue to treat sepsis #History of asthma/COPD - DuoNeb every 6 hourly GI: #Rectosigmoid proctitis - Management as above Renal: #REHANA 2/2 ATN The patient was recently admitted to hospital, and was found to have ATN, and was improving. The patient was discharged home. - Renally dose medications - Avoid nephrotoxic drugs - Maintain euvolemia - Monitor urine output - Consider nephro consultation if kidney function worsens Endocrinology: #Hypothyroidism At home patient is taking 200 mcg levothyroxine daily Labs revealed TSH 26.62, free T4 0.73 -Started on levothyroxine to 25 mcg AC BR #Chronic urinary retention Managed with straight cath at home MSK: - No active issues Skin: #Decubitus ulcer at the buttock - Wound care referral done ID: #Sepsis - Blood culture ordered - Antibiotics as above Health maintenance: Dispo: Admitted to ICU for further management of septic shock Diet: Cardiac diet/renal diet DVT prophylaxis: Eliquis 5 mg twice daily Pressors: Levophed drip Lines: Peripheral lines CODE STATUS: Full code The patient's management plan was discussed with my attending physician MD Adria Zuniga MD, PGY3 Attending Provider Attestation/Addendum After examination of the patient and review of the clinical data I feel that this patient needs admission to the hospital for further treatment/evaluation. TOTAL CC TIME: 45 MIN TOTAL TIME: 45 Minutes of direct medical management and planning of care. I Jie Law MD, attest that I was physically present for almanza portions of evaluation, and examined patient, labs and imagings and plan of care were discussed with IM residents team, and I agree with the findings and plans documented above.
[2025-03-26] MEDS: AMIODARONE HCL 200 MG TABLET PO (23:31)
[2025-03-26] MEDS: PREGABALIN 75 MG CAPSULE 150 MG PO (23:32)
[2025-03-26] MEDS: MIDODRINE 5 MG TABLET 10 MG PO (23:32)
[2025-03-26] MEDS: APIXABAN 2.5 MG TABLET 5 MG PO (23:32)
[2025-03-27] VITALS (36 sets, daily range): BP systolic 77–153; BP diastolic 49–98; PULSE 59–95; RESP 12–32; TEMP 36.1–36.4; O2SAT 92–99; BMI 41.8
[2025-03-27] MEDS: ALBUTEROL/IPRATROPIUM (Duoneb) RT SOL 3 ML NEBU INH ×3 (00:35→11:55)
[2025-03-27] MEDS: RINGERS LACTATED 500 ML 500 ML IV (02:18)
[2025-03-27] MEDS: MG HYD/AL HYD/SIME (Maalox Reg) SUSP 30 ML UDC PO (04:20)
[2025-03-27] MEDS: Milk Of Magnesia Susp 30 ML UDC PO (04:21)
[2025-03-27] MEDS: MIDODRINE 5 MG TABLET 10 MG PO (05:04)
[2025-03-27] MEDS: LEVOTHYROXINE SODIUM 125 MCG TABLET 225 MCG PO (05:04)
[2025-03-27] MEDS: metroNIDAZOLE/NS 500 MG IVPB 500 MG/100 ML BAG 200 MG IV ×3 (05:05→21:37)
[2025-03-27 05:15] LABS: Basophils # (Auto) 0.0 Thou/mm3 (0.0-0.2); Basophils % (Auto) 0 % (0-2.5); Eosinophils # (Auto) 0.0 Thou/mm3 (0.0-0.5); Eosinophils % (Auto) 0 % (0-10); Hematocrit 33.5 % (41.0-53.0); Hemoglobin 11.5 g/dL (13.5-16.0); Immature Granulocytes Auto 0.13 Thou/mm3 (0.00-0.00); Lymphocytes # (Auto) 0.5 Thou/mm3 (1.0-4.8); Lymphocytes % (Auto) 3 % (10-50); Mean Corpuscular HGB Conc 34.3 g/dl (31.0-37.0); Mean Corpuscular Hemoglobin 30.4 pg (25.0-35.0); Mean Corpuscular Volume 89 fL (80-100); Monocytes # (Auto) 0.8 Thou/mm3 (0.0-0.8); Monocytes % (Auto) 5 % (0-12); Neutrophils # (Auto) 14.5 Thou/mm3 (1.8-7.7); Neutrophils % (Auto) 91 % (37-80); Nucleated Red Blood Cell # 0.00 Thou/mm3 (0.00-0.00); Nucleated Red Blood Cell % 0 /100 WBC (0); Platelet Count 218 Thou/mm3 (140-440); RDW Standard Deviation 42.7 fL (35.1-43.9); Red Blood Count 3.78 Miln/mm3 (4.50-5.90); White Blood Count 16.0 Thou/mm3 (3.8-10.6)
[2025-03-27 05:48] LABS: Alanine Aminotransferase 19 U/L (10-49); Albumin, Serum 3.8 gm/dL (3.4-4.8); Albumin/Globulin Ratio 1.8 (1.2-2.2); Alkaline Phosphatase 53 U/L (46-116); Anion Gap 6 (7-16); Aspartate Amino Transferase 20 U/L (0-34); BUN/Creatinine Ratio 16 Ratio (12-20); Bilirubin,Total 0.4 mg/dL (0.3-1.2); Blood Urea Nitrogen 61 mg/dL (9-23); Calcium 8.7 mg/dL (8.3-10.6); Calcium (Corrected) 8.9 mg/dL (8.5-10.1); Carbon Dioxide 29.6 mMol/L (20.0-31.0); Chloride 97 mMol/L (98-107); Creatinine (Component) 3.8 mg/dL (0.6-1.3); Estimated Creatinine Clearance 23.5 mL/min (>60); Globulin 2.1 gm/dL (2.3-3.5); Glucose 230 mg/dL (74-106); Magnesium 2.8 mg/dL (1.6-2.6); Osmolality,Calculated 290 (275-295); Phosphorous 4.4 mg/dL (2.4-5.1); Potassium 4.9 mMol/L (3.4-5.1); Sodium 133 mMol/L (136-145); Total Protein 5.9 gm/dL (5.7-8.2); eGFR 16 See Note
[2025-03-27] MEDS: PIPER/TAZO 3.375 GM PREMIX 3.375 GM/50 ML BAG IV (08:04)
[2025-03-27] MEDS: ATORVASTATIN CALCIUM 10 MG TABLET PO (08:05)
[2025-03-27] MEDS: APIXABAN 2.5 MG TABLET 5 MG PO ×2 (08:05→20:38)
[2025-03-27] MEDS: PREGABALIN 75 MG CAPSULE 150 MG PO ×2 (08:06→20:38)
[2025-03-27] MEDS: AMIODARONE HCL 200 MG TABLET PO ×2 (08:06→20:38)
[2025-03-27] MEDS: ASPIRIN EC 81 MG TABEC PO (08:06)
--- NOTE | 2025-03-27 08:32 | ESPR_ITS ---
Documentation for date of: 03/27/25 Subjective Subjective Interval history: History of present illness: The patient is a 79-year-old male with significant past medical history of essential hypertension, hyperlipidemia, CHF HFrEF 35 to 40% on 03/07/2025, atrial fibrillation on Eliquis, hypothyroidism, asthma/COPD, chronic urinary retention and straight catheterization, obesity, recurrent UTIs, chronic back pain, decubitus ulcer, and history of DVT presented to ED with chief complaint of epigastric pain and altered mental status. The patient was discharged from [facility] on 03/25/2025, after being treated for sepsis secondary to ESBL UTI. The patient had also developed ATN, and was thought to be improving, and was discharged home. History was obtained with the help up the patient's at bedside. She reported that, starting this morning, the patient was having mild confusion, and also admitted epigastric pain. The confusion worsened, and later she decided to take the patient to the ED and called EMS. The patient denied any chest pain, headache, any changes in bowel or bladder habit, fever or chills, nausea or vomiting, orthopnea or PND. Initial vitals were significant for 90/50, that were sent to 70/55, pulse 108, and saturating 95% on 4 L NC. The patient is not in home oxygen. Labs were significant for white count 10.9, hemoglobin 13.7, ESR 35, ABG with pH 7.42, pO2 89, pCO2 43, sodium 135, chloride 97, BUN 56, creatinine 3.7, GFR 16, lactic acid 2.0, CRP 1.6, lipase 88, Pro-Ever 5.68, TSH 26.62, free T40.73, UA was negative for UTI. U tox was positive for opiates and fentanyl as it was given in the ED. EKG revealed mild QTc prolongation, chest x-ray revealed no active disease, CT abdomen/pelvis revealed abundant stool in the rectosigmoid with proctitis pattern, no gallstone, no pancreatic mass. The patient was given 1.5 L of bolus IV fluid, and started on Levophed drip for MAP of less than 65. He also received methylprednisolone 125 mg IV x 1, magnesium sulfate 2 g IV, fentanyl 50 mcg IVP x 1, lidocaine patch, prochlorperazine 2.5 mg IV x 1, ceftriaxone 1 g IV x 1, metronidazole 500 mg x 1 and admitted to ICU for further management of septic shock likely secondary to rectosigmoid proctitis. Interval History: 03/27/2025 Patient admitted overnight for shock in setting of suspected rectosigmoid proctitis. Patient was successfully weaned off Levophed overnight. Patient continues to complain of diffuse abdominal pain that is worse in his epigastric region, but otherwise no acute complaints at this time. Given that the patient has an extensive history of Klebsiella ESBL, the patient's antibiotics was switched to ciprofloxacin and urine culture was obtained even though urinalysis did not support infection as the patient was recently discharged after an extensive antibiotic course during that recent hospitalization. CT abdomen pelvis was reviewed, which also supports extensive stool burden with noticeable fecalith and inflammation around the rectum. Given that the patient has chronic constipation, another possible source of infection is from the patient's stool, so metronidazole was added to the patient's antibiotic regimen. NG tube was placed at low intermittent suction and drained 500 cc of bilious fluid. Given that the patient had resolution of his hypotension via fluid resuscitation and no longer requires vasopressors, will downgrade to the medical floors for further management. Exam Vital Signs Temp Pulse Resp BP Pulse Ox O2 Del Method O2 Flow Rate 97.5 F 78 32 H 134/81 H 99 Nasal Cannula 4 03/27/25 07:06 03/27/25 08:06 03/27/25 07:06 03/27/25 08:06 03/27/25 07:06 03/27/25 07:06 03/27/25 07:06 Narrative Exam Physical Exam: General: Alert, no acute distress. Skin: Warm, dry, intact. Head: Normocephalic, atraumatic. Eye: Normal conjunctiva, PERRL. Cardiovascular: Regular rate and rhythm, no murmur, +S1/S2. Respiratory: Lungs are clear to auscultation, respirations unlabored, no crackles, no wheezing. Gastrointestinal: Soft, diffusely tender to palpation that is worse in epigastric region, distended. No guarding or rebound tenderness. Extremities: No edema, no cyanosis, no clubbing. 2+ radial pulse bilaterally, 2+ pedal pulse bilaterally. Neuro: No focal deficits observed. Conversant, moving all extremities. No overt cerebellar signs/incoordination. Psychiatric: Cooperative, appropriate affect. Objective Labs 03/28/25 04:48 03/28/25 04:48 Labs: Laboratory Results - last 24 hr 03/26/25 03/26/25 03/26/25 14:52 15:16 16:00 WBC 10.9 H D RBC 4.42 L Hgb 13.7 Hct 39.3 L MCV 89 MCH 31.0 MCHC 34.9 RDW Std Deviation 43.0 Plt Count 250 Neut % (Auto) 95 H Lymph % (Auto) 2 L Quay % (Auto) 1 Eos % (Auto) 1 Baso % (Auto) 0 Neut # (Auto) 10.3 H Lymph # (Auto) 0.2 L Quay # (Auto) 0.1 Eos # (Auto) 0.1 Baso # (Auto) 0.0 Immature Gran # (Auto) 0.12 H Absolute Nucleated RBC 0.00 Immature Gran % 1 H Nucleated RBC % 0 ESR 35 H PT 11.4 INR 1.1 APTT 27.1 D-Dimer 810 H Puncture Site Right Radial ABG pH 7.42 ABG pCO2 43 ABG pO2 89 ABG HCO3 27 H ABG O2 Saturation 98 ABG Base Excess 2 FiO2 95 Sodium 135 L Potassium 3.8 Chloride 97 L Carbon Dioxide 27.9 Anion Gap 10 BUN 56 H Creatinine 3.7 H Estim Creat Clear Calc Not Performed. eGFR 16 L BUN/Creatinine Ratio 15 Glucose 95 Calculated Osmolality 285 Lactic Acid 2.0 Calcium 8.9 Corrected Calcium 8.9 Phosphorus Magnesium 2.5 Total Bilirubin 0.5 Direct Bilirubin 0.2 AST 24 ALT 18 Alkaline Phosphatase 58 Troponin I < 0.020 C-Reactive Prot, Quant 1.6 H B-Natriuretic Peptide 43 Total Protein 6.2 Albumin 4.0 Globulin 2.2 L Albumin/Globulin Ratio 1.8 Amylase 75 Lipase 88 H Procalcitonin 5.68 H TSH 26.62 H D Free T4 0.90 Free T3 pg/dL Ur Collection Type Urine Color Urine Clarity Urine pH Ur Specific [place] Urine Protein Urine Glucose (UA) Urine Ketones Urine Blood Urine Nitrite Urine Bilirubin Urine Urobilinogen (Auto) Ur Leukocyte Esterase Urine RBC Urine WBC Ur Squamous Epith Cells Urine Bacteria Ur Culture Indicated? Urine Opiates Screen Urine Fentanyl Screen Ur Barbiturates Screen U Amphetamin/Meth Scrn U Benzodiazepines Scrn U Cocaine Metab Screen U Marijuana (THC) Screen Influenza A (Rapid) Negative Influenza B (Rapid) Negative 03/26/25 03/26/25 03/27/25 18:29 18:31 04:48 WBC 16.0 H D RBC 3.78 L Hgb 11.5 L D Hct 33.5 L MCV 89 MCH 30.4 MCHC 34.3 RDW Std Deviation 42.7 Plt Count 218 D Neut % (Auto) 91 H Lymph % (Auto) 3 L [place]ay % (Auto) 5 Eos % (Auto) 0 Baso % (Auto) 0 Neut # (Auto) 14.5 H Lymph # (Auto) 0.5 L [place]ay # (Auto) 0.8 Eos # (Auto) 0.0 Baso # (Auto) 0.0 Immature Gran # (Auto) 0.13 H Absolute Nucleated RBC 0.00 Immature Gran % 1 H Nucleated RBC % 0 ESR PT INR APTT D-Dimer Puncture Site ABG pH ABG pCO2 ABG pO2 ABG HCO3 ABG O2 Saturation ABG Base Excess FiO2 Sodium 133 L Potassium 4.9 D Chloride 97 L Carbon Dioxide 29.6 Anion Gap 6 L BUN 61 H Creatinine 3.8 H Estim Creat Clear Calc 23.5 L eGFR 16 L BUN/Creatinine Ratio 16 Glucose 230 H D Calculated Osmolality 290 Lactic Acid Calcium 8.7 Corrected Calcium 8.9 Phosphorus 4.4 Magnesium 2.8 H Total Bilirubin 0.4 Direct Bilirubin AST 20 ALT 19 Alkaline Phosphatase 53 Troponin I C-Reactive Prot, Quant B-Natriuretic Peptide Total Protein 5.9 Albumin 3.8 Globulin 2.1 L Albumin/Globulin Ratio 1.8 Amylase Lipase Procalcitonin TSH Free T4 0.73 L Free T3 pg/dL 1.1 L Ur Collection Type Clean Catch Urine Color Lt-Yellow Urine Clarity Clear Urine pH 6.0 Ur Specific [place] 1.012 Urine Protein 1+ A Urine Glucose (UA) Negative Urine Ketones Negative Urine Blood 1+ A Urine Nitrite Negative Urine Bilirubin Negative Urine Urobilinogen (Auto) Negative Ur Leukocyte Esterase Negative Urine RBC 19 H Urine WBC 4 Ur Squamous Epith Cells 0 Urine Bacteria None Ur Culture Indicated? Not Indicated Urine Opiates Screen Positive A Urine Fentanyl Screen Positive A Ur Barbiturates Screen Negative U Amphetamin/Meth Scrn Negative U Benzodiazepines Scrn Negative U Cocaine Metab Screen Negative U Marijuana (THC) Screen Negative Influenza A (Rapid) Influenza B (Rapid) ABG Interpretation ABG results: 03/26/25 15:16 ABG pH 7.42 ABG pCO2 43 ABG pO2 89 ABG HCO3 27 H ABG O2 Saturation 98 ABG Base Excess 2 Quality Measures Quality Measures VTE prophylaxis Advance care planning discussed with:: patient Assessment & Plan Assessment Current Active Medications: Generic Name Dose Route Start Last Admin Trade Name Freq PRN Reason Stop Dose Admin Acetaminophen 650 mg 03/26/25 22:32 Acetaminophen Supp 650 Mg Supp [place] 04/25/25 22:31 Q4HR PRN PAIN SCALE 1-3 (mild Al Hydrox/Mg Hydrox/Simethicone 30 ml 03/26/25 22:32 03/27/25 04:20 Mg Hyd/Al Hyd/Isabel (Maalox Reg) Susp 30 Ml Udc PO 04/25/25 22:31 30 ml Q4HR PRN Administration Heartburn or Upset Stomach Albuterol/Ipratropium 3 ml 03/27/25 01:00 03/27/25 06:07 Albuterol/Ipratropium (Duoneb) Rt Lilli 3 Ml Nebu INH 04/26/25 00:59 3 ml Q6HRRT COLLIN Administration Amiodarone HCl 200 mg 03/26/25 23:00 03/27/25 08:06 Amiodarone Hcl 200 Mg Tablet PO 04/25/25 22:59 200 mg BID COLLIN Administration Apixaban 5 mg 03/26/25 23:00 03/27/25 08:05 Apixaban 2.5 Mg Tablet PO 04/25/25 22:59 5 mg BID COLLIN Administration Aspirin 81 mg 03/27/25 09:00 03/27/25 08:06 Aspirin Ec 81 Mg Tabec PO 04/26/25 08:59 81 mg QDAY COLLIN Administration Atorvastatin Calcium 10 mg 03/27/25 09:00 03/27/25 08:05 Atorvastatin Calcium 10 Mg Tablet PO 04/26/25 08:59 10 mg QDAY COLLIN Administration Hydromorphone HCl 1 mg 03/26/25 22:37 Hydromorphone Inj 2 Mg/Ml Vial IVP 03/31/25 22:36 Q6H PRN PAIN SCALE 4-10(Mod-Sev Norepinephrine/Dextrose 8 mg in 250 mls @ 13.395 mls/hr 03/26/25 15:03 03/27/25 03:16 Levophed In D5w 8mg/250ml IV 04/25/25 15:02 0 mcg/kg/min .[id number] PRN 0 mls/hr PER PROTOCOL Titration Protocol 0.05 MCG/KG/MIN Piperacillin/Tazobactam/Dextrose 3.375 gm in 50 mls @ 12.5 mls/hr 03/27/25 14:00 Zosyn IV 04/03/25 13:59 Q8HR COLLIN Protocol Levothyroxine Sodium 225 mcg 03/27/25 06:00 03/27/25 05:04 Levothyroxine Sodium 125 Mcg Tablet PO 04/26/25 05:59 225 mcg ACBR COLLIN Administration Magnesium Hydroxide 30 ml 03/26/25 22:32 Milk Of Magnesia Susp 30 Ml Udc PO 04/25/25 22:31 QDAY PRN CONSTIPATION Midodrine 10 mg 03/26/25 23:30 03/27/25 05:04 Midodrine 5 Mg Tablet PO 04/25/25 23:29 10 mg TID COLLIN Administration Pregabalin 150 mg 03/26/25 23:00 03/27/25 08:06 Pregabalin 75 Mg Capsule PO 04/25/25 22:59 150 mg BID COLLIN Administration Sodium Chloride 3 ml 03/26/25 15:00 Sodium Chloride Rt Lilli 0.9% 3 Ml Nebu INH 04/25/25 14:59 PRN PRN SOLN Plan This patient is a 79-year-old male with a past medical history of HLD, HTN, HFrEF (35 to 40%, 02/2025), atrial fibrillation on Eliquis, hypothyroidism, chronic urinary retention, recurrent UTIs, and history of DVT who presented to [facility] ED with complaints of epigastric pain and altered mental status. The patient was admitted to the ICU for management of septic shock requiring vasopressor support. NEURO #Acute encephalopathy, resolved DDx: Cerebral hypoperfusion, UTI, bacteremia Rx: Manage underlying shock and suspected infection CARDIO #Shock requiring vasopressor support DDx: Septic shock (UTI versus rectosigmoid proctitis versus anaerobic bacteremia), hypovolemic shock Dx: Patient presented to ED with BP of 90/50 qSOFA score 2/3 (altered mental status and SBP less than 100) Rx: Initial fluid resuscitation with 2 L of LR and methylprednisolone was unsuccessful, patient was started on Levophed in ED Patient received additional 1 L of LR after starting Levophed Expected resolution with management of suspected underlying infection RRx: Levophed was stopped at 03:16 on 03/27 as patient was able to maintain MAP above 65 post 3 L of LR #Atrial fibrillation Rx: Resume home amiodarone 200 mg twice daily Resume home Eliquis 5 mg twice daily Maintain potassium greater than 4 and magnesium greater than 2 Continue to monitor with telemetry #HFrEF, 35 to 40% (02/2025) Rx: Strict ins and out Cardiac diet Maintain potassium greater than 4 and magnesium greater than 2 RRx: If patient becomes fluid overloaded, will consider diuresis with home Lasix if BP can tolerate #Hypertension Rx: Consider resuming home antihypertensives once blood pressure more stable #Hyperlipidemia Rx: Resumed home Lipitor 10 mg daily PULM #Acute hypoxic respiratory failure Dx: Patient required 4 L of oxygen via nasal cannula to maintain O2 saturations in the ED CT chest/abdomen/pelvis 03/26/2025 shows possible atelectasis in left lower lobe Rx: Manage underlying infection Incentive spirometry DuoNebs as needed every 6 hours NG tube placed to decompress abdomen GI #Chronic constipation Dx: CT chest/abdomen/pelvis 03/26/2025 shows significant stool burden with inflammation of the rectum and fecalith within the stool Rx: Soap suds enema given 03/27 Consider combination of Senokot, soap suds enema, and glycerin suppository if patient continues to have significant stool burden with minimal response to treatment RRx: Patient noted to have small bowel movement after enema given on 03/27 #Stomach dilation #Epigastric abdominal pain DDx: GERD Dx: CT chest/abdomen/pelvis 03/26/2025 shows significant dilation of the patient's stomach, possibly contributing to the patient's epigastric pain Rx: Consider Protonix 40 mg IV daily and Maalox as needed for breakthrough heartburn as this was noted to have improved therapy during previous admission NG tube placed to decompress abdomen Clear liquid diet NEPHRO #Acute kidney injury DDx: Acute tubular necrosis (patient was recently found to have ATN during most recent admission) Rx: Renally dose medications Avoid nephrotoxic drugs Continue to monitor urine output URO #Chronic urinary retention Rx: Verdugo catheter placed 03/26 in the ED HEME #Leukocytosis DDx: UTI, bacteremia, rectosigmoid proctitis, reactive Dx: WBC on admission 10.9, which increased to 16.0 several hours later Rx: Continue to monitor Treat underlying infection with antibiotics ENDO #Hypothyroidism Dx: Patient noted to have TSH of 26.62 and free T4 of 0.73 on admission Patient does take levothyroxine 200 mcg daily at home Rx: Levothyroxine 225 mcg ACBR Manage underlying infection as it may be worsening underlying hypothyroidism #Non insulin-dependent T2DM Dx: Hemoglobin A1c 03/07/2025 6.0% Rx: Sliding scale insulin Bedside glucose checks ACHS ID #Infection, source unspecified DDx: UTI, bacteremia, rectosigmoid proctocolitis Dx: CRP on admission 1.6 Procalcitonin on admission 5.68 Patient has an extensive history of Klebsiella ESBL UTI Urinalysis not indicating infection, however patient did receive antibiotic treatment with recent hospitalization Blood culture collected 03/26, preliminary no growth after 24 hours Urine culture ordered 03/27, pending Rx: Ciprofloxacin 400 mg every 12 hours (03/27?) Metronidazole 500 mg every 8 hours (03/27?) MSK #No active problems SKIN #No active problems DVT prophylaxis: Eliquis GI prophylaxis: None Diet: Cardiac, renal Verdugo: N/A Lines: Peripheral IV Antibiotics: Ciprofloxacin & Metronidazole CODE STATUS: FULL Vent Status: N/A Reason for ICU care: N/A Patient plan of care was discussed with the attending service counselor, Dr. Colon and senior resident Dr. Beasley (PGY-2). Darian Barnhart, PGY-1 Attending Provider Attestation/Addendum Patient seen and examined with above resident, Darian Barnhart, DO. I agree with the findings, assessment, and plan of care as documented. Patient admitted overnight with suspected septic shock versus hypovolemic shock. Patient was given conservative fluid management given history of heart failure with reduced ejection fraction. Recent hospitalization with sepsis secondary to urinary tract infection. Patient started on empiric antibiotics and we have adjusted this to Cipro/Flagyl given prior history of ESBL organism as well as CT imaging suggesting colitis. Patient remains hemodynamically stable off vasopressors. NG tube placed for decompression of upper GI tract secondary to severe constipation. Patient with initial output of about 500 cc with significant improvement in upper abdominal pain and symptoms. Patient will be started on bowel regimen with enema placement along with antibiotics at this severe constipation likely is the etiology of sterocoral colitis. Patient and family updated on plan of care at bedside. Patient will be transferred to medicine renteria for ongoing management in the coming days prior to discharge. Total critical care time: I personally spent 35 minutes for review of physiologic parameters, directing plan of care throughout today, and counseling patient at bedside. This is exclusive of time spent teaching of staff performing any separate billable procedures. Patient remains at significant risk for further morbidity and mortality warranting close monitoring and care only available in the ICU. Critical care services required for colitis,, heart failure reduced ejection fraction, severe sepsis with septic shock, and urinary tract infection.
--- NOTE | 2025-03-27 08:37 | XR_ITS ---
EXAMINATION: AP chest single view TECHNIQUE: AP portable upright chest single view Date and time: March 27, 2025, 0909 hours, comparison March 26, 2025 INDICATIONS: Post orogastric tube placement FINDINGS: Orogastric tube in the body the stomach Mild enlargement manager monitoring Atelectasis versus pneumonia left base IMPRESSION: Orogastric tube satisfactory position
[2025-03-27] MEDS: CIPROFLOXACIN/D5w 400 MG IVPB 400 MG/200 ML BAG 200 MG IV ×2 (13:10→20:38)
--- NOTE | 2025-03-27 13:37 | PC.SS ---
62YO White Male; reason for visit: SEPTIC SHOCK. Patient is connected with the [facility].? Patient lives with his spouse Cecily Lawson. Cecily Lawson is patient?s primary medical surrogate decisionmaker [phone]. Patient requires assistance with ADL completion and utilizes an electrical scooter for ambulation. Patient also has a sonny lift. PCP: Dr. Banda. ?[employer]: Dr. Mcgrath. PHARMACY: [facility]. Patient requested to return home when medically clear. Patient currently connected with [facility] for PT, nursing, and wound care.?Spouse is requesting patient continue with [facility] when he discharges home. Spouse has declined SNF. Spouse is requesting assistance with transportation at the time of discharge. NEXT OF KIN: Spouse Cecily Lawson [phone] DISCHARGE PLAN: Home
--- NOTE | 2025-03-27 16:18 | ESPR_ITS ---
<Statement entered by Adams Lind MD - 04/07/25 08:06> I reviewed above note and agree with findings and plans. I have also personally examined the patient with medicine team and went over assessment and plan with medical team including regulatory internship and resident physician. Documentation for date of: 03/27/25 Subjective Subjective Interval history: Patient is seen and examined at bedside. Patient is recently admitted after getting treatment for ESBL Klebsiella UTI. Later patient was admitted immediately for shock in the setting of suspected possible proctitis. Patient is treated with vasopressors for short duration of time in the ICU and was initially treated with ceftriaxone and metronidazole which was later switched to ciprofloxacin and metronidazole after patient was weaned off vasopressors. Noted to have decrease in GFR from the last admission. But noted to have adequate urine output. NG tube was placed for decompression of the stomach. As the patient was stable and is off vasopressors, patient is downgraded from ICU to floors for further management. Exam Vital Signs Temp Pulse Resp BP Pulse Ox O2 Del Method O2 Flow Rate 97.5 F 84 20 153/98 H 95 Nasal Cannula 4 03/27/25 07:06 03/27/25 11:55 03/27/25 11:55 03/27/25 10:00 03/27/25 11:55 03/27/25 07:06 03/27/25 07:06 Narrative Exam General: Awake. obese HEENT: Normocephalic, atraumatic, mucous membranes moist. NG tube insitu Heart: Irregular rate and rhythm, no murmurs. Lungs: Clear to auscultation with no wheezing or crackles. Abdomen: Soft, distended, nontender, positive bowel sounds. ?No guarding or rebound tenderness. Neurologic: Alert and oriented x3, no gross neurological deficit, and patient able to move all 4 extremities. Extremities: Noted B/L pitting pedal edema. Skin: No rash or ecchymoses. Objective Labs 03/28/25 04:48 03/28/25 04:48 Labs: Laboratory Results - last 24 hr 03/26/25 03/26/25 03/26/25 14:52 16:00 18:29 WBC RBC Hgb Hct MCV MCH MCHC RDW Std Deviation Plt Count Neut % (Auto) Lymph % (Auto) [place] % (Auto) Eos % (Auto) Baso % (Auto) Neut # (Auto) Lymph # (Auto) [place] # (Auto) Eos # (Auto) Baso # (Auto) Immature Gran # (Auto) Absolute Nucleated RBC Immature Gran % Nucleated RBC % Sodium 135 L Potassium 3.8 Chloride 97 L Carbon Dioxide 27.9 Anion Gap 10 BUN 56 H Creatinine 3.7 H Estim Creat Clear Calc Not Performed. eGFR 16 L BUN/Creatinine Ratio 15 Glucose 95 Calculated Osmolality 285 Calcium 8.9 Corrected Calcium 8.9 Phosphorus Magnesium 2.5 Total Bilirubin 0.5 Direct Bilirubin 0.2 AST 24 ALT 18 Alkaline Phosphatase 58 Troponin I < 0.020 C-Reactive Prot, Quant 1.6 H Total Protein 6.2 Albumin 4.0 Globulin 2.2 L Albumin/Globulin Ratio 1.8 Amylase 75 Lipase 88 H Procalcitonin 5.68 H TSH 26.62 H D Free T4 0.90 Free T3 pg/dL Ur Collection Type Clean Catch Urine Color Lt-Yellow Urine Clarity Clear Urine pH 6.0 Ur Specific [place] 1.012 Urine Protein 1+ A Urine Glucose (UA) Negative Urine Ketones Negative Urine Blood 1+ A Urine Nitrite Negative Urine Bilirubin Negative Urine Urobilinogen (Auto) Negative Ur Leukocyte Esterase Negative Urine RBC 19 H Urine WBC 4 Ur Squamous Epith Cells 0 Urine Bacteria None Ur Culture Indicated? Not Indicated Urine Opiates Screen Positive A Urine Fentanyl Screen Positive A Ur Barbiturates Screen Negative U Amphetamin/Meth Scrn Negative U Benzodiazepines Scrn Negative U Cocaine Metab Screen Negative U Marijuana (THC) Screen Negative Influenza A (Rapid) Negative Influenza B (Rapid) Negative 03/26/25 03/27/25 18:31 04:48 WBC 16.0 H D RBC 3.78 L Hgb 11.5 L D Hct 33.5 L MCV 89 MCH 30.4 MCHC 34.3 RDW Std Deviation 42.7 Plt Count 218 D Neut % (Auto) 91 H Lymph % (Auto) 3 L [place] % (Auto) 5 Eos % (Auto) 0 Baso % (Auto) 0 Neut # (Auto) 14.5 H Lymph # (Auto) 0.5 L [place] # (Auto) 0.8 Eos # (Auto) 0.0 Baso # (Auto) 0.0 Immature Gran # (Auto) 0.13 H Absolute Nucleated RBC 0.00 Immature Gran % 1 H Nucleated RBC % 0 Sodium 133 L Potassium 4.9 D Chloride 97 L Carbon Dioxide 29.6 Anion Gap 6 L BUN 61 H Creatinine 3.8 H Estim Creat Clear Calc 23.5 L eGFR 16 L BUN/Creatinine Ratio 16 Glucose 230 H D Calculated Osmolality 290 Calcium 8.7 Corrected Calcium 8.9 Phosphorus 4.4 Magnesium 2.8 H Total Bilirubin 0.4 Direct Bilirubin AST 20 ALT 19 Alkaline Phosphatase 53 Troponin I C-Reactive Prot, Quant Total Protein 5.9 Albumin 3.8 Globulin 2.1 L Albumin/Globulin Ratio 1.8 Amylase Lipase Procalcitonin TSH Free T4 0.73 L Free T3 pg/dL 1.1 L Ur Collection Type Urine Color Urine Clarity Urine pH Ur Specific [place] Urine Protein Urine Glucose (UA) Urine Ketones Urine Blood Urine Nitrite Urine Bilirubin Urine Urobilinogen (Auto) Ur Leukocyte Esterase Urine RBC Urine WBC Ur Squamous Epith Cells Urine Bacteria Ur Culture Indicated? Urine Opiates Screen Urine Fentanyl Screen Ur Barbiturates Screen U Amphetamin/Meth Scrn U Benzodiazepines Scrn U Cocaine Metab Screen U Marijuana (THC) Screen Influenza A (Rapid) Influenza B (Rapid) ABG Interpretation ABG results: 03/26/25 15:16 ABG pH 7.42 ABG pCO2 43 ABG pO2 89 ABG HCO3 27 H ABG O2 Saturation 98 ABG Base Excess 2 Quality Measures Quality Measures none Advance care planning discussed with:: patient Assessment & Plan Assessment Current Active Medications: Generic Name Dose Route Start Last Admin Trade Name Freq PRN Reason Stop Dose Admin Acetaminophen 650 mg 03/26/25 22:32 Acetaminophen Supp 650 Mg Supp [place] 04/25/25 22:31 Q4HR PRN PAIN SCALE 1-3 (mild Al Hydrox/Mg Hydrox/Simethicone 30 ml 03/26/25 22:32 03/27/25 04:20 Mg Hyd/Al Hyd/Isabel (Maalox Reg) Susp 30 Ml Udc PO 04/25/25 22:31 30 ml Q4HR PRN Administration Heartburn or Upset Stomach Albuterol/Ipratropium 3 ml 03/27/25 01:00 03/27/25 11:55 Albuterol/Ipratropium (Duoneb) Rt Lilli 3 Ml Nebu INH 04/26/25 00:59 3 ml Q6HRRT COLLIN Administration Amiodarone HCl 200 mg 03/26/25 23:00 03/27/25 08:06 Amiodarone Hcl 200 Mg Tablet PO 04/25/25 22:59 200 mg BID COLLIN Administration Apixaban 5 mg 03/26/25 23:00 03/27/25 08:05 Apixaban 2.5 Mg Tablet PO 04/25/25 22:59 5 mg BID COLLIN Administration Aspirin 81 mg 03/27/25 09:00 03/27/25 08:06 Aspirin Ec 81 Mg Tabec PO 04/26/25 08:59 81 mg QDAY COLLIN Administration Atorvastatin Calcium 10 mg 03/27/25 09:00 03/27/25 08:05 Atorvastatin Calcium 10 Mg Tablet PO 04/26/25 08:59 10 mg QDAY COLLIN Administration Hydromorphone HCl 1 mg 03/26/25 22:37 Hydromorphone Inj 2 Mg/Ml Vial IVP 03/31/25 22:36 Q6H PRN PAIN SCALE 4-10(Mod-Sev Norepinephrine/Dextrose 8 mg in 250 mls @ 13.395 mls/hr 03/26/25 15:03 03/27/25 03:16 Levophed In D5w 8mg/250ml IV 04/25/25 15:02 0 mcg/kg/min .[id number] PRN 0 mls/hr PER PROTOCOL Titration Protocol 0.05 MCG/KG/MIN Ciprofloxacin/Dextrose 400 mg in 200 mls @ 200 mls/hr 03/27/25 11:54 03/27/25 13:10 Cipro Ivpb IV 04/03/25 11:53 200 mls/hr Q12HR COLLIN Administration Protocol Metronidazole 500 mg in 100 mls @ 200 mls/hr 03/27/25 11:54 03/27/25 13:10 Flagyl 500 Mg Iv IV 04/03/25 11:53 200 mls/hr Q8HR COLLIN Administration Levothyroxine Sodium 225 mcg 03/27/25 06:00 03/27/25 05:04 Levothyroxine Sodium 125 Mcg Tablet PO 04/26/25 05:59 225 mcg ACBR COLLIN Administration Magnesium Hydroxide 30 ml 03/26/25 22:32 Milk Of Magnesia Susp 30 Ml Udc PO 04/25/25 22:31 QDAY PRN CONSTIPATION Midodrine 10 mg 03/26/25 23:30 03/27/25 13:11 Midodrine 5 Mg Tablet PO 04/25/25 23:29 Not Given TID COLLIN Pregabalin 150 mg 03/26/25 23:00 03/27/25 08:06 Pregabalin 75 Mg Capsule PO 04/25/25 22:59 150 mg BID COLLIN Administration Sodium Chloride 3 ml 03/26/25 15:00 Sodium Chloride Rt Lilli 0.9% 3 Ml Nebu INH 04/25/25 14:59 PRN PRN SOLN Plan This patient is a 79-year-old male with a past medical history of HLD, HTN, HFrEF (35 to 40%, 02/2025), atrial fibrillation on Eliquis, hypothyroidism, chronic urinary retention, recurrent UTIs, and history of DVT who presented to [facility] ED with complaints of epigastric pain and altered mental status. The patient was admitted to the ICU for management of septic shock requiring vasopressor support. #Acute encephalopathy, resolved DDx: Cerebral hypoperfusion, UTI, bacteremia Rx: Manage underlying shock and suspected infection #Shock requiring vasopressor support DDx: Septic shock (UTI versus rectosigmoid proctitis versus anaerobic bacteremia), hypovolemic shock Dx: Patient presented to ED with BP of 90/50 qSOFA score 2/3 (altered mental status and SBP less than 100) Rx: Initial fluid resuscitation with 2 L of LR and methylprednisolone was unsuccessful, patient was started on Levophed in ED Patient received additional 1 L of LR after starting Levophed Expected resolution with management of suspected underlying infection RRx: Levophed was stopped at 03:16 on 03/27 as patient was able to maintain MAP above 65 post 3 L of LR #Acute hypoxic respiratory failure Dx: Patient required 4 L of oxygen via nasal cannula to maintain O2 saturations in the ED CT chest/abdomen/pelvis 03/26/2025 shows possible atelectasis in left lower lobe Rx: Manage underlying infection Incentive spirometry DuoNebs as needed every 6 hours NG tube placed to decompress abdomen #Atrial fibrillation with CVR Rx: Resume home amiodarone 200 mg twice daily Resume home Eliquis 5 mg twice daily Maintain potassium greater than 4 and magnesium greater than 2 Continue to monitor with telemetry #HFrEF, 35 to 40% (02/2025) Rx: Strict ins and out Cardiac diet Maintain potassium greater than 4 and magnesium greater than 2 RRx: If patient becomes fluid overloaded, will consider diuresis with home Lasix if BP can tolerate #Chronic constipation Dx: CT chest/abdomen/pelvis 03/26/2025 shows significant stool burden with inflammation of the rectum and fecalith within the stool Rx: Soap suds enema given 03/27 Consider combination of Senokot, soap suds enema, and glycerin suppository if patient continues to have significant stool burden with minimal response to treatment RRx: Patient noted to have small bowel movement after enema given on 03/27 #Stomach dilation #Epigastric abdominal pain DDx: GERD Dx: CT chest/abdomen/pelvis 03/26/2025 shows significant dilation of the patient's stomach, possibly contributing to the patient's epigastric pain Rx: Consider Protonix 40 mg IV daily and Maalox as needed for breakthrough heartburn as this was noted to have improved therapy during previous admission NG tube placed to decompress abdomen Clear liquid diet #Hypertension Rx: Consider resuming home antihypertensives once blood pressure more stable #Hyperlipidemia Rx: Resumed home Lipitor 10 mg daily #Acute kidney injury DDx: Acute tubular necrosis (patient was recently found to have ATN during most recent admission) Rx: Renally dose medications Avoid nephrotoxic drugs Continue to monitor urine output #Chronic urinary retention Rx: Verdugo catheter placed 03/26 in the ED #Leukocytosis DDx: UTI, bacteremia, rectosigmoid proctitis, reactive Dx: WBC on admission 10.9, which increased to 16.0 several hours later Rx: Continue to monitor Treat underlying infection with antibiotics #Hypothyroidism Dx: Patient noted to have TSH of 26.62 and free T4 of 0.73 on admission Patient does take levothyroxine 200 mcg daily at home Rx: Levothyroxine 225 mcg ACBR Manage underlying infection as it may be worsening underlying hypothyroidism #Non insulin-dependent T2DM Dx: Hemoglobin A1c 03/07/2025 6.0% Rx: Sliding scale insulin Bedside glucose checks ACHS #Infection, source unspecified DDx: UTI, bacteremia, rectosigmoid proctocolitis Dx: CRP on admission 1.6 Procalcitonin on admission 5.68 Patient has an extensive history of Klebsiella ESBL UTI Urinalysis not indicating infection, however patient did receive antibiotic treatment with recent hospitalization Blood culture collected 03/26, preliminary no growth after 24 hours Urine culture ordered 03/27, pending Rx: Ciprofloxacin 400 mg every 12 hours (03/27?) Metronidazole 500 mg every 8 hours (03/27?) DVT prophylaxis: Eliquis GI prophylaxis: None Diet: Cardiac, renal Lines: Peripheral IV Antibiotics: Ciprofloxacin & Metronidazole CODE STATUS: FULL Patient plan of care was discussed with the attending physician, Dr. Lelo Billingsley, PGY2
[2025-03-27] MEDS: HYDROmorphone INJ 2 MG/ML VIAL 1 MG IVP (20:53)
[2025-03-28] VITALS (15 sets, daily range): BP systolic 103–157; BP diastolic 55–83; PULSE 62–96; RESP 12–20; TEMP 35.9–36.3; O2SAT 95–100
--- NOTE | 2025-03-28 03:51 | PC.NURSE ---
patient monitor notified me of patient o2 was at 78% room air, upon checking patient, patient asleep, applied 2LNC and o2 improved to 98%.
[2025-03-28 05:21] LABS: Basophils # (Auto) 0.0 Thou/mm3 (0.0-0.2); Basophils % (Auto) 0 % (0-2.5); Eosinophils # (Auto) 0.1 Thou/mm3 (0.0-0.5); Eosinophils % (Auto) 1 % (0-10); Hematocrit 31.5 % (41.0-53.0); Hemoglobin 11.1 g/dL (13.5-16.0); Immature Granulocytes Auto 0.07 Thou/mm3 (0.00-0.00); Lymphocytes # (Auto) 1.3 Thou/mm3 (1.0-4.8); Lymphocytes % (Auto) 13 % (10-50); Mean Corpuscular HGB Conc 35.2 g/dl (31.0-37.0); Mean Corpuscular Hemoglobin 30.9 pg (25.0-35.0); Mean Corpuscular Volume 88 fL (80-100); Monocytes # (Auto) 0.9 Thou/mm3 (0.0-0.8); Monocytes % (Auto) 9 % (0-12); Neutrophils # (Auto) 7.9 Thou/mm3 (1.8-7.7); Neutrophils % (Auto) 77 % (37-80); Nucleated Red Blood Cell # 0.00 Thou/mm3 (0.00-0.00); Nucleated Red Blood Cell % 0 /100 WBC (0); Platelet Count 208 Thou/mm3 (140-440); RDW Standard Deviation 43.3 fL (35.1-43.9); Red Blood Count 3.59 Miln/mm3 (4.50-5.90); White Blood Count 10.3 Thou/mm3 (3.8-10.6)
[2025-03-28] MEDS: MIDODRINE 5 MG TABLET 10 MG PO (05:21)
[2025-03-28] MEDS: LEVOTHYROXINE SODIUM 125 MCG TABLET 225 MCG PO (05:22)
[2025-03-28] MEDS: Milk Of Magnesia Susp 30 ML UDC PO ×2 (05:22→11:59)
[2025-03-28] MEDS: metroNIDAZOLE/NS 500 MG IVPB 500 MG/100 ML BAG 200 MG IV ×3 (05:23→21:00)
[2025-03-28 05:42] LABS: Alanine Aminotransferase 20 U/L (10-49); Albumin, Serum 3.6 gm/dL (3.4-4.8); Albumin/Globulin Ratio 1.8 (1.2-2.2); Alkaline Phosphatase 48 U/L (46-116); Anion Gap 8 (7-16); Aspartate Amino Transferase 20 U/L (0-34); BUN/Creatinine Ratio 18 Ratio (12-20); Bilirubin,Total 0.3 mg/dL (0.3-1.2); Blood Urea Nitrogen 62 mg/dL (9-23); Calcium 8.3 mg/dL (8.3-10.6); Calcium (Corrected) 8.6 mg/dL (8.5-10.1); Carbon Dioxide 31.4 mMol/L (20.0-31.0); Chloride 98 mMol/L (98-107); Creatinine (Component) 3.5 mg/dL (0.6-1.3); Estimated Creatinine Clearance 26.0 mL/min (>60); Globulin 2.0 gm/dL (2.3-3.5); Glucose 109 mg/dL (74-106); Magnesium 2.9 mg/dL (1.6-2.6); Osmolality,Calculated 292 (275-295); Phosphorous 4.9 mg/dL (2.4-5.1); Potassium 4.3 mMol/L (3.4-5.1); Sodium 137 mMol/L (136-145); Total Protein 5.6 gm/dL (5.7-8.2); eGFR 17 See Note
[2025-03-28] MEDS: ALBUTEROL/IPRATROPIUM (Duoneb) RT SOL 3 ML NEBU INH ×4 (06:28→18:53)
[2025-03-28] MEDS: CIPROFLOXACIN/D5w 400 MG IVPB 400 MG/200 ML BAG 200 MG IV ×2 (08:51→20:10)
[2025-03-28] MEDS: ASPIRIN EC 81 MG TABEC PO (08:52)
[2025-03-28] MEDS: AMIODARONE HCL 200 MG TABLET PO ×2 (08:52→20:10)
[2025-03-28] MEDS: APIXABAN 2.5 MG TABLET 5 MG PO ×2 (08:52→20:10)
[2025-03-28] MEDS: ATORVASTATIN CALCIUM 10 MG TABLET PO (08:52)
[2025-03-28] MEDS: PREGABALIN 75 MG CAPSULE 150 MG PO ×2 (08:53→20:10)
--- NOTE | 2025-03-28 09:12 | PC.SS ---
Rounding: Monitoring Kidney Function, on IV ABX, DC plan home when stable
--- NOTE | 2025-03-28 11:34 | PC.CC ---
pt is open with [facility]. [facility] stated pt had requested OT services after last admission.
[2025-03-28] MEDS: POLYETHYLENE GLYCOL 17 GM PACKET PO (11:59)
--- NOTE | 2025-03-28 14:16 | PC.PT ---
Upon chart review, patient is non-ambulatory for 4 years using an electric scooter for ambulation and sonny lift for transfers. PT spoke with MD Dr. Lockwood and discussed need for PT eval since patient denies SNF placement and only wants HH services. Patient does not need PT eval to go home with HH services. okay to cancel PT eval as patient is not a candidate for inpatient PT services at this time.
--- NOTE | 2025-03-28 15:29 | ESPR_ITS ---
<Statement entered by Adams Lind MD - 04/11/25 15:17> I reviewed above note and agree with findings and plans. I have also personally examined the patient with medicine team and went over assessment and plan with medical team including international trade teacher and resident physician. Documentation for date of: 03/28/25 Subjective Subjective Interval history: Patient is seen and examined at bedside. No acute overnight events. Denies any other complaints. Vitals are stable. Labs done this morning showed WBC within normal limits, downtrending creatinine to 3.5. As patient is doing well and able to tolerate clear liquid diet, NG tube was discontinued and started on solid diet Exam Vital Signs Temp Pulse Resp BP Pulse Ox O2 Del Method O2 Flow Rate 97.0 F 83 18 131/75 H 100 Room Air 2 03/28/25 12:00 03/28/25 13:41 03/28/25 13:37 03/28/25 13:41 03/28/25 13:37 03/28/25 12:00 03/28/25 06:33 Narrative Exam General: Awake. obese HEENT: Normocephalic, atraumatic, mucous membranes moist. Heart: Regular rate and rhythm, no murmurs. Lungs: Clear to auscultation with no wheezing or crackles. Abdomen: Soft, nondistended, nontender, positive bowel sounds. ?No guarding or rebound tenderness. Neurologic: Alert and oriented x3, no gross neurological deficit, and patient able to move all 4 extremities. Extremities: B/L pitting pedal edema. Skin: No rash or ecchymoses. Objective Labs 03/28/25 04:48 03/28/25 04:48 Labs: Laboratory Results - last 24 hr 03/28/25 04:48 WBC 10.3 D RBC 3.59 L Hgb 11.1 L Hct 31.5 L MCV 88 MCH 30.9 MCHC 35.2 RDW Std Deviation 43.3 Plt Count 208 Neut % (Auto) 77 Lymph % (Auto) 13 [place] % (Auto) 9 Eos % (Auto) 1 Baso % (Auto) 0 Neut # (Auto) 7.9 H Lymph # (Auto) 1.3 [place] # (Auto) 0.9 H Eos # (Auto) 0.1 Baso # (Auto) 0.0 Immature Gran # (Auto) 0.07 H Absolute Nucleated RBC 0.00 Immature Gran % 1 H Nucleated RBC % 0 Sodium 137 Potassium 4.3 D Chloride 98 Carbon Dioxide 31.4 H Anion Gap 8 BUN 62 H Creatinine 3.5 H Estim Creat Clear Calc 26.0 L eGFR 17 L BUN/Creatinine Ratio 18 Glucose 109 H D Calculated Osmolality 292 Calcium 8.3 Corrected Calcium 8.6 Phosphorus 4.9 Magnesium 2.9 H Total Bilirubin 0.3 AST 20 ALT 20 Alkaline Phosphatase 48 Total Protein 5.6 L Albumin 3.6 Globulin 2.0 L Albumin/Globulin Ratio 1.8 ABG Interpretation ABG results: 03/26/25 15:16 ABG pH 7.42 ABG pCO2 43 ABG pO2 89 ABG HCO3 27 H ABG O2 Saturation 98 ABG Base Excess 2 Quality Measures Quality Measures VTE prophylaxis Advance care planning discussed with:: patient and spouse Assessment & Plan Assessment Current Active Medications: Generic Name Dose Route Start Last Admin Trade Name Freq PRN Reason Stop Dose Admin Acetaminophen 650 mg 03/26/25 22:32 Acetaminophen Supp 650 Mg Supp [place] 04/25/25 22:31 Q4HR PRN PAIN SCALE 1-3 (mild Al Hydrox/Mg Hydrox/Simethicone 30 ml 03/26/25 22:32 03/27/25 04:20 Mg Hyd/Al Hyd/Isabel (Maalox Reg) Susp 30 Ml Udc PO 04/25/25 22:31 30 ml Q4HR PRN Administration Heartburn or Upset Stomach Albuterol/Ipratropium 3 ml 03/27/25 01:00 03/28/25 13:36 Albuterol/Ipratropium (Duoneb) Rt Lilli 3 Ml Nebu INH 04/26/25 00:59 3 ml Q6HRRT COLLIN Administration Amiodarone HCl 200 mg 03/26/25 23:00 03/28/25 08:52 Amiodarone Hcl 200 Mg Tablet PO 04/25/25 22:59 200 mg BID COLLIN Administration Apixaban 5 mg 03/26/25 23:00 03/28/25 08:52 Apixaban 2.5 Mg Tablet PO 04/25/25 22:59 5 mg BID COLLIN Administration Aspirin 81 mg 03/27/25 09:00 03/28/25 08:52 Aspirin Ec 81 Mg Tabec PO 04/26/25 08:59 81 mg QDAY COLLIN Administration Atorvastatin Calcium 10 mg 03/27/25 09:00 03/28/25 08:52 Atorvastatin Calcium 10 Mg Tablet PO 04/26/25 08:59 10 mg QDAY COLLIN Administration Dextrose 25 ml 03/27/25 22:17 Dextrose 50%-Water Inj 50 Ml Syringe IV 04/26/25 22:16 Q15MIN PRN BG 50-70 responsive npo pt Dextrose 50 ml 03/27/25 22:17 Dextrose 50%-Water Inj 50 Ml Syringe IV 04/26/25 22:16 Q15MIN PRN BG <50 OR BG <70 & pt unresponsive Glucagon 1 mg 03/27/25 22:17 Glucagon Inj 1 Mg Vial IM Q15MIN PRN BG <70, and no IV access Hydromorphone HCl 1 mg 03/26/25 22:37 03/27/25 20:53 Hydromorphone Inj 2 Mg/Ml Vial IVP 03/31/25 22:36 1 mg Q6H PRN Administration PAIN SCALE 4-10(Mod-Sev Ciprofloxacin/Dextrose 400 mg in 200 mls @ 200 mls/hr 03/27/25 11:54 03/28/25 08:51 Cipro Ivpb IV 04/03/25 11:53 200 mls/hr Q12HR COLLIN Administration Protocol Metronidazole 500 mg in 100 mls @ 200 mls/hr 03/27/25 11:54 03/28/25 13:26 Flagyl 500 Mg Iv IV 04/03/25 11:53 200 mls/hr Q8HR COLLIN Administration Insulin Human Lispro 0 unit 03/28/25 07:30 03/28/25 12:00 Insulin Lispro (Admelog) 1 Unit/0.01 Ml Unit SC 04/27/25 07:29 Not Given AC COLLIN Protocol Levothyroxine Sodium 225 mcg 03/27/25 06:00 03/28/25 05:22 Levothyroxine Sodium 125 Mcg Tablet PO 04/26/25 05:59 225 mcg ACBR COLLIN Administration Magnesium Hydroxide 30 ml 03/26/25 22:32 03/28/25 11:59 Milk Of Magnesia Susp 30 Ml Udc PO 04/25/25 22:31 30 ml QDAY PRN Administration CONSTIPATION Midodrine 10 mg 03/26/25 23:30 03/28/25 13:41 Midodrine 5 Mg Tablet PO 04/25/25 23:29 Not Given TID COLLIN Pregabalin 150 mg 03/26/25 23:00 03/28/25 08:53 Pregabalin 75 Mg Capsule PO 04/25/25 22:59 150 mg BID COLLIN Administration Sodium Chloride 3 ml 03/26/25 15:00 Sodium Chloride Rt Lilli 0.9% 3 Ml Nebu INH 04/25/25 14:59 PRN PRN SOLN Plan This patient is a 79-year-old male with a past medical history of HLD, HTN, HFrEF (35 to 40%, 02/2025), atrial fibrillation on Eliquis, hypothyroidism, chronic urinary retention, recurrent UTIs, and history of DVT who presented to [facility] ED with complaints of epigastric pain and altered mental status. The patient was admitted to the ICU for management of septic shock requiring vasopressor support. #Acute kidney injury Baseline creatinine is around 0.8 - 1.2 DDx: Acute tubular necrosis (patient was recently found to have ATN during most recent admission) Presented with Creatinine of 3.7, downtrended to 3.5 as of today and urine output is adequate Rx: Renally dose medications Avoid nephrotoxic drugs Continue to monitor urine output #Chronic constipation Dx: CT chest/abdomen/pelvis 03/26/2025 shows significant stool burden with inflammation of the rectum and fecalith within the stool Rx: Soap suds enema given 03/27 Consider combination of Senokot, soap suds enema, and glycerin suppository if patient continues to have significant stool burden with minimal response to treatment RRx: Patient noted to have small bowel movement after enema given on 03/27 Today received miralax, senna and lactulose. #Infection, source unspecified DDx: UTI, bacteremia, rectosigmoid proctocolitis Dx: CRP on admission 1.6 Procalcitonin on admission 5.68 Patient has an extensive history of Klebsiella ESBL UTI Urinalysis not indicating infection, however patient did receive antibiotic treatment with recent hospitalization Blood culture collected 03/26, preliminary no growth after 24 hours Urine culture ordered 03/27, pending Rx: Ciprofloxacin 400 mg every 12 hours (03/27?) Metronidazole 500 mg every 8 hours (03/27?) #Hypothyroidism Dx: Patient noted to have TSH of 26.62 and free T4 of 0.73 on admission Patient does take levothyroxine 200 mcg daily at home Rx: Levothyroxine 225 mcg ACBR Manage underlying infection as it may be worsening underlying hypothyroidism #Acute encephalopathy, resolved DDx: Cerebral hypoperfusion, UTI, bacteremia Rx: Manage underlying shock and suspected infection #Atrial fibrillation with CVR Rx: Resume home amiodarone 200 mg twice daily Resume home Eliquis 5 mg twice daily Maintain potassium greater than 4 and magnesium greater than 2 Continue to monitor with telemetry #HFrEF, 35 to 40% (02/2025) Rx: Strict ins and out Cardiac diet Maintain potassium greater than 4 and magnesium greater than 2 RRx: If patient becomes fluid overloaded, will consider diuresis with home Lasix if BP can tolerate #Stomach dilation #Epigastric abdominal pain DDx: GERD Dx: CT chest/abdomen/pelvis 03/26/2025 shows significant dilation of the patient's stomach, possibly contributing to the patient's epigastric pain Rx: Consider Protonix 40 mg IV daily and Maalox as needed for breakthrough heartburn as this was noted to have improved therapy during previous admission NG tube placed to decompress abdomen, removed it as of 03/28 Clear liquid diet, advance as tolerated #Hypertension Rx: Consider resuming home antihypertensives once blood pressure more stable #Hyperlipidemia Rx: Resumed home Lipitor 10 mg daily #Chronic urinary retention Rx: Verdugo catheter placed 03/26 in the ED #Non insulin-dependent T2DM Dx: Hemoglobin A1c 03/07/2025 6.0% Rx: Sliding scale insulin Bedside glucose checks ACHS DVT prophylaxis: Eliquis GI prophylaxis: None Diet: Cardiac, renal Lines: Peripheral IV Antibiotics: Ciprofloxacin & Metronidazole CODE STATUS: FULL Patient plan of care was discussed with the attending physician, Dr. Lelo Billingsley, PGY2
[2025-03-28] MEDS: LACTULOSE SYRUP 20 GM/30 ML UDC 30 GM PO ×2 (15:51→20:11)
[2025-03-28] MEDS: BALSAM PERU/CASTOR OIL (Venelex) 60 GM TUBE TOP (20:11)
[2025-03-29] VITALS (15 sets, daily range): BP systolic 101–152; BP diastolic 57–97; PULSE 69–113; RESP 12–99; TEMP 36–36.6; O2SAT 92–100; BMI 43.8; BMI 43.2
[2025-03-29] MEDS: ALBUTEROL/IPRATROPIUM (Duoneb) RT SOL 3 ML NEBU INH ×4 (01:18→19:12)
[2025-03-29] MEDS: LEVOTHYROXINE SODIUM 225 MCG PO (05:04)
[2025-03-29] MEDS: LACTULOSE SYRUP 20 GM/30 ML UDC 30 GM PO ×4 (05:04→19:58)
[2025-03-29] MEDS: metroNIDAZOLE/NS 500 MG IVPB 500 MG/100 ML BAG 200 MG IV ×3 (05:05→21:17)
[2025-03-29 06:25] LABS: Basophils # (Auto) 0.0 Thou/mm3 (0.0-0.2); Basophils % (Auto) 0 % (0-2.5); Eosinophils # (Auto) 0.3 Thou/mm3 (0.0-0.5); Eosinophils % (Auto) 3 % (0-10); Hematocrit 34.8 % (41.0-53.0); Hemoglobin 11.9 g/dL (13.5-16.0); Immature Granulocytes Auto 0.06 Thou/mm3 (0.00-0.00); Lymphocytes # (Auto) 1.8 Thou/mm3 (1.0-4.8); Lymphocytes % (Auto) 19 % (10-50); Mean Corpuscular HGB Conc 34.2 g/dl (31.0-37.0); Mean Corpuscular Hemoglobin 30.7 pg (25.0-35.0); Mean Corpuscular Volume 90 fL (80-100); Monocytes # (Auto) 0.9 Thou/mm3 (0.0-0.8); Monocytes % (Auto) 9 % (0-12); Neutrophils # (Auto) 6.7 Thou/mm3 (1.8-7.7); Neutrophils % (Auto) 68 % (37-80); Nucleated Red Blood Cell # 0.00 Thou/mm3 (0.00-0.00); Nucleated Red Blood Cell % 0 /100 WBC (0); Platelet Count 249 Thou/mm3 (140-440); RDW Standard Deviation 44.7 fL (35.1-43.9); Red Blood Count 3.87 Miln/mm3 (4.50-5.90); White Blood Count 9.7 Thou/mm3 (3.8-10.6)
[2025-03-29 06:46] LABS: Alanine Aminotransferase 21 U/L (10-49); Albumin, Serum 3.8 gm/dL (3.4-4.8); Albumin/Globulin Ratio 1.8 (1.2-2.2); Alkaline Phosphatase 51 U/L (46-116); Anion Gap 7 (7-16); Aspartate Amino Transferase 17 U/L (0-34); BUN/Creatinine Ratio 17 Ratio (12-20); Bilirubin,Total 0.3 mg/dL (0.3-1.2); Blood Urea Nitrogen 58 mg/dL (9-23); Calcium 8.8 mg/dL (8.3-10.6); Calcium (Corrected) 9.0 mg/dL (8.5-10.1); Carbon Dioxide 34.0 mMol/L (20.0-31.0); Chloride 98 mMol/L (98-107); Creatinine (Component) 3.5 mg/dL (0.6-1.3); Estimated Creatinine Clearance 25.9 mL/min (>60); Globulin 2.1 gm/dL (2.3-3.5); Glucose 93 mg/dL (74-106); Magnesium 2.8 mg/dL (1.6-2.6); Osmolality,Calculated 293 (275-295); Phosphorous 4.4 mg/dL (2.4-5.1); Potassium 5.0 mMol/L (3.4-5.1); Sodium 139 mMol/L (136-145); Total Protein 5.9 gm/dL (5.7-8.2); eGFR 17 See Note
[2025-03-29] MEDS: AMIODARONE HCL 200 MG TABLET PO ×2 (09:00→21:15)
[2025-03-29] MEDS: PREGABALIN 75 MG CAPSULE 150 MG PO ×2 (09:06→19:59)
[2025-03-29] MEDS: ATORVASTATIN CALCIUM 10 MG TABLET PO (09:07)
[2025-03-29] MEDS: CIPROFLOXACIN/D5w 400 MG IVPB 400 MG/200 ML BAG 200 MG IV ×2 (09:07→19:59)
[2025-03-29] MEDS: ASPIRIN EC 81 MG TABEC PO (09:07)
[2025-03-29] MEDS: APIXABAN 2.5 MG TABLET 5 MG PO ×2 (09:07→19:59)
[2025-03-29] MEDS: BALSAM PERU/CASTOR OIL (Venelex) 60 GM TUBE TOP ×2 (09:22→20:00)
[2025-03-29] MEDS: NA SU/NAHCO3/KC/PEG (Golytely) 4,000 ML BTL 4000 ML PO (12:21)
[2025-03-29] MEDS: MIDODRINE 5 MG TABLET 10 MG PO (13:13)
--- NOTE | 2025-03-29 13:28 | ESPR_ITS ---
Documentation for date of: 03/29/25 Subjective Subjective Interval history: Patient seen and examined at bedside this morning with present. Reports persistent bloating and abdominal fullness, though denies any significant abdominal pain. No nausea, vomiting, fever, or chills. States that despite multiple laxatives and enemas over the last few days, he still has not had a satisfactory bowel movement. Passing small amounts of gas. Explained plan to start GoLytely bowel prep today; patient voiced concern about drinking the full volume but agreed to attempt drinking it slowly and stop if unable to tolerate. He verbalized understanding that the goal is to achieve some bowel movement, not complete colon cleansing. He admits to drinking large amounts of water (3?4 liters daily); was counseled to limit fluid intake to prevent fluid overload given his heart failure history. Denies shortness of breath, chest pain, or lightheadedness. Appetite is fair, tolerating oral diet without difficulty. asked about dark drainage seen previously from NG tube, reassured it was likely gastric contents from prior feeding, not bleeding. No new urinary symptoms. Patient and also counseled to monitor blood pressure before each dose of carvedilol once home, and we will verify with cardiology if medication adjustment is needed. Overall, patient reports feeling ?okay,? mildly uncomfortable from bloating but otherwise improved, alert, and cooperative. Exam Vital Signs Temp Pulse Resp BP Pulse Ox O2 Del Method O2 Flow Rate 97.6 F 95 17 130/79 100 Nasal Cannula 2 03/29/25 12:00 03/29/25 13:13 03/29/25 13:11 03/29/25 13:13 03/29/25 13:11 03/29/25 12:00 03/29/25 13:11 Narrative Exam General: Awake. obese HEENT: Normocephalic, atraumatic, mucous membranes moist. Heart: Regular rate and rhythm, no murmurs. Lungs: Clear to auscultation with no wheezing or crackles. Abdomen: Soft, nondistended, nontender, positive bowel sounds. ?No guarding or rebound tenderness. Neurologic: Alert and oriented x3, no gross neurological deficit, and patient able to move all 4 extremities. Extremities: B/L pitting pedal edema. Skin: No rash or ecchymoses. Objective Labs 03/30/25 04:50 03/30/25 04:50 Labs: Laboratory Results - last 24 hr 03/29/25 05:48 WBC 9.7 RBC 3.87 L Hgb 11.9 L Hct 34.8 L MCV 90 MCH 30.7 MCHC 34.2 RDW Std Deviation 44.7 H Plt Count 249 D Neut % (Auto) 68 Lymph % (Auto) 19 Kimble % (Auto) 9 Eos % (Auto) 3 Baso % (Auto) 0 Neut # (Auto) 6.7 Lymph # (Auto) 1.8 Kimble # (Auto) 0.9 H Eos # (Auto) 0.3 Baso # (Auto) 0.0 Immature Gran # (Auto) 0.06 H Absolute Nucleated RBC 0.00 Immature Gran % 1 H Nucleated RBC % 0 Sodium 139 Potassium 5.0 D Chloride 98 Carbon Dioxide 34.0 H Anion Gap 7 BUN 58 H Creatinine 3.5 H Estim Creat Clear Calc 25.9 L eGFR 17 L BUN/Creatinine Ratio 17 Glucose 93 Calculated Osmolality 293 Calcium 8.8 Corrected Calcium 9.0 Phosphorus 4.4 Magnesium 2.8 H Total Bilirubin 0.3 AST 17 ALT 21 Alkaline Phosphatase 51 Total Protein 5.9 Albumin 3.8 Globulin 2.1 L Albumin/Globulin Ratio 1.8 ABG Interpretation ABG results: 03/26/25 15:16 ABG pH 7.42 ABG pCO2 43 ABG pO2 89 ABG HCO3 27 H ABG O2 Saturation 98 ABG Base Excess 2 Quality Measures Quality Measures VTE prophylaxis Advance care planning discussed with:: patient and spouse Assessment & Plan Assessment Current Active Medications: Generic Name Dose Route Start Last Admin Trade Name Alberto PRN Reason Stop Dose Admin Acetaminophen 650 mg 03/26/25 22:32 Acetaminophen Supp 650 Mg Supp IA 04/25/25 22:31 Q4HR PRN PAIN SCALE 1-3 (mild Al Hydrox/Mg Hydrox/Simethicone 30 ml 03/26/25 22:32 03/27/25 04:20 Mg Hyd/Al Hyd/Isabel (Maalox Reg) Susp 30 Ml Udc PO 04/25/25 22:31 30 ml Q4HR PRN Administration Heartburn or Upset Stomach Albuterol/Ipratropium 3 ml 03/27/25 01:00 03/29/25 13:09 Albuterol/Ipratropium (Duoneb) Rt Lilli 3 Ml Nebu INH 12/09/25 00:59 3 ml Q6HRRT COLLIN Administration Amiodarone HCl 200 mg 03/26/25 23:00 03/29/25 09:00 Amiodarone Hcl 200 Mg Tablet PO 04/25/25 22:59 200 mg BID COLLIN Administration Apixaban 5 mg 03/26/25 23:00 03/29/25 09:07 Apixaban 2.5 Mg Tablet PO 04/25/25 22:59 5 mg BID COLLIN Administration Aspirin 81 mg 03/27/25 09:00 03/29/25 09:07 Aspirin Ec 81 Mg Tabec PO 04/26/25 08:59 81 mg QDAY COLLIN Administration Atorvastatin Calcium 10 mg 03/27/25 09:00 03/29/25 09:07 Atorvastatin Calcium 10 Mg Tablet PO 04/26/25 08:59 10 mg QDAY COLLIN Administration Balsam Landen/Woodland Oil 0 gm 03/28/25 21:00 03/29/25 09:22 Balsam Landen/Woodland Oil (Venelex) 60 Gm Tube TOP 04/27/25 20:59 1 applicatio BID COLLIN Administration Dextrose 25 ml 03/27/25 22:17 Dextrose 50%-Water Inj 50 Ml Syringe IV 04/26/25 22:16 Q15MIN PRN BG 50-70 responsive npo pt Dextrose 50 ml 03/27/25 22:17 Dextrose 50%-Water Inj 50 Ml Syringe IV 04/26/25 22:16 Q15MIN PRN BG <50 OR BG <70 & pt unresponsive Glucagon 1 mg 03/27/25 22:17 Glucagon Inj 1 Mg Vial IM Q15MIN PRN BG <70, and no IV access Hydromorphone HCl 1 mg 03/26/25 22:37 03/27/25 20:53 Hydromorphone Inj 2 Mg/Ml Vial IVP 03/31/25 22:36 1 mg Q6H PRN Administration PAIN SCALE 4-10(Mod-Sev Ciprofloxacin/Dextrose 400 mg in 200 mls @ 200 mls/hr 03/27/25 11:54 03/29/25 09:07 Cipro Ivpb IV 04/03/25 11:53 200 mls/hr Q12HR COLLIN Administration Protocol Metronidazole 500 mg in 100 mls @ 200 mls/hr 03/27/25 11:54 03/29/25 13:17 Flagyl 500 Mg Iv IV 04/03/25 11:53 200 mls/hr Q8HR COLLIN Administration Insulin Human Lispro 0 unit 03/28/25 07:30 03/29/25 13:17 Insulin Lispro (Admelog) 1 Unit/0.01 Ml Unit SC 04/27/25 07:29 Not Given AC COLLIN Protocol Lactulose 30 gm 03/28/25 21:00 03/29/25 12:20 Lactulose Syrup 20 Gm/30 Ml Udc PO 04/27/25 20:59 30 gm QID COLLIN Administration Protocol Levothyroxine Sodium 100 mcg/ 225 mcg 03/29/25 06:00 03/29/25 05:04 Levothyroxine Sodium 125 mcg PO 04/26/25 05:59 225 mcg ACBR COLLIN Administration Magnesium Hydroxide 30 ml 03/26/25 22:32 03/28/25 11:59 Milk Of Magnesia Susp 30 Ml Udc PO 04/25/25 22:31 30 ml QDAY PRN Administration CONSTIPATION Midodrine 10 mg 03/26/25 23:30 03/29/25 13:13 Midodrine 5 Mg Tablet PO 04/25/25 23:29 10 mg TID COLLIN Administration Pregabalin 150 mg 03/26/25 23:00 03/29/25 09:06 Pregabalin 75 Mg Capsule PO 04/25/25 22:59 150 mg BID COLLIN Administration Sodium Chloride 3 ml 03/26/25 15:00 Sodium Chloride Rt Lilli 0.9% 3 Ml Nebu INH 04/25/25 14:59 PRN PRN SOLN Plan This patient is a 79-year-old male with a past medical history of HLD, HTN, HFrEF (35 to 40%, 02/2025), atrial fibrillation on Eliquis, hypothyroidism, chronic urinary retention, recurrent UTIs, and history of DVT who presented to [facility] ED with complaints of epigastric pain and altered mental status. The patient was admitted to the ICU for management of septic shock requiring vasopressor support. #Acute kidney injury Baseline creatinine is around 0.8 - 1.2 DDx: Acute tubular necrosis (patient was recently found to have ATN during most recent admission) Presented with Creatinine of 3.7, downtrended to 3.5 as of today and urine output is adequate Rx: Renally dose medications Avoid nephrotoxic drugs Continue to monitor urine output #Chronic constipation Dx: CT chest/abdomen/pelvis 03/26/2025 shows significant stool burden with inflammation of the rectum and fecalith within the stool Minimal response to laxative Rx: Soap suds enema given 03/27 Consider combination of Senokot, soap suds enema, and glycerin suppository if patient continues to have significant stool burden with minimal response to treatment RRx: Patient noted to have small bowel movement after enema given on 03/27 Yesterday received miralax, senna and lactulose. Initiated GoLytely 3 L PO today, sip slowly as tolerated (no need to finish full gallon). #Infection, source unspecified DDx: UTI, bacteremia, rectosigmoid proctocolitis Dx: CRP on admission 1.6 Procalcitonin on admission 5.68 Patient has an extensive history of Klebsiella ESBL UTI Urinalysis not indicating infection, however patient did receive antibiotic treatment with recent hospitalization Blood culture collected 03/26, preliminary no growth after 24 hours Urine culture ordered 03/27, pending Rx: Ciprofloxacin 400 mg every 12 hours (03/27?) Metronidazole 500 mg every 8 hours (03/27?) #Hypothyroidism Dx: Patient noted to have TSH of 26.62 and free T4 of 0.73 on admission Patient does take levothyroxine 200 mcg daily at home Rx: Levothyroxine 225 mcg ACBR Manage underlying infection as it may be worsening underlying hypothyroidism #Acute encephalopathy, resolved DDx: Cerebral hypoperfusion, UTI, bacteremia Rx: Manage underlying shock and suspected infection #Atrial fibrillation with CVR Rx: Resume home amiodarone 200 mg twice daily Resume home Eliquis 5 mg twice daily Maintain potassium greater than 4 and magnesium greater than 2 Continue to monitor with telemetry #HFrEF, 35 to 40% (02/2025) Rx: Strict ins and out Cardiac diet Maintain potassium greater than 4 and magnesium greater than 2 RRx: If patient becomes fluid overloaded, will consider diuresis with home Lasix if BP can tolerate #Stomach dilation #Epigastric abdominal pain DDx: GERD Dx: CT chest/abdomen/pelvis 03/26/2025 shows significant dilation of the patient's stomach, possibly contributing to the patient's epigastric pain Rx: Consider Protonix 40 mg IV daily and Maalox as needed for breakthrough heartburn as this was noted to have improved therapy during previous admission NG tube placed to decompress abdomen, removed it as of 03/28 Clear liquid diet, advance as tolerated #Hypertension Rx: Consider resuming home antihypertensives once blood pressure more stable #Hyperlipidemia Rx: Resumed home Lipitor 10 mg daily #Chronic urinary retention Rx: Verdugo catheter placed 03/26 in the ED #Non insulin-dependent T2DM Dx: Hemoglobin A1c 03/07/2025 6.0% Rx: Sliding scale insulin Bedside glucose checks ACHS DVT prophylaxis: Eliquis GI prophylaxis: None Diet: Cardiac, renal Lines: Peripheral IV Antibiotics: Ciprofloxacin & Metronidazole CODE STATUS: FULL ----- Plan discussed with attending physician Dr. Za Gonzales MD PGY-1 Internal Medicine Attending Provider Attestation/Addendum I have examined the patient, reviewed labs and imaging findings, discussed the case with the resident(s), and reviewed entered orders. I agree with the plan of care as outlined in this note, with these additional summaries/recommendations: Patient seen at bedside. No acute overnight events. Patient has still not had a bowel movement. He reports he is passing some gas. Despite multiple attempts with different laxatives, patient has still not had a bowel movement. We will start GoLytely today. Patient would benefit from Movantik on discharge given his chronic narcotic use. Unable to encourage ambulation as patient is bedbound. If no improvement with GoLytely then we we will consult gastroenterology. Patient has acute renal failure diagnosed on last admission from [facility]. Urine output continues to be appropriate and renal function stable. If any changes then we will consult in-house nephrology although likely patient will need to follow-up outpatient. Continue antibiotics for proctitis. Continue Eliquis, atorvastatin, aspirin, and midodrine. Patient and patient's updated on the plan and in agreement. All questions answered to satisfaction. Please see residents note for additional details and management. Dr. Za MD
[2025-03-30] VITALS (12 sets, daily range): BP systolic 104–149; BP diastolic 64–90; PULSE 79–111; RESP 12–98; TEMP 36.1–36.8; O2SAT 92–100; BMI 43.2
[2025-03-30] MEDS: ALBUTEROL/IPRATROPIUM (Duoneb) RT SOL 3 ML NEBU INH ×3 (02:35→12:33)
[2025-03-30] MEDS: metroNIDAZOLE/NS 500 MG IVPB 500 MG/100 ML BAG 200 MG IV (05:14)
[2025-03-30] MEDS: LEVOTHYROXINE SODIUM 225 MCG PO (05:14)
[2025-03-30 05:42] LABS: Basophils # (Auto) 0.0 Thou/mm3 (0.0-0.2); Basophils % (Auto) 0 % (0-2.5); Eosinophils # (Auto) 0.4 Thou/mm3 (0.0-0.5); Eosinophils % (Auto) 4 % (0-10); Hematocrit 33.8 % (41.0-53.0); Hemoglobin 11.7 g/dL (13.5-16.0); Immature Granulocytes Auto 0.07 Thou/mm3 (0.00-0.00); Lymphocytes # (Auto) 2.0 Thou/mm3 (1.0-4.8); Lymphocytes % (Auto) 20 % (10-50); Mean Corpuscular HGB Conc 34.6 g/dl (31.0-37.0); Mean Corpuscular Hemoglobin 31.0 pg (25.0-35.0); Mean Corpuscular Volume 89 fL (80-100); Monocytes # (Auto) 0.9 Thou/mm3 (0.0-0.8); Monocytes % (Auto) 9 % (0-12); Neutrophils # (Auto) 6.7 Thou/mm3 (1.8-7.7); Neutrophils % (Auto) 66 % (37-80); Nucleated Red Blood Cell # 0.00 Thou/mm3 (0.00-0.00); Nucleated Red Blood Cell % 0 /100 WBC (0); Platelet Count 221 Thou/mm3 (140-440); RDW Standard Deviation 44.2 fL (35.1-43.9); Red Blood Count 3.78 Miln/mm3 (4.50-5.90); White Blood Count 10.1 Thou/mm3 (3.8-10.6)
[2025-03-30 06:09] LABS: Alanine Aminotransferase 17 U/L (10-49); Albumin, Serum 3.6 gm/dL (3.4-4.8); Albumin/Globulin Ratio 1.9 (1.2-2.2); Alkaline Phosphatase 48 U/L (46-116); Anion Gap 9 (7-16); Aspartate Amino Transferase 16 U/L (0-34); BUN/Creatinine Ratio 14 Ratio (12-20); Bilirubin,Total 0.4 mg/dL (0.3-1.2); Blood Urea Nitrogen 44 mg/dL (9-23); Calcium 8.2 mg/dL (8.3-10.6); Calcium (Corrected) 8.5 mg/dL (8.5-10.1); Carbon Dioxide 32.6 mMol/L (20.0-31.0); Chloride 96 mMol/L (98-107); Creatinine (Component) 3.2 mg/dL (0.6-1.3); Estimated Creatinine Clearance 28.1 mL/min (>60); Globulin 1.9 gm/dL (2.3-3.5); Glucose 116 mg/dL (74-106); Magnesium 2.6 mg/dL (1.6-2.6); Osmolality,Calculated 287 (275-295); Phosphorous 3.8 mg/dL (2.4-5.1); Potassium 4.6 mMol/L (3.4-5.1); Sodium 138 mMol/L (136-145); Total Protein 5.5 gm/dL (5.7-8.2); eGFR 19 See Note
[2025-03-30] MEDS: MIDODRINE 5 MG TABLET 10 MG PO ×2 (07:38→14:33)
[2025-03-30] MEDS: LACTULOSE SYRUP 20 GM/30 ML UDC 30 GM PO ×2 (07:40→14:46)
[2025-03-30] MEDS: AMIODARONE HCL 200 MG TABLET PO (08:09)
[2025-03-30] MEDS: APIXABAN 2.5 MG TABLET 5 MG PO (08:09)
[2025-03-30] MEDS: ASPIRIN EC 81 MG TABEC PO (08:10)
[2025-03-30] MEDS: BALSAM PERU/CASTOR OIL (Venelex) 60 GM TUBE TOP (08:10)
[2025-03-30] MEDS: ATORVASTATIN CALCIUM 10 MG TABLET PO (08:10)
[2025-03-30] MEDS: PREGABALIN 75 MG CAPSULE 150 MG PO (08:10)
--- NOTE | 2025-03-30 13:21 | ESDS_ITS ---
Planned Discharge Date 03/30/25 DS: Providers Provider Date of admission: 03/26/25 22:32 Primary care physician: Lazaro Banda MD Admitting Provider: Jie Law MD Attending Provider on Admission: Adams Lind MD Consults: 03/26/25 23:58 Referral Wound Care Routine Comment: 03/28/25 16:23 Referral Nutritional Services Routine Comment: Referral Wound Care Routine Comment: Attending Provider on DC: Tonny Mendenhall MD Discharging Provider: Georgia Gonzales MD DS: Diagnosis Problem List Completed Was Problem List Reviewed/Reconciled?: Yes Hospital Course Hospital Course Hospital course: Mr. Lawson is a 79-year-old male with a history of atrial fibrillation on Eliquis, hypothyroidism, HFrEF (35-40%), chronic urinary retention, and recurrent UTIs, who was readmitted on 03/27/2025 for epigastric pain, bloating, and altered mental status likely due to severe constipation with rectosigmoid fecalith. He was started on GoLytely for bowel prep, and after 3 bowel movements, his abdominal symptoms improved significantly. During hospitalization, the patient was also treated with Ciprofloxacin and Metronidazole for possible ongoing infection, though WBC and cultures were negative, and his infection resolved. He required brief vasopressor support (Levophed) due to suspected shock, but fluid resuscitation improved his hemodynamics and he was weaned off vasopressors within 24 hours. REHANA was initially concerning with a creatinine of 3.7, but renal function improved to 3.5 and later to 3.2, consistent with acute tubular necrosis (ATN). The patient was hemodynamically stable and urine output was adequate throughout the admission. Renal ultrasound and nuclear medicine renal scan revealed minimal bilateral renal function with adequate renal flow, consistent with baseline chronic kidney disease (CKD) and ATN recovery. The NG tube for gastric decompression was removed on 03/28, and he was advanced to a solid diet, tolerating meals well. The patient was discharged with a bowel regimen and advised to monitor his fluid intake due to heart failure. Diagnoses during admission: #Sepsis (resolved) #Acute Kidney Injury (REHANA) - improved (likely ATN) #Klebsiella Urinary Tract Infection (resolved) #Severe Constipation #Heart Failure with Reduced Ejection Fraction (HFrEF) - 35?40% (02/2025) #Atrial Fibrillation with Controlled Rate #Hypothyroidism #Chronic Urinary Retention #Non-Insulin Dependent Type 2 Diabetes Mellitus (A1C 6.0) #Hypertension #Hyperlipidemia Discharge instructions: -Follow-up with PCP within 1 week of discharge. If you do not have appointment, please follow-up with the [facility] with Dr. Billingsley. Call [phone] to make an appointment. -Recommended to stop Nitrofurantoin and continue your home Amoxicillin 500mg thrice daily as directed by your PCP -Recommended to change the dose of levothyroxine dose from 200 to 225mcg -Repeat TSH and Renal panel within 1 week of discharge -Follow up with paleology professor Dr. Brown regarding discontinuation of amiodarone as it is worsening hypothyroidism -Recommended to take Midodrine 10mg thrice daily as needed if SBP <110mm Hg -Take Lactulose 30gm thrice daily, Senna twice daily, miralax 17gm once a day and hold if you are having diarrhea -Recommended to continue rest of the home medication -Return to ED if symptoms persist or return ----- Plan discussed with attending physician Dr. Mendenhall and senior resident Dr. Analilia Gonzales MD PGY-1 Internal Medicine Time Spent with Patient Time attestation: Total time spent providing and/or coordinating discharge services: Time spent: Greater than 30 minutes Home Health Home Health Referral Orders: 03/30/25 11:27 Home Health Referral Routine Reason For Exam: Physical therapy Home-Bound The patient must either because of illness or injury, need the aid of supportive devices such as crutches, canes, wheelchairs, and walkers; the use of special transportation; or the assistance of another person in order to leave their place of residence; OR have a condition such that leaving his or her home is medically contraindicated. In addition, the patient also meets the following criteria: patient is normally unable to leave the home and leaving home requires considerable taxing effort. Addendum to Home Health Certification Practitioner's Certification: I certify that the patient has been under my care in the hospital and the care of attending physician (see below). We had a [id number] encounter on (see date below). My clinical findings indicate that the patient is home bound per the above criteria and the Home Health Services noted in these orders are medically necessary. The primary reason for the [id number] encounter is related to the fact that the patient requires home health services. 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 Wound Care: No IV Therapy: No RN Safety Evaluation: Yes RN to evaluate and create a plan of care that will produce positive outcomes. Palliative Treatment: No Palliative treatment and evaluate the need for hospice. Home Health Aide - Personal Care: Yes Home Health Aide to assist with any ADL's. Exam Vital Signs Temp Pulse Resp BP Pulse Ox O2 Del Method O2 Flow Rate 97.9 F 79 15 136/90 H 100 Room Air 98 03/30/25 12:00 03/30/25 12:35 03/30/25 12:35 03/30/25 12:00 03/30/25 12:35 03/30/25 12:00 03/30/25 02:35 Narrative Exam General: Awake. obese HEENT: Normocephalic, atraumatic, mucous membranes moist. Heart: Regular rate and rhythm, no murmurs. Lungs: Clear to auscultation with no wheezing or crackles. Abdomen: Soft, nondistended, nontender, positive bowel sounds. ?No guarding or rebound tenderness. Neurologic: Alert and oriented x3, no gross neurological deficit, and patient able to move all 4 extremities. Extremities: B/L pitting pedal edema. Skin: No rash or ecchymoses. Discharge Plan Plan Patient Disposition: Home w/HOME HEALTH Patient condition on transfer: Stable Care Plan Goals: -Follow-up with PCP within 1 week of discharge. If you do not have appointment, please follow-up with the [facility] with Dr. Billingsley. Call [phone] to make an appointment. -Recommended to stop Nitrofurantoin and continue your home Amoxicillin 500mg thrice daily as directed by your PCP -Recommended to change the dose of levothyroxine dose from 200 to 225mcg -Repeat TSH and Renal panel within 1 week of discharge -Follow up with paleology professor Dr. Brown regarding discontinuation of amiodarone as it is worsening hypothyroidism -Recommended to take Midodrine 10mg thrice daily as needed if SBP <110mm Hg -Take Lactulose 30gm thrice daily, Senna twice daily, miralax 17gm once a day and hold if you are having diarrhea -Recommended to continue rest of the home medication -Return to ED if symptoms persist or return - Wound care to sacrum/bilateral buttocks deep tissue injury and right outer ankle: Goal is to keep the pressure off this site to allow it to heal by repositioning side to side approx every 2 hours and every 15-20 minutes when sitting. Elevate right lower leg/ heel with pillows to avoid wound site touching bed or sheets *Shower daily than apply wound care dressing twice a day and as needed for falling off or soiling with urine or feces 1) Wash hands with soap and water than remove old dressings. 2) Cleanse both sites with wound cleanser spray and pat dry with gauze. 3) Wash hands again 4) Sacrum/buttocks: apply thin layer of Venelex ointment. Layer with calcium alginate. Apply skin prep to edges of wound than secure with overlapping foam/silicone dressings Right outer ankle: swab with betadine - allow to dry than cover with foam/silicone dressing If active bleeding occurs, apply tight dressing and return to MD or ER. ? Notify primary doctor or return to Emergency Room if any of the following: ? Fever above 100.6? F. ? Increased pain ? Increase swelling ? Red streaks around your wound ? Drainage becomes foul smelling or changes color ? The wound is larger or deeper ? The wound looks dried out or dark ? Bleeding that does not stop with holding pressure Prescriptions/Referrals Prescriptions/Med Rec: New sennosides [Senna Laxative] 8.6 mg tablet 8.6 mg PO BID Qty: 30 1RF polyethylene glycol 3350 [Miralax] 17 gram/dose powder 4 g PO QDAY Qty: 238 2RF midodrine 10 mg tablet 10 mg PO TID PRN (Reason: If SBP <110) Qty: 30 2RF Rx Instructions: do not give last dose of day after 6PM or within 4 hrs of bedtime lactulose 10 gram/15 mL solution 30 g PO TID Qty: 3000 1RF Continued baclofen 20 mg Tablet 20 mg PO TID PRN (Reason: Spasms) aspirin 81 mg Tablet,Chewable 81 mg PO QDAY finasteride 5 mg Tablet 5 mg PO QDAY Eliquis 2.5 mg Tablet 5 mg PO BID multivitamin [Multiple Vitamins] Tablet 1 tab PO QDAY pravastatin 40 mg Tablet 40 mg PO DAILY potassium chloride 10 mEq Tablet Extended Release 10 meq PO BID oxycodone-acetaminophen 10-325 mg Tablet 1 tab PO TID PRN (Reason: Pain) pregabalin 150 mg Capsule 150 mg PO BID cyanocobalamin (vitamin B-12) [Vitamin B-12] 500 mcg Tablet 500 mcg PO QDAY pyridoxine (vitamin B6) 100 mg Tablet 100 mg PO DAILY albuterol sulfate 90 mcg/actuation Hfa Aerosol Inhaler 2 puff INHALATION Q4H PRN (Reason: sob) fluticasone propionate 50 mcg/actuation spray,suspension 2 spray INTRANASAL QAM PreserVision AREDS-2 [phone] Capsule 1 cap PO BID folic acid 1 mg tablet 25 mg PO QDAY Patient Comments: TAKE 1 TABLET BY MOUTH FIVE TIMES A DAY Rx Instructions: per [facility] pharmacy fexofenadine [Emily Allergy] 60 mg tablet 60 mg PO Q12H calcium carbonate-vitamin D3 [Calcium 600 + D(3)] 600 mg-5 mcg (200 unit) capsule 1 cap PO BID Patient Comments: not sure on the dose amiodarone 200 mg tablet 200 mg PO BID 30 Days Qty: 60 2RF furosemide [Lasix] 20 mg tablet 20 mg PO QAM 30 Days Qty: 30 0RF Changed levothyroxine 200 mcg Tablet 225 mcg PO QDAY Qty: 30 0RF Discontinued nitrofurantoin macrocrystal 100 mg capsule 100 mg PO BID 3 Days Qty: 6 0RF Rx Instructions: must administer with a meal/food Referrals: Lazaro Banda MD [Primary Care Provider, Family Practice] Patient/Caregiver Discharge Instructions Education Materials: Nutrition for Wound Healing, AFL/Afib, Anatomy of the Male Urinary Tract, Urinary Tract Infections in Men, Pressure Ulcer Common Sites, Sepsis, Acute Kidney Failure Dc, Pressure Injury Dc, Wound Care Dc Print Language: Indian Stand Alone Forms: Minda Award Info., Patient Portal Info Letter Discharge Order Discharge Orders: Discharge (Routine); Ordered 03/30/25 Ordered By: Barrington Billingsley Quality Discharge Quality Measures VTE prophylaxis MD Attestestation MD Attestation I have examined the patient, reviewed labs and imaging findings, discussed the case with the resident(s), and reviewed entered orders. I agree with the plan of care as outlined in this note. Time Spent: [address] Za MD
--- NOTE | 2025-03-30 13:22 | PC.SS ---
Transport scheduled for 4:30 pm today. Patient to return home.
--- NOTE | 2025-03-30 19:59 | PC.NURSE ---
Discharged home with home health care in stable condition, with all personal belongings, discharge instructions, to [facility], via [facility], accompanied by transport team and . IV's and telemetry DC'd prior.
--- NOTE | 2025-03-31 08:25 | PC.CM ---
Addendum entered by Janet Pompa RN 03/31/25 16:58: I spoke to [facility] and I let her know to have nurse send extra supplies for patient until [facility] had time to orders supplies. I send discharge summary today. Original Note: Patient accepted by [facility]. Start of care date set for 04/01.
== END 2025-03-30 16:44 | disposition home health service (06) | DRG 871 ==
LOC: SERX 18:34 → SERHOLD 22:49 → S2SX 23:07 → S2NX 03-27 17:19
PROVIDERS: Emergency Medicine; Student in an Organized Health Care Education/Training Program; Admitting Provider Student in an Organized Health Care Education/Training Program; Emergency Provider Emergency Medicine; PCP Family Medicine; Visit Provider Student in an Organized Health Care Education/Training Program
DX: A41.9 Sepsis, unspecified organism (principal); G93.41 Metabolic encephalopathy; J96.01 Acute respiratory failure with hypoxia; R65.21 Severe sepsis with septic shock; N17.0 Acute kidney failure with tubular necrosis; I13.0 Hypertensive heart and chronic kidney disease with heart failure and stage 1 through stage 4 chronic kidney disease, or unspecified chronic kidney disease; I50.22 Chronic systolic (congestive) heart failure; Z68.41 Body mass index [BMI] 40.0-44.9, adult; M54.9 Dorsalgia, unspecified; G89.29 Other chronic pain; J44.89 Other specified chronic obstructive pulmonary disease; E66.9 Obesity, unspecified; Z87.440 Personal history of urinary (tract) infections; Z86.718 Personal history of other venous thrombosis and embolism; I48.91 Unspecified atrial fibrillation; E78.5 Hyperlipidemia, unspecified; E03.9 Hypothyroidism, unspecified; K59.09 Other constipation; N18.9 Chronic kidney disease, unspecified; E11.22 Type 2 diabetes mellitus with diabetic chronic kidney disease; R33.9 Retention of urine, unspecified; L89.309 Pressure ulcer of unspecified buttock, unspecified stage; K62.89 Other specified diseases of anus and rectum; Z79.01 Long term (current) use of anticoagulants; Z79.890 Hormone replacement therapy; Z79.84 Long term (current) use of oral hypoglycemic drugs; Z79.891 Long term (current) use of opiate analgesic; B96.1 Klebsiella pneumoniae [K. pneumoniae] as the cause of diseases classified elsewhere; Z79.899 Other long term (current) drug therapy; Z86.19 Personal history of other infectious and parasitic diseases
CPT/HCPCS: 36415; 36600; 51702; 71045; 71250; 74176; 80053; 80307; 81001; 82150; 82248; 82803; 83605; 83690; 83735; 83880; 84100; 84145; 84439; 84443; 84481; 84484; 85025; 85379; 85610; 85652; 85730; 86140; 87040; 87081; 87086; 87502; 87635; 93005; 94640; 96365; 96366; 96375; 99291; 99292; A4314; A9270; J0696; J0744; J0780; J1171; J2543; J2919; J3010; J3475; J3490; J7120; J1836

== ENCOUNTER 2025-04-02 06:07 | Observation (INO) | payer MEDICARE, SELFPAY ==
[2025-04-02] VITALS (12 sets, daily range): BP systolic 114–152; BP diastolic 62–101; PULSE 78–100; RESP 14–98; TEMP 36.5–37.3; O2SAT 94–98; BMI 43.2
--- NOTE | 2025-04-02 06:20 | EKG_ITS ---
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
--- NOTE | 2025-04-02 06:23 | PD.EDAMS ---
Altered Mental Status RME/HPI General Chief Complaint: Altered Mental Status Stated Complaint: AMS Time Seen by Provider: 04/02/25 06:13 Arrival date/time: 04/02/25 06:07 Limitations: altered mental status RME / HPI RME / HPI narrative: DR. OCHOA MCCOLLUM ED EVALUATION: 79-year-old male with history of atrial fibrillation on Eliquis, hypertension, hyperlipidemia, hypothyroidism, chronic urinary retention, obesity, COPD/asthma, recurrent UTIs, chronic back pain, patient is bedbound with a decubitus ulcer and history of DVT BIBA with altered mental status. Patient's states that when the patient awoke this morning she found him to be somnolent and altered, so she called EMS. She denied recent falls or trauma otherwise, denied recent fevers chills or shakes. Patient is very somnolent and only able to contribute somewhat to the history. Related Data Home Medications ?Medication ?Instructions ?Recorded ?Confirmed apixaban 2.5 mg tablet (Eliquis) 5 mg PO BID 12/25/19 04/02/25 aspirin 81 mg chewable tablet 81 mg PO QDAY 12/25/19 04/02/25 baclofen 20 mg tablet 20 mg PO TID PRN Spasms 12/25/19 04/02/25 cyanocobalamin (vitamin B-12) 500 500 mcg PO QDAY 12/25/19 04/02/25 mcg tablet (Vitamin B-12) finasteride 5 mg tablet 5 mg PO QDAY 12/25/19 04/02/25 multivitamin (Multiple Vitamins 1 tab PO QDAY 12/25/19 04/02/25 tablet) oxycodone-acetaminophen 10 mg-325 1 tab PO TID PRN Pain 12/25/19 04/02/25 mg tablet potassium chloride 10 mEq 10 meq PO BID 12/25/19 04/02/25 tablet,extended release pravastatin 40 mg tablet 40 mg PO DAILY 12/25/19 04/02/25 pregabalin 150 mg capsule 150 mg PO BID 12/25/19 04/02/25 pyridoxine (vitamin B6) 100 mg 100 mg PO DAILY 12/25/19 04/02/25 tablet albuterol sulfate 90 mcg/actuation 2 puff inhalation Q4H PRN sob 12/27/19 04/02/25 aerosol inhaler fluticasone propionate 50 2 spray intranasal QAM 12/27/19 04/02/25 mcg/actuation nasal spray,suspension folic acid 1 mg tablet 25 mg PO QDAY 12/27/19 04/02/25 vit C 250 mg-vit E 90 mg-zinc 40 1 cap PO BID 12/27/19 04/02/25 mg-copper 1 dc-zurshc-sexloe capsule (PreserVision AREDS-2) calcium 600 mg (as 1 cap PO BID 03/05/25 04/02/25 carbonate)-vitamin D3 5 mcg (200 unit) capsule (Calcium 600 + D(3)) fexofenadine 60 mg tablet (Emily 60 mg PO Q12H 03/05/25 04/02/25 Allergy) apixaban 5 mg tablet (Eliquis) 5 mg PO BID 04/02/25 04/02/25 Previous Rx's ?Medication ?Instructions ?Recorded amiodarone 200 mg tablet 200 mg PO BID 1 month #60 tabs 03/08/25 furosemide 20 mg tablet (Lasix) 20 mg PO QAM 30 days #30 tabs 03/25/25 lactulose 10 gram/15 mL oral 30 g (45 mL) PO TID #3,000 mL 03/30/25 solution levothyroxine 200 mcg tablet 225 mcg (1.125 x 200 mcg) PO QDAY 03/30/25 #30 tabs midodrine 10 mg tablet 10 mg PO TID PRN If SBP <110 #30 03/30/25 tabs polyethylene glycol 3350 17 4 g PO QDAY #238 grams 03/30/25 gram/dose oral powder (Miralax) sennosides 8.6 mg tablet (Senna 8.6 mg PO BID #30 tabs 03/30/25 Laxative) Allergies Allergy/AdvReac Type Severity Reaction Status Date / Time latex Allergy Unknown blisters Verified 03/19/25 16:17 Review of Systems Review of Systems ROS Unobtainable: unobtainable due to mental status Past Medical History Past Medical History CARDIAC: Positive Cardiac Disorders, Cardiac Arrhythmia, Atrial Fibrillation, Hypercholesterolemia, Congestive Heart Failure, Edema and Hypertension RESPIRATORY: Positive Chronic Obstructive Pulmonary Disease (COPD), Asthma and Sleep Apnea GASTROINTESTINAL: Positive Hemorrhoids and Obesity GENITOURINARY: Positive Genitourinary Disorders and Inguinal Hernia MUSCULOSKELETAL: Positive Musculoskeletal Disorders and Arthritis ENT: Positive Cataracts and Macular Degeneration ENDOCRINE: Positive Endocrine Disorders, Diabetes Mellitus Type 2, Hypoglycemia and Hypothyroidism PSYCHO/SOCIAL: Positive Post Traumatic Stress Disorder OTHER HISTORY: Positive Hospitalization, Falls, Chicken Pox and Measles Family History FAMILY HISTORY: Positive Family Cardiac Disorders, Family Cancer and Family Surgery Surgical History SURGICAL: Positive Joint Replacement and Open Reduction Internal Fixation Social History SMOKING STATUS: Former smoker SECOND HAND EXPOSURE: No SUBSTANCE USE: does not use ED Exam General Limitations: Present altered mental status General appearance: Present other (somnolent but arousable to loud voice and touch, morbidly obese) Head Head exam: Present atraumatic Eye Eye exam: Present PERRL, EOMI and other (pinpoint pupils) ENT ENT exam: Present normal exam, normal oropharynx and mucous membranes moist Neck Neck exam: Present normal inspection, full ROM and trachea midline Chest Chest inspection: Present normal inspection and symmetric chest wall rise Respiratory Respiratory exam: Present normal lung sounds bilaterally Cardiovascular Cardiovascular exam: Present regular rate, normal rhythm and normal heart sounds Abdominal Exam Abdominal exam: Present soft and normal bowel sounds Extremities Exam Extremities exam: Present normal inspection and full ROM Back Exam Back exam: Present normal inspection and full ROM Neurological Exam Neurological exam: Present other (somnolent but arousable; he has no focal neurologic findings.) Psychiatric Psychiatric exam: Present normal affect and normal mood Skin Skin exam: Present warm, dry, intact and normal color Course Quality Measures none Orders Category Date Time Status Bedside Blood Glucose NOW Care 04/02/25 06:20 Active Set Up Machinist NOW Care 04/02/25 06:20 Active Continuous Pulse Oximetry NOW Care 04/02/25 06:20 Completed Insert IV NOW Care 04/02/25 06:20 Active Urinary Catheter NOW Care 04/02/25 06:[address] head/brain wo con Stat Exams 04/02/25 06:22 Completed EKG (ED Only) Stat Exams 04/02/25 06:20 Draft XR chest 1V portable Stat Exams 04/02/25 06:22 Completed Alcohol, Blood Medical Stat Lab 04/02/25 06:25 Completed Ammonia Stat Lab 04/02/25 06:25 Completed Arterial Blood Gas Stat Lab 04/02/25 06:27 Completed CBC Stat Lab 04/02/25 06:25 Completed Comprehensive Metabolic Panel Stat Lab 04/02/25 06:25 Completed Drug Screen,Urine Stat Lab 04/02/25 06:24 Completed Free T4 (Free Thyroxine) Stat Lab 04/02/25 06:25 Completed Magnesium Stat Lab 04/02/25 06:25 Completed Partial Thromboplastin Time Stat Lab 04/02/25 06:25 Completed Prothrombin Time with INR Stat Lab 04/02/25 06:25 Completed Thyroid Stimulating Hormone Stat Lab 04/02/25 06:25 Completed Troponin I Stat Lab 04/02/25 06:25 Completed Urinalysis, C/S if Indicated Stat Lab 04/02/25 06:29 Completed Oxygen Delivery NOW RT 04/02/25 06:21 Active Vital Signs Vital signs: Vital Signs Temperature 99.1 F 04/02/25 06:25 Pulse Rate 98 04/02/25 06:25 Respiratory Rate 25 H 04/02/25 06:25 Blood Pressure 130/87 H 04/02/25 06:25 Pulse Oximetry (%) 98 04/02/25 06:25 Altered Mental Status MDM Narrative MDM Narrative:: I, Starr Schaffer, am scribing for and in the presence of Dr. Voss. 79-year-old male with significant comorbidities presenting with acute altered mental status. Exam shows somnolence, pinpoint pupils, and no focal deficits. Workup initiated for metabolic, infectious, or medication related causes. Differential diagnoses include sepsis, toxic metabolic encephalopathy, and medication effect. 08:12 called and spoke with the resident for Dr. Borges (hospitalist on duty). We discussed the patient's case in detail. He kindly agreed to come down and evaluate the patient. Will be admitted for opiate overdose. Patient data External records reviewed:: [facility] previous records and EMS form Clinical information provided by:: patient, EMS and family Social determinants that could affect healthcare access:: none Patient has the following chronic illnesses:: Atrial fibrillation on Eliquis, hypertension, hyperlipidemia, hypothyroidism, chronic urinary retention, obesity, COPD/asthma, recurrent UTIs, chronic back pain, patient is bedbound with a decubitus ulcer and history of DVT. How is presenting disease/condition affected by chronic disease/condition?: exacerbated by Evaluation data The following diagnostics were reviewed and interpreted by me:: lab results, radiology exam(s) and EKG tracing(s) (My interpretation: EKG performed at 0651 hours, atrial fibrillation, rate 91, right bundle branch block) Lab and/or radiology exams considered but not ordered:: none Interpretation Summary: See MDM narrative above. RADIOLOGY Procedure(s): CT head/brain wo con Accession Number(s): [id number] cc: Oj Eason MD; Aron Voss MD; Lazaro Banda MD~ Examination: CT brain head without contrast. 2-D sagittal coronal reconstructions Date and time of exam: April 02, 2025, 0658 hours, comparison March 13, 2025 INDICATION: Stroke alert, onset focal neurologic deficit beginning 1 hour ago CTDI: vol (mGy): 84.3 DLP: (mGycm): 2180 Technique: Multiple CT axial sections of the brain have been obtained, 5 mm slice thickness. Contrast has not been administered. 2-D sagittal, coronal reconstructions have been obtained Low dose protocols were performed. One or more of the following dose reduction techniques were used; automated exposure control, adjustment of the mA and/or KV according to patient size, use of iterative reconstruction technique. Findings: No significant ventricular enlargement. No mass effect or midline shift Artifact in the posterior fossa IMPRESSION: Negative for acute hemorrhage, mass effect or midline shift Advise clinical correlation and follow-up accordingly Dictated By: Oj Eason MD Procedure(s): XR chest 1V portable Accession Number(s): [id number] cc: Oj Eason MD; Aorn Voss MD; Lazaro Banda MD~ EXAMINATION: AP chest single view TECHNIQUE: AP portable semiupright chest single view Date and time: April 02 2025, 0656 hours, comparison number 01/2025 INDICATIONS: Shortness of breath chest pain today. FINDINGS: Mild prominence left ventricle Mild vascular congestion No lobar pneumonia Moderate osteopenia IMPRESSION: Mild vascular congestion No lobar pneumonia Dictated By: Oj Eason MD Medications / Prescriptions Medications or Prescriptions considered but not ordered:: none Medication administrations:: Medication Administration History Acetaminophen (Acetaminophen 325 Mg Tablet) 650 mg PO Q6H PRN PRN Reason: Fever >100.4, Pain 1-3 Stop: 05/02/25 09:44 Albuterol/Ipratropium (Albuterol/Ipratropium (Duoneb) Rt Lilli 3 Ml Nebu) 3 ml INH Q2HR PRN PRN Reason: SHORTNESS OF BREATH OR WHEEZE Stop: 05/02/25 09:51 Heparin Sodium/Dextrose (Heparin In D5w Ivpb) 25,000 unit in 250 mls @ 9.999 mls/hr IV .Q24H COLLIN; Protocol Stop: 04/16/25 15:29 Last Admin: 04/02/25 17:00 Dose: 6.904 units/kg/hr, 9.999 mls/hr Documented By: CHINO Co-signed By: MACIE Ceftriaxone Sodium/Dextrose (Rocephin/D5w 1gm Iv Premix) 1 gm in 50 mls @ 100 mls/hr IV QDAY COLLIN Stop: 04/09/25 15:41 Last Infusion: 04/02/25 17:10 Dose: Infused Documented By: Admin: 04/02/25 16:40 Dose: 100 mls/hr Documented By: CS Doxycycline Hyclate 100 mg/ (Sodium Chloride) 100 mls @ 100 mls/hr IV BID COLLIN Stop: 04/09/25 20:59 Last Admin: 04/02/25 20:51 Dose: 100 mls/hr Documented By: IG Levothyroxine Sodium 125 mcg/ (Levothyroxine Sodium 100 mcg) 225 mcg PO ACBR COLLIN Stop: 05/03/25 05:59 Lidocaine (Lidocaine 5% 1 Patch) 1 patch TOP UD PRN; Protocol PRN Reason: Back Pain Stop: 05/02/25 16:13 Pantoprazole Sodium (Pantoprazole Inj 40 Mg Vial) 40 mg IVP QDAY [facility] Stop: 05/02/25 09:59 Last Admin: 04/02/25 13:11 Dose: 40 mg Documented By: CS Polyethylene Glycol (Polyethylene Glycol 17 Gm Packet) 34 gm PO QDAY COLLIN Stop: 05/03/25 08:59 Sennosides (Senna/Docusate Sod 1 Tab Tablet) 1 tab PO QDAY COLLIN; Protocol Stop: 05/03/25 08:59 Discontinued Medications Albuterol/Ipratropium (Albuterol/Ipratropium (Duoneb) Rt Lilli 3 Ml Nebu) 3 ml INH Q8HRRT COLLIN Stop: 05/02/25 16:14 Furosemide (Furosemide Inj 10 Mg/Ml 4ml Vial) 40 mg IVP X1 ONE Stop: 04/02/25 09:53 Last Admin: 04/02/25 09:52 Dose: Not Given Documented By: CHINO Non-Admin Reason: Discontinued Furosemide (Furosemide Inj 10 Mg/Ml Vial 2 Ml) 20 mg IVP X1 ONE Stop: 04/02/25 10:47 Last Admin: 04/02/25 13:10 Dose: 20 mg Documented By: CHINO Heparin Sodium (Porcine) (Heparin Sod Inj 5000 Unit/Ml Vial) 5,000 unit SC Q12HR COLLIN Stop: 04/16/25 20:59 Heparin Sodium (Porcine) (Heparin Sod Inj 5000 Unit/Ml Vial) 4,000 unit IV X1 ONE; Protocol Stop: 04/02/25 15:22 Last Admin: 04/02/25 17:02 Dose: 4,000 unit Documented By: CHINO Co-signed By: MACIE Levothyroxine Sodium (Levothyroxine Sodium 125 Mcg Tablet) 225 mcg PO ACBR [facility] Stop: 05/03/25 05:59 see above Consultations Consultation(s) initiated? (list below): Yes Consultation #1 (Physician, Specialty, Details): Discussed test HPI, PMHx, lab, radiology results and/or management with resident working with the hospitalist. Will admit for further evaluation and management. Accepts patient for admission. Time: 08:11 Diagnosis Differential diagnosis altered mental status: other (sepsis, toxic metabolic encephalopathy, and medication effect) Most likely diagnosis given after review of the tests above:: Opiate overdose Admission Indicated Admission indicated?: indicated Admission Request Was there a request for admission?: Yes Admission Attestation Admission request attestation: Discussed case with [] from Hospitalist service regarding admission. Discussed patients ED course, exam findings, labs, and radiology results. The Hospitalist [agrees,declines] to accept the patient for admission. Disposition Plan Disposition Plan: Admit Critical Care Time Critical Care Time Critical Care Time: Yes Total Critical Care Time (min.): 35 Attestation: The high probability of sudden, clinically significant deterioration in the patient?s condition required the highest level of my preparedness to intervene urgently. The services I provided to this patient were to treat and/or prevent clinically significant deterioration. Services included the following: chart data review, reviewing nursing notes and/or old charts, documentation time, risk and insurance consultant collaboration regarding findings and treatment options, medication orders and management, direct patient care, vital sign assessments and ordering, interpreting and reviewing diagnostic studies and lab tests. Aggregate critical care time includes only time during which I was engaged in work directly related to the patient?s care, as described above, whether at bedside or elsewhere in the Emergency Department. It did not include time spent performing other reported procedures or the services of residents, students, nurses or physician assistants. Discharge Plan Plan Patient Disposition: Other Care w/in Hosp ([facility]) Problem List Clinical Impression: AMS (altered mental status), Accidental opiate poisoning, Chronic hypercapnic respiratory failure
[2025-04-02 06:32] LABS: Collection Type, Urine Catheter; Squamous Epithelial Cell,Urine 0 /hpf (0-5)
[2025-04-02 06:44] LABS: Allen Test Performed/OK; Base Excess 5 (-3-3); HCO3 31 mEq/L (20-26); Inspired Oxygen, FIO2 21 %; O2 Saturation 93 % (91-98); PCO2 49 mmHg (32.0-48.0); Puncture Site Right Radial; pH, Arterial 7.41 (7.35-7.45)
[2025-04-02 06:49] LABS: PO2 53 mmHg (83-108)
[2025-04-02 06:55] LABS: Basophils # (Auto) 0.1 Thou/mm3 (0.0-0.2); Basophils % (Auto) 1 % (0-2.5); Eosinophils # (Auto) 0.7 Thou/mm3 (0.0-0.5); Eosinophils % (Auto) 6 % (0-10); Hematocrit 35.2 % (41.0-53.0); Hemoglobin 12.1 g/dL (13.5-16.0); Immature Granulocytes Auto 0.09 Thou/mm3 (0.00-0.00); Lymphocytes # (Auto) 2.1 Thou/mm3 (1.0-4.8); Lymphocytes % (Auto) 17 % (10-50); Mean Corpuscular HGB Conc 34.4 g/dl (31.0-37.0); Mean Corpuscular Hemoglobin 30.9 pg (25.0-35.0); Mean Corpuscular Volume 90 fL (80-100); Monocytes # (Auto) 1.1 Thou/mm3 (0.0-0.8); Monocytes % (Auto) 9 % (0-12); Neutrophils # (Auto) 8.1 Thou/mm3 (1.8-7.7); Neutrophils % (Auto) 66 % (37-80); Nucleated Red Blood Cell # 0.00 Thou/mm3 (0.00-0.00); Nucleated Red Blood Cell % 0 /100 WBC (0); Platelet Count 254 Thou/mm3 (140-440); RDW Standard Deviation 44.6 fL (35.1-43.9); Red Blood Count 3.92 Miln/mm3 (4.50-5.90); White Blood Count 12.2 Thou/mm3 (3.8-10.6)
[2025-04-02 07:02] LABS: INR 1.0 (0.9-1.3); Partial Thromboplastin Time 30.5 Seconds (22.0-36.0); Prothrombin Time 11.1 Seconds (9.0-12.2)
[2025-04-02 07:04] LABS: Ammonia 18 uMol/L (11-32)
[2025-04-02 07:09] LABS: Alanine Aminotransferase 32 U/L (10-49); Albumin, Serum 4.0 gm/dL (3.4-4.8); Albumin/Globulin Ratio 2.1 (1.2-2.2); Alcohol, Blood Medical < 3.0 mg/dL (0-10.0); Alkaline Phosphatase 53 U/L (46-116); Anion Gap 10 (7-16); Aspartate Amino Transferase 30 U/L (0-34); BUN/Creatinine Ratio 14 Ratio (12-20); Bilirubin,Total 0.5 mg/dL (0.3-1.2); Blood Urea Nitrogen 43 mg/dL (9-23); Calcium 8.6 mg/dL (8.3-10.6); Calcium (Corrected) 8.6 mg/dL (8.5-10.1); Carbon Dioxide 28.6 mMol/L (20.0-31.0); Chloride 98 mMol/L (98-107); Creatinine (Component) 3.0 mg/dL (0.6-1.3); Estimated Creatinine Clearance 30.0 mL/min (>60); Free T4 (Free Thyroxine) 0.96 ng/dL (0.89-1.76); Globulin 1.9 gm/dL (2.3-3.5); Glucose 137 mg/dL (74-106); Magnesium 2.6 mg/dL (1.6-2.6); Osmolality,Calculated 286 (275-295); Potassium 4.6 mMol/L (3.4-5.1); Sodium 137 mMol/L (136-145); Thyroid Stimulating Hormone 34.48 uIU/mL (0.55-4.78); Total Protein 5.9 gm/dL (5.7-8.2); Troponin I < 0.020 ng/mL (0.0-0.045); eGFR 21 See Note
[2025-04-02 07:26] LABS: Amphetamine/Methamp Scrn,U Negative (Negative); Barbiturate Screen,Urine Negative (Negative); Benzodiazepines Screen,Urine Negative (Negative); Benzoylecgonine Screen, Ur Negative (Negative); Fentanyl Screen,Urine Negative (Negative); Opiate Screen,Urine Positive (Negative); THC Screen,Urine Negative (Negative)
[2025-04-02 07:49] LABS: Bilirubin,Urine Negative (Negative); Blood,Urine Negative (Negative); Clarity,Urine Clear (Clear/Hazy); Color,Urine Lt-Yellow (Lt Yel-Yel); Culture Indicated,Urine Not Indicated; Glucose, Urine Negative (Negative); Ketones,Urine Negative (Negative); Leukocyte Esterase,Urine Negative (Negative); Nitrite,Urine Negative (Negative); PH,Urine 6.5 (5.0-7.0); Protein,Urine Negative (Neg - Trace); RBC,Urine 4 /hpf (0-3); Specific Gravity,Urine 1.013 (1.001-1.035); Urobilinogen,Urine Negative mg/dL (0.0-1.0); WBC,Urine 1 /hpf (0-5)
--- NOTE | 2025-04-02 08:04 | PC.NURSE ---
per report, pt here with increase ams and family being unable to wake pt like normal since yesterday. Dr. lozano in to talk with now
--- NOTE | 2025-04-02 11:04 | PD.RESHP ---
Documentation for date of: 04/02/25 [facility] History of Present Illness History of present illness: Mr. 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 Patient is arousable, alert and oriented x 3 on evaluation though seems significantly drowsy and is unable to hold a conversation, per patient's she was unable to arouse the patient and she decided to call EMS. Patient was recently discharged from hospital after being treated for septic shock secondary to urinary tract infection, patient on oxycodone 10/325 3 times daily, reports taking 2 pills yesterday. Does have poor renal function which likely contributed to altered mentation. ED Course: ED Vitals: On presentation in ER blood pressure 130/87, heart rate 98, respiratory 25, temp 99.1, O2 sat 98 on oxy mask 2 L ED Labs: ER labs significant for WBC 12.2, hemoglobin 12.1, RBC 3.92, hematocrit 35.2, neutrophilia with left shift neutrophil 8.1 noted. VBG shows pCO2 49, pH 7.41. CMP significant for BUN 43, creatinine 3.0, GFR 21 TSH 34.48 free T40.96 Urinalysis unremarkable for infection, 4 RBCs noted. Toxicology positive for opiates, blood alcohol level negative ED Imaging:Chest x-ray in ED shows mild heart failure, no lobar pneumonia. Head CT negative for any acute hemorrhage mass effect or midline shift EKG shows QTc 516 ED Treatment: Patient was observed in the ER. Review of Systems Review of Systems ROS Unobtainable: unobtainable due to mental status Past Medical History Past Medical History Comments PMH COMMENT: PMH: As above PSHx: Knee joint replacement, multiple back surgeries Allergies: Latex Social history: -Smoking: Denies, positive for 30 pack years in the past -Alcohol Use: Positive in past, no current alcohol use -Illicit Drug Use: Denies -Martial Status: , lives at home and family assists in taking care of the patient Family History: No pertinent family history Exam Vital Signs Temp Pulse Resp BP Pulse Ox O2 Del Method O2 Flow Rate 98.6 F 80 15 132/80 H 95 Oxy Mask 5 04/02/25 07:45 04/02/25 09:48 04/02/25 09:48 04/02/25 09:48 04/02/25 09:48 04/02/25 09:48 04/02/25 09:48 Narrative Exam Physical Exam General: Drowsy, wakes to touch and in no acute distress. Conversational and non-toxic appearing. Answers questions, repeats words. HEENT: Normocephalic, atraumatic, mucous membranes moist. Heart: Irregularly irregular rhythm, no murmurs. Lungs: Clear to auscultation with no wheezing or crackles. Abdomen: Soft, obese, nondistended, nontender, positive bowel sounds. ?No guarding or rebound tenderness. Neurologic: Alert and oriented x3, no gross neurological deficit, and patient able to move all 4 extremities. Extremities: 2+ edema on dependent parts around hips. Skin: No rash or ecchymoses. Results: Labs 04/03/25 06:20 04/03/25 06:20 Labs: Short CBC 04/02/25 Range/Units 06:25 WBC 12.2 H (3.8-10.6) Thou/mm3 Hgb 12.1 L (13.5-16.0) g/dL Hct 35.2 L (41.0-53.0) % Plt Count 254 D (140-440) Thou/mm3 BMP 04/02/25 06:25 Sodium 137 Potassium 4.6 Chloride 98 Carbon Dioxide 28.6 BUN 43 H Creatinine 3.0 H Glucose 137 H Calcium 8.6 Cardiac Enzymes 04/02/25 Range/Units 06:25 Troponin I < 0.020 (0.0-0.045) ng/mL Liver Function 04/02/25 Range/Units 06:25 Total Bilirubin 0.5 (0.3-1.2) mg/dL AST 30 (0-34) U/L ALT 32 (10-49) U/L Alkaline Phosphatase 53 (46-116) U/L Albumin 4.0 (3.4-4.8) gm/dL Urine 04/02/25 Range/Units 06:29 Urine Color Lt-Yellow (Lt Yel-Yel) Urine Clarity Clear (Clear/Hazy) Urine pH 6.5 (5.0-7.0) Ur Specific [place] 1.013 (1.001-1.035) Urine Protein Negative (Neg - Trace) Urine Glucose (UA) Negative (Negative) ABG Interpretation ABG results: 04/02/25 06:27 ABG pH 7.41 ABG pCO2 49 H ABG pO2 53 L* ABG HCO3 31 H ABG O2 Saturation 93 ABG Base Excess 5 H Quality Measures Quality Measures VTE prophylaxis Advance care planning discussed with:: patient and spouse Medications Home Medications and Allergies Home Medications ?Medication ?Instructions ?Recorded ?Confirmed ?Type aspirin 81 mg chewable tablet 81 mg PO QDAY 12/25/19 04/02/25 History cyanocobalamin (vitamin B-12) 500 500 mcg PO QDAY 12/25/19 04/02/25 History mcg tablet (Vitamin B-12) finasteride 5 mg tablet 5 mg PO QDAY 12/25/19 04/02/25 History multivitamin (Multiple Vitamins 1 tab PO QDAY 12/25/19 04/02/25 History tablet) potassium chloride 10 mEq 10 meq PO BID 12/25/19 04/02/25 History tablet,extended release pravastatin 40 mg tablet 40 mg PO DAILY 12/25/19 04/02/25 History pregabalin 150 mg capsule 150 mg PO BID 12/25/19 04/02/25 History pyridoxine (vitamin B6) 100 mg 100 mg PO DAILY 12/25/19 04/02/25 History tablet albuterol sulfate 90 mcg/actuation 2 puff inhalation Q4H PRN sob 12/27/19 04/02/25 History aerosol inhaler fluticasone propionate 50 2 spray intranasal QAM 12/27/19 04/02/25 History mcg/actuation nasal spray,suspension folic acid 1 mg tablet 25 mg PO QDAY 12/27/19 04/02/25 History vit C 250 mg-vit E 90 mg-zinc 40 1 cap PO BID 12/27/19 04/02/25 History mg-copper 1 ha-ohjqqs-vlhtsd capsule (PreserVision AREDS-2) calcium 600 mg (as 1 cap PO BID 03/05/25 04/02/25 History carbonate)-vitamin D3 5 mcg (200 unit) capsule (Calcium 600 + D(3)) fexofenadine 60 mg tablet (Emily 60 mg PO Q12H 03/05/25 04/02/25 History Allergy) apixaban 5 mg tablet (Eliquis) 5 mg PO BID 04/02/25 04/02/25 History Allergies Allergy/AdvReac Type Severity Reaction Status Date / Time latex Allergy Unknown blisters Verified 03/19/25 16:17 Visit Medications Acetaminophen (Acetaminophen 325 Mg Tablet) 650 mg PO Q6H PRN PRN Reason: Fever >100.4, Pain 1-3 Stop: 05/02/25 09:44 Albuterol/Ipratropium (Albuterol/Ipratropium (Duoneb) Rt Lilli 3 Ml Nebu) 3 ml INH Q2HR PRN PRN Reason: SHORTNESS OF BREATH OR WHEEZE Stop: 05/02/25 09:51 Heparin Sodium (Porcine) (Heparin Sod Inj 5000 Unit/Ml Vial) 5,000 unit SC Q12HR COLLIN Stop: 04/16/25 20:59 Levothyroxine Sodium 125 mcg/ (Levothyroxine Sodium 100 mcg) 225 mcg PO ACBR COLLIN Stop: 05/03/25 05:59 Pantoprazole Sodium (Pantoprazole Inj 40 Mg Vial) 40 mg IVP QDAY COLLIN Stop: 05/02/25 09:59 Polyethylene Glycol (Polyethylene Glycol 17 Gm Packet) 34 gm PO QDAY COLLIN Stop: 05/03/25 08:59 Sennosides (Senna/Docusate Sod 1 Tab Tablet) 1 tab PO QDAY COLLIN; Protocol Stop: 05/03/25 08:59 Discontinued Medications Furosemide (Furosemide Inj 10 Mg/Ml 4ml Vial) 40 mg IVP X1 ONE Stop: 04/02/25 09:53 Furosemide (Furosemide Inj 10 Mg/Ml Vial 2 Ml) 20 mg IVP X1 ONE Stop: 04/02/25 10:47 Levothyroxine Sodium (Levothyroxine Sodium 125 Mcg Tablet) 225 mcg PO ACBR COLLIN Stop: 05/03/25 05:59 Assessment & Plan Plan Assessment and plan: Summary: Mr. 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 Patient admitted for further workup. #Acute encephalopathy, toxic versus metabolic Ddx: Polypharmacy, opioid use, hypercapnia unable to arouse the patient, workup fairly negative in ER, pCO2 on VBG elevated 49, urine tox positive for opiates, patient prescribed oxycodone 10-325 3 times daily as needed, reports taking 3 pills also on pregabalin TSH elevated 34.48, free T40.96 Plan: - Will hold home medications - Nurse swallow screen, referral to speech therapy - Neurochecks every 4 hours - Has increased sputum production, will start on ceftriaxone and doxycycline empirically, no azithromycin QTc elevated on EKG - DuoNebs every 2 hours as needed, patient does have history of chronic smoking - Home dose Lasix 20 mg daily, 20 IV Lasix x 1 - Resume home levothyroxine 225 mcg p.o. ACBR - Follow vitamin B12, folic acid in a.m. - CPAP at night #HFrEF, EF 35 to 40%, systolic heart failure, chronic heart failure Patient had echocardiogram done February 2025 Estimated EF at 35-40% global left ventricular systolic function is moderately decreased. The RV size is moderately increased with normal systolic function. - Lasix 20 IV x1 - Strict I&O - Daily weight - Fluid restriction 1500 cc #Atrial fibrillation, rate controlled Patient on amiodarone 200 mg p.o. twice daily, will hold as patient cannot swallow and Eliquis 5 mg p.o. twice daily - Heparin Gtt - Telemetry monitoring #Chronic urinary retention #History of multiple UTIs - Verdugo catheter placed #Chronic back pain -Lidocaine patch prn DVT prophylaxis: Heparin drip GI prophylaxis: IV Protonix Diet: Strict n.p.o. Lines: Peripheral IV Code status: DNR/DNI, confirmed by Case discussed with Attending Physician Dr. Shae Bey MD Internal Medicine PGY-2 Disclaimer: This note was dictated by speech recognition. Minor errors in material engineer may be present due to voice recognition software. Attending Provider Attestation/Addendum Shae Martinez DO, attest that I was physically present for the almanza portions of the service and evaluated the patient with the resident and I reviewed and discussed the case with the resident and agree with the resident's findings and plans of care as documented above Patient is a 79-year-old male with past medical history of A-fib on Eliquis, hypothyroidism, HFrEF, chronic urinary retention and recurrent UTIs who presents to the ED with altered mental status. Per at bedside, patient was very difficult to arouse, prompting her to call EMS. Upon evaluation in ED, patient had a leukocytosis of 12.2, Hgb of 12.1, Cr of 3.0 (baseline of 2.2), TSH 34.48. ABG showed 7.49/49/53. Patient was recently admitted to the hospital for septic shock 2/2 to UTI. Patient takes norcos, baclofen and pregablin at home. Suspect that symptoms are secondary to polypharmacy. Patient is able to say his name, but is repetitive with his responses. CT head was done in ED showing negative for acute hemorrhage, mass effect or midline shift. CXR shows mild vascular congestion and no lobar pneumonia. Will admit to telemetry for further observation at this time. Anticipate DC within next 24-48h depending on mental status.
[2025-04-02] MEDS: FUROSEMIDE INJ 10 MG/ML VIAL 2 ML 20 MG IVP (13:10)
[2025-04-02] MEDS: cefTRIAXone/D5w 1gm IV premix 1 GM/50 ML BAG IV (16:40)
[2025-04-02] MEDS: Heparin/D5w 25K 250 ML Ivpb 25,000 UNIT/250 ML BAG 9.999 UNIT IV (17:00)
--- NOTE | 2025-04-02 17:00 | PC.NURSE ---
Spoke with Valentino, inquiring as to why we were starting the pt on heparin drip and she stated it was for A-fib and AMS. When I informed my charge nurse (Kathy) to the fact that I was starting a heparin drip, she called Salome and verified the reasoning. She also inquired about doing sub-q heparin Q8 as oppose to the drip, and Salome stated that the drip is so that we can stop the heparin immediately if preferred. I explained to the family and they understood
--- NOTE | 2025-04-02 17:00 | PC.NURSE ---
Informed doctor that pt has not been able to wake up enough to do a nurse swallow screen safely, nano stated he will request speech therapist josie
[2025-04-02] MEDS: HEPARIN SOD INJ 5000 UNIT/ML VIAL 4000 UNIT IV (17:02)
[2025-04-02] MEDS: DOXYCYCLINE INJ 100 MG in SODIUM CHLORIDE 0.9% (POP) 100 ML IV (20:51)
[2025-04-03] VITALS: BP 121/66; PULSE 77; PULSE 80; RESP 20; TEMP 36.1; O2SAT 96
[2025-04-03 00:05] LABS: Partial Thromboplastin Time 61.4 Seconds (22.0-36.0)
[2025-04-03 04:00] VITALS: BP 108/65; PULSE 76; RESP 20; TEMP 36.1; O2SAT 97
[2025-04-03] MEDS: LEVOTHYROXINE SODIUM 225 MCG PO (05:42)
[2025-04-03 07:34] LABS: Partial Thromboplastin Time 46.1 Seconds (22.0-36.0)
[2025-04-03 07:44] VITALS: BP 132/78; PULSE 83; RESP 20; TEMP 36.1; O2SAT 99
[2025-04-03 07:46] LABS: Procalcitonin 0.24 ng/ml (0.0-0.49)
[2025-04-03 08:00] VITALS: PULSE 81
[2025-04-03 08:09] LABS: Basophils # (Auto) 0.1 Thou/mm3 (0.0-0.2); Basophils % (Auto) 1 % (0-2.5); Eosinophils # (Auto) 0.9 Thou/mm3 (0.0-0.5); Eosinophils % (Auto) 10 % (0-10); Hematocrit 35.0 % (41.0-53.0); Hemoglobin 11.6 g/dL (13.5-16.0); Immature Granulocytes Auto 0.07 Thou/mm3 (0.00-0.00); Lymphocytes # (Auto) 1.7 Thou/mm3 (1.0-4.8); Lymphocytes % (Auto) 19 % (10-50); Mean Corpuscular HGB Conc 33.1 g/dl (31.0-37.0); Mean Corpuscular Hemoglobin 30.5 pg (25.0-35.0); Mean Corpuscular Volume 92 fL (80-100); Monocytes # (Auto) 0.9 Thou/mm3 (0.0-0.8); Monocytes % (Auto) 10 % (0-12); Neutrophils # (Auto) 5.2 Thou/mm3 (1.8-7.7); Neutrophils % (Auto) 59 % (37-80); Nucleated Red Blood Cell # 0.00 Thou/mm3 (0.00-0.00); Nucleated Red Blood Cell % 0 /100 WBC (0); Platelet Count 239 Thou/mm3 (140-440); RDW Standard Deviation 44.3 fL (35.1-43.9); Red Blood Count 3.80 Miln/mm3 (4.50-5.90); White Blood Count 8.8 Thou/mm3 (3.8-10.6)
[2025-04-03 08:14] LABS: Alanine Aminotransferase 27 U/L (10-49); Albumin, Serum 3.9 gm/dL (3.4-4.8); Albumin/Globulin Ratio 1.9 (1.2-2.2); Alkaline Phosphatase 51 U/L (46-116); Anion Gap 9 (7-16); Aspartate Amino Transferase 26 U/L (0-34); BUN/Creatinine Ratio 9 Ratio (12-20); Bilirubin,Total 0.4 mg/dL (0.3-1.2); Blood Urea Nitrogen 25 mg/dL (9-23); Calcium 9.2 mg/dL (8.3-10.6); Calcium (Corrected) 9.3 mg/dL (8.5-10.1); Carbon Dioxide 29.2 mMol/L (20.0-31.0); Chloride 100 mMol/L (98-107); Creatinine (Component) 2.8 mg/dL (0.6-1.3); Estimated Creatinine Clearance 32.1 mL/min (>60); Globulin 2.1 gm/dL (2.3-3.5); Glucose 114 mg/dL (74-106); Magnesium 2.4 mg/dL (1.6-2.6); Osmolality,Calculated 281 (275-295); Potassium 3.9 mMol/L (3.4-5.1); Sodium 138 mMol/L (136-145); Total Protein 6.0 gm/dL (5.7-8.2); eGFR 22 See Note
[2025-04-03 08:40] VITALS: BP 132/78; PULSE 85
[2025-04-03] MEDS: FUROSEMIDE INJ 10 MG/ML VIAL 2 ML 20 MG IVP (08:40)
[2025-04-03] MEDS: DOXYCYCLINE INJ 100 MG in SODIUM CHLORIDE 0.9% (POP) 100 ML IV (08:59)
[2025-04-03] MEDS: POLYETHYLENE GLYCOL 17 GM PACKET 34 GM PO (09:04)
[2025-04-03] MEDS: cefTRIAXone/D5w 1gm IV premix 1 GM/50 ML BAG IV (09:05)
[2025-04-03] MEDS: SENNA/DOCUSATE SOD 1 TAB TABLET PO (09:10)
[2025-04-03] MEDS: HEPARIN SOD INJ 5000 UNIT/ML VIAL 2000 UNIT IV (10:45)
--- NOTE | 2025-04-03 11:25 | PC.SS ---
Patient is a 79 year old male presenting to the hospital for AMS. ASW Placed phone call to patient?s . ASW introduced self, role, and reason for visit. Patient?s Cecily confirmed patient?s demographic information and stated that patient lives at home with her, patient does not have home oxygen, patient uses electric scooter/chair, and is unable to ambulate. Patient is usually transported by van. Patient?s stated that his PCP is Dr. Banda, his last appointment was February 16. Patient was previously aligned with [facility] and they would like to continue with [facility], patients inquired about hospice services with [place]. ASW informed patient that she was made aware by doctors about HH not hospice. Patient?s stated that she is alternate decision maker and her contact number is [phone]. Once medical clear patient would like to return home. D/c: [facility] Decision maker: Cecily Lawson PH:[phone] PCP: Dr. Hubbard
[2025-04-03 12:00] VITALS: BP 124/77; PULSE 76; PULSE 79; RESP 20; TEMP 36.1; O2SAT 96
--- NOTE | 2025-04-03 13:18 | PC.SS ---
ASW Kassandra spoke to [facility] doctors and informed them patients had questions about hospice, [facility] doctors stated that they spoke to patient and patient at bedside and they are agreeable to d/c with HH only. ASW spoke to patient at bedside and patient was agreeable to d/c with HH, patient stated they will need transportation, patients stated that due to his limited mobility he will need gurney transport. ASW contacted [facility], no available gurney transport for today. ASW scheduled transportation with [facility], ETA is 14:00. ASW informed bedside nurse and patient .
--- NOTE | 2025-04-03 14:11 | ESDS_ITS ---
<Statement entered by Shae Borges DO - 04/03/25 16:01> I, Shae Borges DO, attest that I was physically present for the almanza portions of the service and evaluated the patient with the resident and I reviewed and discussed the case with the resident and agree with the resident's findings and plans of care as documented above <Statement entered by John Reeves MD - 04/03/25 15:28> Patient seen and examined at bedside. I discussed and supervised with the record label internship physician who took care of this patient. I personally saw and examined the patient. I agree with most of the assessment and plan. Plan of care discussed with attending Dr. Borges. John Reeves MD PGY-2 Planned Discharge Date 04/03/25 DS: Providers Provider Date of admission: 04/02/25 08:47 Primary care physician: Lazaro Banda MD Admitting Provider: Shae Borges DO Attending Provider on Admission: Shae Borges DO Consults: 04/02/25 14:22 Referral Speech Therapy Routine Comment: 04/03/25 08:00 Referral Wound Care Urgent Comment: BUTTOCKS [facility] COCCYX. Attending Provider on DC: Shae Borges DO Discharging Provider: Chela Charles MD DS: Diagnosis Problem List Completed Was Problem List Reviewed/Reconciled?: Yes Hospital Course Hospital Course Hospital course: 76-year-old male past medical history of A-fib on Eliquis, HFrEF EF 35-40%, hypertension, hyperlipidemia, hypothyroidism, chronic urinary retention requiring straight cath multiple times a day, obesity, COPD/asthma, recurrent UTIs, chronic back pain, bedbound with decubitus ulcer and history of DVT, BIBA presents with altered mental status.? Admitted for opiate overdose evidence on somnolence, pinpoint pupils, negative stroke workup.? In ED, U tox was positive for opioids. Head CT negative. EKG showed QTc 516. In hospital, patient's mentation improved back to baseline. Changes were made for home medication to prevent medication overdose due to poor renal function. Patient is stable and medically clear for discharge. Changes to home medication were made as below. Return precaution given. #Acute encephalopathy, toxic versus metabolic #HFrEF, EF 35 to 40%, systolic heart failure, chronic heart failure #Atrial fibrillation, rate controlled #Chronic urinary retention #History of multiple UTIs #Chronic back pain Instruction: - You were admitted to the hospital for altered mental status which was secondary to polypharmacy likely from your baclofen or oxycodone use as your kidney function is lower and you have CKD - We recommend stopping baclofen, changing oxycodone dose to half tablet 3 times a day as needed, use lidocaine patches as needed. - Continue all your other medications as below - Follow-up with pain management outpatient for other options regarding managing your chronic pain - Follow-up with your infectious disease doctor outpatient regarding your amoxicillin - Follow-up with your Transcript Evaluator outpatient regarding your Lasix and GDMT - Recommend referral for nephrology. - Obtain sleep study outpatient - All other medications as below - Return to emergency department if your symptoms worsen - Follow-up with your primary care physician within 1 week Assessment and plan discussed with my attending physician Dr. Borges and Dr. Reeves (PGY-2). Dr. Charles (PGY-1) ? dental resident Status at Discharge Overall status at discharge: patient is back to baseline Time Spent with Patient Time attestation: Total time spent providing and/or coordinating discharge services: Time spent: Greater than 30 minutes Exam Vital Signs Temp Pulse Resp BP Pulse Ox O2 Del Method O2 Flow Rate 97.0 F 76 20 124/77 96 Room Air 2 04/03/25 12:00 04/03/25 12:00 04/03/25 12:00 04/03/25 12:00 04/03/25 12:00 04/03/25 12:00 04/03/25 07:44 Narrative Exam General: Comfortable in bed, in no acute distress. Conversational and non-toxic appearing. Answers questions appropriately. Recognize and daughter HEENT: Normocephalic, atraumatic, mucous membranes moist. Heart: Irregularly irregular rhythm, no murmurs. Lungs: Clear to auscultation with no wheezing or crackles. Abdomen: Soft, obese, nondistended, nontender, positive bowel sounds. ?No guarding or rebound tenderness. Neurologic: Alert and oriented x3, no gross neurological deficit, and patient able to move all 4 extremities. Extremities: 2+ edema on dependent parts around hips. Skin: No rash or ecchymosis. Discharge Plan Plan Patient Disposition: Home w/HOME HEALTH Patient condition on transfer: Stable Care Plan Goals: - You were admitted to the hospital for altered mental status which was secondary to polypharmacy likely from your baclofen or oxycodone use as your kidney function is lower and you have CKD - We recommend stopping baclofen, changing oxycodone dose to half tablet 3 times a day as needed, use lidocaine patches as needed. - Continue all your other medications as below - Follow-up with pain management outpatient for other options regarding managing your chronic pain - Follow-up with your infectious disease doctor outpatient regarding your amoxicillin - Follow-up with your Transcript Evaluator outpatient regarding your Lasix and GDMT - Recommend referral for nephrology. - Obtain sleep study outpatient - All other medications as below - Return to emergency department if your symptoms worsen - Follow-up with your primary care physician within 1 week Prescriptions/Referrals Prescriptions/Med Rec: New lidocaine [Lidoderm] 5 % Adhesive Patch,Medicated 1 patch top UD PRN (Reason: Back Pain) 30 Days Qty: 30 0RF Continued aspirin 81 mg Tablet,Chewable 81 mg PO QDAY finasteride 5 mg Tablet 5 mg PO QDAY multivitamin [Multiple Vitamins] Tablet 1 tab PO QDAY pravastatin 40 mg Tablet 40 mg PO DAILY potassium chloride 10 mEq Tablet Extended Release 10 meq PO BID pregabalin 150 mg Capsule 150 mg PO BID cyanocobalamin (vitamin B-12) [Vitamin B-12] 500 mcg Tablet 500 mcg PO QDAY pyridoxine (vitamin B6) 100 mg Tablet 100 mg PO DAILY albuterol sulfate 90 mcg/actuation Hfa Aerosol Inhaler 2 puff INHALATION Q4H PRN (Reason: sob) fluticasone propionate 50 mcg/actuation spray,suspension 2 spray INTRANASAL QAM PreserVision AREDS-2 [id number] Capsule 1 cap PO BID folic acid 1 mg tablet 25 mg PO QDAY Patient Comments: TAKE 1 TABLET BY MOUTH FIVE TIMES A DAY Rx Instructions: per [facility] fexofenadine [Emily Allergy] 60 mg tablet 60 mg PO Q12H calcium carbonate-vitamin D3 [Calcium 600 + D(3)] 600 mg-5 mcg (200 unit) capsule 1 cap PO BID Patient Comments: not sure on the dose amiodarone 200 mg tablet 200 mg PO BID 30 Days Qty: 60 2RF furosemide [Lasix] 20 mg tablet 20 mg PO QAM 30 Days Qty: 30 0RF levothyroxine 200 mcg Tablet 225 mcg PO QDAY Qty: 30 0RF sennosides [Senna Laxative] 8.6 mg tablet 8.6 mg PO BID Qty: 30 1RF polyethylene glycol 3350 [Miralax] 17 gram/dose powder 4 g PO QDAY Qty: 238 2RF midodrine 10 mg tablet 10 mg PO TID PRN (Reason: If SBP <110) Qty: 30 2RF Rx Instructions: do not give last dose of day after 6PM or within 4 hrs of bedtime lactulose 10 gram/15 mL solution 30 g PO TID Qty: 3000 1RF Eliquis 5 mg tablet 5 mg PO BID Changed oxycodone-acetaminophen 10-325 mg Tablet 0.5 tab PO TID PRN (Reason: Pain) Qty: 30 0RF Discontinued baclofen 20 mg Tablet 20 mg PO TID PRN (Reason: Spasms) Eliquis 2.5 mg Tablet 5 mg PO BID Referrals: Bakari Salazar MD [Physician, Cardiology] Lazaro Banda MD [Primary Care Provider, Family Practice] Patient/Caregiver Discharge Instructions Discharge Activity: activity as tolerated Education Materials: CKD Dc, Opioid Use Risks Print Language: [place] Stand Alone Forms: Minda Award Info., Patient Portal Info Letter Discharge Order Discharge Orders: Discharge (Routine); Ordered 04/03/25 Ordered By: Juan José Hirsch Quality Discharge Quality Measures VTE prophylaxis
[2025-04-03 20:09] LABS: Folate > 24.00 ng/mL (>5.38); Vitamin B12 1491 pg/mL (211-911)
--- NOTE | 2025-04-04 07:58 | PC.CC ---
HH ref sent to [facility] for DEANDRE, waiting for response
== END 2025-04-03 14:10 | disposition home health service (06) ==
LOC: SERX 08:27 → SERHOLD 09:06 → S3SX 10:36
PROVIDERS: Admitting Provider Internal Medicine; Emergency Provider Emergency Medicine; PCP Family Medicine; Visit Provider Internal Medicine
DX: G93.40 Encephalopathy, unspecified (principal); I50.22 Chronic systolic (congestive) heart failure; R33.9 Retention of urine, unspecified; Z87.440 Personal history of urinary (tract) infections; G89.29 Other chronic pain; M54.9 Dorsalgia, unspecified; I48.20 Chronic atrial fibrillation, unspecified; Z66 Do not resuscitate; E03.9 Hypothyroidism, unspecified; I11.0 Hypertensive heart disease with heart failure; E78.5 Hyperlipidemia, unspecified
CPT/HCPCS: 36415; 36600; 51702; 70450; 71045; 80053; 80307; 80320; 81001; 82140; 82607; 82746; 82803; 83735; 84145; 84439; 84443; 84484; 85025; 85610; 85730; 94762; 96365; 96366; 96374; 96375; 96376; 99283; A4314; G0378; J0696; J1644; J1938; J2470; J3490; A9270; G0480

== ENCOUNTER 2025-04-04 11:42 | Emergency (ER) | payer MEDICARE, SELFPAY ==
--- NOTE | 2025-04-04 11:45 | XR_ITS ---
EXAMINATION: AP chest single view TECHNIQUE: AP portable sitting chest single view Date and time: April 04, 2025, 11:57 a.m. INDICATIONS: Low O2 saturation today. FINDINGS: Minor subsegmental atelectasis left base. Normal heart size No pneumonia or pulmonary edema. Mild osteopenia IMPRESSION: Minor subsegmental atelectasis left base
[2025-04-04 11:46] VITALS: O2SAT 94
--- NOTE | 2025-04-04 11:46 | PD.EDADULT ---
ED General RME/HPI General Stated complaint: low o2 Time Seen by Provider: 04/04/25 11:45 Arrival date/time: 04/04/25 11:42 CC: Low oxygen saturation HPI patient presents to the ER via EMS after family members reported low oxygen's after saturation after a bath. The patient denies any shortness of breath difficulty breathing. EMS reports sats of 94% upon arrival and consistent at that level or higher without oxygen during transport patient is awake alert oriented no specific complaints denies cough shortness of breath difficulty breathing fever nausea or vomiting. Related Data Home Medications ?Medication ?Instructions ?Recorded ?Confirmed aspirin 81 mg chewable tablet 81 mg PO QDAY 12/25/19 04/02/25 cyanocobalamin (vitamin B-12) 500 500 mcg PO QDAY 12/25/19 04/02/25 mcg tablet (Vitamin B-12) finasteride 5 mg tablet 5 mg PO QDAY 12/25/19 04/02/25 multivitamin (Multiple Vitamins 1 tab PO QDAY 12/25/19 04/02/25 tablet) potassium chloride 10 mEq 10 meq PO BID 12/25/19 04/02/25 tablet,extended release pravastatin 40 mg tablet 40 mg PO DAILY 12/25/19 04/02/25 pregabalin 150 mg capsule 150 mg PO BID 12/25/19 04/02/25 pyridoxine (vitamin B6) 100 mg 100 mg PO DAILY 12/25/19 04/02/25 tablet albuterol sulfate 90 mcg/actuation 2 puff inhalation Q4H PRN sob 12/27/19 04/02/25 aerosol inhaler fluticasone propionate 50 2 spray intranasal QAM 12/27/19 04/02/25 mcg/actuation nasal spray,suspension folic acid 1 mg tablet 25 mg PO QDAY 12/27/19 04/02/25 vit C 250 mg-vit E 90 mg-zinc 40 1 cap PO BID 12/27/19 04/02/25 mg-copper 1 [id number] capsule (PreserVision AREDS-2) calcium 600 mg (as 1 cap PO BID 03/05/25 04/02/25 carbonate)-vitamin D3 5 mcg (200 unit) capsule (Calcium 600 + D(3)) fexofenadine 60 mg tablet (Emily 60 mg PO Q12H 03/05/25 04/02/25 Allergy) apixaban 5 mg tablet (Eliquis) 5 mg PO BID 04/02/25 04/02/25 Previous Rx's ?Medication ?Instructions ?Recorded amiodarone 200 mg tablet 200 mg PO BID 1 month #60 tabs 03/08/25 furosemide 20 mg tablet (Lasix) 20 mg PO QAM 30 days #30 tabs 03/25/25 lactulose 10 gram/15 mL oral 30 g (45 mL) PO TID #3,000 mL 03/30/25 solution levothyroxine 200 mcg tablet 225 mcg (1.125 x 200 mcg) PO QDAY 03/30/25 #30 tabs midodrine 10 mg tablet 10 mg PO TID PRN If SBP <110 #30 03/30/25 tabs polyethylene glycol 3350 17 4 g PO QDAY #238 grams 03/30/25 gram/dose oral powder (Miralax) sennosides 8.6 mg tablet (Senna 8.6 mg PO BID #30 tabs 03/30/25 Laxative) lidocaine 5 % topical patch 1 patch top UD PRN Back Pain 30 04/03/25 (Lidoderm) days #30 ea oxycodone-acetaminophen 10 mg-325 0.5 tab PO TID PRN Pain #30 tabs 04/03/25 mg tablet Allergies Allergy/AdvReac Type Severity Reaction Status Date / Time latex Allergy Unknown blisters Verified 03/19/25 16:17 Review of Systems Review of Systems Narrative Review of Systems: GEN: No fever, no chills, no weight loss EYES: No discharge, no visual changes, no pain HEENT: No ear pain, no congestion, no sore throat PULM: No shortness of breath, no cough, no congestion CV: No chest pain, no dyspnea on exertion, no palpitations GI: No nausea, no vomiting, no diarrhea, no pain, no constipation : No frequency, no urgency, no dysuria MUSC/SKEL: No joint pain, no back pain SKIN: No rash PSYCH: No hallucinations, no depression HEME/LYMPH: No easy bleeding or bruising tendencies NEURO: No weakness, no headache Past Medical History Past Medical History NEUROLOGIC: Negative Neurological Disorders, Cerebrovascular Accident, Transient Ischemic Attacks (TIA), Dementia, Alzheimer's Disease, Parkinson's Disease, Brain Tumor, Meningitis, Seizures, Epilepsy, Multiple Sclerosis, Cerebral Palsy, Amyotrophic Lateral Sclerosis (ALS/Lara Gehrig's), Guillain-Mendon Syndrome, Spina Bifida, Paralysis, Peripheral Neuropathy, Blank's Palsy, Subdural Hematoma, Migraine, Head Trauma, Spinal Cord Injury or Traumatic Brain Injury CARDIAC: Positive Cardiac Disorders, Cardiac Arrhythmia, Atrial Fibrillation, Hypercholesterolemia, Congestive Heart Failure, Edema and Hypertension; Negative Myocardial Infarction, Angina, Heart Murmur, Coronary Artery Disease, Atherosclerotic Heart Disease, Peripheral Vascular Disease, Aneurysm, Congenital Heart Disease, Valvular Heart Disease, Rheumatic Fever, Cardiomyopathy, Pericarditis, Cellulitis, Deep Vein Thrombosis, Hypotension or Varicose Veins RESPIRATORY: Positive Chronic Obstructive Pulmonary Disease (COPD), Asthma and Sleep Apnea; Negative Bronchitis, Emphysema, Pneumonia, Pulmonary Fibrosis, Cystic Fibrosis, Tuberculosis, Pulmonary Embolism or Pulmonary Edema GASTROINTESTINAL: Positive Hemorrhoids and Obesity; Negative Gastrointestinal Disorders, Hepatitis, Cirrhosis, Pancreatitis, Celiac Disease, Gall Bladder Disease, Gastrointestinal Bleed, Esophageal Varices, Snell's Esophagus, Colitis, Ulcerative Colitis, Diverticulitis, Diverticulosis, Ulcer, Colorectal Cancer, Irritable Bowel, Crohn's Disease, Obstructive Bowel, Hiatal Hernia or Gastroesophageal Reflux Disease GENITOURINARY: Positive Genitourinary Disorders and Inguinal Hernia; Negative Renal Disease, Kidney Stones, Polycystic Kidney Disease, Neurogenic Bladder, Dialysis, Prostate Cancer or Benign Prostatic Hyperplasia REPRODUCTIVE: Negative Breast Cancer, Genital Herpes, Gonorrhea, Syphilis or Testicular Cancer MUSCULOSKELETAL: Positive Musculoskeletal Disorders and Arthritis; Negative Muscular Dystrophy, Myasthenia Gravis, Marfan's Syndrome, Bone Cancer, Rheumatoid Arthritis, Osteoporosis, Degenerative Disk Disease, Gout, Scoliosis, Carpal Tunnel Syndrome, Fibromyalgia, Fractures, Degenerative Joint Disease, Osteomyelitis or Poliovirus ENT: Positive Cataracts and Macular Degeneration; Negative Glaucoma, Blind, Retinal Detachment, Ear Infection, Deafness, Head Trauma or Eye Prosthesis ENDOCRINE: Positive Endocrine Disorders, Diabetes Mellitus Type 2, Hypoglycemia and Hypothyroidism; Negative Diabetes Mellitus Type 1, Tosin's Syndrome, Macomb's Disease, Hyperthyroidism, Parathyroid Disease, Pituitary Disease, Systemic Lupus Erythematosus, Syndrome of Inappropriate Antidiuretic Hormone (SIADH), Adrenal Disease or Graves' Disease HEMATOLOGIC: Negative Blood Disorders, Anemia, Leukemia, Hemophilia, Thalassemia, Sickle Cell Disease or Clotting Problems PSYCHO/SOCIAL: Positive Post Traumatic Stress Disorder; Negative Psychiatric Problems, Schizophrenia, Recreational Drug Use, Bipolar Disorder, Depression, Anxiety, Behavior Problems, Self-Mutilation, Attention Deficit Disorder, Attention Deficit Hyperactivity Disorder, Depression or Eating Disorder OTHER HISTORY: Positive Hospitalization, Falls, Chicken Pox and Measles; Negative Autoimmune Disease, Down Syndrome, Autism, Developmental Delay, Shingles, Blood Transfusions, Blood Transfusion Reaction, Anesthesia Reactions, Organ Transplant, Chemotherapy, Radiation Therapy, Hyperbaric Therapy, MRSA, Vancomycin-Resistant Enterococci, Human Immunodeficiency Virus (HIV), Mumps, Rubella (Turkish Measles), Pertussis, Clostridium Difficile, Cancer, Breast Cancer, Colorectal Cancer, Lung Cancer, Prostate Cancer or Testicular Cancer Family History FAMILY HISTORY: Positive Family Cardiac Disorders, Family Cancer and Family Surgery; Negative Family Psychiatric Problems, Family Respiratory Disorders, Family Gastrointestinal Problems or Family Anesthesia Reaction Surgical History SURGICAL: Positive Joint Replacement and Open Reduction Internal Fixation; Negative Cardiac Surgery, Open Heart Surgery, Coronary Artery Bypass Graft, Valve Replacement, Vascular Surgery, Coronary Stent, Cardiac Catheterization, Pacemaker, Angiogram, Auto Implanted Cardiovert Defib, Carotid Endarterectomy, Endocrine Surgery, Thyroidectomy, Ear Surgery, Tympanostomy Tube, Eye Surgery, Nose Surgery, Oral Surgery, Tonsillectomy, Adenoidectomy, Cochlear Implant, Corneal Transplant, Throat Surgery, Abdominal Surgery, Tracheostomy, Gastric Bypass Surgery, Gastrostomy, Bowel Surgery, Nephrectomy, Transurethral Resection, Amputation, Arthroscopy, Neurologic Surgery, Brain Shunt, Vasectomy or Organ Transplant Social History SMOKING STATUS: Former smoker SECOND HAND EXPOSURE: No SUBSTANCE USE: does not use ED Exam Narrative Physical exam: [General: Obese not in any acute distress Head normocephalic HEENT: Within acceptable limits Neck is supple nontender Chest equal chest rise nontender to palpation Respiratory: Clear to auscultation no wheezes crackles or rubs, no tachypnea CV: Rate rhythm is regular no murmurs rubs or clicks Abdomen is distended secondary to body habitus soft nontender no masses positive bowel sounds all 4 quadrants Back: No CVA tenderness no spinous process tenderness from cervical spine thoracic and lumbar spine Skin: Intact no petechiae rash induration ulceration or crepitus Extremities: Moving all extremity against resistance cap refill less than 2 seconds neurosensory intact Neuro: Awake alert oriented x3 Glascow coma 15 no focal deficits] Course Course Course Narrative: Patient has been monitored for the last hour, oxygen saturations remain remained between 95 and 97% on room air no indication of aspiration or hypoxia will discharge the patient home. Quality Measures none Orders Category Date Time Status XR chest 1V Stat Exams 04/04/25 11:45 Completed Vital Signs Vital signs: Vital Signs Temperature 97.7 F 04/04/25 11:47 Pulse Rate 100 04/04/25 11:47 Respiratory Rate 18 04/04/25 11:47 Blood Pressure 136/79 H 04/04/25 11:47 Pulse Oximetry (%) 92 L 04/04/25 11:47 Oxygen Delivery Method Room Air 04/04/25 11:47 Discharge Plan Plan Patient Disposition: HOME (Self Care) Patient condition on transfer: Stable Prescriptions/Referrals Prescriptions/Med Rec: No Action aspirin 81 mg Tablet,Chewable 81 mg PO QDAY finasteride 5 mg Tablet 5 mg PO QDAY multivitamin [Multiple Vitamins] Tablet 1 tab PO QDAY pravastatin 40 mg Tablet 40 mg PO DAILY potassium chloride 10 mEq Tablet Extended Release 10 meq PO BID pregabalin 150 mg Capsule 150 mg PO BID cyanocobalamin (vitamin B-12) [Vitamin B-12] 500 mcg Tablet 500 mcg PO QDAY pyridoxine (vitamin B6) 100 mg Tablet 100 mg PO DAILY albuterol sulfate 90 mcg/actuation Hfa Aerosol Inhaler 2 puff INHALATION Q4H PRN (Reason: sob) fluticasone propionate 50 mcg/actuation spray,suspension 2 spray INTRANASAL QAM PreserVision AREDS-2 [id number]-mg Capsule 1 cap PO BID folic acid 1 mg tablet 25 mg PO QDAY Patient Comments: TAKE 1 TABLET BY MOUTH FIVE TIMES A DAY Rx Instructions: per [facility] fexofenadine [Emily Allergy] 60 mg tablet 60 mg PO Q12H calcium carbonate-vitamin D3 [Calcium 600 + D(3)] 600 mg-5 mcg (200 unit) capsule 1 cap PO BID Patient Comments: not sure on the dose amiodarone 200 mg tablet 200 mg PO BID 30 Days Qty: 60 2RF furosemide [Lasix] 20 mg tablet 20 mg PO QAM 30 Days Qty: 30 0RF levothyroxine 200 mcg Tablet 225 mcg PO QDAY Qty: 30 0RF sennosides [Senna Laxative] 8.6 mg tablet 8.6 mg PO BID Qty: 30 1RF polyethylene glycol 3350 [Miralax] 17 gram/dose powder 4 g PO QDAY Qty: 238 2RF midodrine 10 mg tablet 10 mg PO TID PRN (Reason: If SBP <110) Qty: 30 2RF Rx Instructions: do not give last dose of day after 6PM or within 4 hrs of bedtime lactulose 10 gram/15 mL solution 30 g PO TID Qty: 3000 1RF Eliquis 5 mg tablet 5 mg PO BID lidocaine [Lidoderm] 5 % Adhesive Patch,Medicated 1 patch top UD PRN (Reason: Back Pain) 30 Days Qty: 30 0RF oxycodone-acetaminophen 10-325 mg Tablet 0.5 tab PO TID PRN (Reason: Pain) Qty: 30 0RF Problem List Clinical Impression: Hypoxia Patient/Caregiver Discharge Instructions Print Language: American Stand Alone Forms: Minda Award Info., Patient Portal Info Letter PA/OBSTETRICAL ANESTHESIOLOGIST Supervising Physician PA/OBSTETRICAL ANESTHESIOLOGIST Supervising Physician: Dick Sharma ENP [facility] Clinical Information Provided by: patient and EMS Medical Records reviewed [facility] and EMS Meds/Rx considered, not ordered None Labs/Rad/Tests considered, not ordered None Chronic Illness/Social Conditions Explain: Patient was just discharged from this facility for altered mental status which was determined to be an opioid overdose. Past medical history includes A-fib on Eliquis EF of 35 to 40% hypertension hyperlipidemia hypothyroidism chronic urinary retention obesity COPD recurrent UTIs chronic back down bedbound with decubitus ulcer. History of DVT EKG EKG not done Labs Labs: none Imaging Imaging interpretation: interpreted by me Imaging Interpretation(s): Chest x-ray is negative for any acute finding
[2025-04-04 11:47] VITALS: BP 136/79; PULSE 100; RESP 18; TEMP 36.5; O2SAT 92
[2025-04-04 12:12] VITALS: BP 131/77; RESP 16; TEMP 36.9; O2SAT 94
[2025-04-04 14:10] VITALS: BP 101/60; PULSE 86; RESP 16; TEMP 37; O2SAT 97
--- NOTE | 2025-04-04 14:21 | PC.CC ---
Addendum entered by Mayi Meade 04/04/25 14:57: 1457-[facility] called back and reported they will p/u pt at 1900 Original Note: 1400-ASW arranged transportation for pt via [facility] [phone] for gurney transport. Pts weight is 311 pounds and height is 6'0 as per pt. ASW gathered this information from Charge Laurie as [facility] transport is requesting this information for proper transportation purposes. [facility] will call spacecraft systems engineer with a time for p/u. At this time there is no p/u eta and [facility] will call back with a p/u ETA.
[2025-04-04 16:54] VITALS: BP 138/80; PULSE 83; RESP 18; TEMP 36.9; O2SAT 95
== END 2025-04-04 18:38 | disposition home or self-care (01) ==
LOC: SERX 14:01
PROVIDERS: Emergency Provider Emergency Medicine; PCP Family Medicine
DX: R09.02 Hypoxemia (principal); I45.10 Unspecified right bundle-branch block; I44.4 Left anterior fascicular block; I48.91 Unspecified atrial fibrillation; E78.00 Pure hypercholesterolemia, unspecified; I11.0 Hypertensive heart disease with heart failure; I50.9 Heart failure, unspecified; Z79.01 Long term (current) use of anticoagulants; Z87.891 Personal history of nicotine dependence
CPT/HCPCS: 71045; 99282